=== PATIENT | female | born 1985 | race American Indian/Alaskan Native ===

== ENCOUNTER 2020-11-18 03:07 | Inpatient (IN) | payer MEDICARE, OTHER ==
--- NOTE | 2020-11-18 09:08 | Emergency Department Report ---
HPI - General Time Seen by Provider: 11/18/20 09:04 - [facility] HPI: Room 4 The patient is a 60-year-old female present with a chief complaint of dehydration. The patient states she initially came to the emergency department secondary to feeling "really dehydrated" since yesterday. The patient states she has had polyuria and polydipsia for the past week despite being compliant w ith her Lantus. Patient denies nausea vomiting or diarrhea. Patient denied having pain of any type including chest pain pressure or tightness. Patient denies history of cough or fever. While in the waiting room the patient decided to leave without being seen and while waiting for a ride states she felt dizzy and collapsed to the ground. Patient struck the back of her head. Patient was placed in a cervical collar and brought back to an exam room. ED Past Medical Hx - Past Medical History Hx Diabetes: Yes - Surgical History Past Surgical History?: No - Family History Family history: no significant - Social History Smoking Status: Never Smoker Substance Use Type: None ED Review of Systems ROS: Stated complaint: ANXIETY/CHEST PAIN/FALL Other details as noted in HPI Constitutional: denies: fever Eyes: denies: eye pain ENT: denies: throat pain Respiratory: denies: cough Cardiovascular: denies: chest pain Endocrine: increased thirst, increased urine Gastrointestinal: denies: nausea, vomiting, diarrhea Genitourinary: denies: dysuria Musculoskeletal: denies: back pain Neurological: denies: headache Physical Exam - Physical Exam Physical Exam: GENERAL: The patient is well-developed well-nourished female lying on stretcher appearing lethargic but answering questions appropriately. [] HEENT: Normocephalic. Occipital tenderness but no laceration seen. Extraocular motions are intact. Patient has moist mucous membranes. NECK: No axial step-offs. Cervical collar in place CHEST/LUNGS: Clear to auscultation. There is no respiratory distress noted. HEART/CARDIOVASCULAR: Regular. There is tachycardia. There is no gallop rub or murmur. ABDOMEN: Abdomen is soft, nontender. Patient has normal bowel sounds. There is no abdominal distention. SKIN: There is no rash. There is no edema. There is no diaphoresis. NEURO: The patient is awake but lethargic. Patient answers questions and speaks with full sentences but appears very fatigued. The patient is cooperative. The patient has no focal neurologic deficits. The patient has normal speech. GCS 14 MUSCULOSKELETAL: There is no evidence of acute injury. ED Medical Decision Making - Lab Data Result diagrams: 11/18/20 09:30 11/18/20 09:30 Laboratory Tests 11/18/20 11/18/20 11/18/20 09:30 09:30 09:30 WBC 15.4 H RBC 6.17 H Hgb 15.6 H Hct 48.2 H MCV 78 L MCH 25 L MCHC 32 RDW 18.9 H Plt Count 508 H Lymph % (Auto) 3.5 L [place] % (Auto) 6.7 Eos % (Auto) 0.0 Baso % (Auto) 0.3 Lymph # (Auto) 0.5 L [place] # (Auto) 1.0 H Eos # (Auto) 0.0 Baso # (Auto) 0.0 Seg Neutrophils % 89.5 H Seg Neutrophils # 13.8 H PT INR VBG pH Sodium 136 L Potassium 5.5 H Chloride 92.2 L BUN 27 H Creatinine 0.9 Estimated GFR > 60 BUN/Creatinine Ratio 30 Glucose 498 H Calcium 9.7 Total Bilirubin 0.50 AST 15 Alkaline Phosphatase 149 H Troponin T < 0.010 Total Protein 8.1 Albumin 4.1 Albumin/Globulin Ratio 1.0 TSH Free T4 HCG, Qual Negative 11/18/20 11/18/20 11/18/20 09:30 09:30 10:31 WBC RBC Hgb Hct MCV MCH MCHC RDW Plt Count Lymph % (Auto) [place] % (Auto) Eos % (Auto) Baso % (Auto) Lymph # (Auto) [place] # (Auto) Eos # (Auto) Baso # (Auto) Seg Neutrophils % Seg Neutrophils # PT 15.6 H INR 1.19 H VBG pH 7.124 L* Sodium Potassium Chloride BUN Creatinine Estimated GFR BUN/Creatinine Ratio Glucose Calcium Total Bilirubin AST Alkaline Phosphatase Troponin T Total Protein Albumin Albumin/Globulin Ratio TSH 0.864 Free T4 0.98 HCG, Qual - EKG Data -: EKG Interpreted by Mo EKG shows normal: sinus rhythm Rate: tachycardia (143 bpm) - EKG Data When compared to previous EKG there are: previous EKG unavailable Interpretation: other (No ischemic changes seen) - Radiology Data Radiology results: report reviewed (CT head, CT cervical spine, chest x-ray), image reviewed (CT head, CT cervical spine, chest x-ray) interpreted by me: Chest x-ray-no definite focal infiltrates, no pneumothorax. [address] [address] Cat Scan Report Signed Patient: MARISOL ALVARENGA MR#: [id number] : 1985 Acct:[id number] Age/Sex: 35 / F ADM Date: 11/18/20 Loc: ED Attending Dr: Ordering Physician: HUMBERTO MEADE MD Date of Service: 11/18/20 Procedure(s): CT head/brain wo con Accession Number(s): [id number] cc: HUMBERTO MEADE MD CT BRAIN: 11/18/2020 INDICATION / CLINICAL INFORMATION: Pain after fall. COMPARISON: None available. FINDINGS: BRAIN/INTRACRANIAL STRUCTURES: Unenhanced CT images of the brain demonstrate no evidence of acute intracranial abnormality. Ventricles and sulci are in size and shape. There is no evidence of hemorrhage or mass. Chronic appearing white matter hypoattenuation is present in the peritrigonal regions bilaterally. This can be associated with underlying white matter abnormalities such as small vessel ischemic changes or demyelination. There are no abnormal extra-axial fluid collections. EXTRACRANIAL STRUCTURES: Unremarkable. IMPRESSION: No acute abnormality. Chronic appearing white matter hypoattenuation. All CT scans at this location are performed using dose reduction to ALARA by means of automated exposure control. Signer Name: Kobi Frederick MD Signed: 11/18/2020 11:49 AM Workstation Name: [id number] Transcribed By: AO Dictated By: Kobi Frederick MD Electronically Authenticated By: Kobi Frederick MD Signed Date/Time: 11/18/20 1149 DD/ 1144 TD/TT: Print Cancel [address] [address] Cat Scan Report Signed Patient: MARISOL ALVARENGA MR#: [id number] : 1985 Acct:[id number] Age/Sex: 35 / F ADM Date: 11/18/20 Loc: ED Attending Dr: Or sergio Physician: HUMBERTO MEADE MD Date of Service: 11/18/20 Procedure(s): CT cervical spine wo con Accession Number(s): [id number] cc: HUMBERTO MEADE MD CT CERVICAL SPINE: 11/18/2020 INDICATION / CLINICAL INFORMATION: Pain after fall. COMPARISON: None available. FINDINGS: CT images of the cervical spine were obtained. Images are evaluated in the axial, coronal, and sagittal planes. There is no evidence of acute abnormality. Left convex scoliosis of the cervical spine is present. Straightening of cervical lordosis is noted in the sagittal plane. Vertebral body height and alignment is otherwise unremarkable. There is no evidence of canal or foraminal narrowing. CRANIOCERVICAL JUNCTION: Unremarkable. PARASPINAL STRUCTURES: There is abnormal soft tissue air densities present in the deep soft tissue planes of the upper mediastinum and right side of the neck, extending up to the parapharyngeal sp demario. The lower extent of abnormal mediastinal air is not included on this cervical spine imaging. This is of indeterminate source. The visualized pulmonary apices demonstrate no evidence of pneumothorax. IMPRESSION: No evidence of cervical spine fracture. Abnormal deep soft tissue air density, of indeterminate source. All CT scans at this location are performed using dose reduction to ALARA by means of automated exposure control. Signer Name: Kobi Frederick MD Signed: 11/18/2020 12:09 PM Workstation Name: [id number] Transcribed By: AO Dictated By: Kobi Frederick MD Electronically Authenticated By: Kobi Frederick MD Signed Date/Time: 11/18/20 120 DD/ 1206 TD/TT: Print Cancel [facility] [address] [place] [address] XRay Report Signed Patient: FREEDOM ALVARENGA MR#: [id number] : 07/26/1960 Acct:[id number] Age/Sex: 60 / F ADM Date: 11/18/20 Loc: ED Attending Dr: Ordering Physician: ALY GONZALEZ MD Date of Service: 11/18/20 Procedure(s): XR chest 1V ap Accession Number(s): [id number] cc: ALY GONZALEZ MD Fluoro Time In Minutes: CHEST 1 VIEW 11/18/2020 5:32 AM INDICATION / CLINICAL INFORMATION: Chest pain and SOB. Nausea. COMPARISON: None available. FINDINGS: SUPPORT DEVICES: None. HEART / MEDIASTINUM: No significant abnormality. LUNGS / PLEURA: No significant pulmonary or pleural abnormality. No pneumothorax. ADDITIONAL FINDINGS: No significant additional findings. IMPRESSION: 1. No acute findings. Signer Name: Julián Bowman MD Signed: 11/18/2020 5:46 AM Workstation Name: [id number] Transcribed By: DT Dictated By: Jose Bowman MD Electronically Authenticated By: Jose Bowman MD Signed Date/Time: 11/18/20545 DD/ 4 TD/TT: Print Cancel - Differential Diagnosis DKA, dehydration, syncope, closed head injury, cervical fracture Critical care attestation.: If time is entered above; I have spent that time in minutes in the direct care of this critically ill patient, excluding procedure time. ED Disposition Clinical Impression: DKA (diabetic ketoacidosis) Disposition: OP ADMIT IP TO THIS HOSP Is pt being admited?: Yes Does the pt Need Aspirin: No Condition: Fair Instructions: Diabetic Ketoacidosis (ED) Referrals: PRIMARY CARE, [Primary Care Provider] - 3-5 Days Time of Disposition: 12:43 (Hospitalist notified (Dr. Gonzalez))
[2020-11-18] MEDS ORDERED: SODIUM CHLORIDE 0.9% 1000 ML 1,000 ML IV ONE ×4 (10:00→19:44)
[2020-11-18 11:11] LABS: Basophils % (Auto) 0.3 % (0.0-1.8); Hematocrit 48.2 % (30.3-42.9); Hemoglobin 15.6 gm/dl (10.1-14.3); Lymphocytes # (Auto) 0.5 K/mm3 (1.2-5.4); Lymphocytes % (Auto) 3.5 % (13.4-35.0); Mean Corpuscular HGB Conc 32 % (30-34); Mean Corpuscular Volume 78 fl (79-97); Monocytes % (Auto) 6.7 % (0.0-7.3); Platelet Count 508 K/mm3 (140-440); Red Blood Count 6.17 M/mm3 (3.65-5.03); Red Cell Distribution Width 18.9 % (13.2-15.2)
[2020-11-18 11:20] LABS: INR 1.19 (0.87-1.13)
--- NOTE | 2020-11-18 11:55 | Cat Scan Report ---
CT BRAIN: 11/18/2020 INDICATION / CLINICAL INFORMATION: Pain after fall. COMPARISON: None available. FINDINGS: BRAIN/INTRACRANIAL STRUCTURES: Unenhanced CT images of the brain demonstrate no evidence of acute int racranial abnormality. Ventricles and sulci are in size and shape. There is no evidence of hemorrhage or mass. Chronic appearing white matter hypoattenuation is present in the peritrigonal regions bilaterally. Th is can be associated with underlying white matter abnormalities such as small vessel ischemic changes or demyelination. There are no abnormal extra-axial fluid collections. EXTRACRANIAL STRUCTURES: Unremarkable. IMPRESSION: No acute abnormality. Chronic appearing white matter hypoattenuation. All CT scans at this location are performed using dose reduction to ALARA by means of automated expos ure control. Signer Name: Kobi Frederick MD Signed: 11/18/2020 11:49 AM Workstation Name: [id number]
--- NOTE | 2020-11-18 12:13 | Cat Scan Report ---
CT CERVICAL SPINE: 11/18/2020 INDICATION / CLINICAL INFORMATION: Pain after fall. COMPARISON: None available. FINDINGS: CT images of the cervical spine were obtained. Images are evaluated in the axial, coronal, and sagitt al planes. There is no evidence of acute abnormality. Left convex scoliosis of the cervical spine is present. Straightening of cervical lordosis is noted i n the sagittal plane. Vertebral body height and alignment is otherwise unremarkable. There is no evidence of canal or foraminal narrowing. CRANIOCERVICAL JUNCTION: Unremarkable. PARASPINAL STRUCTURES: There is abnormal soft tissue air densities present in the deep soft tissue pl anes of the upper mediastinum and right side of the neck, extending up to the parapharyngeal space. T he lower extent of abnormal mediastinal air is not included on this cervical spine imaging. This is o f indeterminate source. The visualized pulmonary apices demonstrate no evidence of pneumothorax. IMPRESSION: No evidence of cervical spine fracture. Abnormal deep soft tissue air density, of indeterminate source. All CT scans at this location are performed using dose reduction to ALARA by means of automated expos ure control. Signer Name: Kobi Frederick MD Signed: 11/18/2020 12:09 PM Workstation Name: [id number]
[2020-11-18 12:32] LABS: Albumin 4.1 g/dL (3.9-5); BUN/Creatinine Ratio 30; Blood Urea Nitrogen 27 mg/dL (7-17); Calcium 9.7 mg/dL (8.4-10.2); Free T4 (Free Thyroxine) 0.98 ng/dL (0.76-1.46); Hemolysis Index 14
[2020-11-18] MEDS ORDERED: SODIUM BICARB 8.4% 50 MEQ/50 ML SYRINGE IV SCH (13:00)
[2020-11-18] MEDS ORDERED: INSULIN REGULAR, HUMAN 100 UNITS/1 ML IV SCH (13:00)
[2020-11-18] MEDS ORDERED: SODIUM CHLORIDE 0.9% 1000 ML 2,000 ML IV ONE (13:00)
[2020-11-18] MEDS ORDERED: INSULIN REGULAR, HUMAN 100 UNITS in SODIUM CHLORIDE 0.9% 99 ML IV SCH ×2 (13:00→16:00)
[2020-11-18 13:27] LABS: Alanine Aminotransferase 5 units/L (7-56)
[2020-11-18 14:28] LABS: BUN/Creatinine Ratio 33; Blood Urea Nitrogen 30 mg/dL (7-17); Calcium 9.4 mg/dL (8.4-10.2); Hemolysis Index 56
[2020-11-18 15:28] LABS: BUN/Creatinine Ratio 33; Blood Urea Nitrogen 33 mg/dL (7-17); Hemolysis Index 66
[2020-11-18] MEDS ORDERED: ALBUTEROL 2.5 MG/3 ML NEBU IH PRN (15:45)
[2020-11-18] MEDS ORDERED: oxyCODONE /ACETAMINOPHEN 5-325MG TAB PO PRN (15:45)
[2020-11-18] MEDS ORDERED: ONDANSETRON 4 MG/2 ML INJ IV PRN (15:45)
[2020-11-18] MEDS ORDERED: ACETAMINOPHEN 325 MG TAB PO PRN (15:45)
--- NOTE | 2020-11-18 15:47 | Cat Scan Report ---
CTA CHEST WITH IV CONTRAST INDICATION: mediastinal air. TECHNIQUE: Axial CT images were obtained through the chest after injection of 100 mL Omnipaque 350 IV contrast. 3 plane MIP reconstructions were produced. All CT scans at this location are performed using CT dose reduction for ALARA by means of automated exposure control. COMPARISON: None available. FINDINGS: Pulmonary Arteries: No pulmonary emboli. Lungs: There are patchy bilateral groundglass opacities in both lungs. There is no pneumothorax. Trachea and Bronchi: No significant abnormality. Heart and Pericardium: No significant abnormality. Vasculature: No significant abnormality. Lymphatics: No lymphadenopathy. Additional Findings: There is moderate pneumomediastinum. Upper Abdomen: No acute findings. Skeletal Structures: No acute findings or aggressive bone lesions. IMPRESSION: 1. No CT evidence for pulmonary embolism. 2. Moderate pneumomediastinum is present. 3. Patchy groundglass opacities in both lungs that may reflect multifocal pneumonia. Signer Name: Selvin Tao MD Signed: 11/18/2020 3:23 PM Workstation Name: [id number]
--- NOTE | 2020-11-18 15:48 | History and Physical Report ---
History of Present Illness Chief complaint: I feel sick History of present illness: 35 YO Female with DM presented to ED for evaluation. Patient reports "I feel sick". Patient states that she has experienced generalized weakness, nausea, fatigue, polyuria, polydipsia over the past 1 week with worsening symptoms over the past 3 days. EMS notified and upon arrival the patient was found to be in distress and subsequently transported to [facility] for further care and evaluation of the aforementioned symptoms. The patient was seen and evaluated in the emergency department. All lab and imaging studies reviewed. Patient found to have DKA, metabolic encephalopathy, volume depletion, and metabolic acidosis. The patient was admitted to ICU and initiated on DKA protocol. Patient denies fever, chills, chest pain, palpitation, productive cough, skin rash, recent ill contacts, or known exposure to COVID-19. No prior admission for review. No medication listed at time of admission reconciliation. Critical care team consulted in ED. Past History Past Medical History: diabetes Past Surgical History: No surgical history, Other (Reviewed) Social history: single. denies: smoking, alcohol abuse Family history: diabetes, hypertension Medications and Allergies Allergies Allergy/AdvReac Type Severity Reaction Status Date / Time No Known Allergies Allergy Unverified 11/18/20 12:45 Active Meds: Active Medications Acetaminophen (Acetaminophen 325 Mg Tab) 650 mg PO Q6H PRN PRN Reason: Pain MILD(1-3)/Fever >100.5/STUART Albuterol (Albuterol 2.5 Mg/3 Ml Nebu) 2.5 mg IH Q3HRT PRN PRN Reason: Shortness Of Breath Hydromorphone HCl (Hydromorphone 1 Mg/1 Ml Inj) 0.5 mg IV Q12H PRN PRN Reason: Pain , Severe (7-10) Insulin Human Regular 100 (units/ Sodium Chloride) 100 mls @ 6 mls/hr IV TITR EMMA; Protocol Insulin Human Regular 100 (units/ Sodium Chloride) 100 mls @ 1 mls/hr IV TITR EMMA; Protocol Ondansetron HCl (Ondansetron 4 Mg/2 Ml Inj) 4 mg IV Q8H PRN PRN Reason: Nausea And Vomiting Oxycodone/Acetaminophen (Oxycodone /Acetaminophen 5-325mg Tab) 1 tab PO Q12H PRN PRN Reason: Pain, Moderate (4-6) Sodium Chloride (Sodium Chloride 0.9% 10 Ml Flush Syringe) 10 ml IV BID EMMA Sodium Chloride (Sodium Chloride 0.9% 10 Ml Flush Syringe) 10 ml IV PRN PRN PRN Reason: LINE FLUSH Review of Systems Constitutional: no weight loss, no weight gain, no fever, no chills Ears, nose, mouth and throat: no ear pain, no tinnitis, no decreased hearing, no nose pain Breasts: no change in shape, no swelling, no mass Cardiovascular: no chest pain, no orthopnea, no rapid/irregular heart beat, no edema, no lightheadedness Respiratory: no cough, no excessive sputum, no hemoptysis, no shortness of breath Gastrointestinal: nausea, no abdominal pain, no vomiting, no diarrhea, no constipation Genitourinary Female: no pelvic pain, no flank pain, no dysuria, no urinary frequency, no urgency Rectal: no pain, no incontinence, no bleeding Musculoskeletal: no neck stiffness, no neck pain, no shooting arm pain, no arm numbness/tingling Integumentary: no rash, no redness, no sores, no wounds Neurological: no head injury, no weakness, no numbness, no tingling, no tremors Psychiatric: no anxiety, no memory loss, no insomnia, no hypersomnia, no change in appetite, no change in libido Endocrine: polyphagia, excessive thirst, polydipsia, polyuria Hematologic/Lymphatic: no easy bruising, no easy bleeding Allergic/Immunologic: no allergic rhinitis, no wheezing Exam - Constitutional Vitals: Temp Pulse Resp BP Pulse Ox 98.7 F 82 16 136/82 100 11/18/20 15:43 11/18/20 15:43 11/18/20 15:43 11/18/20 15:43 11/18/20 15:43 General appearance: Present: mild distress - EENT Eyes: Present: PERRL ENT: hearing intact, clear oral mucosa - Neck Neck: Present: supple, normal ROM - Respiratory Respiratory effort: normal Respiratory: bilateral: CTA - Cardiovascular Heart Sounds: Present: S1 & S2. Absent: rub, click - Extremities Extremities: pulses symmetrical, No edema Peripheral Pulses: within normal limits - Abdominal General gastrointestinal: Present: soft, non-tender, non-distended, normal bowel sounds Female genitourinary: Present: normal - Integumentary Integumentary: Present: clear, warm, dry - Musculoskeletal Musculoskeletal: gait normal, strength equal bilaterally - Psychiatric Psychiatric: appropriate mood/affect, intact judgment & insight - Neurologic Neurologic: CNII-XII intact, moves all extremities HEART Score - HEART Score Troponin: Troponin T < 0.010 ng/mL (0.00-0.029) 11/18/20 09:30 Results - Labs CBC & Chem 7: 11/18/20 09:30 11/18/20 16:46 Labs: Abnormal lab results 11/18/20 11/18/20 11/18/20 Range/Units 09:30 09:30 09:30 WBC 15.4 H (4.5-11.0) K/mm3 RBC 6.17 H (3.65-5.03) M/mm3 Hgb 15.6 H (10.1-14.3) gm/dl Hct 48.2 H (30.3-42.9) % MCV 78 L (79-97) fl MCH 25 L (28-32) pg RDW 18.9 H (13.2-15.2) % Plt Count 508 H (140-440) K/mm3 Lymph % (Auto) 3.5 L (13.4-35.0) % Lymph # (Auto) 0.5 L (1.2-5.4) K/mm3 [place] # (Auto) 1.0 H (0.0-0.8) K/mm3 Seg Neutrophils % 89.5 H (40.0-70.0) % Seg Neutrophils # 13.8 H (1.8-7.7) K/mm3 PT (12.2-14.9) Sec. INR (0.87-1.13) VBG pH 7.124 L* (7.320-7.420) Sodium 136 L (137-145) mmol/L Potassium 5.5 H (3.6-5.0) mmol/L Chloride 92.2 L (98-107) mmol/L Carbon Dioxide 6 L* (22-30) mmol/L BUN 27 H (7-17) mg/dL Glucose 498 H (65-100) mg/dL POC Glucose (70-105) mg/dL Magnesium (1.7-2.3) mg/dL ALT 5 L (7-56) units/L Alkaline Phosphatase 149 H (35-129) units/L 11/18/20 11/18/20 11/18/20 Range/Units 10:31 13:01 13:23 WBC (4.5-11.0) K/mm3 RBC (3.65-5.03) M/mm3 Hgb (10.1-14.3) gm/dl Hct (30.3-42.9) % MCV (79-97) fl MCH (28-32) pg RDW (13.2-15.2) % Plt Count (140-440) K/mm3 Lymph % (Auto) (13.4-35.0) % Lymph # (Auto) (1.2-5.4) K/mm3 [place] # (Auto) (0.0-0.8) K/mm3 Seg Neutrophils % (40.0-70.0) % Seg Neutrophils # (1.8-7.7) K/mm3 PT 15.6 H (12.2-14.9) Sec. INR 1.19 H (0.87-1.13) VBG pH (7.320-7.420) Sodium (137-145) mmol/L Potassium (3.6-5.0) mmol/L Chloride (98-107) mmol/L Carbon Dioxide (22-30) mmol/L BUN (7-17) mg/dL Glucose (65-100) mg/dL POC Glucose 594 H (70-105) mg/dL Magnesium 3.20 H (1.7-2.3) mg/dL ALT (7-56) units/L Alkaline Phosphatase (35-129) units/L 11/18/20 11/18/20 Range/Units 13:23 14:34 WBC (4.5-11.0) K/mm3 RBC (3.65-5.03) M/mm3 Hgb (10.1-14.3) gm/dl Hct (30.3-42.9) % MCV (79-97) fl MCH (28-32) pg RDW (13.2-15.2) % Plt Count (140-440) K/mm3 Lymph % (Auto) (13.4-35.0) % Lymph # (Auto) (1.2-5.4) K/mm3 [place] # (Auto) (0.0-0.8) K/mm3 Seg Neutrophils % (40.0-70.0) % Seg Neutrophils # (1.8-7.7) K/mm3 PT (12.2-14.9) Sec. INR (0.87-1.13) VBG pH (7.320-7.420) Sodium 135 L (137-145) mmol/L Potassium 5.4 H 5.8 H (3.6-5.0) mmol/L Chloride 91.9 L 95.8 L (98-107) mmol/L Carbon Dioxide 9 L* 5 L* (22-30) mmol/L BUN 30 H 33 H (7-17) mg/dL Glucose 513 H* 504 H* (65-100) mg/dL POC Glucose (70-105) mg/dL Magnesium (1.7-2.3) mg/dL ALT (7-56) units/L Alkaline Phosphatase (35-129) units/L Assessment and Plan - Patient Problems (1) DKA (diabetic ketoacidosis) Current Visit: Yes Status: Acute Qualifiers: Diabetes mellitus type: type 1 Plan to address problem: DKA protocol: Insulin drip, IV fluid resuscitation therapy, monitor urine output every shift, monitor anion gap, serial BMP, potassium repletion as per protocol: Critical care team consulted. The high probability of a clinically significant, sudden or life threatening deterioration of the [endocrine, neuro, renal] system(s) required my full and direct attention, intervention and personal management. The aggregate critical care time was [65] minutes. This time is in addition to time spent performing reported procedures but includes the following: [x] Data Review and interpretation [x] Patient assessment and monitoring of vital signs [x] Documentation [x] Medication orders and management (2) Metabolic encephalopathy Current Visit: Yes Status: Acute Plan to address problem: CT head, neuro check, seizure precaution, aspiration precautions, treat DKA. (3) Systemic inflammatory response syndrome Current Visit: Yes Status: Acute Plan to address problem: CBC, CMP, chest x-ray, urinalysis, empiric IV antibiotic therapy, repeat CBC in a.m. (4) Acidosis Current Visit: Yes Status: Acute Plan to address problem: BMP, IV fluid resuscitation therapy, treat DKA, repeat BMP in a.m. (5) Volume depletion Current Visit: Yes Status: Acute Plan to address problem: IV fluid resuscitation therapy, monitor urine output every shift, monitor fluid balance. (6) DVT prophylaxis Current Visit: Yes Status: Acute Plan to address problem: SCD to bilateral lower extremities while in bed, prophylactic anticoagulation
[2020-11-18 16:37] LABS: BUN/Creatinine Ratio 34; Blood Urea Nitrogen 31 mg/dL (7-17); Calcium 9.2 mg/dL (8.4-10.2); Hemolysis Index 132
[2020-11-18 17:14] LABS: BUN/Creatinine Ratio 35; Blood Urea Nitrogen 28 mg/dL (7-17); Calcium 7.8 mg/dL (8.4-10.2); Hemolysis Index 3
[2020-11-18 18:13] LABS: Bacteria,Urine 1+ /HPF (Negative); Bilirubin,Urine NEG (Negative); Blood,Urine MOD (Negative); Color,Urine Yellow (Yellow); Mucus,Urine FEW /HPF; Urobilinogen,Urine < 2.0 mg/dL (<2.0)
[2020-11-18 18:59] LABS: BUN/Creatinine Ratio 35; Blood Urea Nitrogen 28 mg/dL (7-17); Calcium 8.5 mg/dL (8.4-10.2); Hemolysis Index 12
[2020-11-18] MEDS ORDERED: SODIUM CHLORIDE 0.9% 1000 ML 1,000 ML IV SCH (20:00)
[2020-11-18 21:31] LABS: BUN/Creatinine Ratio 29; Blood Urea Nitrogen 23 mg/dL (7-17); Calcium 7.3 mg/dL (8.4-10.2); Hemolysis Index 5
[2020-11-19] MEDS ORDERED: D5W/0.45% NACL/KCL 20 MEQ 20 MEQ/1,000 ML BAG IV SCH (02:00)
[2020-11-19 03:10] LABS: Blood Urea Nitrogen 16 mg/dL (7-17); Calcium 7.9 mg/dL (8.4-10.2); Hemolysis Index 11
[2020-11-19 03:13] LABS: BUN/Creatinine Ratio 27
[2020-11-19] MEDS ORDERED: INSULIN GLARGINE 100 UNITS/ML SUB-Q ONE (05:00)
[2020-11-19] MEDS: INSULIN LISPRO 100 UNIT/ML SUB-Q SCH ×3 (05:05→17:39)
[2020-11-19 05:52] LABS: Blood Urea Nitrogen 13 mg/dL (7-17); Calcium 7.7 mg/dL (8.4-10.2); Hemolysis Index 20
[2020-11-19 05:57] LABS: BUN/Creatinine Ratio 22
[2020-11-19] MEDS ORDERED: SODIUM CHLORIDE 0.9% 1000 ML 2,000 ML IV ONE (07:49)
[2020-11-19 08:40] LABS: Blood Urea Nitrogen 12 mg/dL (7-17); Calcium 8.2 mg/dL (8.4-10.2); Hemolysis Index 3
[2020-11-19 08:47] LABS: BUN/Creatinine Ratio 20
[2020-11-19] MEDS: BACLOFEN 10 MG TAB PO SCH ×2 (09:47→18:05)
--- NOTE | 2020-11-19 09:48 | Consultation ---
History of Present Illness Consult date: 11/19/20 Reason for Consult: generalized weakness and DKA History of present illness: I feel sick History of present illness: 35 YO Female with DM presented to ED for evaluation. Patient reports "I feel sick". Patient states that she has experienced generalized weakness, nausea, fatigue, polyuria, polydipsia over the past 1 week with worsening symptoms over the past 3 days. EMS notified and upon arrival the patient was found to be in distress and subsequently transported to [facility] for further care and evaluation of the aforementioned symptoms. The patient was seen and evaluated in the emergency department. All lab and imaging studies reviewed. Patient found to have DKA, metabolic encephalopathy, volume depletion, and metabolic acidosis. The patient was admitted to ICU and initiated on DKA protocol. Patient denies fever, chills, chest pain, palpitation, productive cough, skin rash, recent ill contacts, or known exposure to COVID-19. No prior admission for review. No medication listed at time of admission reconciliation. Critical care team consulted in ED. In ER pt. Glucose was #462 ,Bicarb#7 and PH#7.12 and K#5.[address] brain is unremarkable she was diagnosed with DKA she was confused disoriented according to her in ER she fell and was out for 10 minutes ? she denied previous Hx of syncopy or seizure she check her suger daily at home Past History Past Medical History: diabetes Past Surgical History: No surgical history, Other (Reviewed) Social history: single. denies: smoking, alcohol abuse Family history: diabetes, hypertension Medications and Allergies Allergies Allergy/AdvReac Type Severity Reaction Status Date / Time No Known Allergies Allergy Unverified 11/18/20 12:45 Active Meds: Active Medications Acetaminophen (Acetaminophen 325 Mg Tab) 650 mg PO Q6H PRN PRN Reason: Pain MILD(1-3)/Fever >100.5/STUART Albuterol (Albuterol 2.5 Mg/3 Ml Nebu) 2.5 mg IH Q3HRT PRN PRN Reason: Shortness Of Breath Hydromorphone HCl (Hydromorphone 1 Mg/1 Ml Inj) 0.5 mg IV Q12H PRN PRN Reason: Pain , Severe (7-10) Insulin Human Regular 100 (units/ Sodium Chloride) 100 mls @ 6 mls/hr IV TITR EMMA; Protocol Insulin Human Regular 100 (units/ Sodium Chloride) 100 mls @ 1 mls/hr IV TITR EMMA; Protocol Ondansetron HCl (Ondansetron 4 Mg/2 Ml Inj) 4 mg IV Q8H PRN PRN Reason: Nausea And Vomiting Oxycodone/Acetaminophen (Oxycodone /Acetaminophen 5-325mg Tab) 1 tab PO Q12H PRN PRN Reason: Pain, Moderate (4-6) Sodium Chloride (Sodium Chloride 0.9% 10 Ml Flush Syringe) 10 ml IV BID EMMA Sodium Chloride (Sodium Chloride 0.9% 10 Ml Flush Syringe) 10 ml IV PRN PRN PRN Reason: LINE FLUSH Review of Systems Constitutional: no weight loss, no weight gain, no fever, no chills Ears, nose, mouth and throat: no ear pain, no tinnitis, no decreased hearing, no nose pain Breasts: no change in shape, no swelling, no mass Cardiovascular: no chest pain, no orthopnea, no rapid/irregular heart beat, no edema, no lightheadedness Respiratory: no cough, no excessive sputum, no hemoptysis, no shortness of breath Gastrointestinal: nausea, no abdominal pain, no vomiting, no diarrhea, no constipation Genitourinary Female: no pelvic pain, no flank pain, no dysuria, no urinary frequency, no urgency Rectal: no pain, no incontinence, no bleeding Musculoskeletal: no neck stiffness, no neck pain, no shooting arm pain, no arm numbness/tingling Integumentary: no rash, no redness, no sores, no wounds Neurological: no head injury, no weakness, no numbness, no tingling, no tremors Psychiatric: no anxiety, no memory loss, no insomnia, no hypersomnia, no change in appetite, no change in libido Endocrine: polyphagia, excessive thirst, polydipsia, polyuria Hematologic/Lymphatic: no easy bruising, no easy bleeding Allergic/Immunologic: no allergic rhinitis, no wheezing Past History Past Medical History: diabetes Past Surgical History: No surgical history, Other (Reviewed) Social history: single. denies: smoking, alcohol abuse Family history: diabetes, hypertension Medications and Allergies Allergies Allergy/AdvReac Type Severity Reaction Status Date / Time No Known Allergies Allergy Unverified 11/18/20 12:45 Home Medications Medication Instructions Recorded Confirmed Last Taken Type No Known Home Medications [No 11/18/20 11/18/20 Unknown History Reported Home Medications] Active Meds: Active Medications Acetaminophen (Acetaminophen 325 Mg Tab) 650 mg PO Q6H PRN PRN Reason: Pain MILD(1-3)/Fever >100.5/STUART Albuterol (Albuterol 2.5 Mg/3 Ml Nebu) 2.5 mg IH Q3HRT PRN PRN Reason: Shortness Of Breath Baclofen (Baclofen 10 Mg Tab) 5 mg PO TID EMMA Hydromorphone HCl (Hydromorphone 1 Mg/1 Ml Inj) 0.5 mg IV Q12H PRN PRN Reason: Pain , Severe (7-10) Insulin Human Regular 100 (units/ Sodium Chloride) 100 mls @ 6 mls/hr IV TITR EMMA; Protocol Last Titration: 11/19/20 04:46 Dose: 0 units/hr, 0 mls/hr Documented by: Potassium Chloride/Dextrose/Sod Cl (D5w/0.45% Nacl/Kcl 20 Meq) 20 meq in 1,000 mls @ 125 mls/hr IV DIRECT EMMA Last Admin: 11/19/20 03:22 Dose: 125 mls/hr Documented by: Sodium Chloride (Nacl 0.9% 1000 Ml) 2,000 mls @ 999 mls/hr IV BOLUS ONE Stop: 11/19/20 09:49 Insulin Human Lispro (Insulin Lispro 100 Unit/Ml) 0 unit SUB-Q Q4HR EMMA; Protoc ol Last Admin: 11/19/20 05:05 Dose: 3 unit Documented by: Meloxicam (Meloxicam 7.5 Mg Tab) 7.5 mg PO QDAY [facility] Ondansetron HCl (Ondansetron 4 Mg/2 Ml Inj) 4 mg IV Q8H PRN PRN Reason: Nausea And Vomiting Last Admin: 11/18/20 22:13 Dose: 4 mg Documented by: Oxycodone/Acetaminophen (Oxycodone /Acetaminophen 5-325mg Tab) 1 tab PO Q6H PRN PRN Reason: Pain, Moderate (4-6) Sodium Chloride (Sodium Chloride 0.9% 10 Ml Flush Syringe) 10 ml IV BID EMMA Last Admin: 11/18/20 21:16 Dose: 10 ml Documented by: Sodium Chloride (Sodium Chloride 0.9% 10 Ml Flush Syringe) 10 ml IV PRN PRN PRN Reason: LINE FLUSH Physical Examination - Vital Signs Vital Signs: Vital Signs Pulse Resp BP Pulse Ox 86 20 133/84 97 11/18/20 12:24 11/18/20 12:24 11/18/20 12:24 11/18/20 12:24 - Constitutional General appearance: comfortable - EENT EENT: Present: PERRL, mucous membranes moist - Respiratory Respiratory: Present: chest non-tender, lungs clear, rhonchi - Cardiovascular Cardiovascular: Present: regular rate, normal S1, normal S2 Extremities: Present: no peripheral edema bilatateraly, no clubbing, cyanosis - Gastrointestinal Gastrointestinal: Present: normoactive bowel sounds - Integumentary Integumentary: Present: normal - Neurologic Cranial nerve examination: anosmic, PERRL, EOMI, intact Speech examination: intact Sensorimotor examination: intact, other (she is slightly confused oriented to place not date had difficulty remebering her date of ,no aphasia) Detailed motor examination: grossly full strength in Results - Laboratory Findings CBC and BMP: 11/19/20 09:25 11/19/20 07:29 Abnormal Lab Findings: Abnormal Labs 11/18/20 11/18/20 11/18/20 09:30 09:30 09:30 WBC 15.4 H RBC 6.17 H Hgb 15.6 H Hct 48.2 H MCV 78 L MCH 25 L RDW 18.9 H Plt Count 508 H Lymph % (Auto) 3.5 L Lymph # (Auto) 0.5 L [place] # (Auto) 1.0 H Seg Neutrophils % 89.5 H Seg Neutrophils # 13.8 H PT INR VBG pH 7.124 L* Sodium 136 L Potassium 5.5 H Chloride 92.2 L Carbon Dioxide 6 L* BUN 27 H Glucose 498 H POC Glucose Calcium Magnesium ALT 5 L Alkaline Phosphatase 149 H Ur Specific [place] 11/18/20 11/18/20 11/18/20 10:31 13:01 13:23 WBC RBC Hgb Hct MCV MCH RDW Plt Count Lymph % (Auto) Lymph # (Auto) [place] # (Auto) Seg Neutrophils % Seg Neutrophils # PT 15.6 H INR 1.19 H VBG pH Sodium Potassium Chloride Carbon Dioxide BUN Glucose POC Glucose 594 H Calcium Magnesium 3.20 H ALT Alkaline Phosphatase Ur Specific [place] 11/18/20 11/18/20 11/18/20 13:23 14:34 15:56 WBC RBC Hgb Hct MCV MCH RDW Plt Count Lymph % (Auto) Lymph # (Auto) [place] # (Auto) Seg Neutrophils % Seg Neutrophils # PT INR VBG pH Sodium 135 L Potassium 5.4 H 5.8 H Chloride 91.9 L 95.8 L Carbon Dioxide 9 L* 5 L* BUN 30 H 33 H Glucose 513 H* 504 H* POC Glucose Calcium Magnesium 3.00 H ALT Alkaline Phosphatase Ur Specific [place] 11/18/20 11/18/20 11/18/20 15:56 16:46 17:38 WBC RBC Hgb Hct MCV MCH RDW Plt Count Lymph % (Auto) Lymph # (Auto) [place] # (Auto) Seg Neutrophils % Seg Neutrophils # PT INR VBG pH Sodium Potassium 5.1 H Chloride 95.7 L 107.3 H Carbon Dioxide 7 L* 7 L* BUN 31 H 28 H Glucose 462 H 382 H POC Glucose Calcium 7.8 L D Magnesium ALT Alkaline Phosphatase Ur Specific [place] 1.037 H 11/18/20 11/18/20 11/18/20 18:29 20:56 21:06 WBC RBC Hgb Hct MCV MCH RDW Plt Count Lymph % (Auto) Lymph # (Auto) [place] # (Auto) Seg Neutrophils % Seg Neutrophils # PT INR VBG pH Sodium 146 H Potassium Chloride 114.4 H Carbon Dioxide 8 L* 8 L* BUN 28 H 23 H Glucose 360 H 284 H POC Glucose 281 H Calcium 7.3 L Magnesium ALT Alkaline Phosphatase Ur Specific [place] 11/18/20 11/18/20 11/19/20 22:26 23:39 00:36 WBC RBC Hgb Hct MCV MCH RDW Plt Count Lymph % (Auto) Lymph # (Auto) [place] # (Auto) Seg Neutrophils % Seg Neutrophils # PT INR VBG pH Sodium Potassium Chloride Carbon Dioxide BUN Glucose POC Glucose 174 H 140 H 133 H Calcium Magnesium ALT Alkaline Phosphatase Ur Specific [place] 11/19/20 11/19/20 11/19/20 01:26 02:32 02:47 WBC RBC Hgb Hct MCV MCH RDW Plt Count Lymph % (Auto) Lymph # (Auto) [place] # (Auto) Seg Neutrophils % Seg Neutrophils # PT INR VBG pH Sodium 147 H Potassium Chloride 114.5 H Carbon Dioxide 13 L BUN Glucose 134 H POC Glucose 130 H 149 H Calcium 7.9 L Magnesium ALT Alkaline Phosphatase Ur Specific [place] 11/19/20 11/19/20 11/19/20 04:52 05:02 07:29 WBC RBC Hgb Hct MCV MCH RDW Plt Count Lymph % (Auto) Lymph # (Auto) [place] # (Auto) Seg Neutrophils % Seg Neutrophils # PT INR VBG pH Sodium 149 H 147 H Potassium Chloride 115.3 H 112.3 H Carbon Dioxide 16 L 16 L BUN Glucose 193 H 219 H POC Glucose 227 H Calcium 7.7 L 8.2 L Magnesium ALT Alkaline Phosphatase Ur Specific [place] 11/19/20 09:42 WBC RBC Hgb Hct MCV MCH RDW Plt Count Lymph % (Auto) Lymph # (Auto) [place] # (Auto) Seg Neutrophils % Seg Neutrophils # PT INR VBG pH Sodium Potassium Chloride Carbon Dioxide BUN Glucose POC Glucose 206 H Calcium Magnesium ALT Alkaline Phosphatase Ur Specific [place] Assessment and Plan Assessment and Plan - Patient Problems # DKA (diabetic ketoacidosis) -DKA protocol: Insulin drip, IV fluid resuscitation therapy, monitor urine output every shift, monitor anion gap, serial BMP, potassium repletion as per protocol: Critical care team consulted. The high probability of a clinically significant, sudden or life threatening deterioration of the [endocrine, neuro, renal] system(s) required my full and direct attention, intervention and personal management. The aggregate critical care time was [65] minutes. This time is in addition to time spent performing reported procedures but includes the following: # Metabolic encephalopathy -CT head, neuro check, seizure precaution, aspiration precautions, treat DKA. # pt. discripes fall and LOC? mostly related to above -Suggest Brain MRI # Systemic inflammatory response syndrome -CBC, CMP, chest x-ray, urinalysis, empiric IV antibiotic therapy, repeat CBC in a.m. # Acidosis -BMP, IV fluid resuscitation therapy, treat DKA, repeat BMP in a.m. # Volume depletion -IV fluid resuscitation therapy, monitor urine output every shift, monitor fluid balance. #DVT prophylaxis -SCD to bilateral lower extremities while in bed, prophylactic anticoagulation PLAN 1- Brain MRI wo gd 2- Correct underlying electrolytes abn. 3- Control Suger 4- Iv Hydration 5- check for orthostatic changes in BP 6- Treat underlying infection will follow
[2020-11-19 09:59] LABS: Basophils # (Auto) 0.1 K/mm3 (0.0-0.1); Basophils % (Auto) 0.6 % (0.0-1.8); Hematocrit 35.2 % (30.3-42.9); Hemoglobin 11.7 gm/dl (10.1-14.3); Lymphocytes # (Auto) 0.4 K/mm3 (1.2-5.4); Lymphocytes % (Auto) 3.2 % (13.4-35.0); Mean Corpuscular HGB Conc 33 % (30-34); Mean Corpuscular Volume 74 fl (79-97); Monocytes # (Auto) 1.1 K/mm3 (0.0-0.8); Monocytes % (Auto) 8.4 % (0.0-7.3); Platelet Count 319 K/mm3 (140-440); Red Blood Count 4.76 M/mm3 (3.65-5.03); Red Cell Distribution Width 17.8 % (13.2-15.2)
--- NOTE | 2020-11-19 11:53 | Progress Note ---
Assessment and Plan Assessment and plan: 35 YO Female with DM presented to ED for evaluation. Patient reports "I feel sick". Patient states that she has experienced generalized weakness, nausea, fatigue, polyuria, polydipsia over the past 1 week with worsening symptoms over the past 3 days. EMS notified and upon arrival the patient was found to be in distress and subsequently transported to [facility] for further care and evaluation of the aforementioned symptoms. The patient was seen and evaluated in the emergency department. All lab and imaging studies reviewed. Patient found to have DKA, metabolic encephalopathy, volume depletion, and metabolic acidosis. The patient was admitted to ICU and initiated on DKA protocol. Patient denies f ever, chills, chest pain, palpitation, productive cough, skin rash, recent ill contacts, or known exposure to COVID-19. No prior admission for review. No medication listed at time of admission reconciliation. Critical care team consulted in ED. 11/19: Patient seen and examined today CT of the head revealed a CT cervical spine no acute pathology noted CT of the chest shows a moderate pneumomediastinum and patchy groundglass opacities in both lungs thought to represent possible pneumonia. Patient does have leukocytosis which could be reactive. I do not see inciting factor for her DKA except possible noncompliance with her medication. We will continue DKA protocol at this time. Will give additional 2 L of fluids. She does appear older than stated age we will also rule out COVID- 19 at this time. Will obtain neurology evaluation considering her syncope and also her profound lethargy this morning. Plan of care discussed with the patient and also with the insurance company patient will be (1) DKA (diabetic ketoacidosis) Current Visit: Yes Status: Acute Qualifiers: Diabetes mellitus type: type 1 Plan to address problem: DKA protocol: Insulin drip, IV fluid resuscitation therapy, monitor urine output every shift, monitor anion gap, serial BMP, potassium repletion as per protocol: Critical care team consulted. (2) Metabolic encephalopathy Current Visit: Yes Status: Acute Plan to address problem: CT head, neuro check, seizure precaution, aspiration precautions, treat DKA. (3) Systemic inflammatory response syndrome Current Visit: Yes Status: Acute Plan to address problem: CBC, CMP, chest x-ray, urinalysis, empiric IV antibiotic therapy, repeat CBC in a.m. (4) Acidosis Current Visit: Yes Status: Acute Plan to address problem: BMP, IV fluid resuscitation therapy, treat DKA, repeat BMP in a.m. (5) Volume depletion Current Visit: Yes Status: Acute Plan to address problem: IV fluid resuscitation therapy, monitor urine output every shift, monitor fluid balance. (6) syncope (7) head trauma (8) DVT prophylaxis Current Visit: Yes Status: Acute Plan to address problem: SCD to bilateral lower extremities while in bed, prophylactic anticoagulation The high probability of a clinically significant, sudden or life threatening deterioration of the [endocrine, neuro, renal] system(s) required my full and direct attention, intervention and personal management. The aggregate critical care time was [35] minutes. This time is in addition to time spent performing reported procedures but includes the following: [x] Data Review and interpretation [x] Patient assessment and monitoring of vital signs [x] Documentation [x] Medication orders and management History Interval history: Patient seen and examined, she complains of headache from her fall earlier. She Susan blurry vision, nausea, vomiting. She appears lethargic and a bit withdrawn. She could not answer questions about her medication at home if she Hospitalist Physical - Physical exam Narrative exam: VITAL SIGNS: Reviewed. GENERAL: The patient appears normally developed, little lethargic at this vital signs as documented. HEAD: No signs of head trauma. EYES: Pupils are equal. Extraocular motions intact. EARS: Hearing grossly intact. MOUTH: Oropharynx is normal. NECK: No adenopathy, no JVD. CHEST: Chest with diminished breath sounds bilaterally. No wheezes, rales, or rhonchi. CARDIAC: Regular rate and rhythm. S1 and S2, without murmurs, gallops, or ru bs. VASCULAR: No Edema. Peripheral pulses normal and equal in all extremities. ABDOMEN: Soft, non tender and non distended. No rebound or guarding, and no masses palpated. Bowel Sounds normal. MUSCULOSKELETAL: Tender to touch at the posterior scapular area. No overt bleeding noted. Good range of motion of all major joints. Extremities without clubbing, cyanosis or edema. NEUROLOGIC EXAM: Awake oriented x3 but lethargic no focal sensory or strength deficits. Speech normal. Follows commands. PSYCHIATRIC: Mood normal. SKIN: detail exam as documented in skin assessment - Constitutional Vitals: Temp Pulse Resp BP Pulse Ox 98.7 F 128 H 26 H 140/77 95 11/18/20 15:43 11/19/20 06:47 11/19/20 06:47 11/19/20 06:31 11/19/20 06:47 General appearance: Present: mild distress HEART Score - HEART Score Troponin: Troponin T < 0.010 ng/mL (0.00-0.029) 11/18/20 09:30 Results - Labs CBC & Chem 7: 11/19/20 09:25 11/19/20 07:29 Labs: Laboratory Last Values WBC 12.7 K/mm3 (4.5-11.0) H 11/19/20 09:25 RBC 4.76 M/mm3 (3.65-5.03) 11/19/20 09:25 Hgb 11.7 gm/dl (10.1-14.3) D 11/19/20 09:25 Hct 35.2 % (30.3-42.9) D 11/19/20 09:25 MCV 74 fl (79-97) L 11/19/20 09:25 MCH 25 pg (28-32) L 11/19/20 09:25 MCHC 33 % (30-34) 11/19/20 09:25 RDW 17.8 % (13.2-15.2) H 11/19/20 09:25 Plt Count 319 K/mm3 (140-440) 11/19/20 09:25 Lymph % (Auto) 3.2 % (13.4-35.0) L 11/19/20 09:25 [place] % (Auto) 8.4 % (0.0-7.3) H 11/19/20 09:25 Eos % (Auto) 0.0 % (0.0-4.3) 11/19/20 09:25 Baso % (Auto) 0.6 % (0.0-1.8) 11/19/20 09:25 Lymph # (Auto) 0.4 K/mm3 (1.2-5.4) L 11/19/20 09:25 [place] # (Auto) 1.1 K/mm3 (0.0-0.8) H 11/19/20 09:25 Eos # (Auto) 0.0 K/mm3 (0.0-0.4) 11/19/20 09:25 Baso # (Auto) 0.1 K/mm3 (0.0-0.1) 11/19/20 09:25 Seg Neutrophils % 87.8 % (40.0-70.0) H 11/19/20 09:25 Seg Neutrophils # 11.2 K/mm3 (1.8-7.7) H 11/19/20 09:25 PT 15.6 Sec. (12.2-14.9) H 11/18/20 10:31 INR 1.19 (0.87-1.13) H 11/18/20 10:31 VBG pH 7.124 (7.320-7.420) L* 11/18/20 09:30 Sodium 147 mmol/L (137-145) H 11/19/20 07:29 Potassium 3.8 mmol/L (3.6-5.0) 11/19/20 07:29 Chloride 112.3 mmol/L (98-107) H 11/19/20 07:29 Carbon Dioxide 16 mmol/L (22-30) L 11/19/20 07:29 Anion Gap 23 mmol/L 11/19/20 07:29 BUN 12 mg/dL (7-17) 11/19/20 07:29 Creatinine 0.6 mg/dL (0.6-1.2) 11/19/20 07:29 Estimated GFR > 60 ml/min 11/19/20 07:29 BUN/Creatinine Ratio 20 % 11/19/20 07:29 Glucose 219 mg/dL (65-100) H 11/19/20 07:29 POC Glucose 226 mg/dL (70-105) H 11/19/20 11:03 Calcium 8.2 mg/dL (8.4-10.2) L 11/19/20 07:29 Phosphorus 3.50 mg/dL (2.5-4.5) 11/18/20 15:56 Magnesium 3.00 mg/dL (1.7-2.3) H 11/18/20 15:56 Total Bilirubin 0.50 mg/dL (0.1-1.2) 11/18/20 09:30 AST 15 units/L (5-40) 11/18/20 09:30 ALT 5 units/L (7-56) L 11/18/20 09:30 Alkaline Phosphatase 149 units/L (35-129) H 11/18/20 09:30 Troponin T < 0.010 ng/mL (0.00-0.029) 11/18/20 09:30 Total Protein 8.1 g/dL (6.3-8.2) 11/18/20 09:30 Albumin 4.1 g/dL (3.9-5) 11/18/20 09:30 Albumin/Globulin Ratio 1.0 % 11/18/20 09:30 TSH 0.864 mlU/mL (0.270-4.200) 11/18/20 09:30 Free T4 0.98 ng/dL (0.76-1.46) 11/18/20 09:30 HCG, Qual Negative (Negative) 11/18/20 09:30 Urine Color Yellow (Yellow) 11/18/20 17:38 Urine Turbidity Clear (Clear) 11/18/20 17:38 Urine pH 5.0 (5.0-7.0) 11/18/20 17:38 Ur Specific [place] 1.037 (1.003-1.030) H 11/18/20 17:38 Urine Protein 100 mg/dl mg/dL (Negative) 11/18/20 17:38 Urine Glucose (UA) >=500 mg/dL (Negative) 11/18/20 17:38 Urine Ketones 80 mg/dL (Negative) 11/18/20 17:38 Urine Blood Mod (Negative) 11/18/20 17:38 Urine Nitrite Neg (Negative) 11/18/20 17:38 Urine Bilirubin Neg (Negative) 11/18/20 17:38 Urine Urobilinogen < 2.0 mg/dL (<2.0) 11/18/20 17:38 Ur Leukocyte Esterase Neg (Negative) 11/18/20 17:38 Urine WBC (Auto) 2.0 /HPF (0.0-6.0) 11/18/20 17:38 Urine RBC (Auto) 1.0 /HPF (0.0-6.0) 11/18/20 17:38 U Epithel Cells (Auto) 1.0 /HPF (0-13.0) 11/18/20 17:38 Urine Bacteria (Auto) 1+ /HPF (Negative) 11/18/20 17:38 Urine Mucus Few /HPF 11/18/20 17:38 Tang/IV: Voiding Method External Female Catheter Active Medications - Current Medications Current Medications: Generic Name Dose Route Start Last Admin Trade Name Freq PRN Reason Stop Dose Admin Acetaminophen 650 mg 11/18/20 15:45 Acetaminophen 325 Mg Tab PO Q6H PRN Pain MILD(1-3)/Fever >100.5/STUART Albuterol 2.5 mg 11/18/20 15:45 Albuterol 2.5 Mg/3 Ml Nebu IH Q3HRT PRN Shortness Of Breath Baclofen 5 mg 11/19/20 09:00 11/19/20 09:47 Baclofen 10 Mg Tab PO 5 mg TID EMMA Administration Hydromorphone HCl 0.5 mg 11/18/20 15:45 Hydromorphone 1 Mg/1 Ml Inj IV Q12H PRN Pain , Severe (7-10) Insulin Human Regular 100 100 mls @ 6 mls/hr 11/18/20 13:00 11/19/20 04:46 units/ Sodium Chloride IV 0 units/hr TITR EMMA 0 mls/hr Titration Protocol 6 UNITS/HR Potassium Chloride/Dextrose/Sod Cl 20 meq in 1,000 mls @ 125 mls/hr 11/19/20 02:00 11/19/20 03:22 D5w/0.45% Nacl/Kcl 20 Meq IV 125 mls/hr DIRECT EMMA Administration Insulin Human Lispro 0 unit 11/19/20 06:00 11/19/20 09:47 Insulin Lispro 100 Unit/Ml SUB-Q 3 unit Q4HR EMMA Administration Protocol Meloxicam 7.5 mg 11/19/20 10:00 Meloxicam 7.5 Mg Tab PO QDAY EMMA Ondansetron HCl 4 mg 11/18/20 15:45 11/18/20 22:13 Ondansetron 4 Mg/2 Ml Inj IV 4 mg Q8H PRN Administration Nausea And Vomiting Oxycodone/Acetaminophen 1 tab 11/19/20 09:00 Oxycodone /Acetaminophen 5-325mg Tab PO Q6H PRN Pain, Moderate (4-6) Sodium Chloride 10 ml 11/18/20 22:00 11/18/20 21:16 Sodium Chloride 0.9% 10 Ml Flush Syringe IV 10 ml BID EMMA Administration Sodium Chloride 10 ml 11/18/20 15:45 Sodium Chloride 0.9% 10 Ml Flush Syringe IV PRN PRN LINE FLUSH
[2020-11-19] MEDS: MELOXICAM 7.5 MG TAB PO SCH (12:03)
--- NOTE | 2020-11-19 13:49 | Consultation ---
History of Present Illness Consult date: 11/19/20 Requesting physician: KENAN STANFORD Reason for consult: other (DKA) History of present illness: PULMONARY/CCM CONSULT NOTE (Full note dictated) Please see dictated notes for full details Past History Past Medical History: diabetes Past Surgical History: No surgical history, Other (Reviewed) Social history: single. denies: smoking, alcohol abuse Family history: diabetes, hypertension Medications and Allergies Allergies Allergy/AdvReac Type Severity Reaction Status Date / Time No Known Allergies Allergy Unverified 11/18/20 12:45 Home Medications Medication Instructions Recorded Confirmed Last Taken Type No Known Home Medications [No 11/18/20 11/18/20 Unknown History Reported Home Medications] Active Meds: Active Medications Acetaminophen (Acetaminophen 325 Mg Tab) 650 mg PO Q6H PRN PRN Reason: Pain MILD(1-3)/Fever >100.5/STUART Albuterol (Albuterol 2.5 Mg/3 Ml Nebu) 2.5 mg IH Q3HRT PRN PRN Reason: Shortness Of Breath Baclofen (Baclofen 10 Mg Tab) 5 mg PO TID EMMA Last Admin: 11/19/20 09:47 Dose: 5 mg Documented by: Hydromorphone HCl (Hydromorphone 1 Mg/1 Ml Inj) 0.5 mg IV Q12H PRN PRN Reason: Pain , Severe (7-10) Insulin Human Regular 100 (units/ Sodium Chloride) 100 mls @ 6 mls/hr IV TITR EMMA; Protocol Last Titration: 11/19/20 04:46 Dose: 0 units/hr, 0 mls/hr Documented by: Potassium Chloride/Dextrose/Sod Cl (D5w/0.45% Nacl/Kcl 20 Meq) 20 meq in 1,000 mls @ 125 mls/hr IV DIRECT EMMA Last Admin: 11/19/20 03:22 Dose: 125 mls/hr Documented by: Insulin Human Lispro (Insulin Lispro 100 Unit/Ml) 0 unit SUB-Q Q4HR EMMA; Protocol Last Admin: 11/19/20 09:47 Dose: 3 unit Documented by: Meloxicam (Meloxicam 7.5 Mg Tab) 7.5 mg PO QDAY EMMA Ondansetron HCl (Ondansetron 4 Mg/2 Ml Inj) 4 mg IV Q8H PRN PRN Reason: Nausea And Vomiting Last Admin: 11/18/20 22:13 Dose: 4 mg Documented by: Oxycodone/Acetaminophen (Oxycodone /Acetaminophen 5-325mg Tab) 1 tab PO Q6H PRN PRN Reason: Pain, Moderate (4-6) Sodium Chloride (Sodium Chloride 0.9% 10 Ml Flush Syringe) 10 ml IV BID EMMA Last Admin: 11/18/20 21:16 Dose: 10 ml Documented by: Sodium Chloride (Sodium Chloride 0.9% 10 Ml Flush Syringe) 10 ml IV PRN PRN PRN Reason: LINE FLUSH Physical Examination Vital signs: Vital Signs Pulse Resp BP Pulse Ox 86 20 133/84 97 11/18/20 12:24 11/18/20 12:24 11/18/20 12:24 11/18/20 12:24 Results - Laboratory Findings CBC and BMP: 11/19/20 09:25 11/19/20 15:49 PT/INR, D-dimer PT 15.6 Sec. (12.2-14.9) H 11/18/20 10:31 INR 1.19 (0.87-1.13) H 11/18/20 10:31 Abnormal lab findings: Abnormal Labs 11/18/20 11/18/20 11/18/20 09:30 09:30 09:30 WBC 15.4 H RBC 6.17 H Hgb 15.6 H Hct 48.2 H MCV 78 L MCH 25 L RDW 18.9 H Plt Count 508 H Lymph % (Auto) 3.5 L [place] % (Auto) Lymph # (Auto) 0.5 L [place] # (Auto) 1.0 H Seg Neutrophils % 89.5 H Seg Neutrophils # 13.8 H PT INR VBG pH 7.124 L* Sodium 136 L Potassium 5.5 H Chloride 92.2 L Carbon Dioxide 6 L* BUN 27 H Glucose 498 H POC Glucose Calcium Magnesium ALT 5 L Alkaline Phosphatase 149 H Ur Specific [place] 11/18/20 11/18/20 11/18/20 10:31 13:01 13:23 WBC RBC Hgb Hct MCV MCH RDW Plt Count Lymph % (Auto) [place] % (Auto) Lymph # (Auto) [place] # (Auto) Seg Neutrophils % Seg Neutrophils # PT 15.6 H INR 1.19 H VBG pH Sodium Potassium Chloride Carbon Dioxide BUN Glucose POC Glucose 594 H Calcium Magnesium 3.20 H ALT Alkaline Phosphatase Ur Specific [place] 11/18/20 11/18/20 11/18/20 13:23 14:34 15:56 WBC RBC Hgb Hct MCV MCH RDW Plt Count Lymph % (Auto) [place] % (Auto) Lymph # (Auto) [place] # (Auto) Seg Neutrophils % Seg Neutrophils # PT INR VBG pH Sodium 135 L Potassium 5.4 H 5.8 H Chloride 91.9 L 95.8 L Carbon Dioxide 9 L* 5 L* BUN 30 H 33 H Glucose 513 H* 504 H* POC Glucose Calcium Magnesium 3.00 H ALT Alkaline Phosphatase Ur Specific [place] 11/18/20 11/18/20 11/18/20 15:56 16:46 17:38 WBC RBC Hgb Hct MCV MCH RDW Plt Count Lymph % (Auto) [place] % (Auto) Lymph # (Auto) [place] # (Auto) Seg Neutrophils % Seg Neutrophils # PT INR VBG pH Sodium Potassium 5.1 H Chloride 95.7 L 107.3 H Carbon Dioxide 7 L* 7 L* BUN 31 H 28 H Glucose 462 H 382 H POC Glucose Calcium 7.8 L D Magnesium ALT Alkaline Phosphatase Ur Specific [place] 1.037 H 11/18/20 11/18/20 11/18/20 18:29 20:56 21:06 WBC RBC Hgb Hct MCV MCH RDW Plt Count Lymph % (Auto) [place] % (Auto) Lymph # (Auto) [place] # (Auto) Seg Neutrophils % Seg Neutrophils # PT INR VBG pH Sodium 146 H Potassium Chloride 114.4 H Carbon Dioxide 8 L* 8 L* BUN 28 H 23 H Glucose 360 H 284 H POC Glucose 281 H Calcium 7.3 L Magnesium ALT Alkaline Phosphatase Ur Specific [place] 11/18/20 11/18/20 11/19/20 22:26 23:39 00:36 WBC RBC Hgb Hct MCV MCH RDW Plt Count Lymph % (Auto) [place] % (Auto) Lymph # (Auto) [place] # (Auto) Seg Neutrophils % Seg Neutrophils # PT INR VBG pH Sodium Potassium Chloride Carbon Dioxide BUN Glucose POC Glucose 174 H 140 H 133 H Calcium Magnesium ALT Alkaline Phosphatase Ur Specific [place] 11/19/20 11/19/20 11/19/20 01:26 02:32 02:47 WBC RBC Hgb Hct MCV MCH RDW Plt Count Lymph % (Auto) [place] % (Auto) Lymph # (Auto) [place] # (Auto) Seg Neutrophils % Seg Neutrophils # PT INR VBG pH Sodium 147 H Potassium Chloride 114.5 H Carbon Dioxide 13 L BUN Glucose 134 H POC Glucose 130 H 149 H Calcium 7.9 L Magnesium ALT Alkaline Phosphatase Ur Specific [place] 11/19/20 11/19/20 11/19/20 04:52 05:02 07:29 WBC RBC Hgb Hct MCV MCH RDW Plt Count Lymph % (Auto) [place] % (Auto) Lymph # (Auto) [place] # (Auto) Seg Neutrophils % Seg Neutrophils # PT INR VBG pH Sodium 149 H 147 H Potassium Chloride 115.3 H 112.3 H Carbon Dioxide 16 L 16 L BUN Glucose 193 H 219 H POC Glucose 227 H Calcium 7.7 L 8.2 L Magnesium ALT Alkaline Phosphatase Ur Specific [place] 11/19/20 11/19/20 11/19/20 09:25 09:42 11:03 WBC 12.7 H RBC Hgb Hct MCV 74 L MCH 25 L RDW 17.8 H Plt Count Lymph % (Auto) 3.2 L [place] % (Auto) 8.4 H Lymph # (Auto) 0.4 L [place] # (Auto) 1.1 H Seg Neutrophils % 87.8 H Seg Neutrophils # 11.2 H PT INR VBG pH Sodium Potassium Chloride Carbon Dioxide BUN Glucose POC Glucose 206 H 226 H Calcium Magnesium ALT Alkaline Phosphatase Ur Specific [place]
[2020-11-19 16:12] LABS: Blood Urea Nitrogen 7 mg/dL (7-17); Hemolysis Index 1
[2020-11-19 16:14] LABS: BUN/Creatinine Ratio 14
[2020-11-19] MEDS: HYDROmorphone 1 MG/1 ML INJ IV PRN (19:34)
[2020-11-20 00:19] LABS: Blood Urea Nitrogen 6 mg/dL (7-17); Hemolysis Index 6
[2020-11-20 00:21] LABS: BUN/Creatinine Ratio 12
[2020-11-20] MEDS: BACLOFEN 10 MG TAB PO SCH ×4 (01:41→21:51)
[2020-11-20] MEDS: INSULIN LISPRO 100 UNIT/ML SUB-Q SCH ×6 (01:41→23:56)
[2020-11-20] MEDS ORDERED: HYDROmorphone 1 MG/1 ML INJ IV ONE (02:40)
--- NOTE | 2020-11-20 03:01 | Consultation ---
DATE OF CONSULTATION: 11/19/2020 PULMONARY CRITICAL CONSULTATION NOTE CONSULTING PHYSICIAN: Dr. Alexis Gonzalez. REASON FOR CONSULTATION: Diabetic ketoacidosis. CHIEF COMPLAINT AND HISTORY OF PRESENT ILLNESS: As follows: The patient is a 35-year-old female with past medical history significant for a diagnosis of diabetes and obesity, on home insulin, admits to running out of her insulin, came into the Emergency Room complaining of feeling sick, polydipsia, polyuria, nausea, vomiting, generalized weakness, had been going on for 3 days. She was evaluated in the Emergency Room, diagnosed with diabetic ketoacidosis, started on IV insulin therapy. We are asked to admit to the intensive care unit. When I stopped by to see her; however, she has been transitioned off IV insulin and tolerating oral diet, feeling better. Denies chest pain, denies abdominal pain. Denies nausea, vomiting, fever or chills. She denies a history of tobacco use or abuse whatsoever. This really is as much of the history of presentation as I have. PAST MEDICAL HISTORY: Diabetes, obesity. PAST SURGICAL HISTORY: Denies. MEDICATIONS: She was on at the time I stopped by to see according to the medication administration record included the following: Tylenol 650 mg p.o. q. 6 hours p.r.n. mild pain or fevers, albuterol 2.5 mg nebulized q. 3 hours p.r.n. shortness of breath, baclofen 5 mg p.o. t.i.d., Dilaudid 0.5 mg IV q. 12 hours p.r.n. severe pain, insulin via sliding scale, Mobic 7.5 mg p.o. daily, Zofran 4 mg IV q. 8 hours p.r.n. nausea and vomiting, Percocet 5/325 one tablet p.o. q. 6 hours p.r.n. moderate pain. She received 5 units of Lantus insulin subcutaneously x1. ALLERGIES: No known drug allergies. DIET: Obese lady, denies acute weight loss or gain in the preceding few weeks to months. FAMILY AND SOCIAL HISTORY: Lives in the community. Denies alcohol, tobacco or illicit drug use or abuse. There is a family history of diabetes and hypertension. REVIEW OF SYSTEMS: No loss of consciousness. No new onset seizures. No new onset focal weakness. Denies gross hematochezia or melena. Denies gross hematuria or dysuria. She had the polydipsia, polyuria. Denies heat or cold intolerance. Complete 13 system review of system was obtained. Pertinent positives and/or negatives as in body of history above, otherwise they are noncontributory. PHYSICAL EXAMINATION: VITAL SIGNS: At presentation in the Emergency Room, afebrile, temperature 98.7 degrees Fahrenheit, pulse of 86, respiratory rate of 20, blood pressure 133/84, O2 sats were 97%, inspired oxygen concentration at that time was not recorded. When I stopped by to see her, O2 sats were 98% on room air. GENERAL: She is an obese lady young normocephalic, atraumatic, talking to me in full sentences with normal respiratory effort at rest. HEAD, EYES, EARS, NOSE AND THROAT: Anicteric. No conjunctival erythema. Oropharynx was moist. NECK: No gross jugular venous distention, no thyromegaly. Grossly, there were no palpable lymph nodes in the supraclavicular or submandibular lymph node chains. LUNGS: Auscultation of both lung leach unremarkable. Good bilateral air movement and clear. HEART: Sounds 1 and 2 are heard. Regular rate and rhythm at the time of my evaluation without overt rubs or murmurs. ABDOMEN: Soft, full, protuberant. Bowel sounds are positive, nontender, no palpable hepatosplenomegaly. EXTREMITIES: Without overt digital clubbing or cyanosis. No pedal edema. Pedal pulses are 2+ bilaterally. NEUROLOGIC: Pupils are equal, round, about 4 mm, reactive to light. Extraocular muscle movements were intact. Moves all 4 extremities spontaneously. SKIN: Normal turgor in the areas examined without overt cellulitis or rash. PSYCHIATRIC: Mood was normal. Affect was appropriate. She had intact judgment and insight. LABORATORY DATA: From my review are as follows: Admission white cell count 15,400, hemoglobin 15.6, hematocrit 48.2, platelet count 508. No manual differential. INR within normal limits. Venous blood gas showed a pH of 7.12. Serum sodium 136, potassium 5.5, chloride 92, bicarbonate 6, BUN 27, creatinine 0.9 and glucose was 498. Troponin within normal limits. Liver function test within normal limits. Urine test was negative. Urinalysis was negative for nitrites and leukocyte esterase. She was spilling glucose in the urine. No microbiology studies for my review. Of note, the patient according to the history while in the waiting room, she decided to leave without being seen, while waiting for a ride, she became dizzy, collapsed and fell to the ground. She struck the back of her head. She was placed on a cervical collar at that time. As part of the imaging, a CT of the head was done, no evidence of acute intracranial abnormality, no evidence of an acute C-spine fracture. A CT of the chest was also done. A CT angio, no evidence of pulmonary embolism. There was a report of moderate pneumomediastinum. I have reviewed the CT angio. I do not see any gross filling defects consistent with pulmonary emboli. The lung windows areas of patchy ground glass opacification and pneumomediastinum definitely are present. ASSESSMENT: 1. Acute metabolic acidosis/diabetic ketoacidosis. 2. Possible traumatic pneumomediastinum, no pneumothorax. 3. Obesity. 4. History of diabetes. 5. Hyperkalemia at presentation. PLAN: I will repeat a chest x-ray now just to see if we can see the pneumomediastinum on the chest x-ray. Clinically, she is doing well. She should be admitted to the hospital for close observation. I will keep her on supplemental oxygen. Cardiothoracic surgery evaluation should be sought for an opinion if available. She is appropriately on sliding scale insulin. We will target blood glucose of less than 180 mg/dL, I will start her on GI prophylaxis as well as DVT prophylaxis. Flu and pneumonia vaccination will be addressed per protocol. Thank you very much for the consult. She can be downgraded to the telemetry floor. Does not need ICU admission at this time. I will follow along and make further recommendations as picture progresses/becomes clearer. TID: [id number] RECEIPT: [id number] ROMULO/CASS
[2020-11-20] MEDS: oxyCODONE /ACETAMINOPHEN 5-325MG TAB PO PRN ×2 (04:33→21:50)
--- NOTE | 2020-11-20 05:08 | Progress Note ---
Assessment and Plan COVID positive with PNA Pneumomediastinum Acute metabolic acidosis/diabetic ketoacidosis DM II Hyperkalemia s/p Fall- CT head negative -CXR, ABG as clinically indicated - continue to wean supplemental oxygen to keep O2 sats > 92% - Remdesivir as per ID/Pulmonary developed protocols - continue systemic steroids for severe COVID-19 infection - Monitor inflammatory markers per facility protocol - ferritin, Ddimer, CRP - therapeutic anticoagulation per system Protocol based on d-dimer and clinical considerations - Continue contact and airborne isolation - prn bronchodilators ([place] ) with pulm hygiene per RT - continue to avoid nephrotoxins, renally dose all medications - continue mobility protocols to prevent pressure ulcers - PT/OT as tolerated, Fall precautions - continue accuchecks with glycemic control per SSI for target blood glucose < 180 mg/dL Continue with basal bolus insulin therapy - tobacco abstinence strongly counseled at the bedside - home oxygen evaluation at discharge - Influenza & pneumovax per protocol - Pulmonary out patient follow up for PFTs and optimization of respiratory status - continue other care per attending / other consultants - prn analgesia per pain score Subjective Date of service: 11/20/20 Interval history: Patient is seen today for: Acute metabolic acidosis; DKA; Pneumomediastinum; Obesity; DM II; Hyperkalemia Seen and examined at bedside; 24hour events reviewed; nursing and respiratory care staff consulted; no adverse overnight events reported to me; resting in bed;on supplemental oxygen , sleeping at the time of my evaluation but arousable with appropriate responses; with retro-sternal chest pain; afebrile; denies any nausea or vomiting, no headaches at this time Objective - Exam Narrative Exam: Not in cardiopulmonary distress. The patient appeared well nourished and normally developed. Vital signs as documented. Head exam is unremarkable. No scleral icterus . Neck is without jugular venous distension, thyromegaly, or carotid bruits. Lungs decreased air entry bilaterally, no rhonchi, no wheeze Cardiac exam reveals regular rate and Rhythm. Abdominal exam reveals normal bowel sounds, nontender, no organomegaly. Extremities are non edematous and both femoral and pedal pulses are normal. PRACTICE OFFICE ASSOCIATE: Alert and oriented 3. No focal weakness. Vital Signs - 12hr 11/19/20 11/19/20 11/19/20 17:31 18:01 18:31 Temperature Pulse Rate 123 H 123 H 125 H Respiratory 28 H 25 H 19 Rate Blood Pressure 146/77 146/73 146/76 Blood Pressure [Left] O2 Sat by Pulse 93 94 94 Oximetry 11/19/20 11/19/20 11/19/20 19:01 19:31 20:01 Temperature Pulse Rate 118 H 126 H 125 H Respiratory 27 H 26 H 21 Rate Blood Pressure 143/74 136/83 142/85 Blood Pressure [Left] O2 Sat by Pulse 94 95 94 Oximetry 11/19/20 11/19/20 11/19/20 20:31 21:01 21:31 Temperature Pulse Rate Respiratory 23 21 15 Rate Blood Pressure 138/76 136/90 135/81 Blood Pressure [Left] O2 Sat by Pulse 90 92 93 Oximetry 11/19/20 11/20/20 11/20/20 22:01 02:01 02:09 Temperature 98.3 F Pulse Rate 106 H Respiratory 22 27 H 18 Rate Blood Pressure 134/66 146/84 Blood Pressure 146/84 [Left] O2 Sat by Pulse 93 95 96 Oximetry CBC and BMP: 11/23/20 07:40 11/26/20 04:42 ABG, PT/INR, D-dimer: PT/INR, D-dimer PT 15.6 Sec. (12.2-14.9) H 11/18/20 10:31 INR 1.19 (0.87-1.13) H 11/18/20 10:31 Abnormal lab findings: Abnormal Labs 11/18/20 11/18/20 11/18/20 09:30 09:30 09:30 WBC 15.4 H RBC 6.17 H Hgb 15.6 H Hct 48.2 H MCV 78 L MCH 25 L RDW 18.9 H Plt Count 508 H Lymph % (Auto) 3.5 L [place] % (Auto) Lymph # (Auto) 0.5 L [place] # (Auto) 1.0 H Seg Neutrophils % 89.5 H Seg Neutrophils # 13.8 H PT INR VBG pH 7.124 L* Sodium 136 L Potassium 5.5 H Chloride 92.2 L Carbon Dioxide 6 L* BUN 27 H Creatinine Glucose 498 H POC Glucose Calcium Magnesium ALT 5 L Alkaline Phosphatase 149 H Ur Specific [place] 11/18/20 11/18/20 11/18/20 10:31 13:01 13:23 WBC RBC Hgb Hct MCV MCH RDW Plt Count Lymph % (Auto) [place] % (Auto) Lymph # (Auto) [place] # (Auto) Seg Neutrophils % Seg Neutrophils # PT 15.6 H INR 1.19 H VBG pH Sodium Potassium Chloride Carbon Dioxide BUN Creatinine Glucose POC Glucose 594 H Calcium Magnesium 3.20 H ALT Alkaline Phosphatase Ur Specific [place] 11/18/20 11/18/20 11/18/20 13:23 14:34 15:56 WBC RBC Hgb Hct MCV MCH RDW Plt Count Lymph % (Auto) [place] % (Auto) Lymph # (Auto) [place] # (Auto) Seg Neutrophils % Seg Neutrophils # PT INR VBG pH Sodium 135 L Potassium 5.4 H 5.8 H Chloride 91.9 L 95.8 L Carbon Dioxide 9 L* 5 L* BUN 30 H 33 H Creatinine Glucose 513 H* 504 H* POC Glucose Calcium Magnesium 3.00 H ALT Alkaline Phosphatase Ur Specific [place] 11/18/20 11/18/20 11/18/20 15:56 16:46 17:38 WBC RBC Hgb Hct MCV MCH RDW Plt Count Lymph % (Auto) [place] % (Auto) Lymph # (Auto) [place] # (Auto) Seg Neutrophils % Seg Neutrophils # PT INR VBG pH Sodium Potassium 5.1 H Chloride 95.7 L 107.3 H Carbon Dioxide 7 L* 7 L* BUN 31 H 28 H Creatinine Glucose 462 H 382 H POC Glucose Calcium 7.8 L D Magnesium ALT Alkaline Phosphatase Ur Specific [place] 1.037 H 11/18/20 11/18/20 11/18/20 18:29 20:56 21:06 WBC RBC Hgb Hct MCV MCH RDW Plt Count Lymph % (Auto) [place] % (Auto) Lymph # (Auto) [place] # (Auto) Seg Neutrophils % Seg Neutrophils # PT INR VBG pH Sodium 146 H Potassium Chloride 114.4 H Carbon Dioxide 8 L* 8 L* BUN 28 H 23 H Creatinine Glucose 360 H 284 H POC Glucose 281 H Calcium 7.3 L Magnesium ALT Alkaline Phosphatase Ur Specific [place] 11/18/20 11/18/20 11/19/20 22:26 23:39 00:36 WBC RBC Hgb Hct MCV MCH RDW Plt Count Lymph % (Auto) [place] % (Auto) Lymph # (Auto) [place] # (Auto) Seg Neutrophils % Seg Neutrophils # PT INR VBG pH Sodium Potassium Chloride Carbon Dioxide BUN Creatinine Glucose POC Glucose 174 H 140 H 133 H Calcium Magnesium ALT Alkaline Phosphatase Ur Specific [place] 11/19/20 11/19/20 11/19/20 01:26 02:32 02:47 WBC RBC Hgb Hct MCV MCH RDW Plt Count Lymph % (Auto) [place] % (Auto) Lymph # (Auto) [place] # (Auto) Seg Neutrophils % Seg Neutrophils # PT INR VBG pH Sodium 147 H Potassium Chloride 114.5 H Carbon Dioxide 13 L BUN Creatinine Glucose 134 H POC Glucose 130 H 149 H Calcium 7.9 L Magnesium ALT Alkaline Phosphatase Ur Specific [place] 11/19/20 11/19/20 11/19/20 04:52 05:02 07:29 WBC RBC Hgb Hct MCV MCH RDW Plt Count Lymph % (Auto) [place] % (Auto) Lymph # (Auto) [place] # (Auto) Seg Neutrophils % Seg Neutrophils # PT INR VBG pH Sodium 149 H 147 H Potassium Chloride 115.3 H 112.3 H Carbon Dioxide 16 L 16 L BUN Creatinine Glucose 193 H 219 H POC Glucose 227 H Calcium 7.7 L 8.2 L Magnesium ALT Alkaline Phosphatase Ur Specific [place] 11/19/20 11/19/20 11/19/20 09:25 09:42 11:03 WBC 12.7 H RBC Hgb Hct MCV 74 L MCH 25 L RDW 17.8 H Plt Count Lymph % (Auto) 3.2 L [place] % (Auto) 8.4 H Lymph # (Auto) 0.4 L [place] # (Auto) 1.1 H Seg Neutrophils % 87.8 H Seg Neutrophils # 11.2 H PT INR VBG pH Sodium Potassium Chloride Carbon Dioxide BUN Creatinine Glucose POC Glucose 206 H 226 H Calcium Magnesium ALT Alkaline Phosphatase Ur Specific [place] 11/19/20 11/19/20 11/19/20 15:37 15:49 18:33 WBC RBC Hgb Hct MCV MCH RDW Plt Count Lymph % (Auto) [place] % (Auto) Lymph # (Auto) [place] # (Auto) Seg Neutrophils % Seg Neutrophils # PT INR VBG pH Sodium Potassium 3.4 L Chloride 108.4 H Carbon Dioxide 18 L BUN Creatinine 0.5 L Glucose 191 H POC Glucose 186 H 243 H Calcium 8.0 L Magnesium ALT Alkaline Phosphatase Ur Specific [place] 11/19/20 11/20/20 22:31 01:36 WBC RBC Hgb Hct MCV MCH RDW Plt Count Lymph % (Auto) [place] % (Auto) Lymph # (Auto) [place] # (Auto) Seg Neutrophils % Seg Neutrophils # PT INR VBG pH Sodium Potassium 3.1 L Chloride Carbon Dioxide 17 L BUN 6 L Creatinine 0.5 L Glucose 207 H POC Glucose 251 H Calcium 8.0 L Magnesium ALT Alkaline Phosphatase Ur Specific [place] Chest x-ray: image reviewed CT scan - chest: image reviewed (Pneumomediastinum, GGO, No PE) Allied health notes reviewed: RT
[2020-11-20 06:44] LABS: Hematocrit 32.8 % (30.3-42.9); Hemoglobin 11.2 gm/dl (10.1-14.3); Mean Corpuscular HGB Conc 34 % (30-34); Mean Corpuscular Volume 74 fl (79-97); Platelet Count 235 K/mm3 (140-440); Red Blood Count 4.42 M/mm3 (3.65-5.03); Red Cell Distribution Width 17.9 % (13.2-15.2)
[2020-11-20 07:09] LABS: Alanine Aminotransferase 6 units/L (7-56); Albumin 2.9 g/dL (3.9-5); Blood Urea Nitrogen 6 mg/dL (7-17); Calcium 8.6 mg/dL (8.4-10.2); Hemolysis Index 14
[2020-11-20 07:47] LABS: BUN/Creatinine Ratio 12
--- NOTE | 2020-11-20 07:54 | Discharge Summary ---
Providers - Providers Date of Admission: 11/18/20 15:45 Attending physician: CALEB MCKEON MD 11/18/20 17:01 Consult to Physician [CONS] Routine Comment: Consulting Provider: KARY MAYO Physician Instructions: Reason For Exam: DKA 11/19/20 08:54 Consult to Physician [CONS] Routine Comment: Consulting Provider: TONY MG Physician Instructions: Reason For Exam: SYNCOPE Primary care physician: [employer] Hospitalization Condition: Stable Disposition: DC-01 TO HOME OR SELFCARE Final Discharge Diagnosis (Prints w/discharge instructions): DKA. Syncope Time spent for discharge: 35 mins Exam - Constitutional Vitals: Temp Pulse Resp BP Pulse Ox 98.3 F 107 H 18 136/75 92 11/20/20 04:13 11/20/20 04:13 11/20/20 04:13 11/20/20 04:13 11/20/20 04:13 Plan Activity: advance as tolerated, fall precautions Diet: diabetic Special Instructions: record daily weights, record daily BP diary, record blood sugar diary Plan of Treatment: Follow outpatient with cardiology and Neurology Please noted, muscle relaxants can make you drowsy. Please do not take and drive Follow up with: JOYCELYN KRAMER MD [Staff Physician] - 7 Days PRIMARY MD SHANTELL [Primary Care Provider] - 3-5 Days POP SÁNCHEZ MD [Staff Physician] - 7 Days MICHELLE NUGENT MD [Staff Physician] - 7 Days Prescriptions: Insulin Glargine [Lantus VIAL] 20 unit SUB-Q QHS #10 ml Baclofen [Lioresal] 5 mg PO TID #10 tablet Meloxicam [Mobic] 7.5 mg PO QDAY #14 tablet oxyCODONE /ACETAMINOPHEN [Percocet 5/325 mg] 1 tab PO Q6H PRN #10 tablet PRN Reason: Pain, Moderate (4-6)
[2020-11-20] MEDS ORDERED: INSULIN NPH/REGULAR 70/30 INJ SUB-Q SCH (08:00)
[2020-11-20] MEDS ORDERED: POTASSIUM CHLORIDE ER 20 MEQ TAB PO ONE (08:00)
[2020-11-20] MEDS: MELOXICAM 7.5 MG TAB PO SCH (09:46)
--- NOTE | 2020-11-20 11:20 | Progress Note ---
Assessment and Plan Assessment and plan: 35 YO Female with DM presented to ED for evaluation. Patient reports "I feel sick". Patient states that she has experienced generalized weakness, nausea, fatigue, polyuria, polydipsia over the past 1 week with worsening symptoms over the past 3 days. EMS notified and upon arrival the patient was found to be in distress and subsequently transported to [facility] for further care and evaluation of the aforementioned symptoms. The patient was seen and evaluated in the emergency department. All lab and imaging studies reviewed. Patient found to have DKA, metabolic encephalopathy, volume depletion, and metabolic acidosis. The patient was admitted to ICU and initiated on DKA protocol. Patient denies f ever, chills, chest pain, palpitation, productive cough, skin rash, recent ill contacts, or known exposure to COVID-19. No prior admission for review. No medication listed at time of admission reconciliation. Critical care team consulted in ED. 11/19: Patient seen and examined today CT of the head revealed a CT cervical spine no acute pathology noted CT of the chest shows a moderate pneumomediastinum and patchy groundglass opacities in both lungs thought to represent possible pneumonia. Patient does have leukocytosis which could be reactive. I do not see inciting factor for her DKA except possible noncompliance with her medication. We will continue DKA protocol at this time. Will give additional 2 L of fluids. She does appear older than stated age we will also rule out COVID- 19 at this time. Will obtain neurology evaluation considering her syncope and also her profound lethargy this morning. Plan of care discussed with the patient and also with the insurance company patient will be 11/20: Patient reported that she had a fall yesterday while in the waiting room. Per documentation she was about to leave AMA and then had a questionable syncopal episode. She tells the neurologist that she fell from the stretcher and hit her head. Initial CT of the head was negative an MRI is being ordered due to some confusion and encephalopathy which I felt was improving but during reevaluation by neurologist she was still a bit confused. (1) DKA (diabetic ketoacidosis) Current Visit: Yes Status: Acute Qualifiers: Diabetes mellitus type: type 1 Plan to address problem: DKA protocol: Insulin drip, IV fluid resuscitation therapy, monitor urine output every shift, monitor anion gap, serial BMP, potassium repletion as per protocol: Critical care team consulted. (2) Metabolic encephalopathy Current Visit: Yes Status: Acute Plan to address problem: CT head, neuro check, seizure precaution, aspiration precautions, treat DKA. (3) Systemic inflammatory response syndrome Current Visit: Yes Status: Acute Plan to address problem: CBC, CMP, chest x-ray, urinalysis, empiric IV antibiotic therapy, repeat CBC in a.m. (4) Acidosis Current Visit: Yes Status: Acute Plan to address problem: BMP, IV fluid resuscitation therapy, treat DKA, repeat BMP in a.m. (5) Volume depletion Current Visit: Yes Status: Acute Plan to address problem: IV fluid resuscitation therapy, monitor urine output every shift, monitor fluid balance. (6) syncope (7) head trauma (8) DVT prophylaxis Current Visit: Yes Status: Acute Plan to address problem: SCD to bilateral lower extremities while in bed, prophylactic anticoagulation The high probability of a clinically significant, sudden or life threatening deterioration of the [endocrine, neuro, renal] system(s) required my full and direct attention, intervention and personal management. The aggregate critical care time was [35] minutes. This time is in addition to time spent performing reported procedures but includes the following: [x] Data Review and interpretation [x] Patient assessment and monitoring of vital signs [x] Documentation [x] Medication orders and management History Interval history: Patient seen and examined, she still complains of some headache but no blurry vision. Patient was seen by neurologist and concerned that she is still confused going to be doing an MRI Hospitalist Physical - Physical exam Narrative exam: VITAL SIGNS: Reviewed. GENERAL: The patient appears normally developed, much more awake today. At this vital signs as documented. HEAD: No signs of head trauma. EYES: Pupils are equal. Extraocular motions intact. EARS: Hearing grossly intact. MOUTH: Oropharynx is normal. NECK: No adenopathy, no JVD. CHEST: Chest with diminished breath sounds bilaterally. No wheezes, rales, or rhonchi. CARDIAC: Regular rate and rhythm. S1 and S2, without murmurs, gallops, or rubs. VASCULAR: No Edema. Peripheral pulses normal and equal in all extremities. ABDOMEN: Soft, non tender and non distended. No rebound or guarding, and no masses palpated. Bowel Sounds normal. MUSCULOSKELETAL: Tender to touch at the posterior scapular area. No overt bleeding noted. Good range of motion of all major joints. Extremities without clubbing, cyanosis or edema. NEUROLOGIC EXAM: Awake oriented x3 although it appears she is missing some details which has raised a concern with the neurologist still some lethargy but awake no focal sensory or strength deficits. Speech normal. Follows commands. PSYCHIATRIC: Mood normal. SKIN: detail exam as documented in skin assessment - Constitutional Vitals: Temp Pulse Resp BP Pulse Ox 98.3 F 107 H 18 136/75 92 11/20/20 04:13 11/20/20 04:13 11/20/20 04:13 11/20/20 04:13 11/20/20 04:13 General appearance: Present: mild distress HEART Score - HEART Score Troponin: Troponin T < 0.010 ng/mL (0.00-0.029) 11/18/20 09:30 Results - Labs CBC & Chem 7: 11/20/20 05:29 11/20/20 05:29 Labs: Laboratory Last Values WBC 6.0 K/mm3 (4.5-11.0) 11/20/20 05:29 RBC 4.42 M/mm3 (3.65-5.03) 11/20/20 05:29 Hgb 11.2 gm/dl (10.1-14.3) 11/20/20 05:29 Hct 32.8 % (30.3-42.9) 11/20/20 05:29 MCV 74 fl (79-97) L 11/20/20 05:29 MCH 25 pg (28-32) L 11/20/20 05:29 MCHC 34 % (30-34) 11/20/20 05:29 RDW 17.9 % (13.2-15.2) H 11/20/20 05:29 Plt Count 235 K/mm3 (140-440) 11/20/20 05:29 Lymph % (Auto) 3.2 % (13.4-35.0) L 11/19/20 09:25 [place] % (Auto) 8.4 % (0.0-7.3) H 11/19/20 09:25 Eos % (Auto) 0.0 % (0.0-4.3) 11/19/20 09:25 Baso % (Auto) 0.6 % (0.0-1.8) 11/19/20 09:25 Lymph # (Auto) 0.4 K/mm3 (1.2-5.4) L 11/19/20 09:25 [place] # (Auto) 1.1 K/mm3 (0.0-0.8) H 11/19/20 09:25 Eos # (Auto) 0.0 K/mm3 (0.0-0.4) 11/19/20 09:25 Baso # (Auto) 0.1 K/mm3 (0.0-0.1) 11/19/20 09:25 Seg Neutrophils % 87.8 % (40.0-70.0) H 11/19/20 09:25 Seg Neutrophils # 11.2 K/mm3 (1.8-7.7) H 11/19/20 09:25 PT 15.6 Sec. (12.2-14.9) H 11/18/20 10:31 INR 1.19 (0.87-1.13) H 11/18/20 10:31 VBG pH 7.124 (7.320-7.420) L* 11/18/20 09:30 Sodium 143 mmol/L (137-145) 11/20/20 05:29 Potassium 3.1 mmol/L (3.6-5.0) L 11/20/20 05:29 Chloride 102.5 mmol/L (98-107) 11/20/20 05:29 Carbon Dioxide 18 mmol/L (22-30) L 11/20/20 05:29 Anion Gap 26 mmol/L 11/20/20 05:29 BUN 6 mg/dL (7-17) L 11/20/20 05:29 Creatinine 0.5 mg/dL (0.6-1.2) L 11/20/20 05:29 Estimated GFR > 60 ml/min 11/20/20 05:29 BUN/Creatinine Ratio 12 % 11/20/20 05:29 Glucose 278 mg/dL (65-100) H 11/20/20 05:29 POC Glucose 294 mg/dL (70-105) H 11/20/20 05:38 Calcium 8.6 mg/dL (8.4-10.2) 11/20/20 05:29 Phosphorus 3.50 mg/dL (2.5-4.5) 11/18/20 15:56 Magnesium 3.00 mg/dL (1.7-2.3) H 11/18/20 15:56 Total Bilirubin 0.70 mg/dL (0.1-1.2) 11/20/20 05:29 AST 16 units/L (5-40) 11/20/20 05:29 ALT 6 units/L (7-56) L 11/20/20 05:29 Alkaline Phosphatase 92 units/L (35-129) 11/20/20 05:29 Troponin T < 0.010 ng/mL (0.00-0.029) 11/18/20 09:30 Total Protein 5.5 g/dL (6.3-8.2) L D 11/20/20 05:29 Albumin 2.9 g/dL (3.9-5) L 11/20/20 05:29 Albumin/Globulin Ratio 1.1 % 11/20/20 05:29 TSH 0.864 mlU/mL (0.270-4.200) 11/18/20 09:30 Free T4 0.98 ng/dL (0.76-1.46) 11/18/20 09:30 HCG, Qual Negative (Negative) 11/18/20 09:30 Urine Color Yellow (Yellow) 11/18/20 17:38 Urine Turbidity Clear (Clear) 11/18/20 17:38 Urine pH 5.0 (5.0-7.0) 11/18/20 17:38 Ur Specific [place] 1.037 (1.003-1.030) H 11/18/20 17:38 Urine Protein 100 mg/dl mg/dL (Negative) 11/18/20 17:38 Urine Glucose (UA) >=500 mg/dL (Negative) 11/18/20 17:38 Urine Ketones 80 mg/dL (Negative) 11/18/20 17:38 Urine Blood Mod (Negative) 11/18/20 17:38 Urine Nitrite Neg (Negative) 11/18/20 17:38 Urine Bilirubin Neg (Negative) 11/18/20 17:38 Urine Urobilinogen < 2.0 mg/dL (<2.0) 11/18/20 17:38 Ur Leukocyte Esterase Neg (Negative) 11/18/20 17:38 Urine WBC (Auto) 2.0 /HPF (0.0-6.0) 11/18/20 17:38 Urine RBC (Auto) 1.0 /HPF (0.0-6.0) 11/18/20 17:38 U Epithel Cells (Auto) 1.0 /HPF (0-13.0) 11/18/20 17:38 Urine Bacteria (Auto) 1+ /HPF (Negative) 11/18/20 17:38 Urine Mucus Few /HPF 11/18/20 17:38 Tang/IV: Voiding Method External Female Catheter Active Medications - Current Medications Current Medications: Generic Name Dose Route Start Last Admin Trade Name Freq PRN Reason Stop Dose Admin Acetaminophen 650 mg 11/18/20 15:45 Acetaminophen 325 Mg Tab PO Q6H PRN Pain MILD(1-3)/Fever >100.5/STUART Albuterol 2.5 mg 11/18/20 15:45 Albuterol 2.5 Mg/3 Ml Nebu IH Q3HRT PRN Shortness Of Breath Baclofen 5 mg 11/19/20 09:00 11/20/20 09:47 Baclofen 10 Mg Tab PO 5 mg TID EMMA Administration Hydromorphone HCl 0.5 mg 11/18/20 15:45 11/19/20 19:34 Hydromorphone 1 Mg/1 Ml Inj IV 0.5 mg Q12H PRN Administration Pain , Severe (7-10) Insulin Human Regular 100 100 mls @ 6 mls/hr 11/18/20 13:00 11/19/20 09:00 units/ Sodium Chloride IV Infused TITR [facility] Titration Protocol 6 UNITS/HR Insulin Glargine 20 units 11/20/20 22:00 Insulin Glargine 100 Units/Ml SUB-Q QHS EMMA Insulin Human Lispro 0 unit 11/20/20 11:30 Insulin Lispro 100 Unit/Ml SUB-Q ACHS [facility] Protocol Meloxicam 7.5 mg 11/19/20 10:00 11/20/20 09:46 Meloxicam 7.5 Mg Tab PO 7.5 mg QDAY EMMA Administration Ondansetron HCl 4 mg 11/18/20 15:45 11/18/20 22:13 Ondansetron 4 Mg/2 Ml Inj IV 4 mg Q8H PRN Administration Nausea And Vomiting Oxycodone/Acetaminophen 1 tab 11/19/20 09:00 11/20/20 04:33 Oxycodone /Acetaminophen 5-325mg Tab PO 1 tab Q6H PRN Administration Pain, Moderate (4-6) Sodium Chloride 10 ml 11/18/20 22:00 11/20/20 09:47 Sodium Chloride 0.9% 10 Ml Flush Syringe IV 10 ml BID EMMA Administration Sodium Chloride 10 ml 11/18/20 15:45 Sodium Chloride 0.9% 10 Ml Flush Syringe IV PRN PRN LINE FLUSH
--- NOTE | 2020-11-20 11:24 | Progress Note ---
Assessment and Plan Assessment and Plan - Patient Problems # DKA (diabetic ketoacidosis) -DKA protocol: Insulin drip, IV fluid resuscitation therapy, monitor urine output every shift, monitor anion gap, serial BMP, potassium repletion as per protocol: Critical care team consulted. The high probability of a clinically significant, sudden or life threatening deterioration of the [endocrine, neuro, renal] system(s) required my full and direct attention, intervention and personal management. The aggregate critical care time was [65] minutes. This time is in addition to time spent performing reported procedures but includes the following: # Metabolic encephalopathy -CT head, neuro check, seizure precaution, aspiration precautions, treat DKA. # pt. discripes fall and LOC? mostly related to above -Suggest Brain MRI -she still some what confused # Systemic inflammatory response syndrome -CBC, CMP, chest x-ray, urinalysis, empiric IV antibiotic therapy, repeat CBC in a.m. # Acidosis -BMP, IV fluid resuscitation therapy, treat DKA, repeat BMP in a.m. # Volume depletion -IV fluid resuscitation therapy, monitor urine output every shift, monitor fluid balance. #DVT prophylaxis -SCD to bilateral lower extremities while in bed, prophylactic anticoagulation PLAN 1- Brain MRI wo gd 2- Correct underlying electrolytes abn. 3- Control Suger 4- Iv Hydration 5- check for orthostatic changes in BP 6- Treat underlying infection 7- Fiorcet prn for headache will follow D/W pt. and PCP Subjective Date of service: 11/20/20 Principal diagnosis: confusion and syncopy Interval history: According to pt. she is with increse headache since the fall on initial admission she recall falling and hit her head , she still some what confused but slightly better than yesterday Objective - Vital Sign Vital Signs - 12hr 11/20/20 11/20/20 11/20/20 02:01 02:09 02:31 Temperature 98.3 F Pulse Rate 106 H Respiratory 27 H 18 34 H Rate Blood Pressure 146/84 139/80 Blood Pressure 146/84 [Left] O2 Sat by Pulse 95 96 94 Oximetry 11/20/20 11/20/20 03:01 04:13 Temperature 98.3 F Pulse Rate 107 H Respiratory 31 H 18 Rate Blood Pressure 134/79 136/75 Blood Pressure [Left] O2 Sat by Pulse 94 92 Oximetry - General Apperance Constitutional: comfortable - EENT EENT: PERRL, mucous membranes moist, other (tender back of her head no swelling no bleed ) - Respiratory Respiratory: lungs clear, normal breath sounds - Cardiovascular Cardiovascular: regular rate, normal S1, normal S2 Extremities: no peripheral edema bilat, no clubbing, cyanosis - Gastrointestinal Gastrointestinal: normoactive bowel sounds - Integumentary Integumentary: normal - Neurologic Cranial nerve examination: intact Detailed motor examination: grossly full strength in - Laboratory Findings CBC and BMP: 11/20/20 05:29 11/20/20 05:29 Abnormal Lab Findings: Abnormal Labs 11/18/20 11/18/20 11/18/20 09:30 09:30 09:30 WBC 15.4 H RBC 6.17 H Hgb 15.6 H Hct 48.2 H MCV 78 L MCH 25 L RDW 18.9 H Plt Count 508 H Lymph % (Auto) 3.5 L [place] % (Auto) Lymph # (Auto) 0.5 L [place] # (Auto) 1.0 H Seg Neutrophils % 89.5 H Seg Neutrophils # 13.8 H PT INR VBG pH 7.124 L* Sodium 136 L Potassium 5.5 H Chloride 92.2 L Carbon Dioxide 6 L* BUN 27 H Creatinine Glucose 498 H POC Glucose Calcium Magnesium ALT 5 L Alkaline Phosphatase 149 H Total Protein Albumin Ur Specific [place] 11/18/20 11/18/20 11/18/20 10:31 13:01 13:23 WBC RBC Hgb Hct MCV MCH RDW Plt Count Lymph % (Auto) [place] % (Auto) Lymph # (Auto) [place] # (Auto) Seg Neutrophils % Seg Neutrophils # PT 15.6 H INR 1.19 H VBG pH Sodium Potassium Chloride Carbon Dioxide BUN Creatinine Glucose POC Glucose 594 H Calcium Magnesium 3.20 H ALT Alkaline Phosphatase Total Protein Albumin Ur Specific [place] 11/18/20 11/18/20 11/18/20 13:23 14:34 15:56 WBC RBC Hgb Hct MCV MCH RDW Plt Count Lymph % (Auto) [place] % (Auto) Lymph # (Auto) [place] # (Auto) Seg Neutrophils % Seg Neutrophils # PT INR VBG pH Sodium 135 L Potassium 5.4 H 5.8 H Chloride 91.9 L 95.8 L Carbon Dioxide 9 L* 5 L* BUN 30 H 33 H Creatinine Glucose 513 H* 504 H* POC Glucose Calcium Magnesium 3.00 H ALT Alkaline Phosphatase Total Protein Albumin Ur Specific [place] 11/18/20 11/18/20 11/18/20 15:56 16:46 17:38 WBC RBC Hgb Hct MCV MCH RDW Plt Count Lymph % (Auto) [place] % (Auto) Lymph # (Auto) [place] # (Auto) Seg Neutrophils % Seg Neutrophils # PT INR VBG pH Sodium Potassium 5.1 H Chloride 95.7 L 107.3 H Carbon Dioxide 7 L* 7 L* BUN 31 H 28 H Creatinine Glucose 462 H 382 H POC Glucose Calcium 7.8 L D Magnesium ALT Alkaline Phosphatase Total Protein Albumin Ur Specific [place] 1.037 H 11/18/20 11/18/20 11/18/20 18:29 20:56 21:06 WBC RBC Hgb Hct MCV MCH RDW Plt Count Lymph % (Auto) [place] % (Auto) Lymph # (Auto) [place] # (Auto) Seg Neutrophils % Seg Neutrophils # PT INR VBG pH Sodium 146 H Potassium Chloride 114.4 H Carbon Dioxide 8 L* 8 L* BUN 28 H 23 H Creatinine Glucose 360 H 284 H POC Glucose 281 H Calcium 7.3 L Magnesium ALT Alkaline Phosphatase Total Protein Albumin Ur Specific [place] 11/18/20 11/18/20 11/19/20 22:26 23:39 00:36 WBC RBC Hgb Hct MCV MCH RDW Plt Count Lymph % (Auto) [place] % (Auto) Lymph # (Auto) [place] # (Auto) Seg Neutrophils % Seg Neutrophils # PT INR VBG pH Sodium Potassium Chloride Carbon Dioxide BUN Creatinine Glucose POC Glucose 174 H 140 H 133 H Calcium Magnesium ALT Alkaline Phosphatase Total Protein Albumin Ur Specific [place] 11/19/20 11/19/20 11/19/20 01:26 02:32 02:47 WBC RBC Hgb Hct MCV MCH RDW Plt Count Lymph % (Auto) [place] % (Auto) Lymph # (Auto) [place] # (Auto) Seg Neutrophils % Seg Neutrophils # PT INR VBG pH Sodium 147 H Potassium Chloride 114.5 H Carbon Dioxide 13 L BUN Creatinine Glucose 134 H POC Glucose 130 H 149 H Calcium 7.9 L Magnesium ALT Alkaline Phosphatase Total Protein Albumin Ur Specific [place] 11/19/20 11/19/20 11/19/20 04:52 05:02 07:29 WBC RBC Hgb Hct MCV MCH RDW Plt Count Lymph % (Auto) [place] % (Auto) Lymph # (Auto) [place] # (Auto) Seg Neutrophils % Seg Neutrophils # PT INR VBG pH Sodium 149 H 147 H Potassium Chloride 115.3 H 112.3 H Carbon Dioxide 16 L 16 L BUN Creatinine Glucose 193 H 219 H POC Glucose 227 H Calcium 7.7 L 8.2 L Magnesium ALT Alkaline Phosphatase Total Protein Albumin Ur Specific [place] 11/19/20 11/19/20 11/19/20 09:25 09:42 11:03 WBC 12.7 H RBC Hgb Hct MCV 74 L MCH 25 L RDW 17.8 H Plt Count Lymph % (Auto) 3.2 L [place] % (Auto) 8.4 H Lymph # (Auto) 0.4 L [place] # (Auto) 1.1 H Seg Neutrophils % 87.8 H Seg Neutrophils # 11.2 H PT INR VBG pH Sodium Potassium Chloride Carbon Dioxide BUN Creatinine Glucose POC Glucose 206 H 226 H Calcium Magnesium ALT Alkaline Phosphatase Total Protein Albumin Ur Specific [place] 11/19/20 11/19/20 11/19/20 15:37 15:49 18:33 WBC RBC Hgb Hct MCV MCH RDW Plt Count Lymph % (Auto) [place] % (Auto) Lymph # (Auto) [place] # (Auto) Seg Neutrophils % Seg Neutrophils # PT INR VBG pH Sodium Potassium 3.4 L Chloride 108.4 H Carbon Dioxide 18 L BUN Creatinine 0.5 L Glucose 191 H POC Glucose 186 H 243 H Calcium 8.0 L Magnesium ALT Alkaline Phosphatase Total Protein Albumin Ur Specific [place] 11/19/20 11/20/20 11/20/20 22:31 01:36 05:29 WBC RBC Hgb Hct MCV 74 L MCH 25 L RDW 17.9 H Plt Count Lymph % (Auto) [place] % (Auto) Lymph # (Auto) [place] # (Auto) Seg Neutrophils % Seg Neutrophils # PT INR VBG pH Sodium Potassium 3.1 L Chloride Carbon Dioxide 17 L BUN 6 L Creatinine 0.5 L Glucose 207 H POC Glucose 251 H Calcium 8.0 L Magnesium ALT Alkaline Phosphatase Total Protein Albumin Ur Specific [place] 11/20/20 11/20/20 05:29 05:38 WBC RBC Hgb Hct MCV MCH RDW Plt Count Lymph % (Auto) [place] % (Auto) Lymph # (Auto) [place] # (Auto) Seg Neutrophils % Seg Neutrophils # PT INR VBG pH Sodium Potassium 3.1 L Chloride Carbon Dioxide 18 L BUN 6 L Creatinine 0.5 L Glucose 278 H POC Glucose 294 H Calcium Magnesium ALT 6 L Alkaline Phosphatase Total Protein 5.5 L D Albumin 2.9 L Ur Specific [place]
[2020-11-20] MEDS ORDERED: BUTALB/ACETAMINOPHEN/CAFFEINE TAB PO PRN (11:26)
--- NOTE | 2020-11-20 15:06 | Magnetic Resonance Report ---
MR brain wo con INDICATION / CLINICAL INFORMATION: 35 years Female; CVA, TORIBIO. LEG WEAKNESS, FALLS. TECHNIQUE: Multiplanar, multisequence MR images of the brain were obtained. COMPARISON: CT-11/18/2020 FINDINGS: BRAIN / INTRACRANIAL CONTENTS: Moderate white matter disease seen in the cerebral hemispheres. Perive ntricular lesions are seen, having the appearance of Levine's fingers-demyelinating disease would cer tainly be consideration. Some of these lesions are confluent, as well. Small focus of signal abnormal ity is seen in the left cerebral peduncle, extending into the dilcia. There may be minimal involvement of the posterior medial medulla on the left, at the level of the fourth ventricle, inferiorly. No diffusion signal abnormality to suggest acute demyelination, should these findings represent demye linating disease. Otherwise, no acute hemorrhage, mass effect, midline shift, hydrocephalus, or acute, large territori al infarct. No chronic infarct or atrophy. No significant white matter abnormality. CRANIOCERVICAL JUNCTION: No significant abnormality. VASCULAR FLOW-VOIDS: No significant abnormality. ORBITS: No significant abnormality of visualized orbits. SINUSES / MASTOIDS: Mild to moderate mucosal thickening seen in the ethmoids. ADDITIONAL FINDINGS: None. IMPRESSION: 1. White matter disease as described above. 2. Otherwise, no focal mass, hemorrhage, hydrocephalus, or acute ischemia. Signer Name: Aron Marion MD, III Signed: 11/20/2020 3:01 PM Workstation [facility]: [id number] [email or web address]
[2020-11-20] MEDS ORDERED: ALUM-MAG HYDROXIDE-SIMETHICONE 200-200-20MG/5ML ORAL LIQD 30 ML PO PRN (18:40)
[2020-11-20 19:56] LABS: C-Reactive Protein 10.2 mg/dL (0.00-1.30)
[2020-11-20] MEDS: DEXAMETHASONE 4 MG TAB PO SCH (22:06)
[2020-11-20] MEDS: INSULIN GLARGINE 100 UNITS/ML SUB-Q SCH (23:55)
[2020-11-21] MEDS: BACLOFEN 10 MG TAB PO SCH ×3 (08:28→23:26)
[2020-11-21] MEDS: INSULIN LISPRO 100 UNIT/ML SUB-Q SCH ×4 (08:29→23:24)
[2020-11-21] MEDS ORDERED: INSULIN REGULAR, HUMAN 100 UNITS/1 ML SUB-Q ONE (09:58)
--- NOTE | 2020-11-21 10:44 | Discharge Summary ---
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 Still awaiting to get all her home medication. Covid test did come back positive. She remains on isolation for the same. We will check inflammatory markers. Start her on empiric steroid therapy at this time. MRI reviewed no acute pathology noted except some demyelination disease will defer to neurology for further evaluation. Original Note: Assessment and Plan Assessment and plan: 35 YO Female with DM presented to ED for evaluation. Patient reports "I feel sick". Patient states that she has experienced generalized weakness, nausea, fatigue, polyuria, polydipsia over the past 1 week with worsening symptoms over the past 3 days. EMS notified and upon arrival the patient was found to be in distress and subsequently transported to [facility] for further care and evaluation of the aforementioned symptoms. The patient was seen and evaluated in the emergency department. All lab and imaging studies reviewed. Patient found to have DKA, metabolic encephalopathy, volume depletion, and metabolic acidosis. The patient was admitted to ICU and initiated on DKA protocol. Patient denies fever, chills, chest pain, palpitation, productive cough, skin rash, recent ill contacts, or known exposure to COVID-19. No prior admission for review. No medication listed at time of admission reconciliation. Critical care team consulted in ED. 11/19: Patient seen and examined today CT of the head revealed a CT cervical spine no acute pathology noted CT of the chest shows a moderate pneumomediastinum and patchy groundglass opacities in both lungs thought to represent possible pneumonia. Patient does have leukocytosis which could be reactive. I do not see inciting factor for her DKA except possible noncompliance with her medication. We will continue DKA protocol at this time. Will give additional 2 L of fluids. She does appear older than stated age we will also rule out COVID-19 at this time. Will obtain neurology evaluation considering her syncope and also her profound lethargy this morning. Plan of care discussed with the patient and also with the insurance company patient will be 11/20: Patient reported that she had a fall yesterday while in the waiting room. Per documentation she was about to leave AMA and then had a questionable syncopal episode. She tells the neurologist that she fell from the stretcher and hit her head. Initial CT of the head was negative an MRI is being ordered due to some confusion and encephalopathy which I felt was improving but during reevaluation by neurologist she was still a bit confused. 11/21: Patient Seen and examined she is much more awake and alert. She does recall falling or hitting her head. Mental status is improved. She still has some intermittent headache. Amendable to the Fioricet. she had MRI wo qd yesterday is remarkable for demylinating disease According to her she is diagnosed with MS 2014 was initially on Po then recently on ? Ocreveus twice a year shot , last got it in September she is with Positive COVID-19 according to her [facility] ,she denied SOB but discripe mild ache and pain was started yesterday on decadron I have discussed with her [place] doctors and they will be arranging a primary care follow-up. I increased and adjusted her insulin management for considera tion of time dose of Decadron for COVID-19. She is to monitor her oxygen level and return to the hospital if saturation decreases to less than 90% and also if she begins to have any worsening headache and blurry vision or limb weakness. She is to monitor her blood sugar closely. She verbalized understanding (1) DKA (diabetic ketoacidosis) (2) Metabolic encephalopathy (3) Systemic inflammatory response syndrome (4) Acidosis (5) Volume depletion (6) syncope (7) head trauma 8/) covid 19 Disposition: [id number] HOME UND[facility] Final Discharge Diagnosis (Prints w/discharge instructions): Diabetic ketoacidosis. Complicated by COVID-19 Time spent for discharge: 35 minutes Core Measure Documentation - Palliative Care Palliative Care/ Comfort Measures: Not Applicable - Core Measures Any of the following diagnoses?: none Exam - Physical Exam Narrative exam: VITAL SIGNS: Reviewed. GENERAL: The patient appears normally developed, much more awake today. At this vital signs as documented. HEAD: No signs of head trauma. EYES: Pupils are equal. Extraocular motions intact. EARS: Hearing grossly intact. MOUTH: Oropharynx is normal. NECK: No adenopathy, no JVD. CHEST: Chest with diminished breath sounds bilaterally. No wheezes, rales, or rhonchi. CARDIAC: Regular rate and rhythm. S1 and S2, without murmurs, gallops, or rubs. VASCULAR: No Edema. Peripheral pulses normal and equal in all extremities. ABDOMEN: Soft, non tender and non distended. No rebound or guarding, and no masses palpated. Bowel Sounds normal. MUSCULOSKELETAL: Tender to touch at the posterior scapular area. No overt bleeding noted. Good range of motion of all major joints. Extremities without clubbing, cyanosis or edema. NEUROLOGIC EXAM: Awake oriented x3 although it appears she is missing some details which has raised a concern with the neurologist still some lethargy but awake no focal sensory or strength deficits. Speech normal. Follows commands. PSYCHIATRIC: Mood normal. SKIN: detail exam as documented in skin assessment - Constitutional Vitals: Temp Pulse Resp BP Pulse Ox 98.0 F 92 H 16 130/70 93 11/21/20 04:58 11/21/20 04:58 11/21/20 04:58 11/21/20 04:58 11/21/20 04:58 Plan Activity: advance as tolerated, fall precautions Diet: diabetic Special Instructions: record daily BP diary, record blood sugar diary Plan of Treatment: Continue social distancing and wearing a mask. It is important to make sure you monitor your blood sugar closely. Follow outpatient with cardiology and Neurology Please noted, muscle relaxants can make you drowsy. Please do not take and drive Follow up with: JOYCELYN KRAMER MD [Staff Physician] - 7 Days PRIMARY MD SHANTELL [Primary Care Provider] - 3-5 Days MICHELLE NUGENT MD [Staff Physician] - 7 Days POP SÁNCHEZ MD [Staff Physician] - 7 Days Prescriptions: Insulin Glargine [Lantus VIAL] 20 unit SUB-Q QHS #10 ml Dexamethasone 6 mg PO DAILY #6 tablet Butalb/Acetamin/Caff 50-325-40 [Fioricet 50-325-40] 1 tab PO Q4H PRN #30 tablet PRN Reason: Headache Insulin Regular, Human [HumuLIN R] 0 unit SQ AC #1 vial Baclofen [Lioresal] 5 mg PO TID #10 tablet Meloxicam [Mobic] 7.5 mg PO QDAY #14 tablet oxyCODONE /ACETAMINOPHEN [Percocet 5/325 mg] 1 tab PO Q6H PRN #10 tablet PRN Reason: Pain, Moderate (4-6)
--- NOTE | 2020-11-21 10:50 | Progress Note ---
Assessment and Plan Assessment and Plan - Patient Problems # DKA (diabetic ketoacidosis) -DKA protocol: Insulin drip, IV fluid resuscitation therapy, monitor urine output every shift, monitor anion gap, serial BMP, potassium repletion as per protocol: Critical care team consulted.-- improved # Metabolic encephalopathy -CT head, neuro check, seizure precaution, aspiration precautions, treat DKA. -confusion improved # pt. discripes fall and LOC? mostly related to above - Brain MRI wo is remarkable for demylinating disease -confusion improved #Hx of MS since 2013 -was treated with po tab initially ? -Currently on Octaveous Iv twice a year ? -consider MRI brain and neck and Dorsal spine -- can be done as out pt. -follow up with her neurologist. # Systemic inflammatory response syndrome -CBC, CMP, chest x-ray, urinalysis, empiric IV antibiotic therapy, repeat CBC in a.m. -COVID-19 Positive # Acidosis -BMP, IV fluid resuscitation therapy, treat DKA, repeat BMP in a.m. # Volume depletion -IV fluid resuscitation therapy, monitor urine output every shift, monitor fluid balance. #DVT prophylaxis -SCD to bilateral lower extremities while in bed, prophylactic anticoagulation PLAN 1- Iv Hydration 2- check for orthostatic changes in BP before discharge !!! 3- Treat underlying infection 4- Fiorcet prn for headache 5- Control of BS 6- follow up with neurology for her MS and headache . D/W pt. and PCP Will sign off Subjective Date of service: 11/21/20 Principal diagnosis: confusion and syncopy Interval history: According to pt. headache improved stil complains of intermittent headache at back of her head she recall falling and hit her head , Confusion is better than yesterday she had MRI wo qd yesterday is remarkable for demylinating disease According to her she is diagnosed with MS 2014 was initially on Po then recently on ? Ocreveus twice a year shot , last got it in September she is with Positive COVID-19 according to her got it from going to the [facility] ,she denied SOB but discripe mild ache and pain was started yesterday on decadron Objective - Vital Sign Vital Signs - 12hr 11/21/20 11/21/20 11/21/20 01:00 03:00 04:58 Temperature 98.0 F Pulse Rate 92 H Respiratory 16 Rate Blood Pressure 130/70 O2 Sat by Pulse 93 93 93 Oximetry - General Apperance Constitutional: comfortable - EENT EENT: PERRL, mucous membranes moist - Respiratory Respiratory: chest non-tender, lungs clear, rhonchi - Cardiovascular Cardiovascular: regular rate, normal S1, normal S2 Extremities: no peripheral edema bilat, no clubbing, cyanosis - Gastrointestinal Gastrointestinal: normoactive bowel sounds - Integumentary Integumentary: normal - Neurologic Cranial nerve examination: PERRL, EOMI, intact Detailed motor examination: grossly full strength in - Psychiatric Psychiatric: other (she is oriented to palce and date today .) - Laboratory Findings CBC and BMP: 11/20/20 05:29 11/20/20 19:15 Abnormal Lab Findings: Abnormal Labs 11/18/20 11/18/20 11/18/20 09:30 09:30 09:30 WBC 15.4 H RBC 6.17 H Hgb 15.6 H Hct 48.2 H MCV 78 L MCH 25 L RDW 18.9 H Plt Count 508 H Lymph % (Auto) 3.5 L [place] % (Auto) Lymph # (Auto) 0.5 L [place] # (Auto) 1.0 H Seg Neutrophils % 89.5 H Seg Neutrophils # 13.8 H PT INR D-Dimer VBG pH 7.124 L* Sodium 136 L Potassium 5.5 H Chloride 92.2 L Carbon Dioxide 6 L* BUN 27 H Creatinine Glucose 498 H POC Glucose Calcium Magnesium Ferritin ALT 5 L Alkaline Phosphatase 149 H Lactate Dehydrogenase C-Reactive Protein Total Protein Albumin Ur Specific [place] Coronavirus (PCR) 11/18/20 11/18/20 11/18/20 10:31 13:01 13:23 WBC RBC Hgb Hct MCV MCH RDW Plt Count Lymph % (Auto) [place] % (Auto) Lymph # (Auto) [place] # (Auto) Seg Neutrophils % Seg Neutrophils # PT 15.6 H INR 1.19 H D-Dimer VBG pH Sodium Potassium Chloride Carbon Dioxide BUN Creatinine Glucose POC Glucose 594 H Calcium Magnesium 3.20 H Ferritin ALT Alkaline Phosphatase Lactate Dehydrogenase C-Reactive Protein Total Protein Albumin Ur Specific [place] Coronavirus (PCR) 11/18/20 11/18/20 11/18/20 13:23 14:34 15:56 WBC RBC Hgb Hct MCV MCH RDW Plt Count Lymph % (Auto) [place] % (Auto) Lymph # (Auto) [place] # (Auto) Seg Neutrophils % Seg Neutrophils # PT INR D-Dimer VBG pH Sodium 135 L Potassium 5.4 H 5.8 H Chloride 91.9 L 95.8 L Carbon Dioxide 9 L* 5 L* BUN 30 H 33 H Creatinine Glucose 513 H* 504 H* POC Glucose Calcium Magnesium 3.00 H Ferritin ALT Alkaline Phosphatase Lactate Dehydrogenase C-Reactive Protein Total Protein Albumin Ur Specific [place] Coronavirus (PCR) 11/18/20 11/18/20 11/18/20 15:56 16:46 17:38 WBC RBC Hgb Hct MCV MCH RDW Plt Count Lymph % (Auto) [place] % (Auto) Lymph # (Auto) [place] # (Auto) Seg Neutrophils % Seg Neutrophils # PT INR D-Dimer VBG pH Sodium Potassium 5.1 H Chloride 95.7 L 107.3 H Carbon Dioxide 7 L* 7 L* BUN 31 H 28 H Creatinine Glucose 462 H 382 H POC Glucose Calcium 7.8 L D Magnesium Ferritin ALT Alkaline Phosphatase Lactate Dehydrogenase C-Reactive Protein Total Protein Albumin Ur Specific [place] 1.037 H Coronavirus (PCR) 11/18/20 11/18/20 11/18/20 18:29 20:56 21:06 WBC RBC Hgb Hct MCV MCH RDW Plt Count Lymph % (Auto) [place] % (Auto) Lymph # (Auto) [place] # (Auto) Seg Neutrophils % Seg Neutrophils # PT INR D-Dimer VBG pH Sodium 146 H Potassium Chloride 114.4 H Carbon Dioxide 8 L* 8 L* BUN 28 H 23 H Creatinine Glucose 360 H 284 H POC Glucose 281 H Calcium 7.3 L Magnesium Ferritin ALT Alkaline Phosphatase Lactate Dehydrogenase C-Reactive Protein Total Protein Albumin Ur Specific [place] Coronavirus (PCR) 11/18/20 11/18/20 11/19/20 22:26 23:39 00:36 WBC RBC Hgb Hct MCV MCH RDW Plt Count Lymph % (Auto) [place] % (Auto) Lymph # (Auto) [place] # (Auto) Seg Neutrophils % Seg Neutrophils # PT INR D-Dimer VBG pH Sodium Potassium Chloride Carbon Dioxide BUN Creatinine Glucose POC Glucose 174 H 140 H 133 H Calcium Magnesium Ferritin ALT Alkaline Phosphatase Lactate Dehydrogenase C-Reactive Protein Total Protein Albumin Ur Specific [place] Coronavirus (PCR) 11/19/20 11/19/20 11/19/20 01:26 02:32 02:47 WBC RBC Hgb Hct MCV MCH RDW Plt Count Lymph % (Auto) [place] % (Auto) Lymph # (Auto) [place] # (Auto) Seg Neutrophils % Seg Neutrophils # PT INR D-Dimer VBG pH Sodium 147 H Potassium Chloride 114.5 H Carbon Dioxide 13 L BUN Creatinine Glucose 134 H POC Glucose 130 H 149 H Calcium 7.9 L Magnesium Ferritin ALT Alkaline Phosphatase Lactate Dehydrogenase C-Reactive Protein Total Protein Albumin Ur Specific [place] Coronavirus (PCR) 11/19/20 11/19/20 11/19/20 04:52 05:02 07:29 WBC RBC Hgb Hct MCV MCH RDW Plt Count Lymph % (Auto) [place] % (Auto) Lymph # (Auto) [place] # (Auto) Seg Neutrophils % Seg Neutrophils # PT INR D-Dimer VBG pH Sodium 149 H 147 H Potassium Chloride 115.3 H 112.3 H Carbon Dioxide 16 L 16 L BUN Creatinine Glucose 193 H 219 H POC Glucose 227 H Calcium 7.7 L 8.2 L Magnesium Ferritin ALT Alkaline Phosphatase Lactate Dehydrogenase C-Reactive Protein Total Protein Albumin Ur Specific [place] Coronavirus (PCR) 11/19/20 11/19/20 11/19/20 09:25 09:30 09:42 WBC 12.7 H RBC Hgb Hct MCV 74 L MCH 25 L RDW 17.8 H Plt Count Lymph % (Auto) 3.2 L [place] % (Auto) 8.4 H Lymph # (Auto) 0.4 L [place] # (Auto) 1.1 H Seg Neutrophils % 87.8 H Seg Neutrophils # 11.2 H PT INR D-Dimer VBG pH Sodium Potassium Chloride Carbon Dioxide BUN Creatinine Glucose POC Glucose 206 H Calcium Magnesium Ferritin ALT Alkaline Phosphatase Lactate Dehydrogenase C-Reactive Protein Total Protein Albumin Ur Specific [place] Coronavirus (PCR) Positive A 11/19/20 11/19/20 11/19/20 11:03 15:37 15:49 WBC RBC Hgb Hct MCV MCH RDW Plt Count Lymph % (Auto) [place] % (Auto) Lymph # (Auto) [place] # (Auto) Seg Neutrophils % Seg Neutrophils # PT INR D-Dimer VBG pH Sodium Potassium 3.4 L Chloride 108.4 H Carbon Dioxide 18 L BUN Creatinine 0.5 L Glucose 191 H POC Glucose 226 H 186 H Calcium 8.0 L Magnesium Ferritin ALT Alkaline Phosphatase Lactate Dehydrogenase C-Reactive Protein Total Protein Albumin Ur Specific [place] Coronavirus (PCR) 11/19/20 11/19/20 11/20/20 18:33 22:31 01:36 WBC RBC Hgb Hct MCV MCH RDW Plt Count Lymph % (Auto) [place] % (Auto) Lymph # (Auto) [place] # (Auto) Seg Neutrophils % Seg Neutrophils # PT INR D-Dimer VBG pH Sodium Potassium 3.1 L Chloride Carbon Dioxide 17 L BUN 6 L Creatinine 0.5 L Glucose 207 H POC Glucose 243 H 251 H Calcium 8.0 L Magnesium Ferritin ALT Alkaline Phosphatase Lactate Dehydrogenase C-Reactive Protein Total Protein Albumin Ur Specific [place] Coronavirus (PCR) 11/20/20 11/20/20 11/20/20 05:29 05:29 05:38 WBC RBC Hgb Hct MCV 74 L MCH 25 L RDW 17.9 H Plt Count Lymph % (Auto) [place] % (Auto) Lymph # (Auto) [place] # (Auto) Seg Neutrophils % Seg Neutrophils # PT INR D-Dimer VBG pH Sodium Potassium 3.1 L Chloride Carbon Dioxide 18 L BUN 6 L Creatinine 0.5 L Glucose 278 H POC Glucose 294 H Calcium Magnesium Ferritin ALT 6 L Alkaline Phosphatase Lactate Dehydrogenase C-Reactive Protein Total Protein 5.5 L D Albumin 2.9 L Ur Specific [place] Coronavirus (PCR) 11/20/20 11/20/20 11/20/20 12:01 16:19 19:15 WBC RBC Hgb Hct MCV MCH RDW Plt Count Lymph % (Auto) [place] % (Auto) Lymph # (Auto) [place] # (Auto) Seg Neutrophils % Seg Neutrophils # PT INR D-Dimer 1728.46 H VBG pH Sodium Potassium Chloride Carbon Dioxide BUN Creatinine Glucose POC Glucose 269 H 187 H Calcium Magnesium Ferritin ALT Alkaline Phosphatase Lactate Dehydrogenase C-Reactive Protein Total Protein Albumin Ur Specific [place] Coronavirus (PCR) 11/20/20 11/20/20 11/20/20 19:15 19:15 20:51 WBC RBC Hgb Hct MCV MCH RDW Plt Count Lymph % (Auto) [place] % (Auto) Lymph # (Auto) [place] # (Auto) Seg Neutrophils % Seg Neutrophils # PT INR D-Dimer VBG pH Sodium Potassium Chloride Carbon Dioxide BUN Creatinine Glucose 215 H POC Glucose 185 H Calcium Magnesium Ferritin 449.6 H ALT Alkaline Phosphatase Lactate Dehydrogenase 395 H C-Reactive Protein 10.20 H Total Protein Albumin Ur Specific [place] Coronavirus (PCR) 11/21/20 08:14 WBC RBC Hgb Hct MCV MCH RDW Plt Count Lymph % (Auto) [place] % (Auto) Lymph # (Auto) [place] # (Auto) Seg Neutrophils % Seg Neutrophils # PT INR D-Dimer VBG pH Sodium Potassium Chloride Carbon Dioxide BUN Creatinine Glucose POC Glucose 416 H Calcium Magnesium Ferritin ALT Alkaline Phosphatase Lactate Dehydrogenase C-Reactive Protein Total Protein Albumin Ur Specific [place] Coronavirus (PCR)
[2020-11-21] MEDS: MELOXICAM 7.5 MG TAB PO SCH (11:13)
[2020-11-21] MEDS: DEXAMETHASONE 4 MG TAB PO SCH (11:14)
[2020-11-21] MEDS ORDERED: ALUM-MAG HYDROXIDE-SIMETHICONE 200-200-20MG/5ML ORAL LIQD 30 ML PO ONE (23:10)
[2020-11-21] MEDS: INSULIN GLARGINE 100 UNITS/ML SUB-Q SCH (23:23)
[2020-11-21] MEDS: oxyCODONE /ACETAMINOPHEN 5-325MG TAB PO PRN (23:26)
[2020-11-22] MEDS: INSULIN LISPRO 100 UNIT/ML SUB-Q SCH ×4 (09:22→22:27)
--- NOTE | 2020-11-22 10:15 | Progress Note ---
Assessment and Plan Assessment and plan: 35 YO Female with DM presented to ED for evaluation. Patient reports "I feel sick". Patient states that she has experienced generalized weakness, nausea, fatigue, polyuria, polydipsia over the past 1 week with worsening symptoms over the past 3 days. EMS notified and upon arrival the patient was found to be in distress and subsequently transported to [facility] for further care and evaluation of the aforementioned symptoms. The patient was seen and evaluated in the emergency department. All lab and imaging studies reviewed. Patient found to have DKA, metabolic encephalopathy, volume depletion, and metabolic acidosis. The patient was admitted to ICU and initiated on DKA protocol. Patient denies f ever, chills, chest pain, palpitation, productive cough, skin rash, recent ill contacts, or known exposure to COVID-19. No prior admission for review. No medication listed at time of admission reconciliation. Critical care team consulted in ED. 11/19: Patient seen and examined today CT of the head revealed a CT cervical spine no acute pathology noted CT of the chest shows a moderate pneumomediastinum and patchy groundglass opacities in both lungs thought to represent possible pneumonia. Patient does have leukocytosis which could be reactive. I do not see inciting factor for her DKA except possible noncompliance with her medication. We will continue DKA protocol at this time. Will give additional 2 L of fluids. She does appear older than stated age we will also rule out COVID- 19 at this time. Will obtain neurology evaluation considering her syncope and also her profound lethargy this morning. Plan of care discussed with the patient and also with the insurance company patient will be 11/20: Patient reported that she had a fall yesterday while in the waiting room. Per documentation she was about to leave AMA and then had a questionable syncopal episode. She tells the neurologist that she fell from the stretcher and hit her head. Initial CT of the head was negative an MRI is being ordered due to some confusion and encephalopathy which I felt was improving but during reevaluation by neurologist she was still a bit confused. 11/21: Patient Seen and examined she is much more awake and alert. She does recall falling or hitting her head. Mental status is improved. She still has some intermittent headache. Amendable to the Fioricet. she had MRI wo qd yesterday is remarkable for demylinating disease According to her she is diagnosed with MS 2014 was initially on Po then recently on ? Ocreveus twice a year shot , last got it in September she is with Positive COVID-19 according to her [facility] ,she denied SOB but discripe mild ache and pain was started yesterday on decadron. Patient not discharged yesterday as she became hypoxic and remained severely lethargic Patient also has underlying multiple sclerosis. Still awaiting to get all her home medication. Covid test did come back positive. She remains on isolation for the same. We will check inflammatory markers. Start her on empiric steroid therapy at this time. MRI reviewed no acute pathology noted except some demyelination disease will defer to neurology for further evaluation. I have discussed with her [facility] doctors about the update, they will look for transferring the patient to their facility, for now will continue COVID 19 management, ID consult, Remdesivir, check inflammatory markers and pulse ox. Prone as tolerated. Will also start on full dose anticoagulation considering worsening Hypoxia and elevated D.dimer. IF No improvement or increase oxygen demand, will obtain pulmonary consult. Continue daily PT (1) Covid 19 with Hypoxic Respiratory failure (2) Metabolic encephalopathy (3) Systemic inflammatory response syndrome (4) DKA (diabetic ketoacidosis) (5) Volume depletion (6) syncope (7) Head trauma (8) Metabolic Acidosis History Interval history: Patient seen and examined, last night was noted to be hypoxic on exertion Hospitalist Physical - Physical exam Narrative exam: VITAL SIGNS: Reviewed. GENERAL: The patient appears normally developed, much more awake today. At this vital signs as documented. HEAD: No signs of head trauma. EYES: Pupils are equal. Extraocular motions intact. EARS: Hearing grossly intact. MOUTH: Oropharynx is normal. NECK: No adenopathy, no JVD. CHEST: Chest with diminished breath sounds bilaterally. No wheezes, rales, or rhonchi. CARDIAC: Regular rate and rhythm. S1 and S2, without murmurs, gallops, or rubs. VASCULAR: No Edema. Peripheral pulses normal and equal in all extremities. ABDOMEN: Soft, non tender and non distended. No rebound or guarding, and no masses palpated. Bowel Sounds normal. MUSCULOSKELETAL: Tender to touch at the posterior scapular area. No overt bleeding noted. Good range of motion of all major joints. Extremities without clubbing, cyanosis or edema. NEUROLOGIC EXAM: Awake oriented x3 although it appears she is missing some details which has raised a concern with the neurologist still some lethargy but awake no focal sensory or strength deficits. Speech normal. Follows commands. PSYCHIATRIC: Mood normal. SKIN: detail exam as documented in skin assessment - Constitutional Vitals: Temp Pulse Resp BP Pulse Ox 97.7 F 87 20 132/78 94 11/22/20 04:31 11/22/20 04:31 11/22/20 04:31 11/22/20 04:31 11/22/20 05:00 General appearance: Present: mild distress HEART Score - HEART Score Troponin: Troponin T < 0.010 ng/mL (0.00-0.029) 11/18/20 09:30 Results - Labs CBC & Chem 7: 11/20/20 05:29 11/20/20 19:15 Labs: Laboratory Last Values WBC 6.0 K/mm3 (4.5-11.0) 11/20/20 05:29 RBC 4.42 M/mm3 (3.65-5.03) 11/20/20 05:29 Hgb 11.2 gm/dl (10.1-14.3) 11/20/20 05:29 Hct 32.8 % (30.3-42.9) 11/20/20 05:29 MCV 74 fl (79-97) L 11/20/20 05:29 MCH 25 pg (28-32) L 11/20/20 05:29 MCHC 34 % (30-34) 11/20/20 05:29 RDW 17.9 % (13.2-15.2) H 11/20/20 05:29 Plt Count 235 K/mm3 (140-440) 11/20/20 05:29 Lymph % (Auto) 3.2 % (13.4-35.0) L 11/19/20 09:25 Owen % (Auto) 8.4 % (0.0-7.3) H 11/19/20 09:25 Eos % (Auto) 0.0 % (0.0-4.3) 11/19/20 09:25 Baso % (Auto) 0.6 % (0.0-1.8) 11/19/20 09:25 Lymph # (Auto) 0.4 K/mm3 (1.2-5.4) L 11/19/20 09:25 Owen # (Auto) 1.1 K/mm3 (0.0-0.8) H 11/19/20 09:25 Eos # (Auto) 0.0 K/mm3 (0.0-0.4) 11/19/20 09:25 Baso # (Auto) 0.1 K/mm3 (0.0-0.1) 11/19/20 09:25 Seg Neutrophils % 87.8 % (40.0-70.0) H 11/19/20 09:25 Seg Neutrophils # 11.2 K/mm3 (1.8-7.7) H 11/19/20 09:25 PT 15.6 Sec. (12.2-14.9) H 11/18/20 10:31 INR 1.19 (0.87-1.13) H 11/18/20 10:31 D-Dimer 1728.46 ng/mlDDU (0-234) H 11/20/20 19:15 VBG pH 7.124 (7.320-7.420) L* 11/18/20 09:30 Sodium 143 mmol/L (137-145) 11/20/20 05:29 Potassium 3.1 mmol/L (3.6-5.0) L 11/20/20 05:29 Chloride 102.5 mmol/L (98-107) 11/20/20 05:29 Carbon Dioxide 18 mmol/L (22-30) L 11/20/20 05:29 Anion Gap 26 mmol/L 11/20/20 05:29 BUN 6 mg/dL (7-17) L 11/20/20 05:29 Creatinine 0.5 mg/dL (0.6-1.2) L 11/20/20 05:29 Estimated GFR > 60 ml/min 11/20/20 05:29 BUN/Creatinine Ratio 12 % 11/20/20 05:29 Glucose 215 mg/dL (65-100) H 11/20/20 19:15 POC Glucose 391 mg/dL (70-105) H 11/22/20 08:08 Calcium 8.6 mg/dL (8.4-10.2) 11/20/20 05:29 Phosphorus 3.50 mg/dL (2.5-4.5) 11/18/20 15:56 Magnesium 3.00 mg/dL (1.7-2.3) H 11/18/20 15:56 Ferritin 449.6 ng/mL (10.0-200.0) H 11/20/20 19:15 Total Bilirubin 0.70 mg/dL (0.1-1.2) 11/20/20 05:29 AST 16 units/L (5-40) 11/20/20 05:29 ALT 6 units/L (7-56) L 11/20/20 05:29 Alkaline Phosphatase 92 units/L (35-129) 11/20/20 05:29 Lactate Dehydrogenase 395 units/L (91-180) H 11/20/20 19:15 Troponin T < 0.010 ng/mL (0.00-0.029) 11/18/20 09:30 C-Reactive Protein 10.20 mg/dL (0.00-1.30) H 11/20/20 19:15 Total Protein 5.5 g/dL (6.3-8.2) L D 11/20/20 05:29 Albumin 2.9 g/dL (3.9-5) L 11/20/20 05:29 Albumin/Globulin Ratio 1.1 % 11/20/20 05:29 Procalcitonin < 0.05 ng/mL (<0.15) 11/20/20 19:15 TSH 0.864 mlU/mL (0.270-4.200) 11/18/20 09:30 Free T4 0.98 ng/dL (0.76-1.46) 11/18/20 09:30 HCG, Qual Negative (Negative) 11/18/20 09:30 Urine Color Yellow (Yellow) 11/18/20 17:38 Urine Turbidity Clear (Clear) 11/18/20 17:38 Urine pH 5.0 (5.0-7.0) 11/18/20 17:38 Ur Specific [place] 1.037 (1.003-1.030) H 11/18/20 17:38 Urine Protein 100 mg/dl mg/dL (Negative) 11/18/20 17:38 Urine Glucose (UA) >=500 mg/dL (Negative) 11/18/20 17:38 Urine Ketones 80 mg/dL (Negative) 11/18/20 17:38 Urine Blood Mod (Negative) 11/18/20 17:38 Urine Nitrite Neg (Negative) 11/18/20 17:38 Urine Bilirubin Neg (Negative) 11/18/20 17:38 Urine Urobilinogen < 2.0 mg/dL (<2.0) 11/18/20 17:38 Ur Leukocyte Esterase Neg (Negative) 11/18/20 17:38 Urine WBC (Auto) 2.0 /HPF (0.0-6.0) 11/18/20 17:38 Urine RBC (Auto) 1.0 /HPF (0.0-6.0) 11/18/20 17:38 U Epithel Cells (Auto) 1.0 /HPF (0-13.0) 11/18/20 17:38 Urine Bacteria (Auto) 1+ /HPF (Negative) 11/18/20 17:38 Urine Mucus Few /HPF 11/18/20 17:38 Coronavirus (PCR) Positive (Negative) A 11/19/20 09:30 Tang/IV: Voiding Method Toilet Active Medications - Current Medications Current Medications: Generic Name Dose Route Start Last Admin Trade Name Freq PRN Reason Stop Dose Admin Acetaminophen 650 mg 11/18/20 15:45 Acetaminophen 325 Mg Tab PO Q6H PRN Pain MILD(1-3)/Fever >100.5/STUART Acetaminophen/Butalbital/Caffeine 1 tab 11/20/20 11:26 Butalb/Acetaminophen/Caffeine Tab PO Q4H PRN Headache Albuterol 2.5 mg 11/18/20 15:45 Albuterol 2.5 Mg/3 Ml Nebu IH Q3HRT PRN Shortness Of Breath Baclofen 5 mg 11/19/20 09:00 11/21/20 23:26 Baclofen 10 Mg Tab PO 5 mg TID EMMA Administration Dexamethasone 6 mg 11/20/20 20:00 11/21/20 11:14 Dexamethasone 4 Mg Tab PO 11/29/20 10:01 6 mg DAILY EMMA Administration Enoxaparin Sodium 70 mg 11/22/20 11:00 Enoxaparin 100 Mg/1 Ml Inj 1 mg/kg (70 mg) SUB-Q Q12HR EMMA Protocol Furosemide 40 mg 11/22/20 11:00 Furosemide 40 Mg/4 Ml Inj IV 11/24/20 10:01 QDAY [facility] Hydromorphone HCl 0.5 mg 11/18/20 15:45 11/19/20 19:34 Hydromorphone 1 Mg/1 Ml Inj IV 0.5 mg Q12H PRN Administration Pain , Severe (7-10) Insulin Human Regular 100 100 mls @ 6 mls/hr 11/18/20 13:00 11/19/20 09:00 units/ Sodium Chloride IV Infused TITR [facility] Titration Protocol 6 UNITS/HR REMDESIVIR 200 mg/ Sodium 250 mls @ 500 mls/hr 11/22/20 10:01 Chloride IV 11/22/20 10:30 ONCE ONE REMDESIVIR 100 mg/ Sodium 250 mls @ 500 mls/hr 11/23/20 21:00 Chloride IV 11/26/20 21:29 Q24HR@2100 [facility] Insulin Glargine 30 units 11/22/20 10:02 Insulin Glargine 100 Units/Ml SUB-Q QHS [facility] Insulin Human Lispro 0 unit 11/20/20 11:30 11/22/20 09:22 Insulin Lispro 100 Unit/Ml SUB-Q 10 unit ACHS [facility] Administration Protocol Insulin Human Regular 12 units 11/22/20 10:02 Insulin Regular, Human 100 Units/1 Ml SUB-Q 11/22/20 10:03 ONCE ONE Meloxicam 7.5 mg 11/19/20 10:00 11/21/20 11:13 Meloxicam 7.5 Mg Tab PO 7.5 mg QDAY [facility] Administration Ondansetron HCl 4 mg 11/18/20 15:45 11/18/20 22:13 Ondansetron 4 Mg/2 Ml Inj IV 4 mg Q8H PRN Administration Nausea And Vomiting Oxycodone/Acetaminophen 1 tab 11/19/20 09:00 11/21/20 23:26 Oxycodone /Acetaminophen 5-325mg Tab PO 1 tab Q6H PRN Administration Pain, Moderate (4-6) Sodium Chloride 10 ml 11/18/20 22:00 11/21/20 23:30 Sodium Chloride 0.9% 10 Ml Flush Syringe IV 10 ml BID EMMA Administration Sodium Chloride 10 ml 11/18/20 15:45 Sodium Chloride 0.9% 10 Ml Flush Syringe IV PRN PRN LINE FLUSH Sodium Chloride 50 ml 11/22/20 21:00 Sodium Chloride 0.9% 50 Ml Ivpb IV 11/26/20 21:01 Q24HR@2100 [facility]
[2020-11-22] MEDS ORDERED: INSULIN REGULAR, HUMAN 100 UNITS/1 ML SUB-Q ONE (11:00)
[2020-11-22] MEDS ORDERED: ENOXAPARIN 100 MG/1 ML INJ SUB-Q SCH (11:00)
[2020-11-22] MEDS: BACLOFEN 10 MG TAB PO SCH ×3 (11:09→20:25)
[2020-11-22] MEDS: ENOXAPARIN 80 MG/0.8 ML INJ SUB-Q SCH ×2 (11:09→22:25)
[2020-11-22] MEDS: FUROSEMIDE 40 MG/4 ML INJ IV SCH (11:09)
[2020-11-22] MEDS: MELOXICAM 7.5 MG TAB PO SCH (11:09)
[2020-11-22] MEDS: DEXAMETHASONE 4 MG TAB PO SCH (11:10)
[2020-11-22 12:04] LABS: C-Reactive Protein 3.6 mg/dL (0.00-1.30)
--- NOTE | 2020-11-22 12:11 | Consultation ---
History of Present Illness - Reason for Consult Consult date: 11/22/20 - History of Present Illness 35 old female past medical history diabetes, MS presented to hospital complaining of weakness and fatigue, polyuria, polydipsia. This began approximately 1 week prior to admission and was worsening over the 3 days prior. She is known to be in DKA and admitted to the ICU initially. She notes [facility]. Afebrile with a white, though essentially however that has returned to normal. Covid positive. Normal renal function. Normal procalcitonin. Currently on dexamethasone and remdesivir. Imaging personally reviewed: Chest CTA: No evidence of pulmonary embolism, moderate pneumomediastinum, bilateral groundglass Review of systems: Deferred to reduce to the risk of transmission of COVID-19 Past History Past Medical History: diabetes Past Surgical History: No surgical history, Other (Reviewed) Social history: single. denies: smoking, alcohol abuse Family history: diabetes, hypertension Medications and Allergies Allergies Allergy/AdvReac Type Severity Reaction Status Date / Time No Known Allergies Allergy Unverified 11/18/20 12:45 Home Medications Medication Instructions Recorded Confirmed Last Taken Type Baclofen [Lioresal] 5 mg PO TID #10 tablet 11/20/20 Unknown Rx Insulin Glargine [Lantus VIAL] 20 unit SUB-Q QHS #10 ml 11/20/20 Unknown Rx Insulin Regular, Human [HumuLIN R] 0 unit SQ AC #1 vial 11/20/20 Unknown Rx Meloxicam [Mobic] 7.5 mg PO QDAY #14 tablet 11/20/20 Unknown Rx oxyCODONE /ACETAMINOPHEN [Percocet 1 tab PO Q6H PRN #10 tablet 11/20/20 Unknown Rx 5/325 mg] Butalb/Acetamin/Caff 50-325-40 1 tab PO Q4H PRN #30 tablet 11/21/20 Unknown Rx [Fioricet 50-325-40] Dexamethasone 6 mg PO DAILY #6 tablet 11/21/20 Unknown Rx Active Meds: Active Medications Acetaminophen (Acetaminophen 325 Mg Tab) 650 mg PO Q6H PRN PRN Reason: Pain MILD(1-3)/Fever >100.5/STUART Acetaminophen/Butalbital/Caffeine (Butalb/Acetaminophen/Caffeine Tab) 1 tab PO Q4H PRN PRN Reason: Headache Albuterol (Albuterol 2.5 Mg/3 Ml Nebu) 2.5 mg IH Q3HRT PRN PRN Reason: Shortness Of Breath Baclofen (Baclofen 10 Mg Tab) 5 mg PO TID [facility] Last Admin: 11/22/20 11:09 Dose: 5 mg Documented by: Dexamethasone (Dexamethasone 4 Mg Tab) 6 mg PO DAILY [facility] Stop: 11/29/20 10:01 Last Admin: 11/22/20 11:10 Dose: 6 mg Documented by: Enoxaparin Sodium (Enoxaparin 80 Mg/0.8 Ml Inj) 70 mg SUB-Q Q12HR [facility] Last Admin: 11/22/20 11:09 Dose: 70 mg Documented by: Furosemide (Furosemide 40 Mg/4 Ml Inj) 40 mg IV QDAY [facility] Stop: 11/24/20 10:01 Last Admin: 11/22/20 11:09 Dose: 40 mg Documented by: Hydromorphone HCl (Hydromorphone 1 Mg/1 Ml Inj) 0.5 mg IV Q12H PRN PRN Reason: Pain , Severe (7-10) Last Admin: 11/19/20 19:34 Dose: 0.5 mg Documented by: REMDESIVIR 200 mg/ Sodium (Chloride) 250 mls @ 500 mls/hr IV ONCE ONE Stop: 11/22/20 12:59 REMDESIVIR 100 mg/ Sodium (Chloride) 250 mls @ 500 mls/hr IV Q24HR@2100 [facility] Stop: 11/26/20 21:29 Insulin Glargine (Insulin Glargine 100 Units/Ml) 30 units SUB-Q QPM [facility] Insulin Human Lispro (Insulin Lispro 100 Unit/Ml) 0 unit SUB-Q ACHS [facility]; Protocol Last Admin: 11/22/20 09:22 Dose: 10 unit Documented by: Meloxicam (Meloxicam 7.5 Mg Tab) 7.5 mg PO QDAY [facility] Last Admin: 11/22/20 11:09 Dose: 7.5 mg Documented by: Ondansetron HCl (Ondansetron 4 Mg/2 Ml Inj) 4 mg IV Q8H PRN PRN Reason: Nausea And Vomiting Last Admin: 11/18/20 22:13 Dose: 4 mg Documented by: Oxycodone/Acetaminophen (Oxycodone /Acetaminophen 5-325mg Tab) 1 tab PO Q6H PRN PRN Reason: Pain, Moderate (4-6) Last Admin: 11/21/20 23:26 Dose: 1 tab Documented by: Sodium Chloride (Sodium Chloride 0.9% 10 Ml Flush Syringe) 10 ml IV BID [facility] Last Admin: 11/21/20 23:30 Dose: 10 ml Documented by: Sodium Chloride (Sodium Chloride 0.9% 10 Ml Flush Syringe) 10 ml IV PRN PRN PRN Reason: LINE FLUSH Sodium Chloride (Sodium Chloride 0.9% 50 Ml Ivpb) 50 ml IV Q24HR@2100 [facility] Stop: 11/26/20 21:01 Physical Examination - Physical Exam Narrative exam: Physical exam deferred to reduce risk of transmission of COVID-19. Please refer to primary team's note. - Constitutional Vitals: Vital Signs Temp Pulse Resp BP Pulse Ox 97.7 F 87 20 132/78 94 11/22/20 04:31 11/22/20 04:31 11/22/20 04:31 11/22/20 04:31 11/22/20 05:00 Temperature -Last 24 Hours Temperature 97.7 F Temperature 97.3 F Results - Labs CBC & Chem 7: 11/20/20 05:29 11/20/20 19:15 Labs: Abnormal lab results 11/21/20 11/21/20 11/21/20 Range/Units 12:21 16:47 21:31 POC Glucose 322 H 299 H 350 H (70-105) mg/dL 11/22/20 11/22/20 Range/Units 08:08 11:57 POC Glucose 391 H 328 H (70-105) mg/dL Assessment and Plan Cultures: Covid positive A/P: 35-year-old female past medical history diabetes, multiple sclerosis admitted with DKA, found to have COVID-19. #Severe COVID-19 pneumonia: Patient presented with a week of symptoms, chest x- ray with diffuse bilateral infiltrates. Inflammatory markers elevated #Acute hypoxemic respiratory failure: Likely secondary to COVID-19 infection. Currently on room air. #Diabetes: tight glycemic control for best outcomes. #Multiple sclerosis Recs: -Dexamethasone 6 mg IV/PO daily for 10 days -Remdesivir for 5 days -Obtain q48-72h inflammatory markers - ferritin, Ddimer, CRP, LDH -No need for antibiotics due to normal procalcitonin -Anticoagulation per hospital protocol -Proning as able No need to complete remdesivir course prior to discharge Thank you for the consult, we will continue to follow. Sharron Whitney MD [facility] O: [phone] F: [phone]
[2020-11-22] MEDS ORDERED: REMDESIVIR 200 MG in SODIUM CHLORIDE 0.9% 250ML 250 ML IV ONE (12:30)
[2020-11-22] MEDS: SODIUM CHLORIDE 0.9% 50 ML IVPB IV SCH (13:00)
[2020-11-22 13:35] LABS: Alanine Aminotransferase 9 units/L (7-56); Albumin 3.1 g/dL (3.9-5); Blood Urea Nitrogen 9 mg/dL (7-17); Calcium 8.6 mg/dL (8.4-10.2); Hemolysis Index 0
[2020-11-22 13:38] LABS: BUN/Creatinine Ratio 18
--- NOTE | 2020-11-22 13:57 | Progress Note ---
Assessment and Plan 35 YO Female with DM presented to ED for evaluation. Patient states that she has experienced generalized weakness, nausea, fatigue, polyuria, polydipsia over the past 1 week with worsening symptoms over the past 3 days. EMS notified and upon arrival the patient was found to be in distress and subsequently transported to [facility] for further care and evaluation of the aforementioned symptoms. The patient was seen and evaluated in the emergency department. Patient found to have DKA, metabolic encephalopathy, volume depletion, and met abolic acidosis. The patient was admitted to ICU and initiated on DKA protocol. Patient denies fever, chills, chest pain, palpitation, productive cough, skin rash, recent ill contacts, or known exposure to COVID-19. No prior admission for review. Patient has no history of smoking, alcohol or drug abuse. 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 Patient has history of multiple sclerosis. Patient resting on 2 litres o2.O2 saturation running 93%. Patient complaining slight chest pain and shortness of breath. Patient afebrile. No leukocytosis. Patient positive for Rendon virus (PCR). Patients inflammatory markers D dimer 1548. Serum Ferritin 341.8 LDH 400 CRP 3.6 Procalcitonin .15. Repeat CTA of chest 11/22/20 reported Positive for pulmonary embolus to the left lower lobe . Decreased pneumomediastinum. Increased bilateral lung infiltrates concerning for Covid pneumonia. Patient started on S/C Lovenox 70mg q 12 hours. Patient is on Dexamethasone. REMDESIVIR, Pro air inhaler. I spent critical care time of 35 minutes review the chart, obtaining history, examine the patient, review CAT scan of chest, lab results, taking to the nursing staff and work out plan of tratment in this critically ill COVID 19 patient with pulmonary emboli. - Patient Problems (1) DKA (diabetic ketoacidosis) Current Visit: Yes Status: Acute Qualifiers: Diabetes mellitus type: type 1 Plan to address problem: Glucose 300 Anion gap 16 Management as per primary care. (2) Metabolic encephalopathy Current Visit: Yes Status: Acute Plan to address problem: Management as per primary care. (3) Systemic inflammatory response syndrome Current Visit: Yes Status: Acute Plan to address problem: Improved. Patient afebrile. Leukocyte count became normal. (4) Pulmonary emboli Current Visit: Yes Status: Acute Plan to address problem: Patients CTA reported Positive for pulmonary emboli in left lower lobe. Patient started on S/C Lovenox. (5) Volume depletion Current Visit: Yes Status: Acute Plan to address problem: Patient is on I/V fluid Nacl. Patients blood pressure 140/80. Subjective Date of service: 11/22/20 Principal diagnosis: confusion and syncopy Interval history: 35 YO Female with DM presented to ED for evaluation. Patient states that she has experienced generalized weakness, nausea, fatigue, polyuria, polydipsia over the past 1 week with worsening symptoms over the past 3 days. EMS notified and upon arrival the patient was found to be in distress and subsequently transported to [facility] for further care and evaluation of the aforementioned symptoms. The patient was seen and evaluated in the emergency department. Patient found to have DKA, metabolic encephalopathy, volume depletion, and metabolic acidosis. The patient was admitted to ICU and initiated on DKA protocol. Patient denies fever, chills, chest pain, palpitation, productive cough, skin rash, recent ill contacts, or known exposure to COVID-19. No prior admission for review. Patient has no history of smoking, alcohol or drug abuse. 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 Patient has history of multiple sclerosis. Patient resting on 2 litres o2.O2 saturation running 93%. Patient complaining slight chest pain and shortness of breath. Patient afebrile. No leukocytosis. Patient positive for Rendon virus (PCR). Patients inflammatory markers D dimer 1548. Serum Ferritin 341.8 LDH 400 CRP 3.6 Procalcitonin .15. Repeat CTA of chest 11/22/20 reported Positive for pulmonary embolus to the left lower lobe . Decreased pneumomediastinum. Increased bilateral lung infiltrates concerning for Covid pneumonia. Patient started on S/C Lovenox 70mg q 12 hours. Patient is on Dexamethasone. REMDESIVIR, Pro air inhaler. Objective Vital Signs - 12hr 11/22/20 11/22/20 11/22/20 04:31 05:00 10:02 Temperature 97.7 F Pulse Rate 87 Respiratory 20 22 Rate Blood Pressure 132/78 O2 Sat by Pulse 95 94 97 Oximetry Constitutional: no acute distress, alert Eyes: non-icteric ENT: oropharynx moist Neck: supple, no lymphadenopathy Effort: mildly labored Ascultation: Bilateral: diminished breath sounds Cardiovascular: regular rate and rhythm Gastrointestinal: normoactive bowel sounds, soft, non-tender Integumentary: normal Extremities: no cyanosis, no edema Neurologic: normal mental status, non-focal exam, pupils equal and round Psychiatric: mood appropriate, affect normal CBC and BMP: 11/20/20 05:29 11/22/20 10:04 ABG, PT/INR, D-dimer: PT/INR, D-dimer PT 15.6 Sec. (12.2-14.9) H 11/18/20 10:31 INR 1.19 (0.87-1.13) H 11/18/20 10:31 D-Dimer 1548.09 ng/mlDDU (0-234) H 11/22/20 10:04 Abnormal lab findings: Abnormal Labs 11/18/20 11/18/20 11/18/20 09:30 09:30 09:30 WBC 15.4 H RBC 6.17 H Hgb 15.6 H Hct 48.2 H MCV 78 L MCH 25 L RDW 18.9 H Plt Count 508 H Lymph % (Auto) 3.5 L Cherry % (Auto) Lymph # (Auto) 0.5 L Cherry # (Auto) 1.0 H Seg Neutrophils % 89.5 H Seg Neutrophils # 13.8 H PT INR D-Dimer VBG pH 7.124 L* Sodium 136 L Potassium 5.5 H Chloride 92.2 L Carbon Dioxide 6 L* BUN 27 H Creatinine Glucose 498 H POC Glucose Calcium Magnesium Ferritin ALT 5 L Alkaline Phosphatase 149 H Lactate Dehydrogenase C-Reactive Protein Total Protein Albumin Ur Specific [place] Coronavirus (PCR) 11/18/20 11/18/20 11/18/20 10:31 13:01 13:23 WBC RBC Hgb Hct MCV MCH RDW Plt Count Lymph % (Auto) Cherry % (Auto) Lymph # (Auto) Cherry # (Auto) Seg Neutrophils % Seg Neutrophils # PT 15.6 H INR 1.19 H D-Dimer VBG pH Sodium Potassium Chloride Carbon Dioxide BUN Creatinine Glucose POC Glucose 594 H Calcium Magnesium 3.20 H Ferritin ALT Alkaline Phosphatase Lactate Dehydrogenase C-Reactive Protein Total Protein Albumin Ur Specific [place] Coronavirus (PCR) 11/18/20 11/18/20 11/18/20 13:23 14:34 15:56 WBC RBC Hgb Hct MCV MCH RDW Plt Count Lymph % (Auto) Cherry % (Auto) Lymph # (Auto) Cherry # (Auto) Seg Neutrophils % Seg Neutrophils # PT INR D-Dimer VBG pH Sodium 135 L Potassium 5.4 H 5.8 H Chloride 91.9 L 95.8 L Carbon Dioxide 9 L* 5 L* BUN 30 H 33 H Creatinine Glucose 513 H* 504 H* POC Glucose Calcium Magnesium 3.00 H Ferritin ALT Alkaline Phosphatase Lactate Dehydrogenase C-Reactive Protein Total Protein Albumin Ur Specific [place] Coronavirus (PCR) 11/18/20 11/18/20 11/18/20 15:56 16:46 17:38 WBC RBC Hgb Hct MCV MCH RDW Plt Count Lymph % (Auto) Cherry % (Auto) Lymph # (Auto) Cherry # (Auto) Seg Neutrophils % Seg Neutrophils # PT INR D-Dimer VBG pH Sodium Potassium 5.1 H Chloride 95.7 L 107.3 H Carbon Dioxide 7 L* 7 L* BUN 31 H 28 H Creatinine Glucose 462 H 382 H POC Glucose Calcium 7.8 L D Magnesium Ferritin ALT Alkaline Phosphatase Lactate Dehydrogenase C-Reactive Protein Total Protein Albumin Ur Specific [place] 1.037 H Coronavirus (PCR) 11/18/20 11/18/20 11/18/20 18:29 20:56 21:06 WBC RBC Hgb Hct MCV MCH RDW Plt Count Lymph % (Auto) Cherry % (Auto) Lymph # (Auto) Cherry # (Auto) Seg Neutrophils % Seg Neutrophils # PT INR D-Dimer VBG pH Sodium 146 H Potassium Chloride 114.4 H Carbon Dioxide 8 L* 8 L* BUN 28 H 23 H Creatinine Glucose 360 H 284 H POC Glucose 281 H Calcium 7.3 L Magnesium Ferritin ALT Alkaline Phosphatase Lactate Dehydrogenase C-Reactive Protein Total Protein Albumin Ur Specific [place] Coronavirus (PCR) 11/18/20 11/18/20 11/19/20 22:26 23:39 00:36 WBC RBC Hgb Hct MCV MCH RDW Plt Count Lymph % (Auto) Cherry % (Auto) Lymph # (Auto) Cherry # (Auto) Seg Neutrophils % Seg Neutrophils # PT INR D-Dimer VBG pH Sodium Potassium Chloride Carbon Dioxide BUN Creatinine Glucose POC Glucose 174 H 140 H 133 H Calcium Magnesium Ferritin ALT Alkaline Phosphatase Lactate Dehydrogenase C-Reactive Protein Total Protein Albumin Ur Specific [place] Coronavirus (PCR) 11/19/20 11/19/20 11/19/20 01:26 02:32 02:47 WBC RBC Hgb Hct MCV MCH RDW Plt Count Lymph % (Auto) Cherry % (Auto) Lymph # (Auto) Cherry # (Auto) Seg Neutrophils % Seg Neutrophils # PT INR D-Dimer VBG pH Sodium 147 H Potassium Chloride 114.5 H Carbon Dioxide 13 L BUN Creatinine Glucose 134 H POC Glucose 130 H 149 H Calcium 7.9 L Magnesium Ferritin ALT Alkaline Phosphatase Lactate Dehydrogenase C-Reactive Protein Total Protein Albumin Ur Specific [place] Coronavirus (PCR) 11/19/20 11/19/20 11/19/20 04:52 05:02 07:29 WBC RBC Hgb Hct MCV MCH RDW Plt Count Lymph % (Auto) Cherry % (Auto) Lymph # (Auto) Cherry # (Auto) Seg Neutrophils % Seg Neutrophils # PT INR D-Dimer VBG pH Sodium 149 H 147 H Potassium Chloride 115.3 H 112.3 H Carbon Dioxide 16 L 16 L BUN Creatinine Glucose 193 H 219 H POC Glucose 227 H Calcium 7.7 L 8.2 L Magnesium Ferritin ALT Alkaline Phosphatase Lactate Dehydrogenase C-Reactive Protein Total Protein Albumin Ur Specific [place] Coronavirus (PCR) 11/19/20 11/19/20 11/19/20 09:25 09:30 09:42 WBC 12.7 H RBC Hgb Hct MCV 74 L MCH 25 L RDW 17.8 H Plt Count Lymph % (Auto) 3.2 L Cherry % (Auto) 8.4 H Lymph # (Auto) 0.4 L Cherry # (Auto) 1.1 H Seg Neutrophils % 87.8 H Seg Neutrophils # 11.2 H PT INR D-Dimer VBG pH Sodium Potassium Chloride Carbon Dioxide BUN Creatinine Glucose POC Glucose 206 H Calcium Magnesium Ferritin ALT Alkaline Phosphatase Lactate Dehydrogenase C-Reactive Protein Total Protein Albumin Ur Specific [place] Coronavirus (PCR) Positive A 11/19/20 11/19/20 11/19/20 11:03 15:37 15:49 WBC RBC Hgb Hct MCV MCH RDW Plt Count Lymph % (Auto) Cherry % (Auto) Lymph # (Auto) Cherry # (Auto) Seg Neutrophils % Seg Neutrophils # PT INR D-Dimer VBG pH Sodium Potassium 3.4 L Chloride 108.4 H Carbon Dioxide 18 L BUN Creatinine 0.5 L Glucose 191 H POC Glucose 226 H 186 H Calcium 8.0 L Magnesium Ferritin ALT Alkaline Phosphatase Lactate Dehydrogenase C-Reactive Protein Total Protein Albumin Ur Specific [place] Coronavirus (PCR) 11/19/20 11/19/20 11/20/20 18:33 22:31 01:36 WBC RBC Hgb Hct MCV MCH RDW Plt Count Lymph % (Auto) Cherry % (Auto) Lymph # (Auto) Cherry # (Auto) Seg Neutrophils % Seg Neutrophils # PT INR D-Dimer VBG pH Sodium Potassium 3.1 L Chloride Carbon Dioxide 17 L BUN 6 L Creatinine 0.5 L Glucose 207 H POC Glucose 243 H 251 H Calcium 8.0 L Magnesium Ferritin ALT Alkaline Phosphatase Lactate Dehydrogenase C-Reactive Protein Total Protein Albumin Ur Specific [place] Coronavirus (PCR) 11/20/20 11/20/20 11/20/20 05:29 05:29 05:38 WBC RBC Hgb Hct MCV 74 L MCH 25 L RDW 17.9 H Plt Count Lymph % (Auto) Cherry % (Auto) Lymph # (Auto) Cherry # (Auto) Seg Neutrophils % Seg Neutrophils # PT INR D-Dimer VBG pH Sodium Potassium 3.1 L Chloride Carbon Dioxide 18 L BUN 6 L Creatinine 0.5 L Glucose 278 H POC Glucose 294 H Calcium Magnesium Ferritin ALT 6 L Alkaline Phosphatase Lactate Dehydrogenase C-Reactive Protein Total Protein 5.5 L D Albumin 2.9 L Ur Specific [place] Coronavirus (PCR) 11/20/20 11/20/20 11/20/20 12:01 16:19 19:15 WBC RBC Hgb Hct MCV MCH RDW Plt Count Lymph % (Auto) Cherry % (Auto) Lymph # (Auto) Cherry # (Auto) Seg Neutrophils % Seg Neutrophils # PT INR D-Dimer 1728.46 H VBG pH Sodium Potassium Chloride Carbon Dioxide BUN Creatinine Glucose POC Glucose 269 H 187 H Calcium Magnesium Ferritin ALT Alkaline Phosphatase Lactate Dehydrogenase C-Reactive Protein Total Protein Albumin Ur Specific [place] Coronavirus (PCR) 11/20/20 11/20/20 11/20/20 19:15 19:15 20:51 WBC RBC Hgb Hct MCV MCH RDW Plt Count Lymph % (Auto) Cherry % (Auto) Lymph # (Auto) Cherry # (Auto) Seg Neutrophils % Seg Neutrophils # PT INR D-Dimer VBG pH Sodium Potassium Chloride Carbon Dioxide BUN Creatinine Glucose 215 H POC Glucose 185 H Calcium Magnesium Ferritin 449.6 H ALT Alkaline Phosphatase Lactate Dehydrogenase 395 H C-Reactive Protein 10.20 H Total Protein Albumin Ur Specific [place] Coronavirus (PCR) 11/21/20 11/21/20 11/21/20 08:14 12:21 16:47 WBC RBC Hgb Hct MCV MCH RDW Plt Count Lymph % (Auto) Cherry % (Auto) Lymph # (Auto) Cherry # (Auto) Seg Neutrophils % Seg Neutrophils # PT INR D-Dimer VBG pH Sodium Potassium Chloride Carbon Dioxide BUN Creatinine Glucose POC Glucose 416 H 322 H 299 H Calcium Magnesium Ferritin ALT Alkaline Phosphatase Lactate Dehydrogenase C-Reactive Protein Total Protein Albumin Ur Specific [place] Coronavirus (PCR) 11/21/20 11/22/20 11/22/20 21:31 08:08 10:04 WBC RBC Hgb Hct MCV MCH RDW Plt Count Lymph % (Auto) Cherry % (Auto) Lymph # (Auto) Cherry # (Auto) Seg Neutrophils % Seg Neutrophils # PT INR D-Dimer VBG pH Sodium Potassium 3.1 L Chloride Carbon Dioxide BUN Creatinine 0.5 L Glucose 300 H POC Glucose 350 H 391 H Calcium Magnesium Ferritin ALT Alkaline Phosphatase Lactate Dehydrogenase C-Reactive Protein Total Protein 5.4 L Albumin 3.1 L Ur Specific [place] Coronavirus (PCR) 11/22/20 11/22/20 11/22/20 10:04 10:04 11:38 WBC RBC Hgb Hct MCV MCH RDW Plt Count Lymph % (Auto) Cherry % (Auto) Lymph # (Auto) Cherry # (Auto) Seg Neutrophils % Seg Neutrophils # PT INR D-Dimer 1548.09 H VBG pH Sodium Potassium Chloride Carbon Dioxide BUN Creatinine Glucose 301 H POC Glucose Calcium Magnesium Ferritin 341.9 H ALT Alkaline Phosphatase Lactate Dehydrogenase 400 H C-Reactive Protein 3.60 H Total Protein Albumin Ur Specific [place] Coronavirus (PCR) 11/22/20 11:57 WBC RBC Hgb Hct MCV MCH RDW Plt Count Lymph % (Auto) Cherry % (Auto) Lymph # (Auto) Cherry # (Auto) Seg Neutrophils % Seg Neutrophils # PT INR D-Dimer VBG pH Sodium Potassium Chloride Carbon Dioxide BUN Creatinine Glucose POC Glucose 328 H Calcium Magnesium Ferritin ALT Alkaline Phosphatase Lactate Dehydrogenase C-Reactive Protein Total Protein Albumin Ur Specific [place] Coronavirus (PCR) CT scan - chest: report reviewed, image reviewed Additional Studies: CTA CHEST WITH CONTRAST 11/22/20 INDICATION : covid pneumonia OMNI 350 100 ML. TECHNIQUE: Axial imaging performed through the chest, with contrast bolus timing set to maximize opacification of the pulmonary arteries. Sagittal and coronal reformatted images. 3-plane MIP reformatted images were obtained. All CT scans at this location are performed using CT dose reduction for ALARA by means of automated exposure control. 100 mL of intravenous contrast administered. COMPARISON: 11/18/2020 FINDINGS: Bolus: Contrast bolus timing is adequate. PTE: Nonocclusive pulmonary embolus is identified in the distal main left pulmonary artery extending to the second and third order branches of the left lower lobe. No other emboli are identified. Mediastinum: Heart and great vessels appear normal. No pathologic mediastinal adenopathy. Pneumomediastinum seen on the previous exam has decreased by at least 50%. Lungs: Bilateral infiltrates are again seen which appear increased in density since the previous exam. No pleural effusion or pneumothorax. Bones: Degenerative changes in the spine with nothing acute. Upper abdomen: Limited imaging of the upper abdomen shows nothing acute. IMPRESSION: Positive for pulmonary embolus to the left lower lobe as described. Decreased pneumomediastinum. Increased bilateral lung infiltrates concerning for Covid pneumonia. CTA CHEST WITH IV CONTRAST 11/18/20 INDICATION: mediastinal air. TECHNIQUE: Axial CT images were obtained through the chest after injection of 100 mL Omnipaque 350 IV contrast. 3 plane MIP reconstructions were produced. All CT scans at this location are performed using CT dose reduction for ALARA by means of automated exposure control. COMPARISON: None available. FINDINGS: Pulmonary Arteries: No pulmonary emboli. Lungs: There are patchy bilateral groundglass opacities in both lungs. There is no pneumothorax. Trachea and Bronchi: No significant abnormality. Heart and Pericardium: No significant abnormality. Vasculature: No significant abnormality. Lymphatics: No lymphadenopathy. Additional Findings: There is moderate pneumomediastinum. Upper Abdomen: No acute findings. Skeletal Structures: No acute findings or aggressive bone lesions. IMPRESSION: 1. No CT evidence for pulmonary embolism. 2. Moderate pneumomediastinum is present. 3. Patchy groundglass opacities in both lungs that may reflect multifocal pneumonia
--- NOTE | 2020-11-22 15:34 | Cat Scan Report ---
CTA CHEST WITH CONTRAST INDICATION : covid pneumonia OMNI 350 100 ML. TECHNIQUE: Axial imaging performed through the chest, with contrast bolus timing set to maximize opa cification of the pulmonary arteries. Sagittal and coronal reformatted images. 3-plane MIP reformatte d images were obtained. All CT scans at this location are performed using CT dose reduction for ALAR A by means of automated exposure control. 100 mL of intravenous contrast administered. COMPARISON: 11/18/2020 FINDINGS: Bolus: Contrast bolus timing is adequate. PTE: Nonocclusive pulmonary embolus is identified in the distal main left pulmonary artery extending to the second and third order branches of the left lower lobe. No other emboli are identified. Mediastinum: Heart and great vessels appear normal. No pathologic mediastinal adenopathy. Pneumomed iastinum seen on the previous exam has decreased by at least 50%. Lungs: Bilateral infiltrates are again seen which appear increased in density since the previous exa m. No pleural effusion or pneumothorax. Bones: Degenerative changes in the spine with nothing acute. Upper abdomen: Limited imaging of the upper abdomen shows nothing acute. IMPRESSION: Positive for pulmonary embolus to the left lower lobe as described. Decreased pneumomediastinum. Increased bilateral lung infiltrates concerning for Covid pneumonia. CRITICAL RESULT: Time of Discovery (CARE WORKER/CDT): 1425 hours Time of Communication (CARE WORKER/CDT): 1428 hours Licensed Practitioner Receiving Report: BAM Maldonado Read-Back Performed: Yes. Signer Name: Jean Claude Cardoza Jr, MD Signed: 11/22/2020 3:29 PM Workstation Name: [id number]
[2020-11-22] MEDS: INSULIN GLARGINE 100 UNITS/ML SUB-Q SCH (19:15)
[2020-11-22] MEDS: oxyCODONE /ACETAMINOPHEN 5-325MG TAB PO PRN (22:25)
--- NOTE | 2020-11-23 08:13 | Progress Note ---
Assessment and Plan Assessment and plan: 35 YO Female with DM presented to ED for evaluation. Patient reports "I feel sick". Patient states that she has experienced generalized weakness, nausea, fatigue, polyuria, polydipsia over the past 1 week with worsening symptoms over the past 3 days. EMS notified and upon arrival the patient was found to be in distress and subsequently transported to [facility] for further care and evaluation of the aforementioned symptoms. The patient was seen and evaluated in the emergency department. All lab and imaging studies reviewed. Patient found to have DKA, metabolic encephalopathy, volume depletion, and metabolic acidosis. The patient was admitted to ICU and initiated on DKA protocol. Patient denies f ever, chills, chest pain, palpitation, productive cough, skin rash, recent ill contacts, or known exposure to COVID-19. No prior admission for review. No medication listed at time of admission reconciliation. Critical care team consulted in ED. 11/19: Patient seen and examined today CT of the head revealed a CT cervical spine no acute pathology noted CT of the chest shows a moderate pneumomediastinum and patchy groundglass opacities in both lungs thought to represent possible pneumonia. Patient does have leukocytosis which could be reactive. I do not see inciting factor for her DKA except possible noncompliance with her medication. We will continue DKA protocol at this time. Will give additional 2 L of fluids. She does appear older than stated age we will also rule out COVID- 19 at this time. Will obtain neurology evaluation considering her syncope and also her profound lethargy this morning. Plan of care discussed with the patient and also with the insurance company patient will be 11/20: Patient reported that she had a fall yesterday while in the waiting room. Per documentation she was about to leave AMA and then had a questionable syncopal episode. She tells the neurologist that she fell from the stretcher and hit her head. Initial CT of the head was negative an MRI is being ordered due to some confusion and encephalopathy which I felt was improving but during reevaluation by neurologist she was still a bit confused. 11/21: Patient Seen and examined she is much more awake and alert. She does recall falling or hitting her head. Mental status is improved. She still has some intermittent headache. Amendable to the Fioricet. she had MRI wo qd yesterday is remarkable for demylinating disease According to her she is diagnosed with MS 2014 was initially on Po then recently on ? Ocreveus twice a year shot , last got it in September she is with Positive COVID-19 according to her got it from going to the [facility] ,she denied SOB but discripe mild ache and pain was started yesterday on decadron. Patient not discharged yesterday as she became hypoxic and remained severely lethargic Patient also has underlying multiple sclerosis. Still awaiting to get all her home medication. Covid test did come back positive. She remains on isolation for the same. We will check inflammatory markers. Start her on empiric steroid therapy at this time. MRI reviewed no acute pathology noted except some demyelination disease will defer to neurology for further evaluation. I have discussed with her [facility] doctors about the update, they will look for transferring the patient to their facility, for now will continue COVID 19 management, ID consult, Remdesivir, check inflammatory markers and pulse ox. Prone as tolerated. Will also start on full dose anticoagulation considering worsening Hypoxia and elevated D.dimer. IF No improvement or increase oxygen demand, will obtain pulmonary consult. Continue daily PT 11/23; patient is on remdesivir and Decadron for COVID-19 infection. CTA showed yesterday left lung PE and currently on therapeutic dose of Lovenox. Patient was admitted for DKA and currently out of DKA. Blood sugar is uncontrolled. I will add AC insulin. Monitor blood sugar and adjust as needed. Patient is a [facility] patient. Patient was on 2 L of oxygen. Patient is complaining shortness of breath and weakness, I put PT consult. (1) Covid 19 with Hypoxic Respiratory failure (2) Metabolic encephalopathy (3) Systemic inflammatory response syndrome (4) DKA (diabetic ketoacidosis) (5) Volume depletion (6) syncope (7) Head trauma (8) Metabolic Acidosis History Interval history: Patient was seen and evaluated this morning Patient was complaining shortness of breath, on 2 L of oxygen Patient is followed for DKA, Covid with hypoxia and left leg PE Hospitalist Physical - Physical exam Narrative exam: Not in cardiopulmonary distress. The patient appeared well nourished and normally developed. Vital signs as documented. Head exam is unremarkable. No scleral icterus . Neck is without jugular venous distension, thyromegaly, or carotid bruits. Lungs decreased air entry. Cardiac exam reveals regular rate and Rhythm. Abdominal exam reveals normal bowel sounds, nontender, no organomegaly. Extremities are nonedematous and both femoral and pedal pulses are normal. WRITER: Alert and oriented 3. No focal weakness. - Constitutional Vitals: Temp Pulse Resp BP Pulse Ox 98.0 F 93 H 19 132/79 90 11/23/20 04:41 11/23/20 04:41 11/23/20 04:41 11/23/20 04:41 11/23/20 04:41 General appearance: Present: mild distress HEART Score - HEART Score Troponin: Troponin T < 0.010 ng/mL (0.00-0.029) 11/18/20 09:30 Results - Labs CBC & Chem 7: 11/23/20 07:40 11/23/20 07:40 Labs: Laboratory Last Values WBC 6.0 K/mm3 (4.5-11.0) 11/20/20 05:29 RBC 4.42 M/mm3 (3.65-5.03) 11/20/20 05:29 Hgb 11.2 gm/dl (10.1-14.3) 11/20/20 05:29 Hct 32.8 % (30.3-42.9) 11/20/20 05:29 MCV 74 fl (79-97) L 11/20/20 05:29 MCH 25 pg (28-32) L 11/20/20 05:29 MCHC 34 % (30-34) 11/20/20 05:29 RDW 17.9 % (13.2-15.2) H 11/20/20 05:29 Plt Count 235 K/mm3 (140-440) 11/20/20 05:29 Lymph % (Auto) 3.2 % (13.4-35.0) L 11/19/20 09:25 Carlton % (Auto) 8.4 % (0.0-7.3) H 11/19/20 09:25 Eos % (Auto) 0.0 % (0.0-4.3) 11/19/20 09:25 Baso % (Auto) 0.6 % (0.0-1.8) 11/19/20 09:25 Lymph # (Auto) 0.4 K/mm3 (1.2-5.4) L 11/19/20 09:25 Carlton # (Auto) 1.1 K/mm3 (0.0-0.8) H 11/19/20 09:25 Eos # (Auto) 0.0 K/mm3 (0.0-0.4) 11/19/20 09:25 Baso # (Auto) 0.1 K/mm3 (0.0-0.1) 11/19/20 09:25 Seg Neutrophils % 87.8 % (40.0-70.0) H 11/19/20 09:25 Seg Neutrophils # 11.2 K/mm3 (1.8-7.7) H 11/19/20 09:25 PT 15.6 Sec. (12.2-14.9) H 11/18/20 10:31 INR 1.19 (0.87-1.13) H 11/18/20 10:31 D-Dimer 1548.09 ng/mlDDU (0-234) H 11/22/20 10:04 VBG pH 7.124 (7.320-7.420) L* 11/18/20 09:30 Sodium 141 mmol/L (137-145) 11/22/20 10:04 Potassium 3.1 mmol/L (3.6-5.0) L 11/22/20 10:04 Chloride 100.1 mmol/L (98-107) 11/22/20 10:04 Carbon Dioxide 28 mmol/L (22-30) D 11/22/20 10:04 Anion Gap 16 mmol/L 11/22/20 10:04 BUN 9 mg/dL (7-17) 11/22/20 10:04 Creatinine 0.5 mg/dL (0.6-1.2) L 11/22/20 10:04 Estimated GFR > 60 ml/min 11/22/20 10:04 BUN/Creatinine Ratio 18 % 11/22/20 10:04 Glucose 300 mg/dL (65-100) H 11/22/20 10:04 Glucose 301 mg/dL (65-100) H 11/22/20 10:04 POC Glucose 147 mg/dL (70-105) H 11/23/20 07:58 Calcium 8.6 mg/dL (8.4-10.2) 11/22/20 10:04 Phosphorus 3.50 mg/dL (2.5-4.5) 11/18/20 15:56 Magnesium 3.00 mg/dL (1.7-2.3) H 11/18/20 15:56 Ferritin 341.9 ng/mL (10.0-200.0) H 11/22/20 11:38 Total Bilirubin 0.40 mg/dL (0.1-1.2) 11/22/20 10:04 AST 12 units/L (5-40) 11/22/20 10:04 ALT 9 units/L (7-56) 11/22/20 10:04 Alkaline Phosphatase 112 units/L (35-129) 11/22/20 10:04 Lactate Dehydrogenase 400 units/L (91-180) H 11/22/20 10:04 Troponin T < 0.010 ng/mL (0.00-0.029) 11/18/20 09:30 C-Reactive Protein 3.60 mg/dL (0.00-1.30) H 11/22/20 10:04 Total Protein 5.4 g/dL (6.3-8.2) L 11/22/20 10:04 Albumin 3.1 g/dL (3.9-5) L 11/22/20 10:04 Albumin/Globulin Ratio 1.3 % 11/22/20 10:04 Procalcitonin 0.15 ng/mL (<0.15) 11/22/20 11:38 TSH 0.864 mlU/mL (0.270-4.200) 11/18/20 09:30 Free T4 0.98 ng/dL (0.76-1.46) 11/18/20 09:30 HCG, Qual Negative (Negative) 11/18/20 09:30 Urine Color Yellow (Yellow) 11/18/20 17:38 Urine Turbidity Clear (Clear) 11/18/20 17:38 Urine pH 5.0 (5.0-7.0) 11/18/20 17:38 Ur Specific Albers 1.037 (1.003-1.030) H 11/18/20 17:38 Urine Protein 100 mg/dl mg/dL (Negative) 11/18/20 17:38 Urine Glucose (UA) >=500 mg/dL (Negative) 11/18/20 17:38 Urine Ketones 80 mg/dL (Negative) 11/18/20 17:38 Urine Blood Mod (Negative) 11/18/20 17:38 Urine Nitrite Neg (Negative) 11/18/20 17:38 Urine Bilirubin Neg (Negative) 11/18/20 17:38 Urine Urobilinogen < 2.0 mg/dL (<2.0) 11/18/20 17:38 Ur Leukocyte Esterase Neg (Negative) 11/18/20 17:38 Urine WBC (Auto) 2.0 /HPF (0.0-6.0) 11/18/20 17:38 Urine RBC (Auto) 1.0 /HPF (0.0-6.0) 11/18/20 17:38 U Epithel Cells (Auto) 1.0 /HPF (0-13.0) 11/18/20 17:38 Urine Bacteria (Auto) 1+ /HPF (Negative) 11/18/20 17:38 Urine Mucus Few /HPF 11/18/20 17:38 Coronavirus (PCR) Positive (Negative) A 11/19/20 09:30 Tang/IV: Voiding Method Bedpan Active Medications - Current Medications Current Medications: Generic Name Dose Route Start Last Admin Trade Name Freq PRN Reason Stop Dose Admin Acetaminophen 650 mg 11/18/20 15:45 Acetaminophen 325 Mg Tab PO Q6H PRN Pain MILD(1-3)/Fever >100.5/STUART Acetaminophen/Butalbital/Caffeine 1 tab 11/20/20 11:26 Butalb/Acetaminophen/Caffeine Tab PO Q4H PRN Headache Albuterol 2.5 mg 11/18/20 15:45 Albuterol 2.5 Mg/3 Ml Nebu IH Q3HRT PRN Shortness Of Breath Baclofen 5 mg 11/19/20 09:00 11/22/20 20:25 Baclofen 10 Mg Tab PO 5 mg TID EMMA Administration Dexamethasone 6 mg 11/20/20 20:00 11/22/20 11:10 Dexamethasone 4 Mg Tab PO 11/29/20 10:01 6 mg DAILY EMMA Administration Enoxaparin Sodium 70 mg 11/22/20 11:00 11/22/20 22:25 Enoxaparin 80 Mg/0.8 Ml Inj SUB-Q 70 mg Q12HR EMMA Administration Furosemide 40 mg 11/22/20 11:30 11/22/20 11:09 Furosemide 40 Mg/4 Ml Inj IV 11/24/20 10:01 40 mg QDAY EMMA Administration Hydromorphone HCl 0.5 mg 11/18/20 15:45 11/19/20 19:34 Hydromorphone 1 Mg/1 Ml Inj IV 0.5 mg Q12H PRN Administration Pain , Severe (7-10) REMDESIVIR 100 mg/ Sodium 250 mls @ 500 mls/hr 11/23/20 21:00 Chloride IV 11/26/20 21:29 [id number]@2100 [facility] Insulin Glargine 30 units 11/22/20 18:00 11/22/20 19:15 Insulin Glargine 100 Units/Ml SUB-Q 30 units QPM EMMA Administration Insulin Human Lispro 0 unit 11/20/20 11:30 11/22/20 22:27 Insulin Lispro 100 Unit/Ml SUB-Q 8 unit ACHS EMMA Administration Protocol Meloxicam 7.5 mg 11/19/20 10:00 11/22/20 11:09 Meloxicam 7.5 Mg Tab PO 7.5 mg QDAY EMMA Administration Ondansetron HCl 4 mg 11/18/20 15:45 11/18/20 22:13 Ondansetron 4 Mg/2 Ml Inj IV 4 mg Q8H PRN Administration Nausea And Vomiting Oxycodone/Acetaminophen 1 tab 11/19/20 09:00 11/22/20 22:25 Oxycodone /Acetaminophen 5-325mg Tab PO 1 tab Q6H PRN Administration Pain, Moderate (4-6) Potassium Chloride 40 meq 11/23/20 08:10 Potassium Chloride Er 20 Meq Tab PO 11/23/20 08:11 ONCE ONE Sodium Chloride 10 ml 11/18/20 22:00 11/22/20 22:26 Sodium Chloride 0.9% 10 Ml Flush Syringe IV 10 ml BID EMMA Administration Sodium Chloride 10 ml 11/18/20 15:45 Sodium Chloride 0.9% 10 Ml Flush Syringe IV PRN PRN LINE FLUSH Sodium Chloride 50 ml 11/22/20 13:00 11/22/20 13:00 Sodium Chloride 0.9% 50 Ml Ivpb IV 11/26/20 21:01 Not Given Q24HR@2100 [facility]
[2020-11-23 08:18] LABS: Hematocrit 34.5 % (30.3-42.9); Hemoglobin 11.4 gm/dl (10.1-14.3); Mean Corpuscular HGB Conc 33 % (30-34); Mean Corpuscular Volume 74 fl (79-97); Platelet Count 339 K/mm3 (140-440); Red Blood Count 4.64 M/mm3 (3.65-5.03); Red Cell Distribution Width 17.1 % (13.2-15.2)
[2020-11-23] MEDS: INSULIN LISPRO 100 UNIT/ML SUB-Q SCH ×7 (08:30→22:36)
[2020-11-23] MEDS ORDERED: POTASSIUM CHLORIDE ER 20 MEQ TAB PO NR (08:30)
[2020-11-23 08:45] LABS: Alanine Aminotransferase 9 units/L (7-56); BUN/Creatinine Ratio 30; Blood Urea Nitrogen 9 mg/dL (7-17); Calcium 8.7 mg/dL (8.4-10.2); Hemolysis Index 1
[2020-11-23] MEDS: HYDROmorphone 1 MG/1 ML INJ IV PRN (09:20)
[2020-11-23] MEDS: ENOXAPARIN 80 MG/0.8 ML INJ SUB-Q SCH ×2 (09:26→22:09)
[2020-11-23] MEDS: BACLOFEN 10 MG TAB PO SCH ×3 (09:27→20:10)
[2020-11-23] MEDS: FUROSEMIDE 40 MG/4 ML INJ IV SCH (09:27)
[2020-11-23] MEDS: DEXAMETHASONE 4 MG TAB PO SCH (09:29)
[2020-11-23] MEDS: MELOXICAM 7.5 MG TAB PO SCH (09:30)
--- NOTE | 2020-11-23 11:05 | Progress Note ---
Assessment and Plan Cultures: Covid positive A/P: 35-year-old female past medical history diabetes, multiple sclerosis admitted with DKA, found to have COVID-19. #Severe COVID-19 pneumonia: Patient presented with a week of symptoms, chest x- ray with diffuse bilateral infiltrates. Inflammatory markers elevated #Acute hypoxemic respiratory failure: Likely secondary to COVID-19 infection. #Diabetes: tight glycemic control for best outcomes. #Pulmonary embolus: anticoagulation per hospital protocol. #Multiple sclerosis Recs: -Dexamethasone 6 mg IV/PO daily for 10 days -Remdesivir for 5 days -Obtain q48-72h inflammatory markers - ferritin, Ddimer, CRP, LDH -Anticoagulation per hospital protocol -Proning as able No need to complete remdesivir course prior to discharge Thank you for the consult, we will continue to follow. Sharron Whitney MD [facility] ([facility]) O: [phone] F: [phone] Subjective Date of service: 11/23/20 Principal diagnosis: confusion and syncopy Interval history: Afebrile, whtie count slightly increased today. Imaging personally reviewed: Chest CTA: left lung pulmonary embolus Objective - Exam Narrative Exam: Physical exam deferred to reduce risk of transmission of COVID-19. Please refer to primary team's note. - Constitutional Vitals: Vital Signs Temp Pulse Resp BP Pulse Ox 98.0 F 93 H 19 132/79 90 11/23/20 04:41 11/23/20 04:41 11/23/20 04:41 11/23/20 04:41 11/23/20 04:41 Temperature -Last 24 Hours Temperature 98.0 F Temperature 97.6 F - Labs CBC & Chem 7: 11/23/20 07:40 11/23/20 07:40 Labs: Abnormal lab results 11/22/20 11/22/20 11/22/20 Range/Units 10:04 10:04 10:04 WBC (4.5-11.0) K/mm3 MCV (79-97) fl MCH (28-32) pg RDW (13.2-15.2) % D-Dimer 1548.09 H (0-234) ng/mlDDU Potassium 3.1 L (3.6-5.0) mmol/L Carbon Dioxide (22-30) mmol/L Creatinine 0.5 L (0.6-1.2) mg/dL Glucose 300 H 301 H (65-100) mg/dL POC Glucose (70-105) mg/dL Ferritin (10.0-200.0) ng/mL Lactate Dehydrogenase 400 H (91-180) units/L C-Reactive Protein 3.60 H (0.00-1.30) mg/dL Total Protein 5.4 L (6.3-8.2) g/dL Albumin 3.1 L (3.9-5) g/dL 11/22/20 11/22/20 11/22/20 Range/Units 11:38 11:57 17:37 WBC (4.5-11.0) K/mm3 MCV (79-97) fl MCH (28-32) pg RDW (13.2-15.2) % D-Dimer (0-234) ng/mlDDU Potassium (3.6-5.0) mmol/L Carbon Dioxide (22-30) mmol/L Creatinine (0.6-1.2) mg/dL Glucose (65-100) mg/dL POC Glucose 328 H 301 H (70-105) mg/dL Ferritin 341.9 H (10.0-200.0) ng/mL Lactate Dehydrogenase (91-180) units/L C-Reactive Protein (0.00-1.30) mg/dL Total Protein (6.3-8.2) g/dL Albumin (3.9-5) g/dL 11/22/20 11/23/20 11/23/20 Range/Units 20:44 07:40 07:40 WBC 11.7 H (4.5-11.0) K/mm3 MCV 74 L (79-97) fl MCH 25 L (28-32) pg RDW 17.1 H (13.2-15.2) % D-Dimer (0-234) ng/mlDDU Potassium 2.8 L* (3.6-5.0) mmol/L Carbon Dioxide 36 H D (22-30) mmol/L Creatinine 0.3 L (0.6-1.2) mg/dL Glucose 145 H (65-100) mg/dL POC Glucose 348 H (70-105) mg/dL Ferritin (10.0-200.0) ng/mL Lactate Dehydrogenase (91-180) units/L C-Reactive Protein (0.00-1.30) mg/dL Total Protein 5.2 L (6.3-8.2) g/dL Albumin 3.0 L (3.9-5) g/dL 11/23/20 Range/Units 07:58 WBC (4.5-11.0) K/mm3 MCV (79-97) fl MCH (28-32) pg RDW (13.2-15.2) % D-Dimer (0-234) ng/mlDDU Potassium (3.6-5.0) mmol/L Carbon Dioxide (22-30) mmol/L Creatinine (0.6-1.2) mg/dL Glucose (65-100) mg/dL POC Glucose 147 H (70-105) mg/dL Ferritin (10.0-200.0) ng/mL Lactate Dehydrogenase (91-180) units/L C-Reactive Protein (0.00-1.30) mg/dL Total Protein (6.3-8.2) g/dL Albumin (3.9-5) g/dL
[2020-11-23] MEDS: INSULIN GLARGINE 100 UNITS/ML SUB-Q SCH (17:53)
[2020-11-23] MEDS: SODIUM CHLORIDE 0.9% 50 ML IVPB IV SCH (21:09)
--- NOTE | 2020-11-23 21:13 | Progress Note ---
Assessment and Plan 35 YO Female with DM presented to ED for evaluation. Patient states that she has experienced generalized weakness, nausea, fatigue, polyuria, polydipsia over the past 1 week with worsening symptoms over the past 3 days. EMS notified and upon arrival the patient was found to be in distress and subsequently transported to [facility] for further care and evaluation of the aforementioned symptoms. The patient was seen and evaluated in the emergency department. Patient found to have DKA, metabolic encephalopathy, volume depletion, and meta bolic acidosis. The patient was admitted to ICU and initiated on DKA protocol. Patient denies fever, chills, chest pain, palpitation, productive cough, skin rash, recent ill contacts, or known exposure to COVID-19. No prior admission for review. Patient has no history of smoking, alcohol or drug abuse. 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 Patient has history of multiple sclerosis. Patient is alert, awake, and on 2 litres O2.O2 saturation running 96%. Patient reports shortness of breath even with slight exertion. Patient denies chest pain and cough. Patient afebrile. BP: 124/78. HR 99. Has leukocytosis. K+: 3.2 Patient positive for Rendon virus (PCR). Patients inflammatory markers D dimer 1548. Serum Ferritin 341.8 LDH 400 CRP 3.6 Procalcitonin .15. Repeat CTA of chest 11/22/20 reported Positive for pulmonary embolus to the left lower lobe . Decreased pneumomediastinum. Increased bilateral lung infiltrates concerning for Covid pneumonia. Patient started on S/C Lovenox 70mg q 12 hours. Patient is on Dexamethasone. REMDESIVIR, Pro air inhaler, Potassium supplement. I spent critical care time of 35 minutes review the chart, obtaining history, examine the patient, review CAT scan of chest, lab results, taking to the nursing staff and work out plan of tratment in this critically ill COVID 19 patient with pulmonary emboli. - Patient Problems (1) DKA (diabetic ketoacidosis) Current Visit: Yes Status: Acute Qualifiers: Diabetes mellitus type: type 1 Plan to address problem: Glucose 300 Anion gap 16 Management as per primary care. (2) Metabolic encephalopathy Current Visit: Yes Status: Acute Plan to address problem: Management as per primary care. (3) Systemic inflammatory response syndrome Current Visit: Yes Status: Acute Plan to address problem: Improved. Patient afebrile. Leukocyte count became normal. (4) Pulmonary emboli Current Visit: Yes Status: Acute Plan to address problem: Patients CTA reported Positive for pulmonary emboli in left lower lobe. Patient started on S/C Lovenox. (5) Volume depletion Current Visit: Yes Status: Acute Plan to address problem: Patient is on I/V fluid Nacl. Patients blood pressure 124/78. Subjective Date of service: 11/23/20 Principal diagnosis: confusion and syncopy Interval history: 35 YO Female with DM presented to ED for evaluation. Patient states that she has experienced generalized weakness, nausea, fatigue, polyuria, polydipsia over the past 1 week with worsening symptoms over the past 3 days. EMS notified and upon arrival the patient was found to be in distress and subsequently transported to [facility] for further care and evaluation of the aforementioned s ymptoms. The patient was seen and evaluated in the emergency department. Patient found to have DKA, metabolic encephalopathy, volume depletion, and metabolic acidosis. The patient was admitted to ICU and initiated on DKA protocol. Patient denies fever, chills, chest pain, palpitation, productive cough, skin rash, recent ill contacts, or known exposure to COVID-19. No prior admission for review. Patient has no history of smoking, alcohol or drug abuse. 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 Patient has history of multiple sclerosis. Patient is alert, awake, and on 2 litres O2.O2 saturation running 96%. Patient reports shortness of breath even with slight exertion. Patient denies chest pain and cough. Patient afebrile. BP: 124/78. HR 99. Has leukocytosis. K+: 3.2 Patient positive for Rendon virus (PCR). Patients inflammatory markers D dimer 1548. Serum Ferritin 341.8 LDH 400 CRP 3.6 Procalcitonin .15. Repeat CTA of chest 11/22/20 reported Positive for pulmonary embolus to the left lower lobe . Decreased pneumomediastinum. Increased bilateral lung infiltrates concerning for Covid pneumonia. Patient started on S/C Lovenox 70mg q 12 hours. Patient is on Dexamethasone. REMDESIVIR, Pro air inhaler, Potassium supplement. Objective Vital Signs - 12hr 11/23/20 11/23/20 10:00 16:50 Pulse Rate 109 H Respiratory 20 22 Rate Blood Pressure 137/88 [Left] O2 Sat by Pulse 79 L 93 Oximetry Constitutional: no acute distress, alert Eyes: non-icteric ENT: oropharynx moist Neck: supple, no lymphadenopathy Effort: mildly labored Ascultation: Bilateral: diminished breath sounds Cardiovascular: regular rate and rhythm Gastrointestinal: normoactive bowel sounds, soft, non-tender Integumentary: normal Extremities: no cyanosis, no edema Neurologic: normal mental status, non-focal exam, pupils equal and round Psychiatric: mood appropriate, affect normal CBC and BMP: 11/23/20 07:40 11/24/20 04:59 ABG, PT/INR, D-dimer: PT/INR, D-dimer PT 15.6 Sec. (12.2-14.9) H 11/18/20 10:31 INR 1.19 (0.87-1.13) H 11/18/20 10:31 D-Dimer 1548.09 ng/mlDDU (0-234) H 11/22/20 10:04 Abnormal lab findings: Abnormal Labs 11/18/20 11/18/20 11/18/20 09:30 09:30 09:30 WBC 15.4 H RBC 6.17 H Hgb 15.6 H Hct 48.2 H MCV 78 L MCH 25 L RDW 18.9 H Plt Count 508 H Lymph % (Auto) 3.5 L [place] % (Auto) Lymph # (Auto) 0.5 L [place] # (Auto) 1.0 H Seg Neutrophils % 89.5 H Seg Neutrophils # 13.8 H PT INR D-Dimer VBG pH 7.124 L* Sodium 136 L Potassium 5.5 H Chloride 92.2 L Carbon Dioxide 6 L* BUN 27 H Creatinine Glucose 498 H POC Glucose Calcium Magnesium Ferritin ALT 5 L Alkaline Phosphatase 149 H Lactate Dehydrogenase C-Reactive Protein Total Protein Albumin Ur Specific [place] Coronavirus (PCR) 11/18/20 11/18/20 11/18/20 10:31 13:01 13:23 WBC RBC Hgb Hct MCV MCH RDW Plt Count Lymph % (Auto) [place] % (Auto) Lymph # (Auto) [place] # (Auto) Seg Neutrophils % Seg Neutrophils # PT 15.6 H INR 1.19 H D-Dimer VBG pH Sodium Potassium Chloride Carbon Dioxide BUN Creatinine Glucose POC Glucose 594 H Calcium Magnesium 3.20 H Ferritin ALT Alkaline Phosphatase Lactate Dehydrogenase C-Reactive Protein Total Protein Albumin Ur Specific [place] Coronavirus (PCR) 11/18/20 11/18/20 11/18/20 13:23 14:34 15:56 WBC RBC Hgb Hct MCV MCH RDW Plt Count Lymph % (Auto) [place] % (Auto) Lymph # (Auto) [place] # (Auto) Seg Neutrophils % Seg Neutrophils # PT INR D-Dimer VBG pH Sodium 135 L Potassium 5.4 H 5.8 H Chloride 91.9 L 95.8 L Carbon Dioxide 9 L* 5 L* BUN 30 H 33 H Creatinine Glucose 513 H* 504 H* POC Glucose Calcium Magnesium 3.00 H Ferritin ALT Alkaline Phosphatase Lactate Dehydrogenase C-Reactive Protein Total Protein Albumin Ur Specific [place] Coronavirus (PCR) 11/18/20 11/18/20 11/18/20 15:56 16:46 17:38 WBC RBC Hgb Hct MCV MCH RDW Plt Count Lymph % (Auto) [place] % (Auto) Lymph # (Auto) [place] # (Auto) Seg Neutrophils % Seg Neutrophils # PT INR D-Dimer VBG pH Sodium Potassium 5.1 H Chloride 95.7 L 107.3 H Carbon Dioxide 7 L* 7 L* BUN 31 H 28 H Creatinine Glucose 462 H 382 H POC Glucose Calcium 7.8 L D Magnesium Ferritin ALT Alkaline Phosphatase Lactate Dehydrogenase C-Reactive Protein Total Protein Albumin Ur Specific [place] 1.037 H Coronavirus (PCR) 11/18/20 11/18/20 11/18/20 18:29 20:56 21:06 WBC RBC Hgb Hct MCV MCH RDW Plt Count Lymph % (Auto) [place] % (Auto) Lymph # (Auto) [place] # (Auto) Seg Neutrophils % Seg Neutrophils # PT INR D-Dimer VBG pH Sodium 146 H Potassium Chloride 114.4 H Carbon Dioxide 8 L* 8 L* BUN 28 H 23 H Creatinine Glucose 360 H 284 H POC Glucose 281 H Calcium 7.3 L Magnesium Ferritin ALT Alkaline Phosphatase Lactate Dehydrogenase C-Reactive Protein Total Protein Albumin Ur Specific [place] Coronavirus (PCR) 11/18/20 11/18/20 11/19/20 22:26 23:39 00:36 WBC RBC Hgb Hct MCV MCH RDW Plt Count Lymph % (Auto) [place] % (Auto) Lymph # (Auto) [place] # (Auto) Seg Neutrophils % Seg Neutrophils # PT INR D-Dimer VBG pH Sodium Potassium Chloride Carbon Dioxide BUN Creatinine Glucose POC Glucose 174 H 140 H 133 H Calcium Magnesium Ferritin ALT Alkaline Phosphatase Lactate Dehydrogenase C-Reactive Protein Total Protein Albumin Ur Specific [place] Coronavirus (PCR) 11/19/20 11/19/20 11/19/20 01:26 02:32 02:47 WBC RBC Hgb Hct MCV MCH RDW Plt Count Lymph % (Auto) [place] % (Auto) Lymph # (Auto) [place] # (Auto) Seg Neutrophils % Seg Neutrophils # PT INR D-Dimer VBG pH Sodium 147 H Potassium Chloride 114.5 H Carbon Dioxide 13 L BUN Creatinine Glucose 134 H POC Glucose 130 H 149 H Calcium 7.9 L Magnesium Ferritin ALT Alkaline Phosphatase Lactate Dehydrogenase C-Reactive Protein Total Protein Albumin Ur Specific [place] Coronavirus (PCR) 11/19/20 11/19/20 11/19/20 04:52 05:02 07:29 WBC RBC Hgb Hct MCV MCH RDW Plt Count Lymph % (Auto) [place] % (Auto) Lymph # (Auto) [place] # (Auto) Seg Neutrophils % Seg Neutrophils # PT INR D-Dimer VBG pH Sodium 149 H 147 H Potassium Chloride 115.3 H 112.3 H Carbon Dioxide 16 L 16 L BUN Creatinine Glucose 193 H 219 H POC Glucose 227 H Calcium 7.7 L 8.2 L Magnesium Ferritin ALT Alkaline Phosphatase Lactate Dehydrogenase C-Reactive Protein Total Protein Albumin Ur Specific [place] Coronavirus (PCR) 11/19/20 11/19/20 11/19/20 09:25 09:30 09:42 WBC 12.7 H RBC Hgb Hct MCV 74 L MCH 25 L RDW 17.8 H Plt Count Lymph % (Auto) 3.2 L [place] % (Auto) 8.4 H Lymph # (Auto) 0.4 L [place] # (Auto) 1.1 H Seg Neutrophils % 87.8 H Seg Neutrophils # 11.2 H PT INR D-Dimer VBG pH Sodium Potassium Chloride Carbon Dioxide BUN Creatinine Glucose POC Glucose 206 H Calcium Magnesium Ferritin ALT Alkaline Phosphatase Lactate Dehydrogenase C-Reactive Protein Total Protein Albumin Ur Specific [place] Coronavirus (PCR) Positive A 11/19/20 11/19/20 11/19/20 11:03 15:37 15:49 WBC RBC Hgb Hct MCV MCH RDW Plt Count Lymph % (Auto) [place] % (Auto) Lymph # (Auto) [place] # (Auto) Seg Neutrophils % Seg Neutrophils # PT INR D-Dimer VBG pH Sodium Potassium 3.4 L Chloride 108.4 H Carbon Dioxide 18 L BUN Creatinine 0.5 L Glucose 191 H POC Glucose 226 H 186 H Calcium 8.0 L Magnesium Ferritin ALT Alkaline Phosphatase Lactate Dehydrogenase C-Reactive Protein Total Protein Albumin Ur Specific [place] Coronavirus (PCR) 11/19/20 11/19/20 11/20/20 18:33 22:31 01:36 WBC RBC Hgb Hct MCV MCH RDW Plt Count Lymph % (Auto) [place] % (Auto) Lymph # (Auto) [place] # (Auto) Seg Neutrophils % Seg Neutrophils # PT INR D-Dimer VBG pH Sodium Potassium 3.1 L Chloride Carbon Dioxide 17 L BUN 6 L Creatinine 0.5 L Glucose 207 H POC Glucose 243 H 251 H Calcium 8.0 L Magnesium Ferritin ALT Alkaline Phosphatase Lactate Dehydrogenase C-Reactive Protein Total Protein Albumin Ur Specific [place] Coronavirus (PCR) 11/20/20 11/20/20 11/20/20 05:29 05:29 05:38 WBC RBC Hgb Hct MCV 74 L MCH 25 L RDW 17.9 H Plt Count Lymph % (Auto) [place] % (Auto) Lymph # (Auto) [place] # (Auto) Seg Neutrophils % Seg Neutrophils # PT INR D-Dimer VBG pH Sodium Potassium 3.1 L Chloride Carbon Dioxide 18 L BUN 6 L Creatinine 0.5 L Glucose 278 H POC Glucose 294 H Calcium Magnesium Ferritin ALT 6 L Alkaline Phosphatase Lactate Dehydrogenase C-Reactive Protein Total Protein 5.5 L D Albumin 2.9 L Ur Specific [place] Coronavirus (PCR) 11/20/20 11/20/20 11/20/20 12:01 16:19 19:15 WBC RBC Hgb Hct MCV MCH RDW Plt Count Lymph % (Auto) [place] % (Auto) Lymph # (Auto) [place] # (Auto) Seg Neutrophils % Seg Neutrophils # PT INR D-Dimer 1728.46 H VBG pH Sodium Potassium Chloride Carbon Dioxide BUN Creatinine Glucose POC Glucose 269 H 187 H Calcium Magnesium Ferritin ALT Alkaline Phosphatase Lactate Dehydrogenase C-Reactive Protein Total Protein Albumin Ur Specific [place] Coronavirus (PCR) 11/20/20 11/20/20 11/20/20 19:15 19:15 20:51 WBC RBC Hgb Hct MCV MCH RDW Plt Count Lymph % (Auto) [place] % (Auto) Lymph # (Auto) [place] # (Auto) Seg Neutrophils % Seg Neutrophils # PT INR D-Dimer VBG pH Sodium Potassium Chloride Carbon Dioxide BUN Creatinine Glucose 215 H POC Glucose 185 H Calcium Magnesium Ferritin 449.6 H ALT Alkaline Phosphatase Lactate Dehydrogenase 395 H C-Reactive Protein 10.20 H Total Protein Albumin Ur Specific [place] Coronavirus (PCR) 11/21/20 11/21/20 11/21/20 08:14 12:21 16:47 WBC RBC Hgb Hct MCV MCH RDW Plt Count Lymph % (Auto) [place] % (Auto) Lymph # (Auto) [place] # (Auto) Seg Neutrophils % Seg Neutrophils # PT INR D-Dimer VBG pH Sodium Potassium Chloride Carbon Dioxide BUN Creatinine Glucose POC Glucose 416 H 322 H 299 H Calcium Magnesium Ferritin ALT Alkaline Phosphatase Lactate Dehydrogenase C-Reactive Protein Total Protein Albumin Ur Specific [place] Coronavirus (PCR) 11/21/20 11/22/20 11/22/20 21:31 08:08 10:04 WBC RBC Hgb Hct MCV MCH RDW Plt Count Lymph % (Auto) [place] % (Auto) Lymph # (Auto) [place] # (Auto) Seg Neutrophils % Seg Neutrophils # PT INR D-Dimer VBG pH Sodium Potassium 3.1 L Chloride Carbon Dioxide BUN Creatinine 0.5 L Glucose 300 H POC Glucose 350 H 391 H Calcium Magnesium Ferritin ALT Alkaline Phosphatase Lactate Dehydrogenase C-Reactive Protein Total Protein 5.4 L Albumin 3.1 L Ur Specific [place] Coronavirus (PCR) 11/22/20 11/22/20 11/22/20 10:04 10:04 11:38 WBC RBC Hgb Hct MCV MCH RDW Plt Count Lymph % (Auto) [place] % (Auto) Lymph # (Auto) [place] # (Auto) Seg Neutrophils % Seg Neutrophils # PT INR D-Dimer 1548.09 H VBG pH Sodium Potassium Chloride Carbon Dioxide BUN Creatinine Glucose 301 H POC Glucose Calcium Magnesium Ferritin 341.9 H ALT Alkaline Phosphatase Lactate Dehydrogenase 400 H C-Reactive Protein 3.60 H Total Protein Albumin Ur Specific [place] Coronavirus (PCR) 11/22/20 11/22/20 11/22/20 11:57 17:37 20:44 WBC RBC Hgb Hct MCV MCH RDW Plt Count Lymph % (Auto) [place] % (Auto) Lymph # (Auto) [place] # (Auto) Seg Neutrophils % Seg Neutrophils # PT INR D-Dimer VBG pH Sodium Potassium Chloride Carbon Dioxide BUN Creatinine Glucose POC Glucose 328 H 301 H 348 H Calcium Magnesium Ferritin ALT Alkaline Phosphatase Lactate Dehydrogenase C-Reactive Protein Total Protein Albumin Ur Specific [place] Coronavirus (PCR) 11/23/20 11/23/20 11/23/20 07:40 07:40 07:58 WBC 11.7 H RBC Hgb Hct MCV 74 L MCH 25 L RDW 17.1 H Plt Count Lymph % (Auto) [place] % (Auto) Lymph # (Auto) [place] # (Auto) Seg Neutrophils % Seg Neutrophils # PT INR D-Dimer VBG pH Sodium Potassium 2.8 L* Chloride Carbon Dioxide 36 H D BUN Creatinine 0.3 L Glucose 145 H POC Glucose 147 H Calcium Magnesium Ferritin ALT Alkaline Phosphatase Lactate Dehydrogenase C-Reactive Protein Total Protein 5.2 L Albumin 3.0 L Ur Specific [place] Coronavirus (PCR) 11/23/20 11/23/20 11/23/20 12:14 13:58 16:29 WBC RBC Hgb Hct MCV MCH RDW Plt Count Lymph % (Auto) [place] % (Auto) Lymph # (Auto) [place] # (Auto) Seg Neutrophils % Seg Neutrophils # PT INR D-Dimer VBG pH Sodium Potassium 3.2 L Chloride Carbon Dioxide BUN Creatinine Glucose POC Glucose 282 H 325 H Calcium Magnesium Ferritin ALT Alkaline Phosphatase Lactate Dehydrogenase C-Reactive Protein Total Protein Albumin Ur Specific [place] Coronavirus (PCR)
[2020-11-23] MEDS: REMDESIVIR 100 MG in SODIUM CHLORIDE 0.9% 250ML 250 ML IV SCH (21:53)
[2020-11-24 06:33] LABS: Alanine Aminotransferase 8 units/L (7-56); Albumin 2.8 g/dL (3.9-5); BUN/Creatinine Ratio 25; Blood Urea Nitrogen 10 mg/dL (7-17); Calcium 8.7 mg/dL (8.4-10.2); Hemolysis Index 2
--- NOTE | 2020-11-24 08:11 | Progress Note ---
Assessment and Plan Assessment and plan: 35 YO Female with DM presented to ED for evaluation. Patient reports "I feel sick". Patient states that she has experienced generalized weakness, nausea, fatigue, polyuria, polydipsia over the past 1 week with worsening symptoms over the past 3 days. EMS notified and upon arrival the patient was found to be in distress and subsequently transported to [facility] for further care and evaluation of the aforementioned symptoms. The patient was seen and evaluated in the emergency department. All lab and imaging studies reviewed. Patient found to have DKA, metabolic encephalopathy, volume depletion, and metabolic acidosis. The patient was admitted to ICU and initiated on DKA protocol. Patient denies f ever, chills, chest pain, palpitation, productive cough, skin rash, recent ill contacts, or known exposure to COVID-19. No prior admission for review. No medication listed at time of admission reconciliation. Critical care team consulted in ED. 11/19: Patient seen and examined today CT of the head revealed a CT cervical spine no acute pathology noted CT of the chest shows a moderate pneumomediastinum and patchy groundglass opacities in both lungs thought to represent possible pneumonia. Patient does have leukocytosis which could be reactive. I do not see inciting factor for her DKA except possible noncompliance with her medication. We will continue DKA protocol at this time. Will give additional 2 L of fluids. She does appear older than stated age we will also rule out COVID- 19 at this time. Will obtain neurology evaluation considering her syncope and also her profound lethargy this morning. Plan of care discussed with the patient and also with the insurance company patient will be 11/20: Patient reported that she had a fall yesterday while in the waiting room. Per documentation she was about to leave AMA and then had a questionable syncopal episode. She tells the neurologist that she fell from the stretcher and hit her head. Initial CT of the head was negative an MRI is being ordered due to some confusion and encephalopathy which I felt was improving but during reevaluation by neurologist she was still a bit confused. 11/21: Patient Seen and examined she is much more awake and alert. She does recall falling or hitting her head. Mental status is improved. She still has some intermittent headache. Amendable to the Fioricet. she had MRI wo qd yesterday is remarkable for demylinating disease According to her she is diagnosed with MS 2014 was initially on Po then recently on ? Ocreveus twice a year shot , last got it in September she is with Positive COVID-19 according to her got it from going to the [employer] ,she denied SOB but discripe mild ache and pain was started yesterday on decadron. Patient not discharged yesterday as she became hypoxic and remained severely lethargic Patient also has underlying multiple sclerosis. Still awaiting to get all her home medication. Covid test did come back positive. She remains on isolation for the same. We will check inflammatory markers. Start her on empiric steroid therapy at this time. MRI reviewed no acute pathology noted except some demyelination disease will defer to neurology for further evaluation. I have discussed with her [facility] doctors about the update, they will look for transferring the patient to their facility, for now will continue COVID 19 management, ID consult, Remdesivir, check inflammatory markers and pulse ox. Prone as tolerated. Will also start on full dose anticoagulation considering worsening Hypoxia and elevated D.dimer. IF No improvement or increase oxygen demand, will obtain pulmonary consult. Continue daily PT 11/23; patient is on remdesivir and Decadron for COVID-19 infection. CTA showed yesterday left lung PE and currently on therapeutic dose of Lovenox. Patient was admitted for DKA and currently out of DKA. Blood sugar is uncontrolled. I will add AC insulin. Monitor blood sugar and adjust as needed. Patient is a [facility] patient. Patient was on 2 L of oxygen. Patient is complaining shortness of breath and weakness, I put PT consult. 11/24; continue with remdesivir and Decadron. Continue with therapeutic Lovenox. Adjust insulin as needed. Discussed with [facility] physician and will take the patient when to have bed. Patient is stable for transfer. (1) Covid 19 with Hypoxic Respiratory failure (2) Metabolic encephalopathy (3) Systemic inflammatory response syndrome (4) DKA (diabetic ketoacidosis) (5) Volume depletion (6) syncope (7) Head trauma (8) Metabolic Acidosis History Interval history: Patient was seen and evaluated this morning Patient was complaining shortness of breath, on 2 L of oxygen Patient is followed for DKA, Covid with hypoxia and left lower lung PE Hospitalist Physical - Physical exam Narrative exam: Not in cardiopulmonary distress. The patient appeared well nourished and normally developed. Vital signs as documented. Head exam is unremarkable. No scleral icterus . Neck is without jugular venous distension, thyromegaly, or carotid bruits. Lungs decreased air entry. Cardiac exam reveals regular rate and Rhythm. Abdominal exam reveals normal bowel sounds, nontender, no organomegaly. Extremities are nonedematous and both femoral and pedal pulses are normal. [employer]: Alert and oriented 3. No focal weakness. - Constitutional Vitals: Temp Pulse Resp BP Pulse Ox 98.0 F 109 H 20 137/88 97 11/23/20 04:41 11/23/20 16:50 11/23/20 22:00 11/23/20 16:50 11/23/20 22:00 General appearance: Present: mild distress HEART Score - HEART Score Troponin: Troponin T < 0.010 ng/mL (0.00-0.029) 11/18/20 09:30 Results - Labs CBC & Chem 7: 11/23/20 07:40 11/24/20 04:59 Labs: Laboratory Last Values WBC 11.7 K/mm3 (4.5-11.0) H 11/23/20 07:40 RBC 4.64 M/mm3 (3.65-5.03) 11/23/20 07:40 Hgb 11.4 gm/dl (10.1-14.3) 11/23/20 07:40 Hct 34.5 % (30.3-42.9) 11/23/20 07:40 MCV 74 fl (79-97) L 11/23/20 07:40 MCH 25 pg (28-32) L 11/23/20 07:40 MCHC 33 % (30-34) 11/23/20 07:40 RDW 17.1 % (13.2-15.2) H 11/23/20 07:40 Plt Count 339 K/mm3 (140-440) 11/23/20 07:40 Lymph % (Auto) 3.2 % (13.4-35.0) L 11/19/20 09:25 [place] % (Auto) 8.4 % (0.0-7.3) H 11/19/20 09:25 Eos % (Auto) 0.0 % (0.0-4.3) 11/19/20 09:25 Baso % (Auto) 0.6 % (0.0-1.8) 11/19/20 09:25 Lymph # (Auto) 0.4 K/mm3 (1.2-5.4) L 11/19/20 09:25 [place] # (Auto) 1.1 K/mm3 (0.0-0.8) H 11/19/20 09:25 Eos # (Auto) 0.0 K/mm3 (0.0-0.4) 11/19/20 09:25 Baso # (Auto) 0.1 K/mm3 (0.0-0.1) 11/19/20 09:25 Seg Neutrophils % 87.8 % (40.0-70.0) H 11/19/20 09:25 Seg Neutrophils # 11.2 K/mm3 (1.8-7.7) H 11/19/20 09:25 PT 15.6 Sec. (12.2-14.9) H 11/18/20 10:31 INR 1.19 (0.87-1.13) H 11/18/20 10:31 D-Dimer 1548.09 ng/mlDDU (0-234) H 11/22/20 10:04 VBG pH 7.124 (7.320-7.420) L* 11/18/20 09:30 Sodium 140 mmol/L (137-145) 11/24/20 04:59 Potassium 3.0 mmol/L (3.6-5.0) L 11/24/20 04:59 Chloride 97.1 mmol/L (98-107) L 11/24/20 04:59 Carbon Dioxide 36 mmol/L (22-30) H 11/24/20 04:59 Anion Gap 10 mmol/L 11/24/20 04:59 BUN 10 mg/dL (7-17) 11/24/20 04:59 Creatinine 0.4 mg/dL (0.6-1.2) L 11/24/20 04:59 Estimated GFR > 60 ml/min 11/24/20 04:59 BUN/Creatinine Ratio 25 % 11/24/20 04:59 Glucose 120 mg/dL (65-100) H 11/24/20 04:59 POC Glucose 370 mg/dL (70-105) H 11/23/20 22:30 Calcium 8.7 mg/dL (8.4-10.2) 11/24/20 04:59 Phosphorus 3.50 mg/dL (2.5-4.5) 11/18/20 15:56 Magnesium 3.00 mg/dL (1.7-2.3) H 11/18/20 15:56 Ferritin 341.9 ng/mL (10.0-200.0) H 11/22/20 11:38 Total Bilirubin 0.30 mg/dL (0.1-1.2) 11/24/20 04:59 AST 12 units/L (5-40) 11/24/20 04:59 ALT 8 units/L (7-56) 11/24/20 04:59 Alkaline Phosphatase 98 units/L (35-129) 11/24/20 04:59 Lactate Dehydrogenase 400 units/L (91-180) H 11/22/20 10:04 Troponin T < 0.010 ng/mL (0.00-0.029) 11/18/20 09:30 C-Reactive Protein 3.60 mg/dL (0.00-1.30) H 11/22/20 10:04 Total Protein 4.9 g/dL (6.3-8.2) L 11/24/20 04:59 Albumin 2.8 g/dL (3.9-5) L 11/24/20 04:59 Albumin/Globulin Ratio 1.3 % 11/24/20 04:59 Procalcitonin 0.15 ng/mL (<0.15) 11/22/20 11:38 TSH 0.864 mlU/mL (0.270-4.200) 11/18/20 09:30 Free T4 0.98 ng/dL (0.76-1.46) 11/18/20 09:30 HCG, Qual Negative (Negative) 11/18/20 09:30 Urine Color Yellow (Yellow) 11/18/20 17:38 Urine Turbidity Clear (Clear) 11/18/20 17:38 Urine pH 5.0 (5.0-7.0) 11/18/20 17:38 Ur Specific [place] 1.037 (1.003-1.030) H 11/18/20 17:38 Urine Protein 100 mg/dl mg/dL (Negative) 11/18/20 17:38 Urine Glucose (UA) >=500 mg/dL (Negative) 11/18/20 17:38 Urine Ketones 80 mg/dL (Negative) 11/18/20 17:38 Urine Blood Mod (Negative) 11/18/20 17:38 Urine Nitrite Neg (Negative) 11/18/20 17:38 Urine Bilirubin Neg (Negative) 11/18/20 17:38 Urine Urobilinogen < 2.0 mg/dL (<2.0) 11/18/20 17:38 Ur Leukocyte Esterase Neg (Negative) 11/18/20 17:38 Urine WBC (Auto) 2.0 /HPF (0.0-6.0) 11/18/20 17:38 Urine RBC (Auto) 1.0 /HPF (0.0-6.0) 11/18/20 17:38 U Epithel Cells (Auto) 1.0 /HPF (0-13.0) 11/18/20 17:38 Urine Bacteria (Auto) 1+ /HPF (Negative) 11/18/20 17:38 Urine Mucus Few /HPF 11/18/20 17:38 Coronavirus (PCR) Positive (Negative) A 11/19/20 09:30 Tang/IV: Voiding Method Bedpan Active Medications - Current Medications Current Medications: Generic Name Dose Route Start Last Admin Trade Name Freq PRN Reason Stop Dose Admin Acetaminophen 650 mg 11/18/20 15:45 Acetaminophen 325 Mg Tab PO Q6H PRN Pain MILD(1-3)/Fever >100.5/STUART Acetaminophen/Butalbital/Caffeine 1 tab 11/20/20 11:26 Butalb/Acetaminophen/Caffeine Tab PO Q4H PRN Headache Albuterol 2.5 mg 11/18/20 15:45 Albuterol 2.5 Mg/3 Ml Nebu IH Q3HRT PRN Shortness Of Breath Baclofen 5 mg 11/19/20 09:00 11/23/20 20:10 Baclofen 10 Mg Tab PO 5 mg TID EMMA Administration Dexamethasone 6 mg 11/20/20 20:00 11/23/20 09:29 Dexamethasone 4 Mg Tab PO 11/29/20 10:01 6 mg DAILY EMMA Administration Enoxaparin Sodium 70 mg 11/22/20 11:00 11/23/20 22:09 Enoxaparin 80 Mg/0.8 Ml Inj SUB-Q 70 mg Q12HR EMMA Administration Furosemide 40 mg 11/22/20 11:30 11/23/20 09:27 Furosemide 40 Mg/4 Ml Inj IV 11/24/20 10:01 40 mg QDAY EMMA Administration Hydromorphone HCl 0.5 mg 11/18/20 15:45 11/23/20 09:20 Hydromorphone 1 Mg/1 Ml Inj IV 0.5 mg Q12H PRN Administration Pain , Severe (7-10) REMDESIVIR 100 mg/ Sodium 250 mls @ 500 mls/hr 11/23/20 21:00 11/23/20 21:53 Chloride IV 11/26/20 21:29 500 mls/hr Q24HR@2100 EMMA Administration Insulin Glargine 30 units 11/22/20 18:00 11/23/20 17:53 Insulin Glargine 100 Units/Ml SUB-Q 30 units QPM EMMA Administration Insulin Human Lispro 0 unit 11/20/20 11:30 11/23/20 22:36 Insulin Lispro 100 Unit/Ml SUB-Q 10 unit ACHS [facility] Administration Protocol Insulin Human Lispro 10 unit 11/23/20 08:15 11/23/20 17:53 Insulin Lispro 100 Unit/Ml SUB-Q 10 unit AC EMMA Administration Meloxicam 7.5 mg 11/19/20 10:00 11/23/20 09:30 Meloxicam 7.5 Mg Tab PO 7.5 mg QDAY EMMA Administration Ondansetron HCl 4 mg 11/18/20 15:45 11/18/20 22:13 Ondansetron 4 Mg/2 Ml Inj IV 4 mg Q8H PRN Administration Nausea And Vomiting Oxycodone/Acetaminophen 1 tab 11/19/20 09:00 11/22/20 22:25 Oxycodone /Acetaminophen 5-325mg Tab PO 1 tab Q6H PRN Administration Pain, Moderate (4-6) Potassium Chloride 40 meq 11/24/20 08:30 Potassium Chloride Er 20 Meq Tab PO 11/24/20 12:00 ONCE@0830 NR Potassium Chloride 40 meq 11/24/20 12:30 Potassium Chloride Er 20 Meq Tab PO 11/24/20 15:00 ONCE@1230 NR Sodium Chloride 10 ml 11/18/20 22:00 11/23/20 22:10 Sodium Chloride 0.9% 10 Ml Flush Syringe IV 10 ml BID EMMA Administration Sodium Chloride 10 ml 11/18/20 15:45 Sodium Chloride 0.9% 10 Ml Flush Syringe IV PRN PRN LINE FLUSH Sodium Chloride 50 ml 11/22/20 13:00 11/23/20 21:09 Sodium Chloride 0.9% 50 Ml Ivpb IV 11/26/20 21:01 50 ml Q24HR@2100 EMMA Administration
[2020-11-24] MEDS ORDERED: POTASSIUM CHLORIDE ER 20 MEQ TAB PO NR ×2 (08:30→12:30)
[2020-11-24] MEDS: INSULIN LISPRO 100 UNIT/ML SUB-Q SCH ×7 (09:07→22:00)
[2020-11-24] MEDS: ENOXAPARIN 80 MG/0.8 ML INJ SUB-Q SCH ×2 (09:23→22:19)
[2020-11-24] MEDS: MELOXICAM 7.5 MG TAB PO SCH (09:24)
[2020-11-24] MEDS: BACLOFEN 10 MG TAB PO SCH ×3 (09:24→22:14)
[2020-11-24] MEDS: DEXAMETHASONE 4 MG TAB PO SCH (09:25)
[2020-11-24] MEDS: FUROSEMIDE 40 MG/4 ML INJ IV SCH (09:26)
--- NOTE | 2020-11-24 17:10 | Progress Note ---
Assessment and Plan Cultures: Covid positive A/P: 35-year-old female past medical history diabetes, multiple sclerosis admitted with DKA, found to have COVID-19. #Severe COVID-19 pneumonia: Patient presented with a week of symptoms, chest x- ray with diffuse bilateral infiltrates. Inflammatory markers elevated #Acute hypoxemic respiratory failure: Likely secondary to COVID-19 infection. 2L NC #Diabetes: tight glycemic control for best outcomes. #Pulmonary embolus: anticoagulation per hospital protocol. #Multiple sclerosis Recs: -Dexamethasone 6 mg IV/PO daily for 10 days -Remdesivir for 5 days -Obtain q48-72h inflammatory markers - ferritin, Ddimer, CRP, LDH -Anticoagulation per hospital protocol -Proning as able No need to complete remdesivir course prior to discharge Thank you for the consult, we will continue to follow. Sharron Whitney MD [facility] ([facility]) O: [phone] F: [phone] Subjective Date of service: 11/24/20 Principal diagnosis: confusion and syncopy Interval history: Afebrile, white count 11.7. On 2 L of cannula. Objective - Exam Narrative Exam: Physical exam deferred to reduce risk of transmission of COVID-19. Please refer to primary team's note. - Constitutional Vitals: Vital Signs Temp Pulse Resp BP Pulse Ox 99.0 F 109 H 16 111/73 93 11/24/20 13:46 11/24/20 13:46 11/24/20 13:46 11/24/20 13:46 11/24/20 13:46 Temperature -Last 24 Hours Temperature 99.0 F Temperature 98.2 F Temperature 97.0 F - Labs CBC & Chem 7: 11/23/20 07:40 11/24/20 04:59 Labs: Abnormal lab results 11/23/20 11/24/20 11/24/20 Range/Units 22:30 04:59 08:06 Potassium 3.0 L (3.6-5.0) mmol/L Chloride 97.1 L (98-107) mmol/L Carbon Dioxide 36 H (22-30) mmol/L Creatinine 0.4 L (0.6-1.2) mg/dL Glucose 120 H (65-100) mg/dL POC Glucose 370 H 107 H (70-105) mg/dL Total Protein 4.9 L (6.3-8.2) g/dL Albumin 2.8 L (3.9-5) g/dL 11/24/20 11/24/20 Range/Units 13:02 16:29 Potassium (3.6-5.0) mmol/L Chloride (98-107) mmol/L Carbon Dioxide (22-30) mmol/L Creatinine (0.6-1.2) mg/dL Glucose (65-100) mg/dL POC Glucose 118 H 229 H (70-105) mg/dL Total Protein (6.3-8.2) g/dL Albumin (3.9-5) g/dL
[2020-11-24] MEDS: INSULIN GLARGINE 100 UNITS/ML SUB-Q SCH (17:26)
--- NOTE | 2020-11-24 21:10 | Progress Note ---
Assessment and Plan 35 YO Female with DM presented to ED for evaluation. Patient states that she has experienced generalized weakness, nausea, fatigue, polyuria, polydipsia over the past 1 week with worsening symptoms over the past 3 days. EMS notified and upon arrival the patient was found to be in distress and subsequently transported to [facility] for further care and evaluation of the aforementioned symptoms. The patient was seen and evaluated in the emergency department. Patient found to have DKA, metabolic encephalopathy, volume depletion, and meta bolic acidosis. The patient was admitted to ICU and initiated on DKA protocol. Patient denies fever, chills, chest pain, palpitation, productive cough, skin rash, recent ill contacts, or known exposure to COVID-19. No prior admission for review. Patient has no history of smoking, alcohol or drug abuse. 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 Patient has history of multiple sclerosis. Patient is alert, awake. Patient suppose to be on 2 litres O2.Not using O2 all the time.O2 saturation running 96%. Patient still complaining shortness of breath on exertion. Complaining also dizziness. Patient denies chest pain and cough. Patient afebrile. BP: 111/73. HR 109. Has leukocytosis. K+: 3.0 Patient positive for [place]end[place] virus (PCR). Patients inflammatory markers D dimer 1548. Serum Ferritin 341.8 LDH 400 CRP 3.6 Procalcitonin .15. Repeat CTA of chest 11/22/20 reported Positive for pulmonary embolus to the left lower lobe . Decreased pneumomediastinum. Increased bilateral lung infiltrates concerning for Covid pneumonia. Patient started on S/C Lovenox 70mg q 12 hours. Patient is on Dexamethasone. REMDESIVIR, Pro air inhaler, Potassium supplement. I spent critical care time of 35 minutes review the chart, obtaining history, examine the patient, review CAT scan of chest, lab results, taking to the nursing staff and work out plan of tratment in this critically ill COVID 19 patient with pulmonary emboli. - Patient Problems (1) DKA (diabetic ketoacidosis) Current Visit: Yes Status: Acute Qualifiers: Diabetes mellitus type: type 1 Plan to address problem: Improved Glucose 120 Anion gap 10 Management as per primary care. (2) Metabolic encephalopathy Current Visit: Yes Status: Acute Plan to address problem: Management as per primary care. (3) Systemic inflammatory response syndrome Current Visit: Yes Status: Acute Plan to address problem: Improving. (4) Pulmonary emboli Current Visit: Yes Status: Acute Plan to address problem: Patients CTA reported Positive for pulmonary emboli in left lower lobe. Patient started on S/C Lovenox. (5) Volume depletion Current Visit: Yes Status: Acute Plan to address problem: Patient is on I/V fluid Nacl. Patients blood pressure 111/73. Subjective Date of service: 11/24/20 Principal diagnosis: confusion and syncopy Interval history: 35 YO Female with DM presented to ED for evaluation. Patient states that she has experienced generalized weakness, nausea, fatigue, polyuria, polydipsia over the past 1 week with worsening symptoms over the past 3 days. EMS notified and upon arrival the patient was found to be in distress and subsequently transported to [facility] for further care and evaluation of the aforementioned symptoms. The patient was seen and evaluated in the emergency department. Patient found to have DKA, metabolic encephalopathy, volume depletion, and metabolic acidosis. The patient was admitted to ICU and initiated on DKA protocol. Patient denies fever, chills, chest pain, palpitation, productive cough, skin rash, recent ill contacts, or known exposure to COVID-19. No prior admission for review. Patient has no history of smoking, alcohol or drug abuse. 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 Patient has history of multiple sclerosis. Patient is alert, awake. Patient suppose to be on 2 litres O2.Not using O2 all the time.O2 saturation running 96%. Patient still complaining shortness of breath on exertion. Complaining also dizziness. Patient denies chest pain and cough. Patient afebrile. BP: 111/73. HR 109. Has leukocytosis. K+: 3.0 Patient positive for Rendon virus (PCR). Patients inflammatory markers D dimer 1548. Serum Ferritin 341.8 LDH 400 CRP 3.6 Procalcitonin .15. Repeat CTA of chest 11/22/20 reported Positive for pulmonary embolus to the left lower lobe . Decreased pneumomediastinum. Increased bilateral lung infiltrates concerning for Covid pneumonia. Patient started on S/C Lovenox 70mg q 12 hours. Patient is on Dexamethasone. REMDESIVIR, Pro air inhaler, Potassium supplement. Objective Vital Signs - 12hr 11/24/20 11/24/20 10:00 13:46 Temperature 99.0 F Pulse Rate 109 H Respiratory 16 Rate Blood Pressure 111/73 O2 Sat by Pulse 94 93 Oximetry Constitutional: no acute distress, alert Eyes: non-icteric ENT: oropharynx moist Neck: supple, no lymphadenopathy Effort: mildly labored Ascultation: Bilateral: diminished breath sounds Cardiovascular: regular rate and rhythm Gastrointestinal: normoactive bowel sounds, soft, non-tender Integumentary: normal Extremities: no cyanosis, no edema Neurologic: normal mental status, non-focal exam, pupils equal and round Psychiatric: mood appropriate, affect normal CBC and BMP: 11/23/20 07:40 11/25/20 13:07 ABG, PT/INR, D-dimer: PT/INR, D-dimer PT 15.6 Sec. (12.2-14.9) H 11/18/20 10:31 INR 1.19 (0.87-1.13) H 11/18/20 10:31 D-Dimer 1548.09 ng/mlDDU (0-234) H 11/22/20 10:04 Abnormal lab findings: Abnormal Labs 11/18/20 11/18/20 11/18/20 09:30 09:30 09:30 WBC 15.4 H RBC 6.17 H Hgb 15.6 H Hct 48.2 H MCV 78 L MCH 25 L RDW 18.9 H Plt Count 508 H Lymph % (Auto) 3.5 L [place] % (Auto) Lymph # (Auto) 0.5 L [place] # (Auto) 1.0 H Seg Neutrophils % 89.5 H Seg Neutrophils # 13.8 H PT INR D-Dimer VBG pH 7.124 L* Sodium 136 L Potassium 5.5 H Chloride 92.2 L Carbon Dioxide 6 L* BUN 27 H Creatinine Glucose 498 H POC Glucose Calcium Magnesium Ferritin ALT 5 L Alkaline Phosphatase 149 H Lactate Dehydrogenase C-Reactive Protein Total Protein Albumin Ur Specific [place] Coronavirus (PCR) 11/18/20 11/18/20 11/18/20 10:31 13:01 13:23 WBC RBC Hgb Hct MCV MCH RDW Plt Count Lymph % (Auto) [place] % (Auto) Lymph # (Auto) [place] # (Auto) Seg Neutrophils % Seg Neutrophils # PT 15.6 H INR 1.19 H D-Dimer VBG pH Sodium Potassium Chloride Carbon Dioxide BUN Creatinine Glucose POC Glucose 594 H Calcium Magnesium 3.20 H Ferritin ALT Alkaline Phosphatase Lactate Dehydrogenase C-Reactive Protein Total Protein Albumin Ur Specific [place] Coronavirus (PCR) 11/18/20 11/18/20 11/18/20 13:23 14:34 15:56 WBC RBC Hgb Hct MCV MCH RDW Plt Count Lymph % (Auto) [place] % (Auto) Lymph # (Auto) [place] # (Auto) Seg Neutrophils % Seg Neutrophils # PT INR D-Dimer VBG pH Sodium 135 L Potassium 5.4 H 5.8 H Chloride 91.9 L 95.8 L Carbon Dioxide 9 L* 5 L* BUN 30 H 33 H Creatinine Glucose 513 H* 504 H* POC Glucose Calcium Magnesium 3.00 H Ferritin ALT Alkaline Phosphatase Lactate Dehydrogenase C-Reactive Protein Total Protein Albumin Ur Specific [place] Coronavirus (PCR) 11/18/20 11/18/20 11/18/20 15:56 16:46 17:38 WBC RBC Hgb Hct MCV MCH RDW Plt Count Lymph % (Auto) [place] % (Auto) Lymph # (Auto) [place] # (Auto) Seg Neutrophils % Seg Neutrophils # PT INR D-Dimer VBG pH Sodium Potassium 5.1 H Chloride 95.7 L 107.3 H Carbon Dioxide 7 L* 7 L* BUN 31 H 28 H Creatinine Glucose 462 H 382 H POC Glucose Calcium 7.8 L D Magnesium Ferritin ALT Alkaline Phosphatase Lactate Dehydrogenase C-Reactive Protein Total Protein Albumin Ur Specific [place] 1.037 H Coronavirus (PCR) 11/18/20 11/18/20 11/18/20 18:29 20:56 21:06 WBC RBC Hgb Hct MCV MCH RDW Plt Count Lymph % (Auto) [place] % (Auto) Lymph # (Auto) [place] # (Auto) Seg Neutrophils % Seg Neutrophils # PT INR D-Dimer VBG pH Sodium 146 H Potassium Chloride 114.4 H Carbon Dioxide 8 L* 8 L* BUN 28 H 23 H Creatinine Glucose 360 H 284 H POC Glucose 281 H Calcium 7.3 L Magnesium Ferritin ALT Alkaline Phosphatase Lactate Dehydrogenase C-Reactive Protein Total Protein Albumin Ur Specific [place] Coronavirus (PCR) 11/18/20 11/18/20 11/19/20 22:26 23:39 00:36 WBC RBC Hgb Hct MCV MCH RDW Plt Count Lymph % (Auto) [place] % (Auto) Lymph # (Auto) [place] # (Auto) Seg Neutrophils % Seg Neutrophils # PT INR D-Dimer VBG pH Sodium Potassium Chloride Carbon Dioxide BUN Creatinine Glucose POC Glucose 174 H 140 H 133 H Calcium Magnesium Ferritin ALT Alkaline Phosphatase Lactate Dehydrogenase C-Reactive Protein Total Protein Albumin Ur Specific [place] Coronavirus (PCR) 11/19/20 11/19/20 11/19/20 01:26 02:32 02:47 WBC RBC Hgb Hct MCV MCH RDW Plt Count Lymph % (Auto) [place] % (Auto) Lymph # (Auto) [place] # (Auto) Seg Neutrophils % Seg Neutrophils # PT INR D-Dimer VBG pH Sodium 147 H Potassium Chloride 114.5 H Carbon Dioxide 13 L BUN Creatinine Glucose 134 H POC Glucose 130 H 149 H Calcium 7.9 L Magnesium Ferritin ALT Alkaline Phosphatase Lactate Dehydrogenase C-Reactive Protein Total Protein Albumin Ur Specific [place] Coronavirus (PCR) 11/19/20 11/19/20 11/19/20 04:52 05:02 07:29 WBC RBC Hgb Hct MCV MCH RDW Plt Count Lymph % (Auto) [place] % (Auto) Lymph # (Auto) [place] # (Auto) Seg Neutrophils % Seg Neutrophils # PT INR D-Dimer VBG pH Sodium 149 H 147 H Potassium Chloride 115.3 H 112.3 H Carbon Dioxide 16 L 16 L BUN Creatinine Glucose 193 H 219 H POC Glucose 227 H Calcium 7.7 L 8.2 L Magnesium Ferritin ALT Alkaline Phosphatase Lactate Dehydrogenase C-Reactive Protein Total Protein Albumin Ur Specific [place] Coronavirus (PCR) 11/19/20 11/19/20 11/19/20 09:25 09:30 09:42 WBC 12.7 H RBC Hgb Hct MCV 74 L MCH 25 L RDW 17.8 H Plt Count Lymph % (Auto) 3.2 L [place] % (Auto) 8.4 H Lymph # (Auto) 0.4 L [place] # (Auto) 1.1 H Seg Neutrophils % 87.8 H Seg Neutrophils # 11.2 H PT INR D-Dimer VBG pH Sodium Potassium Chloride Carbon Dioxide BUN Creatinine Glucose POC Glucose 206 H Calcium Magnesium Ferritin ALT Alkaline Phosphatase Lactate Dehydrogenase C-Reactive Protein Total Protein Albumin Ur Specific [place] Coronavirus (PCR) Positive A 11/19/20 11/19/20 11/19/20 11:03 15:37 15:49 WBC RBC Hgb Hct MCV MCH RDW Plt Count Lymph % (Auto) [place] % (Auto) Lymph # (Auto) [place] # (Auto) Seg Neutrophils % Seg Neutrophils # PT INR D-Dimer VBG pH Sodium Potassium 3.4 L Chloride 108.4 H Carbon Dioxide 18 L BUN Creatinine 0.5 L Glucose 191 H POC Glucose 226 H 186 H Calcium 8.0 L Magnesium Ferritin ALT Alkaline Phosphatase Lactate Dehydrogenase C-Reactive Protein Total Protein Albumin Ur Specific [place] Coronavirus (PCR) 11/19/20 11/19/20 11/20/20 18:33 22:31 01:36 WBC RBC Hgb Hct MCV MCH RDW Plt Count Lymph % (Auto) [place] % (Auto) Lymph # (Auto) [place] # (Auto) Seg Neutrophils % Seg Neutrophils # PT INR D-Dimer VBG pH Sodium Potassium 3.1 L Chloride Carbon Dioxide 17 L BUN 6 L Creatinine 0.5 L Glucose 207 H POC Glucose 243 H 251 H Calcium 8.0 L Magnesium Ferritin ALT Alkaline Phosphatase Lactate Dehydrogenase C-Reactive Protein Total Protein Albumin Ur Specific [place] Coronavirus (PCR) 11/20/20 11/20/20 11/20/20 05:29 05:29 05:38 WBC RBC Hgb Hct MCV 74 L MCH 25 L RDW 17.9 H Plt Count Lymph % (Auto) [place] % (Auto) Lymph # (Auto) [place] # (Auto) Seg Neutrophils % Seg Neutrophils # PT INR D-Dimer VBG pH Sodium Potassium 3.1 L Chloride Carbon Dioxide 18 L BUN 6 L Creatinine 0.5 L Glucose 278 H POC Glucose 294 H Calcium Magnesium Ferritin ALT 6 L Alkaline Phosphatase Lactate Dehydrogenase C-Reactive Protein Total Protein 5.5 L D Albumin 2.9 L Ur Specific [place] Coronavirus (PCR) 11/20/20 11/20/20 11/20/20 12:01 16:19 19:15 WBC RBC Hgb Hct MCV MCH RDW Plt Count Lymph % (Auto) [place] % (Auto) Lymph # (Auto) [place] # (Auto) Seg Neutrophils % Seg Neutrophils # PT INR D-Dimer 1728.46 H VBG pH Sodium Potassium Chloride Carbon Dioxide BUN Creatinine Glucose POC Glucose 269 H 187 H Calcium Magnesium Ferritin ALT Alkaline Phosphatase Lactate Dehydrogenase C-Reactive Protein Total Protein Albumin Ur Specific [place] Coronavirus (PCR) 11/20/20 11/20/20 11/20/20 19:15 19:15 20:51 WBC RBC Hgb Hct MCV MCH RDW Plt Count Lymph % (Auto) [place] % (Auto) Lymph # (Auto) [place] # (Auto) Seg Neutrophils % Seg Neutrophils # PT INR D-Dimer VBG pH Sodium Potassium Chloride Carbon Dioxide BUN Creatinine Glucose 215 H POC Glucose 185 H Calcium Magnesium Ferritin 449.6 H ALT Alkaline Phosphatase Lactate Dehydrogenase 395 H C-Reactive Protein 10.20 H Total Protein Albumin Ur Specific [place] Coronavirus (PCR) 11/21/20 11/21/20 11/21/20 08:14 12:21 16:47 WBC RBC Hgb Hct MCV MCH RDW Plt Count Lymph % (Auto) [place] % (Auto) Lymph # (Auto) [place] # (Auto) Seg Neutrophils % Seg Neutrophils # PT INR D-Dimer VBG pH Sodium Potassium Chloride Carbon Dioxide BUN Creatinine Glucose POC Glucose 416 H 322 H 299 H Calcium Magnesium Ferritin ALT Alkaline Phosphatase Lactate Dehydrogenase C-Reactive Protein Total Protein Albumin Ur Specific [place] Coronavirus (PCR) 11/21/20 11/22/20 11/22/20 21:31 08:08 10:04 WBC RBC Hgb Hct MCV MCH RDW Plt Count Lymph % (Auto) [place] % (Auto) Lymph # (Auto) [place] # (Auto) Seg Neutrophils % Seg Neutrophils # PT INR D-Dimer VBG pH Sodium Potassium 3.1 L Chloride Carbon Dioxide BUN Creatinine 0.5 L Glucose 300 H POC Glucose 350 H 391 H Calcium Magnesium Ferritin ALT Alkaline Phosphatase Lactate Dehydrogenase C-Reactive Protein Total Protein 5.4 L Albumin 3.1 L Ur Specific [place] Coronavirus (PCR) 11/22/20 11/22/20 11/22/20 10:04 10:04 11:38 WBC RBC Hgb Hct MCV MCH RDW Plt Count Lymph % (Auto) [place] % (Auto) Lymph # (Auto) [place] # (Auto) Seg Neutrophils % Seg Neutrophils # PT INR D-Dimer 1548.09 H VBG pH Sodium Potassium Chloride Carbon Dioxide BUN Creatinine Glucose 301 H POC Glucose Calcium Magnesium Ferritin 341.9 H ALT Alkaline Phosphatase Lactate Dehydrogenase 400 H C-Reactive Protein 3.60 H Total Protein Albumin Ur Specific [place] Coronavirus (PCR) 11/22/20 11/22/20 11/22/20 11:57 17:37 20:44 WBC RBC Hgb Hct MCV MCH RDW Plt Count Lymph % (Auto) [place] % (Auto) Lymph # (Auto) [place] # (Auto) Seg Neutrophils % Seg Neutrophils # PT INR D-Dimer VBG pH Sodium Potassium Chloride Carbon Dioxide BUN Creatinine Glucose POC Glucose 328 H 301 H 348 H Calcium Magnesium Ferritin ALT Alkaline Phosphatase Lactate Dehydrogenase C-Reactive Protein Total Protein Albumin Ur Specific [place] Coronavirus (PCR) 11/23/20 11/23/20 11/23/20 07:40 07:40 07:58 WBC 11.7 H RBC Hgb Hct MCV 74 L MCH 25 L RDW 17.1 H Plt Count Lymph % (Auto) [place] % (Auto) Lymph # (Auto) [place] # (Auto) Seg Neutrophils % Seg Neutrophils # PT INR D-Dimer VBG pH Sodium Potassium 2.8 L* Chloride Carbon Dioxide 36 H D BUN Creatinine 0.3 L Glucose 145 H POC Glucose 147 H Calcium Magnesium Ferritin ALT Alkaline Phosphatase Lactate Dehydrogenase C-Reactive Protein Total Protein 5.2 L Albumin 3.0 L Ur Specific [place] Coronavirus (PCR) 11/23/20 11/23/20 11/23/20 12:14 13:58 16:29 WBC RBC Hgb Hct MCV MCH RDW Plt Count Lymph % (Auto) [place] % (Auto) Lymph # (Auto) [place] # (Auto) Seg Neutrophils % Seg Neutrophils # PT INR D-Dimer VBG pH Sodium Potassium 3.2 L Chloride Carbon Dioxide BUN Creatinine Glucose POC Glucose 282 H 325 H Calcium Magnesium Ferritin ALT Alkaline Phosphatase Lactate Dehydrogenase C-Reactive Protein Total Protein Albumin Ur Specific [place] Coronavirus (PCR) 11/23/20 11/24/20 11/24/20 22:30 04:59 08:06 WBC RBC Hgb Hct MCV MCH RDW Plt Count Lymph % (Auto) [place] % (Auto) Lymph # (Auto) [place] # (Auto) Seg Neutrophils % Seg Neutrophils # PT INR D-Dimer VBG pH Sodium Potassium 3.0 L Chloride 97.1 L Carbon Dioxide 36 H BUN Creatinine 0.4 L Glucose 120 H POC Glucose 370 H 107 H Calcium Magnesium Ferritin ALT Alkaline Phosphatase Lactate Dehydrogenase C-Reactive Protein Total Protein 4.9 L Albumin 2.8 L Ur Specific [place] Coronavirus (PCR) 11/24/20 11/24/20 13:02 16:29 WBC RBC Hgb Hct MCV MCH RDW Plt Count Lymph % (Auto) [place] % (Auto) Lymph # (Auto) [place] # (Auto) Seg Neutrophils % Seg Neutrophils # PT INR D-Dimer VBG pH Sodium Potassium Chloride Carbon Dioxide BUN Creatinine Glucose POC Glucose 118 H 229 H Calcium Magnesium Ferritin ALT Alkaline Phosphatase Lactate Dehydrogenase C-Reactive Protein Total Protein Albumin Ur Specific [place] Coronavirus (PCR)
[2020-11-24] MEDS: SODIUM CHLORIDE 0.9% 50 ML IVPB IV SCH (22:15)
[2020-11-24] MEDS: REMDESIVIR 100 MG in SODIUM CHLORIDE 0.9% 250ML 250 ML IV SCH (22:19)
[2020-11-25 07:07] LABS: Alanine Aminotransferase 15 units/L (7-56); Albumin 2.5 g/dL (3.9-5); Blood Urea Nitrogen 12 mg/dL (7-17); Calcium 8.3 mg/dL (8.4-10.2); Hemolysis Index 3
[2020-11-25 07:10] LABS: BUN/Creatinine Ratio 30
--- NOTE | 2020-11-25 07:58 | Progress Note ---
Assessment and Plan Assessment and plan: 35 YO Female with DM presented to ED for evaluation. Patient reports "I feel sick". Patient states that she has experienced generalized weakness, nausea, fatigue, polyuria, polydipsia over the past 1 week with worsening symptoms over the past 3 days. EMS notified and upon arrival the patient was found to be in distress and subsequently transported to [facility] for further care and evaluation of the aforementioned symptoms. The patient was seen and evaluated in the emergency department. All lab and imaging studies reviewed. Patient found to have DKA, metabolic encephalopathy, volume depletion, and metabolic acidosis. The patient was admitted to ICU and initiated on DKA protocol. Patient denies f ever, chills, chest pain, palpitation, productive cough, skin rash, recent ill contacts, or known exposure to COVID-19. No prior admission for review. No medication listed at time of admission reconciliation. Critical care team consulted in ED. 11/19: Patient seen and examined today CT of the head revealed a CT cervical spine no acute pathology noted CT of the chest shows a moderate pneumomediastinum and patchy groundglass opacities in both lungs thought to represent possible pneumonia. Patient does have leukocytosis which could be reactive. I do not see inciting factor for her DKA except possible noncompliance with her medication. We will continue DKA protocol at this time. Will give additional 2 L of fluids. She does appear older than stated age we will also rule out COVID- 19 at this time. Will obtain neurology evaluation considering her syncope and also her profound lethargy this morning. Plan of care discussed with the patient and also with the insurance company patient will be 11/20: Patient reported that she had a fall yesterday while in the waiting room. Per documentation she was about to leave AMA and then had a questionable syncopal episode. She tells the neurologist that she fell from the stretcher and hit her head. Initial CT of the head was negative an MRI is being ordered due to some confusion and encephalopathy which I felt was improving but during reevaluation by neurologist she was still a bit confused. 11/21: Patient Seen and examined she is much more awake and alert. She does recall falling or hitting her head. Mental status is improved. She still has some intermittent headache. Amendable to the Fioricet. she had MRI wo qd yesterday is remarkable for demylinating disease According to her she is diagnosed with MS 2014 was initially on Po then recently on ? Ocreveus twice a year shot , last got it in September she is with Positive COVID-19 according to her got it [place] ,she denied SOB but discripe mild ache and pain was started yesterday on decadron. Patient not discharged yesterday as she became hypoxic and remained severely lethargic Patient also has underlying multiple sclerosis. Still awaiting to get all her home medication. Covid test did come back positive. She remains on isolation for the same. We will check inflammatory markers. Start her on empiric steroid therapy at this time. MRI reviewed no acute pathology noted except some demyelination disease will defer to neurology for further evaluation. I have discussed with her [facility] doctors about the update, they will look for transferring the patient to their facility, for now will continue COVID 19 management, ID consult, Remdesivir, check inflammatory markers and pulse ox. Prone as tolerated. Will also start on full dose anticoagulation considering worsening Hypoxia and elevated D.dimer. IF No improvement or increase oxygen demand, will obtain pulmonary consult. Continue daily PT 11/23; patient is on remdesivir and Decadron for COVID-19 infection. CTA showed yesterday left lung PE and currently on therapeutic dose of Lovenox. Patient was admitted for DKA and currently out of DKA. Blood sugar is uncontrolled. I will add AC insulin. Monitor blood sugar and adjust as needed. Patient is a [facility] patient. Patient was on 2 L of oxygen. Patient is complaining shortness of breath and weakness, I put PT consult. 11/24; continue with remdesivir and Decadron. Continue with therapeutic Lovenox. Adjust insulin as needed. Discussed with [facility] physician and will take the patient when to have bed. Patient is stable for transfer. 11/25; continue with remdesivir and Decadron. Patient was on 2 L of oxygen. Patient was evaluated by physical therapy and was desaturated on ambulation. Hypokalemia will check magnesium if not checked. Replete potassium. Blood sugars in target. Patient will finish remdesivir tomorrow. We will do home O2 evaluation tomorrow and possible discharge. (1) Covid 19 with Hypoxic Respiratory failure (2) Metabolic encephalopathy (3) Systemic inflammatory response syndrome (4) DKA (diabetic ketoacidosis) (5) Volume depletion (6) syncope (7) Head trauma (8) Metabolic Acidosis History Interval history: Patient was seen and evaluated this morning Patient was complaining shortness of breath, on 2 L of oxygen Patient is followed for DKA, Covid with hypoxia and left lower lung PE Hospitalist Physical - Physical exam Narrative exam: Not in cardiopulmonary distress. The patient appeared well nourished and normally developed. Vital signs as documented. Head exam is unremarkable. No scleral icterus . Neck is without jugular venous distension, thyromegaly, or carotid bruits. Lungs decreased air entry. Cardiac exam reveals regular rate and Rhythm. Abdominal exam reveals normal bowel sounds, nontender, no organomegaly. Extremities are nonedematous and both femoral and pedal pulses are normal. [employer]: Alert and oriented 3. No focal weakness. - Constitutional Vitals: Temp Pulse Resp BP Pulse Ox 98.4 F 97 H 18 116/67 96 11/25/20 03:57 11/25/20 03:57 11/25/20 03:57 11/25/20 03:57 11/25/20 03:57 General appearance: Present: mild distress HEART Score - HEART Score Troponin: Troponin T < 0.010 ng/mL (0.00-0.029) 11/18/20 09:30 Results - Labs CBC & Chem 7: 11/23/20 07:40 11/25/20 05:52 Labs: Laboratory Last Values WBC 11.7 K/mm3 (4.5-11.0) H 11/23/20 07:40 RBC 4.64 M/mm3 (3.65-5.03) 11/23/20 07:40 Hgb 11.4 gm/dl (10.1-14.3) 11/23/20 07:40 Hct 34.5 % (30.3-42.9) 11/23/20 07:40 MCV 74 fl (79-97) L 11/23/20 07:40 MCH 25 pg (28-32) L 11/23/20 07:40 MCHC 33 % (30-34) 11/23/20 07:40 RDW 17.1 % (13.2-15.2) H 11/23/20 07:40 Plt Count 339 K/mm3 (140-440) 11/23/20 07:40 Lymph % (Auto) 3.2 % (13.4-35.0) L 11/19/20 09:25 [place] % (Auto) 8.4 % (0.0-7.3) H 11/19/20 09:25 Eos % (Auto) 0.0 % (0.0-4.3) 11/19/20 09:25 Baso % (Auto) 0.6 % (0.0-1.8) 11/19/20 09:25 Lymph # (Auto) 0.4 K/mm3 (1.2-5.4) L 11/19/20 09:25 [place] # (Auto) 1.1 K/mm3 (0.0-0.8) H 11/19/20 09:25 Eos # (Auto) 0.0 K/mm3 (0.0-0.4) 11/19/20 09:25 Baso # (Auto) 0.1 K/mm3 (0.0-0.1) 11/19/20 09:25 Seg Neutrophils % 87.8 % (40.0-70.0) H 11/19/20 09:25 Seg Neutrophils # 11.2 K/mm3 (1.8-7.7) H 11/19/20 09:25 PT 15.6 Sec. (12.2-14.9) H 11/18/20 10:31 INR 1.19 (0.87-1.13) H 11/18/20 10:31 D-Dimer 1548.09 ng/mlDDU (0-234) H 11/22/20 10:04 VBG pH 7.124 (7.320-7.420) L* 11/18/20 09:30 Sodium 139 mmol/L (137-145) 11/25/20 05:52 Potassium 3.0 mmol/L (3.6-5.0) L 11/25/20 05:52 Chloride 98.2 mmol/L (98-107) 11/25/20 05:52 Carbon Dioxide 33 mmol/L (22-30) H 11/25/20 05:52 Anion Gap 11 mmol/L 11/25/20 05:52 BUN 12 mg/dL (7-17) 11/25/20 05:52 Creatinine 0.4 mg/dL (0.6-1.2) L 11/25/20 05:52 Estimated GFR > 60 ml/min 11/25/20 05:52 BUN/Creatinine Ratio 30 % 11/25/20 05:52 Glucose 176 mg/dL (65-100) H 11/25/20 05:52 POC Glucose 152 mg/dL (70-105) H 11/24/20 21:40 Calcium 8.3 mg/dL (8.4-10.2) L 11/25/20 05:52 Phosphorus 3.50 mg/dL (2.5-4.5) 11/18/20 15:56 Magnesium 3.00 mg/dL (1.7-2.3) H 11/18/20 15:56 Ferritin 341.9 ng/mL (10.0-200.0) H 11/22/20 11:38 Total Bilirubin 0.30 mg/dL (0.1-1.2) 11/25/20 05:52 AST 23 units/L (5-40) 11/25/20 05:52 ALT 15 units/L (7-56) 11/25/20 05:52 Alkaline Phosphatase 102 units/L (35-129) 11/25/20 05:52 Lactate Dehydrogenase 400 units/L (91-180) H 11/22/20 10:04 Troponin T < 0.010 ng/mL (0.00-0.029) 11/18/20 09:30 C-Reactive Protein 3.60 mg/dL (0.00-1.30) H 11/22/20 10:04 Total Protein 5.0 g/dL (6.3-8.2) L 11/25/20 05:52 Albumin 2.5 g/dL (3.9-5) L 11/25/20 05:52 Albumin/Globulin Ratio 1.0 % 11/25/20 05:52 Procalcitonin 0.15 ng/mL (<0.15) 11/22/20 11:38 TSH 0.864 mlU/mL (0.270-4.200) 11/18/20 09:30 Free T4 0.98 ng/dL (0.76-1.46) 11/18/20 09:30 HCG, Qual Negative (Negative) 11/18/20 09:30 Urine Color Yellow (Yellow) 11/18/20 17:38 Urine Turbidity Clear (Clear) 11/18/20 17:38 Urine pH 5.0 (5.0-7.0) 11/18/20 17:38 Ur Specific [place] 1.037 (1.003-1.030) H 11/18/20 17:38 Urine Protein 100 mg/dl mg/dL (Negative) 11/18/20 17:38 Urine Glucose (UA) >=500 mg/dL (Negative) 11/18/20 17:38 Urine Ketones 80 mg/dL (Negative) 11/18/20 17:38 Urine Blood Mod (Negative) 11/18/20 17:38 Urine Nitrite Neg (Negative) 11/18/20 17:38 Urine Bilirubin Neg (Negative) 11/18/20 17:38 Urine Urobilinogen < 2.0 mg/dL (<2.0) 11/18/20 17:38 Ur Leukocyte Esterase Neg (Negative) 11/18/20 17:38 Urine WBC (Auto) 2.0 /HPF (0.0-6.0) 11/18/20 17:38 Urine RBC (Auto) 1.0 /HPF (0.0-6.0) 11/18/20 17:38 U Epithel Cells (Auto) 1.0 /HPF (0-13.0) 11/18/20 17:38 Urine Bacteria (Auto) 1+ /HPF (Negative) 11/18/20 17:38 Urine Mucus Few /HPF 11/18/20 17:38 Coronavirus (PCR) Positive (Negative) A 11/19/20 09:30 Tang/IV: Voiding Method Incontinent Active Medications - Current Medications Current Medications: Generic Name Dose Route Start Last Admin Trade Name Freq PRN Reason Stop Dose Admin Acetaminophen 650 mg 11/18/20 15:45 Acetaminophen 325 Mg Tab PO Q6H PRN Pain MILD(1-3)/Fever >100.5/STUART Acetaminophen/Butalbital/Caffeine 1 tab 11/20/20 11:26 Butalb/Acetaminophen/Caffeine Tab PO Q4H PRN Headache Albuterol 2.5 mg 11/18/20 15:45 Albuterol 2.5 Mg/3 Ml Nebu IH Q3HRT PRN Shortness Of Breath Baclofen 5 mg 11/19/20 09:00 11/24/20 22:14 Baclofen 10 Mg Tab PO 5 mg TID EMMA Administration Dexamethasone 6 mg 11/20/20 20:00 11/24/20 09:25 Dexamethasone 4 Mg Tab PO 11/29/20 10:01 6 mg DAILY EMMA Administration Enoxaparin Sodium 70 mg 11/22/20 11:00 11/24/20 22:19 Enoxaparin 80 Mg/0.8 Ml Inj SUB-Q 70 mg Q12HR EMMA Administration Hydromorphone HCl 0.5 mg 11/18/20 15:45 11/23/20 09:20 Hydromorphone 1 Mg/1 Ml Inj IV 0.5 mg Q12H PRN Administration Pain , Severe (7-10) REMDESIVIR 100 mg/ Sodium 250 mls @ 500 mls/hr 11/23/20 21:00 11/24/20 22:19 Chloride IV 11/26/20 21:29 500 mls/hr Q24HR@2100 EMMA Administration Insulin Glargine 35 units 11/24/20 18:00 11/24/20 17:26 Insulin Glargine 100 Units/Ml SUB-Q 35 units QPM EMMA Administration Insulin Human Lispro 0 unit 11/20/20 11:30 11/24/20 22:00 Insulin Lispro 100 Unit/Ml SUB-Q 3 unit ACHS [facility] Administration Protocol Insulin Human Lispro 10 unit 11/23/20 08:15 11/24/20 17:26 Insulin Lispro 100 Unit/Ml SUB-Q 10 unit AC EMMA Administration Meloxicam 7.5 mg 11/19/20 10:00 11/24/20 09:24 Meloxicam 7.5 Mg Tab PO 7.5 mg QDAY EMMA Administration Ondansetron HCl 4 mg 11/18/20 15:45 11/18/20 22:13 Ondansetron 4 Mg/2 Ml Inj IV 4 mg Q8H PRN Administration Nausea And Vomiting Oxycodone/Acetaminophen 1 tab 11/19/20 09:00 11/22/20 22:25 Oxycodone /Acetaminophen 5-325mg Tab PO 1 tab Q6H PRN Administration Pain, Moderate (4-6) Potassium Chloride 40 meq 11/25/20 07:54 Potassium Chloride Er 20 Meq Tab PO 11/25/20 07:55 ONCE ONE Sodium Chloride 10 ml 11/18/20 22:00 11/24/20 22:20 Sodium Chloride 0.9% 10 Ml Flush Syringe IV 10 ml BID EMMA Administration Sodium Chloride 10 ml 11/18/20 15:45 Sodium Chloride 0.9% 10 Ml Flush Syringe IV PRN PRN LINE FLUSH Sodium Chloride 50 ml 11/22/20 13:00 11/24/20 22:15 Sodium Chloride 0.9% 50 Ml Ivpb IV 11/26/20 21:01 50 ml Q24HR@2100 EMMA Administration Nutrition/Malnutrition Assess - Dietary Evaluation Nutrition/Malnutrition Findings: Nutrition Notes Start: 11/24/20 12:10 Freq: Status: Active Protocol: Document 11/24/20 12:10 AASHISH (Rec: 11/24/20 12:11 AASHISH [id number]) Nutrition Notes Need for Assessment generated from: LOS Initial or Follow up Brief Note Subjective/Other Information Screen for LOS. Pt eating 75- 100% of meals. Nutrition Intervention Revisit per MD consult or patient Sign Off request:
[2020-11-25] MEDS: INSULIN LISPRO 100 UNIT/ML SUB-Q SCH ×7 (08:24→22:54)
[2020-11-25] MEDS ORDERED: POTASSIUM CHLORIDE ER 20 MEQ TAB PO NR ×2 (08:30→12:30)
[2020-11-25] MEDS: MELOXICAM 7.5 MG TAB PO SCH (10:08)
[2020-11-25] MEDS: ENOXAPARIN 80 MG/0.8 ML INJ SUB-Q SCH ×2 (10:09→22:53)
[2020-11-25] MEDS: BACLOFEN 10 MG TAB PO SCH ×3 (10:10→22:53)
[2020-11-25] MEDS: DEXAMETHASONE 4 MG TAB PO SCH (10:12)
--- NOTE | 2020-11-25 13:35 | Progress Note ---
Assessment and Plan Acute metabolic acidosis/diabetic ketoacidosis Possible traumatic pneumomediastinum Obesity DM II Hyperkalemia - transition to oral Apixaban re: DVT - continue to wean supplemental oxygen to keep O2 sats > 92% - Remdesivir as per ID/Pulmonary developed protocols (received) - continue systemic steroids for severe COVID-19 infection - follow repeat COVID tests results - zinc and vitamin C supplementation - Monitor inflammatory markers per facility protocol - ferritin, Ddimer, CRP - therapeutic anticoagulation per system Protocol based on d-dimer and clinical considerations (full re: P.E.) - Continue contact and airborne isolation - prn bronchodilators ([place] ) with pulm hygiene per RT - continue systemic steroids - continue to avoid nephrotoxins, renally dose all medications - continue mobility protocols to prevent pressure ulcers - PT/OT as tolerated - Wound care per RN/WCT - continue accuchecks with glycemic control per SSI for target blood glucose < 180 mg/dL - tobacco abstinence strongly counseled at the bedside - home oxygen evaluation at discharge - GI & VTE prophylaxis - Flu & pneumovax per protocol - Pulmonary out patient follow up for PFTs and optimization of respiratory status - continue other care per attending / other consultants - prn analgesia per pain score ... re-evaluate in am & prn Subjective Date of service: 11/25/20 Principal diagnosis: Ac metabolic acidosis; DKA; Pneumomediastinum; Obesity; DM II; Hyperkalemia Interval history: Patient is seen today for: Acute metabolic acidosis; DKA; Pneumomediastinum; Obesity; DM II; Hyperkalemia Seen and examined at bedside; 24hour events reviewed; nursing and respiratory care staff consulted; no adverse overnight events reported to me; resting in bed; remainjs on supplemental oxygen at 1.5L/min flow; still with retro-sternal chest pain; afebrile Objective Vital Signs - 12hr 11/25/20 11/25/20 03:57 10:21 Temperature 98.4 F 97.7 F Pulse Rate 97 H 108 H Respiratory 18 18 Rate Blood Pressure 116/67 106/64 O2 Sat by Pulse 96 95 Oximetry Constitutional: no acute distress, alert Eyes: non-icteric ENT: oropharynx moist Neck: supple, no lymphadenopathy, no JVD Effort: normal Ascultation: Bilateral: diminished breath sounds Percussion: Bilateral: not dull Cardiovascular: regular rate and rhythm Gastrointestinal: normoactive bowel sounds, soft, non-tender, non-distended Integumentary: normal Extremities: no cyanosis, no edema, pulses normal, no ischemia or petechiae Neurologic: normal mental status, non-focal exam, pupils equal and round, motor strength normal and Psychiatric: mood appropriate, affect normal CBC and BMP: 11/23/20 07:40 11/25/20 13:07 ABG, PT/INR, D-dimer: PT/INR, D-dimer PT 15.6 Sec. (12.2-14.9) H 11/18/20 10:31 INR 1.19 (0.87-1.13) H 11/18/20 10:31 D-Dimer 1548.09 ng/mlDDU (0-234) H 11/22/20 10:04 Abnormal lab findings: Abnormal Labs 11/18/20 11/18/20 11/18/20 09:30 09:30 09:30 WBC 15.4 H RBC 6.17 H Hgb 15.6 H Hct 48.2 H MCV 78 L MCH 25 L RDW 18.9 H Plt Count 508 H Lymph % (Auto) 3.5 L [place] % (Auto) Lymph # (Auto) 0.5 L [place] # (Auto) 1.0 H Seg Neutrophils % 89.5 H Seg Neutrophils # 13.8 H PT INR D-Dimer VBG pH 7.124 L* Sodium 136 L Potassium 5.5 H Chloride 92.2 L Carbon Dioxide 6 L* BUN 27 H Creatinine Glucose 498 H POC Glucose Calcium Magnesium Ferritin ALT 5 L Alkaline Phosphatase 149 H Lactate Dehydrogenase C-Reactive Protein Total Protein Albumin Ur Specific Ruth Coronavirus (PCR) 11/18/20 11/18/20 11/18/20 10:31 13:01 13:23 WBC RBC Hgb Hct MCV MCH RDW Plt Count Lymph % (Auto) [place] % (Auto) Lymph # (Auto) [place] # (Auto) Seg Neutrophils % Seg Neutrophils # PT 15.6 H INR 1.19 H D-Dimer VBG pH Sodium Potassium Chloride Carbon Dioxide BUN Creatinine Glucose POC Glucose 594 H Calcium Magnesium 3.20 H Ferritin ALT Alkaline Phosphatase Lactate Dehydrogenase C-Reactive Protein Total Protein Albumin Ur Specific [place] Coronavirus (PCR) 08/05/21 08/05/21 08/05/21 13:23 14:34 15:56 WBC RBC Hgb Hct MCV MCH RDW Plt Count Lymph % (Auto) [place] % (Auto) Lymph # (Auto) [place] # (Auto) Seg Neutrophils % Seg Neutrophils # PT INR D-Dimer VBG pH Sodium 135 L Potassium 5.4 H 5.8 H Chloride 91.9 L 95.8 L Carbon Dioxide 9 L* 5 L* BUN 30 H 33 H Creatinine Glucose 513 H* 504 H* POC Glucose Calcium Magnesium 3.00 H Ferritin ALT Alkaline Phosphatase Lactate Dehydrogenase C-Reactive Protein Total Protein Albumin Ur Specific [place] Coronavirus (PCR) 11/18/20 11/18/20 11/18/20 15:56 16:46 17:38 WBC RBC Hgb Hct MCV MCH RDW Plt Count Lymph % (Auto) [place] % (Auto) Lymph # (Auto) [place] # (Auto) Seg Neutrophils % Seg Neutrophils # PT INR D-Dimer VBG pH Sodium Potassium 5.1 H Chloride 95.7 L 107.3 H Carbon Dioxide 7 L* 7 L* BUN 31 H 28 H Creatinine Glucose 462 H 382 H POC Glucose Calcium 7.8 L D Magnesium Ferritin ALT Alkaline Phosphatase Lactate Dehydrogenase C-Reactive Protein Total Protein Albumin Ur Specific Ruth 1.037 H Coronavirus (PCR) 11/18/20 11/18/20 11/18/20 18:29 20:56 21:06 WBC RBC Hgb Hct MCV MCH RDW Plt Count Lymph % (Auto) [place] % (Auto) Lymph # (Auto) [place] # (Auto) Seg Neutrophils % Seg Neutrophils # PT INR D-Dimer VBG pH Sodium 146 H Potassium Chloride 114.4 H Carbon Dioxide 8 L* 8 L* BUN 28 H 23 H Creatinine Glucose 360 H 284 H POC Glucose 281 H Calcium 7.3 L Magnesium Ferritin ALT Alkaline Phosphatase Lactate Dehydrogenase C-Reactive Protein Total Protein Albumin Ur Specific [place] Coronavirus (PCR) 11/18/20 11/18/20 11/19/20 22:26 23:39 00:36 WBC RBC Hgb Hct MCV MCH RDW Plt Count Lymph % (Auto) [place] % (Auto) Lymph # (Auto) [place] # (Auto) Seg Neutrophils % Seg Neutrophils # PT INR D-Dimer VBG pH Sodium Potassium Chloride Carbon Dioxide BUN Creatinine Glucose POC Glucose 174 H 140 H 133 H Calcium Magnesium Ferritin ALT Alkaline Phosphatase Lactate Dehydrogenase C-Reactive Protein Total Protein Albumin Ur Specific Ruth Coronavirus (PCR) 11/19/20 11/19/20 11/19/20 01:26 02:32 02:47 WBC RBC Hgb Hct MCV MCH RDW Plt Count Lymph % (Auto) [place] % (Auto) Lymph # (Auto) [place] # (Auto) Seg Neutrophils % Seg Neutrophils # PT INR D-Dimer VBG pH Sodium 147 H Potassium Chloride 114.5 H Carbon Dioxide 13 L BUN Creatinine Glucose 134 H POC Glucose 130 H 149 H Calcium 7.9 L Magnesium Ferritin ALT Alkaline Phosphatase Lactate Dehydrogenase C-Reactive Protein Total Protein Albumin Ur Specific Ruth Coronavirus (PCR) 11/19/20 11/19/20 11/19/20 04:52 05:02 07:29 WBC RBC Hgb Hct MCV MCH RDW Plt Count Lymph % (Auto) [place] % (Auto) Lymph # (Auto) [place] # (Auto) Seg Neutrophils % Seg Neutrophils # PT INR D-Dimer VBG pH Sodium 149 H 147 H Potassium Chloride 115.3 H 112.3 H Carbon Dioxide 16 L 16 L BUN Creatinine Glucose 193 H 219 H POC Glucose 227 H Calcium 7.7 L 8.2 L Magnesium Ferritin ALT Alkaline Phosphatase Lactate Dehydrogenase C-Reactive Protein Total Protein Albumin Ur Specific Ruth Coronavirus (PCR) 11/19/20 11/19/20 11/19/20 09:25 09:30 09:42 WBC 12.7 H RBC Hgb Hct MCV 74 L MCH 25 L RDW 17.8 H Plt Count Lymph % (Auto) 3.2 L [place] % (Auto) 8.4 H Lymph # (Auto) 0.4 L [place] # (Auto) 1.1 H Seg Neutrophils % 87.8 H Seg Neutrophils # 11.2 H PT INR D-Dimer VBG pH Sodium Potassium Chloride Carbon Dioxide BUN Creatinine Glucose POC Glucose 206 H Calcium Magnesium Ferritin ALT Alkaline Phosphatase Lactate Dehydrogenase C-Reactive Protein Total Protein Albumin Ur Specific [place] Coronavirus (PCR) Positive A 11/19/20 11/19/20 11/19/20 11:03 15:37 15:49 WBC RBC Hgb Hct MCV MCH RDW Plt Count Lymph % (Auto) [place] % (Auto) Lymph # (Auto) [place] # (Auto) Seg Neutrophils % Seg Neutrophils # PT INR D-Dimer VBG pH Sodium Potassium 3.4 L Chloride 108.4 H Carbon Dioxide 18 L BUN Creatinine 0.5 L Glucose 191 H POC Glucose 226 H 186 H Calcium 8.0 L Magnesium Ferritin ALT Alkaline Phosphatase Lactate Dehydrogenase C-Reactive Protein Total Protein Albumin Ur Specific [place] Coronavirus (PCR) 11/19/20 11/19/20 11/20/20 18:33 22:31 01:36 WBC RBC Hgb Hct MCV MCH RDW Plt Count Lymph % (Auto) [place] % (Auto) Lymph # (Auto) [place] # (Auto) Seg Neutrophils % Seg Neutrophils # PT INR D-Dimer VBG pH Sodium Potassium 3.1 L Chloride Carbon Dioxide 17 L BUN 6 L Creatinine 0.5 L Glucose 207 H POC Glucose 243 H 251 H Calcium 8.0 L Magnesium Ferritin ALT Alkaline Phosphatase Lactate Dehydrogenase C-Reactive Protein Total Protein Albumin Ur Specific [place] Coronavirus (PCR) 11/20/20 11/20/20 11/20/20 05:29 05:29 05:38 WBC RBC Hgb Hct MCV 74 L MCH 25 L RDW 17.9 H Plt Count Lymph % (Auto) [place] % (Auto) Lymph # (Auto) [place] # (Auto) Seg Neutrophils % Seg Neutrophils # PT INR D-Dimer VBG pH Sodium Potassium 3.1 L Chloride Carbon Dioxide 18 L BUN 6 L Creatinine 0.5 L Glucose 278 H POC Glucose 294 H Calcium Magnesium Ferritin ALT 6 L Alkaline Phosphatase Lactate Dehydrogenase C-Reactive Protein Total Protein 5.5 L D Albumin 2.9 L Ur Specific [place] Coronavirus (PCR) 11/20/20 11/20/20 11/20/20 12:01 16:19 19:15 WBC RBC Hgb Hct MCV MCH RDW Plt Count Lymph % (Auto) [place] % (Auto) Lymph # (Auto) [place] # (Auto) Seg Neutrophils % Seg Neutrophils # PT INR D-Dimer 1728.46 H VBG pH Sodium Potassium Chloride Carbon Dioxide BUN Creatinine Glucose POC Glucose 269 H 187 H Calcium Magnesium Ferritin ALT Alkaline Phosphatase Lactate Dehydrogenase C-Reactive Protein Total Protein Albumin Ur Specific [place] Coronavirus (PCR) 11/20/20 11/20/20 11/20/20 19:15 19:15 20:51 WBC RBC Hgb Hct MCV MCH RDW Plt Count Lymph % (Auto) [place] % (Auto) Lymph # (Auto) [place] # (Auto) Seg Neutrophils % Seg Neutrophils # PT INR D-Dimer VBG pH Sodium Potassium Chloride Carbon Dioxide BUN Creatinine Glucose 215 H POC Glucose 185 H Calcium Magnesium Ferritin 449.6 H ALT Alkaline Phosphatase Lactate Dehydrogenase 395 H C-Reactive Protein 10.20 H Total Protein Albumin Ur Specific [place] Coronavirus (PCR) 11/21/20 11/21/20 11/21/20 08:14 12:21 16:47 WBC RBC Hgb Hct MCV MCH RDW Plt Count Lymph % (Auto) [place] % (Auto) Lymph # (Auto) [place] # (Auto) Seg Neutrophils % Seg Neutrophils # PT INR D-Dimer VBG pH Sodium Potassium Chloride Carbon Dioxide BUN Creatinine Glucose POC Glucose 416 H 322 H 299 H Calcium Magnesium Ferritin ALT Alkaline Phosphatase Lactate Dehydrogenase C-Reactive Protein Total Protein Albumin Ur Specific [place] Coronavirus (PCR) 11/21/20 11/22/20 11/22/20 21:31 08:08 10:04 WBC RBC Hgb Hct MCV MCH RDW Plt Count Lymph % (Auto) [place] % (Auto) Lymph # (Auto) [place] # (Auto) Seg Neutrophils % Seg Neutrophils # PT INR D-Dimer VBG pH Sodium Potassium 3.1 L Chloride Carbon Dioxide BUN Creatinine 0.5 L Glucose 300 H POC Glucose 350 H 391 H Calcium Magnesium Ferritin ALT Alkaline Phosphatase Lactate Dehydrogenase C-Reactive Protein Total Protein 5.4 L Albumin 3.1 L Ur Specific [place] Coronavirus (PCR) 11/22/20 11/22/20 11/22/20 10:04 10:04 11:38 WBC RBC Hgb Hct MCV MCH RDW Plt Count Lymph % (Auto) [place] % (Auto) Lymph # (Auto) [place] # (Auto) Seg Neutrophils % Seg Neutrophils # PT INR D-Dimer 1548.09 H VBG pH Sodium Potassium Chloride Carbon Dioxide BUN Creatinine Glucose 301 H POC Glucose Calcium Magnesium Ferritin 341.9 H ALT Alkaline Phosphatase Lactate Dehydrogenase 400 H C-Reactive Protein 3.60 H Total Protein Albumin Ur Specific [place] Coronavirus (PCR) 11/22/20 11/22/20 11/22/20 11:57 17:37 20:44 WBC RBC Hgb Hct MCV MCH RDW Plt Count Lymph % (Auto) [place] % (Auto) Lymph # (Auto) [place] # (Auto) Seg Neutrophils % Seg Neutrophils # PT INR D-Dimer VBG pH Sodium Potassium Chloride Carbon Dioxide BUN Creatinine Glucose POC Glucose 328 H 301 H 348 H Calcium Magnesium Ferritin ALT Alkaline Phosphatase Lactate Dehydrogenase C-Reactive Protein Total Protein Albumin Ur Specific [place] Coronavirus (PCR) 11/23/20 11/23/20 11/23/20 07:40 07:40 07:58 WBC 11.7 H RBC Hgb Hct MCV 74 L MCH 25 L RDW 17.1 H Plt Count Lymph % (Auto) [place] % (Auto) Lymph # (Auto) [place] # (Auto) Seg Neutrophils % Seg Neutrophils # PT INR D-Dimer VBG pH Sodium Potassium 2.8 L* Chloride Carbon Dioxide 36 H D BUN Creatinine 0.3 L Glucose 145 H POC Glucose 147 H Calcium Magnesium Ferritin ALT Alkaline Phosphatase Lactate Dehydrogenase C-Reactive Protein Total Protein 5.2 L Albumin 3.0 L Ur Specific [place] Coronavirus (PCR) 11/23/20 11/23/20 11/23/20 12:14 13:58 16:29 WBC RBC Hgb Hct MCV MCH RDW Plt Count Lymph % (Auto) [place] % (Auto) Lymph # (Auto) [place] # (Auto) Seg Neutrophils % Seg Neutrophils # PT INR D-Dimer VBG pH Sodium Potassium 3.2 L Chloride Carbon Dioxide BUN Creatinine Glucose POC Glucose 282 H 325 H Calcium Magnesium Ferritin ALT Alkaline Phosphatase Lactate Dehydrogenase C-Reactive Protein Total Protein Albumin Ur Specific [place] Coronavirus (PCR) 11/23/20 11/24/20 11/24/20 22:30 04:59 08:06 WBC RBC Hgb Hct MCV MCH RDW Plt Count Lymph % (Auto) [place] % (Auto) Lymph # (Auto) [place] # (Auto) Seg Neutrophils % Seg Neutrophils # PT INR D-Dimer VBG pH Sodium Potassium 3.0 L Chloride 97.1 L Carbon Dioxide 36 H BUN Creatinine 0.4 L Glucose 120 H POC Glucose 370 H 107 H Calcium Magnesium Ferritin ALT Alkaline Phosphatase Lactate Dehydrogenase C-Reactive Protein Total Protein 4.9 L Albumin 2.8 L Ur Specific [place] Coronavirus (PCR) 11/24/20 11/24/20 11/24/20 13:02 16:29 21:40 WBC RBC Hgb Hct MCV MCH RDW Plt Count Lymph % (Auto) [place] % (Auto) Lymph # (Auto) [place] # (Auto) Seg Neutrophils % Seg Neutrophils # PT INR D-Dimer VBG pH Sodium Potassium Chloride Carbon Dioxide BUN Creatinine Glucose POC Glucose 118 H 229 H 152 H Calcium Magnesium Ferritin ALT Alkaline Phosphatase Lactate Dehydrogenase C-Reactive Protein Total Protein Albumin Ur Specific [place] Coronavirus (PCR) 11/25/20 11/25/20 11/25/20 01:35 05:52 08:04 WBC RBC Hgb Hct MCV MCH RDW Plt Count Lymph % (Auto) [place] % (Auto) Lymph # (Auto) [place] # (Auto) Seg Neutrophils % Seg Neutrophils # PT INR D-Dimer VBG pH Sodium Potassium 3.3 L 3.0 L Chloride Carbon Dioxide 33 H BUN Creatinine 0.4 L Glucose 176 H POC Glucose 114 H Calcium 8.3 L Magnesium Ferritin ALT Alkaline Phosphatase Lactate Dehydrogenase C-Reactive Protein Total Protein 5.0 L Albumin 2.5 L Ur Specific Ruth Coronavirus (PCR) 11/25/20 12:04 WBC RBC Hgb Hct MCV MCH RDW Plt Count Lymph % (Auto) [place] % (Auto) Lymph # (Auto) [place] # (Auto) Seg Neutrophils % Seg Neutrophils # PT INR D-Dimer VBG pH Sodium Potassium Chloride Carbon Dioxide BUN Creatinine Glucose POC Glucose 132 H Calcium Magnesium Ferritin ALT Alkaline Phosphatase Lactate Dehydrogenase C-Reactive Protein Total Protein Albumin Ur Specific Ruth Coronavirus (PCR) Chest x-ray: image reviewed Allied health notes reviewed: nursing
--- NOTE | 2020-11-25 13:51 | Progress Note ---
Assessment and Plan Cultures: Covid positive A/P: 35-year-old female past medical history diabetes, multiple sclerosis admitted with DKA, found to have COVID-19. #Severe COVID-19 pneumonia: Patient presented with a week of symptoms, chest x- ray with diffuse bilateral infiltrates. Inflammatory markers elevated #Acute hypoxemic respiratory failure: Likely secondary to COVID-19 infection. 2L NC #Diabetes: tight glycemic control for best outcomes. #Pulmonary embolus: anticoagulation per hospital protocol. #Multiple sclerosis Recs: -Dexamethasone 6 mg IV/PO daily for 10 days -Remdesivir for 5 days -Obtain q48-72h inflammatory markers - ferritin, Ddimer, CRP, LDH -Anticoagulation per hospital protocol -Proning as able No need to complete remdesivir course prior to discharge Thank you for the consult, we will sign off. Please call with questions. Sharron Whitney MD [facility] ([facility]) O: [phone] F: [phone] Subjective Date of service: 11/25/20 Principal diagnosis: confusion and syncopy Interval history: Afebrile, no acute change. On 2 L nasal cannula Objective - Exam Narrative Exam: Physical exam deferred to reduce risk of transmission of COVID-19. Please refer to primary team's note. - Constitutional Vitals: Vital Signs Temp Pulse Resp BP Pulse Ox 97.7 F 108 H 18 106/64 95 11/25/20 10:21 11/25/20 10:21 11/25/20 10:21 11/25/20 10:21 11/25/20 10:21 Temperature -Last 24 Hours Temperature 97.7 F Temperature 98.4 F Temperature 98.4 F - Labs CBC & Chem 7: 11/23/20 07:40 11/25/20 05:52 Labs: Abnormal lab results 11/24/20 11/24/20 11/25/20 Range/Units 16:29 21:40 01:35 Potassium 3.3 L (3.6-5.0) mmol/L Carbon Dioxide (22-30) mmol/L Creatinine (0.6-1.2) mg/dL Glucose (65-100) mg/dL POC Glucose 229 H 152 H (70-105) mg/dL Calcium (8.4-10.2) mg/dL Total Protein (6.3-8.2) g/dL Albumin (3.9-5) g/dL 11/25/20 11/25/20 11/25/20 Range/Units 05:52 08:04 12:04 Potassium 3.0 L (3.6-5.0) mmol/L Carbon Dioxide 33 H (22-30) mmol/L Creatinine 0.4 L (0.6-1.2) mg/dL Glucose 176 H (65-100) mg/dL POC Glucose 114 H 132 H (70-105) mg/dL Calcium 8.3 L (8.4-10.2) mg/dL Total Protein 5.0 L (6.3-8.2) g/dL Albumin 2.5 L (3.9-5) g/dL
[2020-11-25] MEDS: INSULIN GLARGINE 100 UNITS/ML SUB-Q SCH (18:26)
[2020-11-25] MEDS: REMDESIVIR 100 MG in SODIUM CHLORIDE 0.9% 250ML 250 ML IV SCH (22:53)
[2020-11-25] MEDS: SODIUM CHLORIDE 0.9% 50 ML IVPB IV SCH (22:53)
[2020-11-26 07:05] LABS: Alanine Aminotransferase 25 units/L (7-56); Albumin 2.8 g/dL (3.9-5); Blood Urea Nitrogen 13 mg/dL (7-17); Calcium 8.6 mg/dL (8.4-10.2); Hemolysis Index 14
[2020-11-26 07:17] LABS: BUN/Creatinine Ratio 26
[2020-11-26] MEDS: INSULIN LISPRO 100 UNIT/ML SUB-Q SCH ×7 (07:30→22:02)
[2020-11-26] MEDS: DEXAMETHASONE 4 MG TAB PO SCH (09:37)
[2020-11-26] MEDS: ENOXAPARIN 80 MG/0.8 ML INJ SUB-Q SCH ×2 (09:37→21:47)
[2020-11-26] MEDS: BACLOFEN 10 MG TAB PO SCH ×3 (09:38→21:47)
[2020-11-26] MEDS: MELOXICAM 7.5 MG TAB PO SCH (09:38)
--- NOTE | 2020-11-26 14:10 | Progress Note ---
Assessment and Plan Assessment and plan: 35 YO Female with DM presented to ED for evaluation. Patient reports "I feel sick". Patient states that she has experienced generalized weakness, nausea, fatigue, polyuria, polydipsia over the past 1 week with worsening symptoms over the past 3 days. EMS notified and upon arrival the patient was found to be in distress and subsequently transported to [facility] for further care and evaluation of the aforementioned symptoms. The patient was seen and evaluated in the emergency department. All lab and imaging studies reviewed. Patient found to have DKA, metabolic encephalopathy, volume depletion, and metabolic acidosis. The patient was admitted to ICU and initiated on DKA protocol. Patient denies f ever, chills, chest pain, palpitation, productive cough, skin rash, recent ill contacts, or known exposure to COVID-19. No prior admission for review. No medication listed at time of admission reconciliation. Critical care team consulted in ED. 11/19: Patient seen and examined today CT of the head revealed a CT cervical spine no acute pathology noted CT of the chest shows a moderate pneumomediastinum and patchy groundglass opacities in both lungs thought to represent possible pneumonia. Patient does have leukocytosis which could be reactive. I do not see inciting factor for her DKA except possible noncompliance with her medication. We will continue DKA protocol at this time. Will give additional 2 L of fluids. She does appear older than stated age we will also rule out COVID- 19 at this time. Will obtain neurology evaluation considering her syncope and also her profound lethargy this morning. Plan of care discussed with the patient and also with the insurance company patient will be 11/20: Patient reported that she had a fall yesterday while in the waiting room. Per documentation she was about to leave AMA and then had a questionable syncopal episode. She tells the neurologist that she fell from the stretcher and hit her head. Initial CT of the head was negative an MRI is being ordered due to some confusion and encephalopathy which I felt was improving but during reevaluation by neurologist she was still a bit confused. 11/21: Patient Seen and examined she is much more awake and alert. She does recall falling or hitting her head. Mental status is improved. She still has some intermittent headache. Amendable to the Fioricet. she had MRI wo qd yesterday is remarkable for demylinating disease According to her she is diagnosed with MS 2014 was initially on Po then recently on ? Ocreveus twice a year shot , last got it in September she is with Positive COVID-19 according to her got it from going to the [facility] ,she denied SOB but discripe mild ache and pain was started yesterday on decadron. Patient not discharged yesterday as she became hypoxic and remained severely lethargic Patient also has underlying multiple sclerosis. Still awaiting to get all her home medication. Covid test did come back positive. She remains on isolation for the same. We will check inflammatory markers. Start her on empiric steroid therapy at this time. MRI reviewed no acute pathology noted except some demyelination disease will defer to neurology for further evaluation. I have discussed with her [facility] doctors about the update, they will look for transferring the patient to their facility, for now will continue COVID 19 management, ID consult, Remdesivir, check inflammatory markers and pulse ox. Prone as tolerated. Will also start on full dose anticoagulation considering worsening Hypoxia and elevated D.dimer. IF No improvement or increase oxygen demand, will obtain pulmonary consult. Continue daily PT 11/23; patient is on remdesivir and Decadron for COVID-19 infection. CTA showed yesterday left lung PE and currently on therapeutic dose of Lovenox. Patient was admitted for DKA and currently out of DKA. Blood sugar is uncontrolled. I will add AC insulin. Monitor blood sugar and adjust as needed. Patient is a [facility] patient. Patient was on 2 L of oxygen. Patient is complaining shortness of breath and weakness, I put PT consult. 11/24; continue with remdesivir and Decadron. Continue with therapeutic Lovenox. Adjust insulin as needed. Discussed with [facility] physician and will take the patient when to have bed. Patient is stable for transfer. 11/25; continue with remdesivir and Decadron. Patient was on 2 L of oxygen. Patient was evaluated by physical therapy and was desaturated on ambulation. Hypokalemia will check magnesium if not checked. Replete potassium. Blood sugars in target. Patient will finish remdesivir tomorrow. We will do home O2 evaluation tomorrow and possible discharge. 11/26; patient will finish remdesivir tonight, continue with Decadron. Patient O2 sat dropped to 87% with minimal ambulation. Oxygen will be arranged and patient will be discharged tomorrow. (1) Covid 19 with Hypoxic Respiratory failure (2) Metabolic encephalopathy (3) Systemic inflammatory response syndrome (4) DKA (diabetic ketoacidosis) (5) Volume depletion (6) syncope (7) Head trauma (8) Metabolic Acidosis History Interval history: Patient was seen and evaluated this morning Patient was complaining shortness of breath, on 2 L of oxygen Patient is followed for DKA, Covid with hypoxia and left lower lung PE Hospitalist Physical - Physical exam Narrative exam: Not in cardiopulmonary distress. The patient appeared well nourished and normally developed. Vital signs as documented. Head exam is unremarkable. No scleral icterus . Neck is without jugular venous distension, thyromegaly, or carotid bruits. Lungs decreased air entry. Cardiac exam reveals regular rate and Rhythm. Abdominal exam reveals normal bowel sounds, nontender, no organomegaly. Extremities are nonedematous and both femoral and pedal pulses are normal. CLAIM AUDITOR: Alert and oriented 3. No focal weakness. - Constitutional Vitals: Temp Pulse Resp BP Pulse Ox 98.0 F 89 18 120/78 98 11/26/20 05:06 11/26/20 05:06 11/26/20 05:06 11/26/20 05:06 11/26/20 08:57 General appearance: Present: mild distress HEART Score - HEART Score Troponin: Troponin T < 0.010 ng/mL (0.00-0.029) 11/18/20 09:30 Results - Labs CBC & Chem 7: 11/23/20 07:40 11/26/20 04:42 Labs: Laboratory Last Values WBC 11.7 K/mm3 (4.5-11.0) H 11/23/20 07:40 RBC 4.64 M/mm3 (3.65-5.03) 11/23/20 07:40 Hgb 11.4 gm/dl (10.1-14.3) 11/23/20 07:40 Hct 34.5 % (30.3-42.9) 11/23/20 07:40 MCV 74 fl (79-97) L 11/23/20 07:40 MCH 25 pg (28-32) L 11/23/20 07:40 MCHC 33 % (30-34) 11/23/20 07:40 RDW 17.1 % (13.2-15.2) H 11/23/20 07:40 Plt Count 339 K/mm3 (140-440) 11/23/20 07:40 Lymph % (Auto) 3.2 % (13.4-35.0) L 11/19/20 09:25 [place] % (Auto) 8.4 % (0.0-7.3) H 11/19/20 09:25 Eos % (Auto) 0.0 % (0.0-4.3) 11/19/20 09:25 Baso % (Auto) 0.6 % (0.0-1.8) 11/19/20 09:25 Lymph # (Auto) 0.4 K/mm3 (1.2-5.4) L 11/19/20 09:25 [place] # (Auto) 1.1 K/mm3 (0.0-0.8) H 11/19/20 09:25 Eos # (Auto) 0.0 K/mm3 (0.0-0.4) 11/19/20 09:25 Baso # (Auto) 0.1 K/mm3 (0.0-0.1) 11/19/20 09:25 Seg Neutrophils % 87.8 % (40.0-70.0) H 11/19/20 09:25 Seg Neutrophils # 11.2 K/mm3 (1.8-7.7) H 11/19/20 09:25 PT 15.6 Sec. (12.2-14.9) H 11/18/20 10:31 INR 1.19 (0.87-1.13) H 11/18/20 10:31 D-Dimer 1548.09 ng/mlDDU (0-234) H 11/22/20 10:04 VBG pH 7.124 (7.320-7.420) L* 11/18/20 09:30 Sodium 138 mmol/L (137-145) 11/26/20 04:42 Potassium 4.1 mmol/L (3.6-5.0) 11/26/20 04:42 Chloride 101.4 mmol/L (98-107) 11/26/20 04:42 Carbon Dioxide 29 mmol/L (22-30) 11/26/20 04:42 Anion Gap 12 mmol/L 11/26/20 04:42 BUN 13 mg/dL (7-17) 11/26/20 04:42 Creatinine 0.5 mg/dL (0.6-1.2) L 11/26/20 04:42 Estimated GFR > 60 ml/min 11/26/20 04:42 BUN/Creatinine Ratio 26 % 11/26/20 04:42 Glucose 173 mg/dL (65-100) H 11/26/20 04:42 POC Glucose 109 mg/dL (70-105) H 11/26/20 12:27 Calcium 8.6 mg/dL (8.4-10.2) 11/26/20 04:42 Phosphorus 3.50 mg/dL (2.5-4.5) 11/18/20 15:56 Magnesium 3.00 mg/dL (1.7-2.3) H 11/18/20 15:56 Ferritin 341.9 ng/mL (10.0-200.0) H 11/22/20 11:38 Total Bilirubin 0.20 mg/dL (0.1-1.2) 11/26/20 04:42 AST 24 units/L (5-40) 11/26/20 04:42 ALT 25 units/L (7-56) 11/26/20 04:42 Alkaline Phosphatase 116 units/L (35-129) 11/26/20 04:42 Lactate Dehydrogenase 400 units/L (91-180) H 11/22/20 10:04 Troponin T < 0.010 ng/mL (0.00-0.029) 11/18/20 09:30 C-Reactive Protein 3.60 mg/dL (0.00-1.30) H 11/22/20 10:04 Total Protein 5.6 g/dL (6.3-8.2) L 11/26/20 04:42 Albumin 2.8 g/dL (3.9-5) L 11/26/20 04:42 Albumin/Globulin Ratio 1.0 % 11/26/20 04:42 Procalcitonin 0.15 ng/mL (<0.15) 11/22/20 11:38 TSH 0.864 mlU/mL (0.270-4.200) 11/18/20 09:30 Free T4 0.98 ng/dL (0.76-1.46) 11/18/20 09:30 HCG, Qual Negative (Negative) 11/18/20 09:30 Urine Color Yellow (Yellow) 11/18/20 17:38 Urine Turbidity Clear (Clear) 11/18/20 17:38 Urine pH 5.0 (5.0-7.0) 11/18/20 17:38 Ur Specific [place] 1.037 (1.003-1.030) H 11/18/20 17:38 Urine Protein 100 mg/dl mg/dL (Negative) 11/18/20 17:38 Urine Glucose (UA) >=500 mg/dL (Negative) 11/18/20 17:38 Urine Ketones 80 mg/dL (Negative) 11/18/20 17:38 Urine Blood Mod (Negative) 11/18/20 17:38 Urine Nitrite Neg (Negative) 11/18/20 17:38 Urine Bilirubin Neg (Negative) 11/18/20 17:38 Urine Urobilinogen < 2.0 mg/dL (<2.0) 11/18/20 17:38 Ur Leukocyte Esterase Neg (Negative) 11/18/20 17:38 Urine WBC (Auto) 2.0 /HPF (0.0-6.0) 11/18/20 17:38 Urine RBC (Auto) 1.0 /HPF (0.0-6.0) 11/18/20 17:38 U Epithel Cells (Auto) 1.0 /HPF (0-13.0) 11/18/20 17:38 Urine Bacteria (Auto) 1+ /HPF (Negative) 11/18/20 17:38 Urine Mucus Few /HPF 11/18/20 17:38 Coronavirus (PCR) Positive (Negative) A 11/19/20 09:30 Tang/IV: Voiding Method Toilet Active Medications - Current Medications Current Medications: Generic Name Dose Route Start Last Admin Trade Name Freq PRN Reason Stop Dose Admin Acetaminophen 650 mg 11/18/20 15:45 Acetaminophen 325 Mg Tab PO Q6H PRN Pain MILD(1-3)/Fever >100.5/STUART Acetaminophen/Butalbital/Caffeine 1 tab 11/20/20 11:26 Butalb/Acetaminophen/Caffeine Tab PO Q4H PRN Headache Albuterol 2.5 mg 11/18/20 15:45 Albuterol 2.5 Mg/3 Ml Nebu IH Q3HRT PRN Shortness Of Breath Baclofen 5 mg 11/19/20 09:00 11/26/20 09:38 Baclofen 10 Mg Tab PO 5 mg TID [facility] Administration Dexamethasone 6 mg 11/20/20 20:00 11/26/20 09:37 Dexamethasone 4 Mg Tab PO 11/29/20 10:01 6 mg DAILY EMMA Administration Enoxaparin Sodium 70 mg 11/22/20 11:00 11/26/20 09:37 Enoxaparin 80 Mg/0.8 Ml Inj SUB-Q 70 mg Q12HR EMMA Administration Hydromorphone HCl 0.5 mg 11/18/20 15:45 11/23/20 09:20 Hydromorphone 1 Mg/1 Ml Inj IV 0.5 mg Q12H PRN Administration Pain , Severe (7-10) REMDESIVIR 100 mg/ Sodium 250 mls @ 500 mls/hr 11/23/20 21:00 11/25/20 22:53 Chloride IV 11/26/20 21:29 500 mls/hr Q24HR@2100 [facility] Administration Insulin Glargine 35 units 11/24/20 18:00 11/25/20 18:26 Insulin Glargine 100 Units/Ml SUB-Q 35 units QPM [facility] Administration Insulin Human Lispro 0 unit 11/20/20 11:30 11/26/20 11:30 Insulin Lispro 100 Unit/Ml [facility] Protocol Insulin Human Lispro 10 unit 11/23/20 08:15 11/26/20 11:30 Insulin Lispro 100 Unit/Ml SUB-Q Not Given AC [facility] Meloxicam 7.5 mg 11/19/20 10:00 11/26/20 09:38 Meloxicam 7.5 Mg Tab PO 7.5 mg QDAY [facility] Administration Ondansetron HCl 4 mg 11/18/20 15:45 11/18/20 22:13 Ondansetron 4 Mg/2 Ml Inj IV 4 mg Q8H PRN Administration Nausea And Vomiting Oxycodone/Acetaminophen 1 tab 11/19/20 09:00 11/22/20 22:25 Oxycodone /Acetaminophen 5-325mg Tab PO 1 tab Q6H PRN Administration Pain, Moderate (4-6) Sodium Chloride 10 ml 11/18/20 22:00 11/26/20 12:43 Sodium Chloride 0.9% 10 Ml Flush Syringe IV 10 ml BID EMMA Administration Sodium Chloride 10 ml 11/18/20 15:45 Sodium Chloride 0.9% 10 Ml Flush Syringe IV PRN PRN LINE FLUSH Sodium Chloride 50 ml 11/22/20 13:00 11/25/20 22:53 Sodium Chloride 0.9% 50 Ml Ivpb IV 11/26/20 21:01 50 ml Q24HR@2100 EMMA Administration Nutrition/Malnutrition Assess - Dietary Evaluation Nutrition/Malnutrition Findings: Nutrition Notes Start: 11/24/20 12:10 Freq: Status: Active Protocol: Document 11/24/20 12:10 AASHISH (Rec: 11/24/20 12:11 AASHISH [id number]) Nutrition Notes Need for Assessment generated from: LOS Initial or Follow up Brief Note Subjective/Other Information Screen for LOS. Pt eating 75- 100% of meals. Nutrition Intervention Revisit per MD consult or patient Sign Off request:
--- NOTE | 2020-11-26 14:51 | Progress Note ---
Assessment and Plan Acute metabolic acidosis/diabetic ketoacidosis Possible traumatic pneumomediastinum Obesity DM II Hyperkalemia - transition to oral Apixaban re: DVT - continue to wean supplemental oxygen to keep O2 sats > 92% - Remdesivir as per ID/Pulmonary developed protocols (received) - continue systemic steroids for severe COVID-19 infection - follow repeat COVID tests results - zinc and vitamin C supplementation - Monitor inflammatory markers per facility protocol - ferritin, Ddimer, CRP - therapeutic anticoagulation per system Protocol based on d-dimer and clinical considerations (full re: P.E.) - Continue contact and airborne isolation - prn bronchodilators ([place] ) with pulm hygiene per RT - continue systemic steroids - continue to avoid nephrotoxins, renally dose all medications - continue mobility protocols to prevent pressure ulcers - PT/OT as tolerated - Wound care per RN/WCT - continue accuchecks with glycemic control per SSI for target blood glucose < 180 mg/dL - tobacco abstinence strongly counseled at the bedside - home oxygen evaluation at discharge - GI & VTE prophylaxis - Flu & pneumovax per protocol - Pulmonary out patient follow up for PFTs and optimization of respiratory status - continue other care per attending / other consultants - prn analgesia per pain score ... re-evaluate in am & prn Subjective Date of service: 11/26/20 Principal diagnosis: Ac metabolic acidosis; DKA; Pneumomediastinum; Obesity; DM II; Hyperkalemia Interval history: Patient is seen today for: Acute metabolic acidosis; DKA; Pneumomediastinum; Obesity; DM II; Hyperkalemia Seen and examined at bedside; 24hour events reviewed; nursing and respiratory care staff consulted; no adverse overnight events reported to me; resting in bed; remains on supplemental oxygen Objective Vital Signs - 12hr 11/26/20 11/26/20 05:06 08:57 Temperature 98.0 F Pulse Rate 89 Respiratory 18 Rate Blood Pressure 120/78 O2 Sat by Pulse 98 98 Oximetry Constitutional: no acute distress, alert Eyes: non-icteric ENT: oropharynx moist Neck: supple, no lymphadenopathy Effort: mildly labored Ascultation: Bilateral: diminished breath sounds Percussion: Bilateral: not dull Cardiovascular: regular rate and rhythm Gastrointestinal: normoactive bowel sounds, soft, non-tender Integumentary: normal Extremities: no cyanosis, no edema Neurologic: normal mental status, non-focal exam, pupils equal and round Psychiatric: mood appropriate, affect normal CBC and BMP: 11/23/20 07:40 11/26/20 04:42 ABG, PT/INR, D-dimer: PT/INR, D-dimer PT 15.6 Sec. (12.2-14.9) H 11/18/20 10:31 INR 1.19 (0.87-1.13) H 11/18/20 10:31 D-Dimer 1548.09 ng/mlDDU (0-234) H 11/22/20 10:04 Abnormal lab findings: Abnormal Labs 11/18/20 11/18/20 11/18/20 09:30 09:30 09:30 WBC 15.4 H RBC 6.17 H Hgb 15.6 H Hct 48.2 H MCV 78 L MCH 25 L RDW 18.9 H Plt Count 508 H Lymph % (Auto) 3.5 L [place] % (Auto) Lymph # (Auto) 0.5 L [place] # (Auto) 1.0 H Seg Neutrophils % 89.5 H Seg Neutrophils # 13.8 H PT INR D-Dimer VBG pH 7.124 L* Sodium 136 L Potassium 5.5 H Chloride 92.2 L Carbon Dioxide 6 L* BUN 27 H Creatinine Glucose 498 H POC Glucose Calcium Magnesium Ferritin ALT 5 L Alkaline Phosphatase 149 H Lactate Dehydrogenase C-Reactive Protein Total Protein Albumin Ur Specific [place] Coronavirus (PCR) 11/18/20 11/18/20 11/18/20 10:31 13:01 13:23 WBC RBC Hgb Hct MCV MCH RDW Plt Count Lymph % (Auto) [place] % (Auto) Lymph # (Auto) [place] # (Auto) Seg Neutrophils % Seg Neutrophils # PT 15.6 H INR 1.19 H D-Dimer VBG pH Sodium Potassium Chloride Carbon Dioxide BUN Creatinine Glucose POC Glucose 594 H Calcium Magnesium 3.20 H Ferritin ALT Alkaline Phosphatase Lactate Dehydrogenase C-Reactive Protein Total Protein Albumin Ur Specific [place] Coronavirus (PCR) 11/18/20 11/18/20 11/18/20 13:23 14:34 15:56 WBC RBC Hgb Hct MCV MCH RDW Plt Count Lymph % (Auto) [place] % (Auto) Lymph # (Auto) [place] # (Auto) Seg Neutrophils % Seg Neutrophils # PT INR D-Dimer VBG pH Sodium 135 L Potassium 5.4 H 5.8 H Chloride 91.9 L 95.8 L Carbon Dioxide 9 L* 5 L* BUN 30 H 33 H Creatinine Glucose 513 H* 504 H* POC Glucose Calcium Magnesium 3.00 H Ferritin ALT Alkaline Phosphatase Lactate Dehydrogenase C-Reactive Protein Total Protein Albumin Ur Specific [place] Coronavirus (PCR) 11/18/20 11/18/20 11/18/20 15:56 16:46 17:38 WBC RBC Hgb Hct MCV MCH RDW Plt Count Lymph % (Auto) [place] % (Auto) Lymph # (Auto) [place] # (Auto) Seg Neutrophils % Seg Neutrophils # PT INR D-Dimer VBG pH Sodium Potassium 5.1 H Chloride 95.7 L 107.3 H Carbon Dioxide 7 L* 7 L* BUN 31 H 28 H Creatinine Glucose 462 H 382 H POC Glucose Calcium 7.8 L D Magnesium Ferritin ALT Alkaline Phosphatase Lactate Dehydrogenase C-Reactive Protein Total Protein Albumin Ur Specific [place] 1.037 H Coronavirus (PCR) 11/18/20 11/18/20 11/18/20 18:29 20:56 21:06 WBC RBC Hgb Hct MCV MCH RDW Plt Count Lymph % (Auto) [place] % (Auto) Lymph # (Auto) [place] # (Auto) Seg Neutrophils % Seg Neutrophils # PT INR D-Dimer VBG pH Sodium 146 H Potassium Chloride 114.4 H Carbon Dioxide 8 L* 8 L* BUN 28 H 23 H Creatinine Glucose 360 H 284 H POC Glucose 281 H Calcium 7.3 L Magnesium Ferritin ALT Alkaline Phosphatase Lactate Dehydrogenase C-Reactive Protein Total Protein Albumin Ur Specific [place] Coronavirus (PCR) 11/18/20 11/18/20 11/19/20 22:26 23:39 00:36 WBC RBC Hgb Hct MCV MCH RDW Plt Count Lymph % (Auto) [place] % (Auto) Lymph # (Auto) [place] # (Auto) Seg Neutrophils % Seg Neutrophils # PT INR D-Dimer VBG pH Sodium Potassium Chloride Carbon Dioxide BUN Creatinine Glucose POC Glucose 174 H 140 H 133 H Calcium Magnesium Ferritin ALT Alkaline Phosphatase Lactate Dehydrogenase C-Reactive Protein Total Protein Albumin Ur Specific [place] Coronavirus (PCR) 11/19/20 11/19/20 11/19/20 01:26 02:32 02:47 WBC RBC Hgb Hct MCV MCH RDW Plt Count Lymph % (Auto) [place] % (Auto) Lymph # (Auto) [place] # (Auto) Seg Neutrophils % Seg Neutrophils # PT INR D-Dimer VBG pH Sodium 147 H Potassium Chloride 114.5 H Carbon Dioxide 13 L BUN Creatinine Glucose 134 H POC Glucose 130 H 149 H Calcium 7.9 L Magnesium Ferritin ALT Alkaline Phosphatase Lactate Dehydrogenase C-Reactive Protein Total Protein Albumin Ur Specific [place] Coronavirus (PCR) 11/19/20 11/19/20 11/19/20 04:52 05:02 07:29 WBC RBC Hgb Hct MCV MCH RDW Plt Count Lymph % (Auto) [place] % (Auto) Lymph # (Auto) [place] # (Auto) Seg Neutrophils % Seg Neutrophils # PT INR D-Dimer VBG pH Sodium 149 H 147 H Potassium Chloride 115.3 H 112.3 H Carbon Dioxide 16 L 16 L BUN Creatinine Glucose 193 H 219 H POC Glucose 227 H Calcium 7.7 L 8.2 L Magnesium Ferritin ALT Alkaline Phosphatase Lactate Dehydrogenase C-Reactive Protein Total Protein Albumin Ur Specific [place] Coronavirus (PCR) 11/19/20 11/19/20 11/19/20 09:25 09:30 09:42 WBC 12.7 H RBC Hgb Hct MCV 74 L MCH 25 L RDW 17.8 H Plt Count Lymph % (Auto) 3.2 L [place] % (Auto) 8.4 H Lymph # (Auto) 0.4 L [place] # (Auto) 1.1 H Seg Neutrophils % 87.8 H Seg Neutrophils # 11.2 H PT INR D-Dimer VBG pH Sodium Potassium Chloride Carbon Dioxide BUN Creatinine Glucose POC Glucose 206 H Calcium Magnesium Ferritin ALT Alkaline Phosphatase Lactate Dehydrogenase C-Reactive Protein Total Protein Albumin Ur Specific [place] Coronavirus (PCR) Positive A 11/19/20 11/19/20 11/19/20 11:03 15:37 15:49 WBC RBC Hgb Hct MCV MCH RDW Plt Count Lymph % (Auto) [place] % (Auto) Lymph # (Auto) [place] # (Auto) Seg Neutrophils % Seg Neutrophils # PT INR D-Dimer VBG pH Sodium Potassium 3.4 L Chloride 108.4 H Carbon Dioxide 18 L BUN Creatinine 0.5 L Glucose 191 H POC Glucose 226 H 186 H Calcium 8.0 L Magnesium Ferritin ALT Alkaline Phosphatase Lactate Dehydrogenase C-Reactive Protein Total Protein Albumin Ur Specific [place] Coronavirus (PCR) 11/19/20 11/19/20 11/20/20 18:33 22:31 01:36 WBC RBC Hgb Hct MCV MCH RDW Plt Count Lymph % (Auto) [place] % (Auto) Lymph # (Auto) [place] # (Auto) Seg Neutrophils % Seg Neutrophils # PT INR D-Dimer VBG pH Sodium Potassium 3.1 L Chloride Carbon Dioxide 17 L BUN 6 L Creatinine 0.5 L Glucose 207 H POC Glucose 243 H 251 H Calcium 8.0 L Magnesium Ferritin ALT Alkaline Phosphatase Lactate Dehydrogenase C-Reactive Protein Total Protein Albumin Ur Specific [place] Coronavirus (PCR) 11/20/20 11/20/20 11/20/20 05:29 05:29 05:38 WBC RBC Hgb Hct MCV 74 L MCH 25 L RDW 17.9 H Plt Count Lymph % (Auto) [place] % (Auto) Lymph # (Auto) [place] # (Auto) Seg Neutrophils % Seg Neutrophils # PT INR D-Dimer VBG pH Sodium Potassium 3.1 L Chloride Carbon Dioxide 18 L BUN 6 L Creatinine 0.5 L Glucose 278 H POC Glucose 294 H Calcium Magnesium Ferritin ALT 6 L Alkaline Phosphatase Lactate Dehydrogenase C-Reactive Protein Total Protein 5.5 L D Albumin 2.9 L Ur Specific [place] Coronavirus (PCR) 11/20/20 11/20/20 11/20/20 12:01 16:19 19:15 WBC RBC Hgb Hct MCV MCH RDW Plt Count Lymph % (Auto) [place] % (Auto) Lymph # (Auto) [place] # (Auto) Seg Neutrophils % Seg Neutrophils # PT INR D-Dimer 1728.46 H VBG pH Sodium Potassium Chloride Carbon Dioxide BUN Creatinine Glucose POC Glucose 269 H 187 H Calcium Magnesium Ferritin ALT Alkaline Phosphatase Lactate Dehydrogenase C-Reactive Protein Total Protein Albumin Ur Specific [place] Coronavirus (PCR) 11/20/20 11/20/20 11/20/20 19:15 19:15 20:51 WBC RBC Hgb Hct MCV MCH RDW Plt Count Lymph % (Auto) [place] % (Auto) Lymph # (Auto) [place] # (Auto) Seg Neutrophils % Seg Neutrophils # PT INR D-Dimer VBG pH Sodium Potassium Chloride Carbon Dioxide BUN Creatinine Glucose 215 H POC Glucose 185 H Calcium Magnesium Ferritin 449.6 H ALT Alkaline Phosphatase Lactate Dehydrogenase 395 H C-Reactive Protein 10.20 H Total Protein Albumin Ur Specific [place] Coronavirus (PCR) 11/21/20 11/21/20 11/21/20 08:14 12:21 16:47 WBC RBC Hgb Hct MCV MCH RDW Plt Count Lymph % (Auto) [place] % (Auto) Lymph # (Auto) [place] # (Auto) Seg Neutrophils % Seg Neutrophils # PT INR D-Dimer VBG pH Sodium Potassium Chloride Carbon Dioxide BUN Creatinine Glucose POC Glucose 416 H 322 H 299 H Calcium Magnesium Ferritin ALT Alkaline Phosphatase Lactate Dehydrogenase C-Reactive Protein Total Protein Albumin Ur Specific [place] Coronavirus (PCR) 11/21/20 11/22/20 11/22/20 21:31 08:08 10:04 WBC RBC Hgb Hct MCV MCH RDW Plt Count Lymph % (Auto) [place] % (Auto) Lymph # (Auto) [place] # (Auto) Seg Neutrophils % Seg Neutrophils # PT INR D-Dimer VBG pH Sodium Potassium 3.1 L Chloride Carbon Dioxide BUN Creatinine 0.5 L Glucose 300 H POC Glucose 350 H 391 H Calcium Magnesium Ferritin ALT Alkaline Phosphatase Lactate Dehydrogenase C-Reactive Protein Total Protein 5.4 L Albumin 3.1 L Ur Specific [place] Coronavirus (PCR) 11/22/20 11/22/20 11/22/20 10:04 10:04 11:38 WBC RBC Hgb Hct MCV MCH RDW Plt Count Lymph % (Auto) [place] % (Auto) Lymph # (Auto) [place] # (Auto) Seg Neutrophils % Seg Neutrophils # PT INR D-Dimer 1548.09 H VBG pH Sodium Potassium Chloride Carbon Dioxide BUN Creatinine Glucose 301 H POC Glucose Calcium Magnesium Ferritin 341.9 H ALT Alkaline Phosphatase Lactate Dehydrogenase 400 H C-Reactive Protein 3.60 H Total Protein Albumin Ur Specific [place] Coronavirus (PCR) 11/22/20 11/22/20 11/22/20 11:57 17:37 20:44 WBC RBC Hgb Hct MCV MCH RDW Plt Count Lymph % (Auto) [place] % (Auto) Lymph # (Auto) [place] # (Auto) Seg Neutrophils % Seg Neutrophils # PT INR D-Dimer VBG pH Sodium Potassium Chloride Carbon Dioxide BUN Creatinine Glucose POC Glucose 328 H 301 H 348 H Calcium Magnesium Ferritin ALT Alkaline Phosphatase Lactate Dehydrogenase C-Reactive Protein Total Protein Albumin Ur Specific [place] Coronavirus (PCR) 11/23/20 11/23/20 11/23/20 07:40 07:40 07:58 WBC 11.7 H RBC Hgb Hct MCV 74 L MCH 25 L RDW 17.1 H Plt Count Lymph % (Auto) [place] % (Auto) Lymph # (Auto) [place] # (Auto) Seg Neutrophils % Seg Neutrophils # PT INR D-Dimer VBG pH Sodium Potassium 2.8 L* Chloride Carbon Dioxide 36 H D BUN Creatinine 0.3 L Glucose 145 H POC Glucose 147 H Calcium Magnesium Ferritin ALT Alkaline Phosphatase Lactate Dehydrogenase C-Reactive Protein Total Protein 5.2 L Albumin 3.0 L Ur Specific [place] Coronavirus (PCR) 11/23/20 11/23/20 11/23/20 12:14 13:58 16:29 WBC RBC Hgb Hct MCV MCH RDW Plt Count Lymph % (Auto) [place] % (Auto) Lymph # (Auto) [place] # (Auto) Seg Neutrophils % Seg Neutrophils # PT INR D-Dimer VBG pH Sodium Potassium 3.2 L Chloride Carbon Dioxide BUN Creatinine Glucose POC Glucose 282 H 325 H Calcium Magnesium Ferritin ALT Alkaline Phosphatase Lactate Dehydrogenase C-Reactive Protein Total Protein Albumin Ur Specific [place] Coronavirus (PCR) 11/23/20 11/24/20 11/24/20 22:30 04:59 08:06 WBC RBC Hgb Hct MCV MCH RDW Plt Count Lymph % (Auto) [place] % (Auto) Lymph # (Auto) [place] # (Auto) Seg Neutrophils % Seg Neutrophils # PT INR D-Dimer VBG pH Sodium Potassium 3.0 L Chloride 97.1 L Carbon Dioxide 36 H BUN Creatinine 0.4 L Glucose 120 H POC Glucose 370 H 107 H Calcium Magnesium Ferritin ALT Alkaline Phosphatase Lactate Dehydrogenase C-Reactive Protein Total Protein 4.9 L Albumin 2.8 L Ur Specific [place] Coronavirus (PCR) 11/24/20 11/24/20 11/24/20 13:02 16:29 21:40 WBC RBC Hgb Hct MCV MCH RDW Plt Count Lymph % (Auto) [place] % (Auto) Lymph # (Auto) [place] # (Auto) Seg Neutrophils % Seg Neutrophils # PT INR D-Dimer VBG pH Sodium Potassium Chloride Carbon Dioxide BUN Creatinine Glucose POC Glucose 118 H 229 H 152 H Calcium Magnesium Ferritin ALT Alkaline Phosphatase Lactate Dehydrogenase C-Reactive Protein Total Protein Albumin Ur Specific [place] Coronavirus (PCR) 11/25/20 11/25/20 11/25/20 01:35 05:52 08:04 WBC RBC Hgb Hct MCV MCH RDW Plt Count Lymph % (Auto) [place] % (Auto) Lymph # (Auto) [place] # (Auto) Seg Neutrophils % Seg Neutrophils # PT INR D-Dimer VBG pH Sodium Potassium 3.3 L 3.0 L Chloride Carbon Dioxide 33 H BUN Creatinine 0.4 L Glucose 176 H POC Glucose 114 H Calcium 8.3 L Magnesium Ferritin ALT Alkaline Phosphatase Lactate Dehydrogenase C-Reactive Protein Total Protein 5.0 L Albumin 2.5 L Ur Specific [place] Coronavirus (PCR) 11/25/20 11/25/20 11/25/20 12:04 16:39 22:15 WBC RBC Hgb Hct MCV MCH RDW Plt Count Lymph % (Auto) [place] % (Auto) Lymph # (Auto) [place] # (Auto) Seg Neutrophils % Seg Neutrophils # PT INR D-Dimer VBG pH Sodium Potassium Chloride Carbon Dioxide BUN Creatinine Glucose POC Glucose 132 H 310 H 251 H Calcium Magnesium Ferritin ALT Alkaline Phosphatase Lactate Dehydrogenase C-Reactive Protein Total Protein Albumin Ur Specific [place] Coronavirus (PCR) 11/26/20 11/26/20 11/26/20 04:42 07:53 12:27 WBC RBC Hgb Hct MCV MCH RDW Plt Count Lymph % (Auto) [place] % (Auto) Lymph # (Auto) [place] # (Auto) Seg Neutrophils % Seg Neutrophils # PT INR D-Dimer VBG pH Sodium Potassium Chloride Carbon Dioxide BUN Creatinine 0.5 L Glucose 173 H POC Glucose 132 H 109 H Calcium Magnesium Ferritin ALT Alkaline Phosphatase Lactate Dehydrogenase C-Reactive Protein Total Protein 5.6 L Albumin 2.8 L Ur Specific [place] Coronavirus (PCR) Allied health notes reviewed: nursing
[2020-11-26] MEDS: INSULIN GLARGINE 100 UNITS/ML SUB-Q SCH (18:00)
[2020-11-26] MEDS: SODIUM CHLORIDE 0.9% 50 ML IVPB IV SCH (21:47)
[2020-11-26] MEDS: REMDESIVIR 100 MG in SODIUM CHLORIDE 0.9% 250ML 250 ML IV SCH (21:47)
[2020-11-27] MEDS: INSULIN LISPRO 100 UNIT/ML SUB-Q SCH ×7 (07:30→23:52)
[2020-11-27] MEDS: BACLOFEN 10 MG TAB PO SCH ×3 (08:00→23:35)
[2020-11-27] MEDS: ENOXAPARIN 80 MG/0.8 ML INJ SUB-Q SCH ×2 (10:41→23:35)
[2020-11-27] MEDS: MELOXICAM 7.5 MG TAB PO SCH (10:42)
[2020-11-27] MEDS: DEXAMETHASONE 4 MG TAB PO SCH (10:43)
--- NOTE | 2020-11-27 12:07 | Progress Note ---
Assessment and Plan Assessment and plan: 35 YO Female with DM presented to ED for evaluation. Patient reports "I feel sick". Patient states that she has experienced generalized weakness, nausea, fatigue, polyuria, polydipsia over the past 1 week with worsening symptoms over the past 3 days. EMS notified and upon arrival the patient was found to be in distress and subsequently transported to [facility] for further care and evaluation of the aforementioned symptoms. The patient was seen and evaluated in the emergency department. All lab and imaging studies reviewed. Patient found to have DKA, metabolic encephalopathy, volume depletion, and metabolic acidosis. The patient was admitted to ICU and initiated on DKA protocol. Patient denies f ever, chills, chest pain, palpitation, productive cough, skin rash, recent ill contacts, or known exposure to COVID-19. No prior admission for review. No medication listed at time of admission reconciliation. Critical care team consulted in ED. 11/19: Patient seen and examined today CT of the head revealed a CT cervical spine no acute pathology noted CT of the chest shows a moderate pneumomediastinum and patchy groundglass opacities in both lungs thought to represent possible pneumonia. Patient does have leukocytosis which could be reactive. I do not see inciting factor for her DKA except possible noncompliance with her medication. We will continue DKA protocol at this time. Will give additional 2 L of fluids. She does appear older than stated age we will also rule out COVID- 19 at this time. Will obtain neurology evaluation considering her syncope and also her profound lethargy this morning. Plan of care discussed with the patient and also with the insurance company patient will be 11/20: Patient reported that she had a fall yesterday while in the waiting room. Per documentation she was about to leave AMA and then had a questionable syncopal episode. She tells the neurologist that she fell from the stretcher and hit her head. Initial CT of the head was negative an MRI is being ordered due to some confusion and encephalopathy which I felt was improving but during reevaluation by neurologist she was still a bit confused. 11/21: Patient Seen and examined she is much more awake and alert. She does recall falling or hitting her head. Mental status is improved. She still has some intermittent headache. Amendable to the Fioricet. she had MRI wo qd yesterday is remarkable for demylinating disease According to her she is diagnosed with MS 2014 was initially on Po then recently on ? Ocreveus twice a year shot , last got it in September she is with Positive COVID-19 according to her got it from [facility] ,she denied SOB but discripe mild ache and pain was started yesterday on decadron. Patient not discharged yesterday as she became hypoxic and remained severely lethargic Patient also has underlying multiple sclerosis. Still awaiting to get all her home medication. Covid test did come back positive. She remains on isolation for the same. We will check inflammatory markers. Start her on empiric steroid therapy at this time. MRI reviewed no acute pathology noted except some demyelination disease will defer to neurology for further evaluation. I have discussed with her [place] doctors about the update, they will look for transferring the patient to their facility, for now will continue COVID 19 management, ID consult, Remdesivir, check inflammatory markers and pulse ox. Prone as tolerated. Will also start on full dose anticoagulation considering worsening Hypoxia and elevated D.dimer. IF No improvement or increase oxygen demand, will obtain pulmonary consult. Continue daily PT 11/23; patient is on remdesivir and Decadron for COVID-19 infection. CTA showed yesterday left lung PE and currently on therapeutic dose of Lovenox. Patient was admitted for DKA and currently out of DKA. Blood sugar is uncontrolled. I will add AC insulin. Monitor blood sugar and adjust as needed. Patient is a [place] patient. Patient was on 2 L of oxygen. Patient is complaining shortness of breath and weakness, I put PT consult. 11/24; continue with remdesivir and Decadron. Continue with therapeutic Lovenox. Adjust insulin as needed. Discussed with [place] physician and will take the patient when to have bed. Patient is stable for transfer. 11/25; continue with remdesivir and Decadron. Patient was on 2 L of oxygen. Patient was evaluated by physical therapy and was desaturated on ambulation. Hypokalemia will check magnesium if not checked. Replete potassium. Blood sugars in target. Patient will finish remdesivir tomorrow. We will do home O2 evaluation tomorrow and possible discharge. 11/26; patient will finish remdesivir tonight, continue with Decadron. Patient O2 sat dropped to 87% with minimal ambulation. Oxygen will be arranged and patient will be discharged tomorrow. 11/27; patient finished remdesivir yesterday. We will continue with Decadron. Home O2 evaluation was done yesterday and will require home oxygen. Discussed with case management. Patient can be discharged if home oxygen is arranged. (1) Covid 19 with Hypoxic Respiratory failure (2) Metabolic encephalopathy (3) Systemic inflammatory response syndrome (4) DKA (diabetic ketoacidosis) (5) Volume depletion (6) syncope (7) Head trauma (8) Metabolic Acidosis History Interval history: Patient was seen and evaluated this morning Patient was complaining shortness of breath, on 2 L of oxygen Patient is followed for DKA, Covid with hypoxia and left lower lung PE Hospitalist Physical - Physical exam Narrative exam: Not in cardiopulmonary distress. The patient appeared well nourished and normally developed. Vital signs as documented. Head exam is unremarkable. No scleral icterus . Neck is without jugular venous distension, thyromegaly, or carotid bruits. Lungs decreased air entry. Cardiac exam reveals regular rate and Rhythm. Abdominal exam reveals normal bowel sounds, nontender, no organomegaly. Extremities are nonedematous and both femoral and pedal pulses are normal. 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 No focal weakness. - Constitutional Vitals: Temp Pulse Resp BP Pulse Ox 98.1 F 95 H 19 123/77 97 11/27/20 04:07 11/27/20 04:07 11/27/20 04:07 11/27/20 04:07 11/27/20 04:07 General appearance: Present: mild distress HEART Score - HEART Score Troponin: Troponin T < 0.010 ng/mL (0.00-0.029) 11/18/20 09:30 Results - Labs CBC & Chem 7: 11/23/20 07:40 11/26/20 04:42 Labs: Laboratory Last Values WBC 11.7 K/mm3 (4.5-11.0) H 11/23/20 07:40 RBC 4.64 M/mm3 (3.65-5.03) 11/23/20 07:40 Hgb 11.4 gm/dl (10.1-14.3) 11/23/20 07:40 Hct 34.5 % (30.3-42.9) 11/23/20 07:40 MCV 74 fl (79-97) L 11/23/20 07:40 MCH 25 pg (28-32) L 11/23/20 07:40 MCHC 33 % (30-34) 11/23/20 07:40 RDW 17.1 % (13.2-15.2) H 11/23/20 07:40 Plt Count 339 K/mm3 (140-440) 11/23/20 07:40 Lymph % (Auto) 3.2 % (13.4-35.0) L 11/19/20 09:25 Wirt % (Auto) 8.4 % (0.0-7.3) H 11/19/20 09:25 Eos % (Auto) 0.0 % (0.0-4.3) 11/19/20 09:25 Baso % (Auto) 0.6 % (0.0-1.8) 11/19/20 09:25 Lymph # (Auto) 0.4 K/mm3 (1.2-5.4) L 11/19/20 09:25 Wirt # (Auto) 1.1 K/mm3 (0.0-0.8) H 11/19/20 09:25 Eos # (Auto) 0.0 K/mm3 (0.0-0.4) 11/19/20 09:25 Baso # (Auto) 0.1 K/mm3 (0.0-0.1) 11/19/20 09:25 Seg Neutrophils % 87.8 % (40.0-70.0) H 11/19/20 09:25 Seg Neutrophils # 11.2 K/mm3 (1.8-7.7) H 11/19/20 09:25 PT 15.6 Sec. (12.2-14.9) H 11/18/20 10:31 INR 1.19 (0.87-1.13) H 11/18/20 10:31 D-Dimer 1548.09 ng/mlDDU (0-234) H 11/22/20 10:04 VBG pH 7.124 (7.320-7.420) L* 11/18/20 09:30 Sodium 138 mmol/L (137-145) 11/26/20 04:42 Potassium 4.1 mmol/L (3.6-5.0) 11/26/20 04:42 Chloride 101.4 mmol/L (98-107) 11/26/20 04:42 Carbon Dioxide 29 mmol/L (22-30) 11/26/20 04:42 Anion Gap 12 mmol/L 11/26/20 04:42 BUN 13 mg/dL (7-17) 11/26/20 04:42 Creatinine 0.5 mg/dL (0.6-1.2) L 11/26/20 04:42 Estimated GFR > 60 ml/min 11/26/20 04:42 BUN/Creatinine Ratio 26 % 11/26/20 04:42 Glucose 173 mg/dL (65-100) H 11/26/20 04:42 POC Glucose 212 mg/dL (70-105) H 11/27/20 11:36 Calcium 8.6 mg/dL (8.4-10.2) 11/26/20 04:42 Phosphorus 3.50 mg/dL (2.5-4.5) 11/18/20 15:56 Magnesium 3.00 mg/dL (1.7-2.3) H 11/18/20 15:56 Ferritin 341.9 ng/mL (10.0-200.0) H 11/22/20 11:38 Total Bilirubin 0.20 mg/dL (0.1-1.2) 11/26/20 04:42 AST 24 units/L (5-40) 11/26/20 04:42 ALT 25 units/L (7-56) 11/26/20 04:42 Alkaline Phosphatase 116 units/L (35-129) 11/26/20 04:42 Lactate Dehydrogenase 400 units/L (91-180) H 11/22/20 10:04 Troponin T < 0.010 ng/mL (0.00-0.029) 11/18/20 09:30 C-Reactive Protein 3.60 mg/dL (0.00-1.30) H 11/22/20 10:04 Total Protein 5.6 g/dL (6.3-8.2) L 11/26/20 04:42 Albumin 2.8 g/dL (3.9-5) L 11/26/20 04:42 Albumin/Globulin Ratio 1.0 % 11/26/20 04:42 Procalcitonin 0.15 ng/mL (<0.15) 11/22/20 11:38 TSH 0.864 mlU/mL (0.270-4.200) 11/18/20 09:30 Free T4 0.98 ng/dL (0.76-1.46) 11/18/20 09:30 HCG, Qual Negative (Negative) 11/18/20 09:30 Urine Color Yellow (Yellow) 11/18/20 17:38 Urine Turbidity Clear (Clear) 11/18/20 17:38 Urine pH 5.0 (5.0-7.0) 11/18/20 17:38 Ur Specific [place] 1.037 (1.003-1.030) H 11/18/20 17:38 Urine Protein 100 mg/dl mg/dL (Negative) 11/18/20 17:38 Urine Glucose (UA) >=500 mg/dL (Negative) 11/18/20 17:38 Urine Ketones 80 mg/dL (Negative) 11/18/20 17:38 Urine Blood Mod (Negative) 11/18/20 17:38 Urine Nitrite Neg (Negative) 11/18/20 17:38 Urine Bilirubin Neg (Negative) 11/18/20 17:38 Urine Urobilinogen < 2.0 mg/dL (<2.0) 11/18/20 17:38 Ur Leukocyte Esterase Neg (Negative) 11/18/20 17:38 Urine WBC (Auto) 2.0 /HPF (0.0-6.0) 11/18/20 17:38 Urine RBC (Auto) 1.0 /HPF (0.0-6.0) 11/18/20 17:38 U Epithel Cells (Auto) 1.0 /HPF (0-13.0) 11/18/20 17:38 Urine Bacteria (Auto) 1+ /HPF (Negative) 11/18/20 17:38 Urine Mucus Few /HPF 11/18/20 17:38 Coronavirus (PCR) Positive (Negative) A 11/19/20 09:30 Tang/IV: Voiding Method Toilet Active Medications - Current Medications Current Medications: Generic Name Dose Route Start Last Admin Trade Name Freq PRN Reason Stop Dose Admin Acetaminophen 650 mg 11/18/20 15:45 Acetaminophen 325 Mg Tab PO Q6H PRN Pain MILD(1-3)/Fever >100.5/STUART Acetaminophen/Butalbital/Caffeine 1 tab 11/20/20 11:26 Butalb/Acetaminophen/Caffeine Tab PO Q4H PRN Headache Albuterol 2.5 mg 11/18/20 15:45 Albuterol 2.5 Mg/3 Ml Nebu IH Q3HRT PRN Shortness Of Breath Baclofen 5 mg 11/19/20 09:00 11/27/20 08:00 Baclofen 10 Mg Tab PO 5 mg TID EMMA Administration Dexamethasone 6 mg 11/20/20 20:00 11/27/20 10:43 Dexamethasone 4 Mg Tab PO 11/29/20 10:01 6 mg DAILY EMMA Administration Enoxaparin Sodium 70 mg 11/22/20 11:00 11/27/20 10:41 Enoxaparin 80 Mg/0.8 Ml Inj SUB-Q 70 mg Q12HR EMMA Administration Hydromorphone HCl 0.5 mg 11/18/20 15:45 11/23/20 09:20 Hydromorphone 1 Mg/1 Ml Inj IV 0.5 mg Q12H PRN Administration Pain , Severe (7-10) Insulin Glargine 35 units 11/24/20 18:00 11/26/20 18:00 Insulin Glargine 100 Units/Ml SUB-Q 35 units QPM EMMA Administration Insulin Human Lispro 0 unit 11/20/20 11:30 11/27/20 07:30 Insulin Lispro 100 Unit/Ml SUB-Q 3 unit ACHS EMMA Administration Protocol Insulin Human Lispro 10 unit 11/23/20 08:15 11/27/20 07:30 Insulin Lispro 100 Unit/Ml SUB-Q 10 unit AC EMMA Administration Meloxicam 7.5 mg 11/19/20 10:00 11/27/20 10:42 Meloxicam 7.5 Mg Tab PO 7.5 mg QDAY EMMA Administration Ondansetron HCl 4 mg 11/18/20 15:45 11/18/20 22:13 Ondansetron 4 Mg/2 Ml Inj IV 4 mg Q8H PRN Administration Nausea And Vomiting Oxycodone/Acetaminophen 1 tab 11/19/20 09:00 11/22/20 22:25 Oxycodone /Acetaminophen 5-325mg Tab PO 1 tab Q6H PRN Administration Pain, Moderate (4-6) Sodium Chloride 10 ml 11/18/20 22:00 11/27/20 10:43 Sodium Chloride 0.9% 10 Ml Flush Syringe IV 10 ml BID EMMA Administration Sodium Chloride 10 ml 11/18/20 15:45 Sodium Chloride 0.9% 10 Ml Flush Syringe IV PRN PRN LINE FLUSH Nutrition/Malnutrition Assess - Dietary Evaluation Nutrition/Malnutrition Findings: Nutrition Notes Start: 11/24/20 12:10 Freq: Status: Active Protocol: Document 11/24/20 12:10 AASHISH (Rec: 11/24/20 12:11 AASHISH [id number]) Nutrition Notes Need for Assessment generated from: LOS Initial or Follow up Brief Note Subjective/Other Information Screen for LOS. Pt eating 75- 100% of meals. Nutrition Intervention Revisit per MD consult or patient Sign Off request:
--- NOTE | 2020-11-27 12:13 | Discharge Summary ---
Providers - Providers Date of Admission: 11/18/20 15:45 Date of discharge: 11/27/20 Attending physician: ABY MENDOZA MD 11/18/20 17:01 Consult to Physician [CONS] Routine Comment: Consulting Provider: KARY MAYO Physician Instructions: Reason For Exam: DKA 11/19/20 08:54 Consult to Physician [CONS] Routine Comment: Consulting Provider: TONY MG Physician Instructions: Reason For Exam: SYNCOPE 11/20/20 19:04 Occupational Therapy Evaluate and Treat [CONS] Routine Comment: Reason For Exam: Debility secondary to MS Physical Therapy Evaluation and Treat [CONS] Routine Comment: Reason For Exam: Debility secondary to MS 11/22/20 10:01 Consult to Physician [CONS] Routine Comment: Consulting Provider: GORDY VANG Physician Instructions: Reason For Exam: covid 19 11/24/20 08:01 Physical Therapy Evaluation and Treat [CONS] Routine Comment: Reason For Exam: re-evaluation Primary care physician: PAINT MIXER HAND Hospitalization Reason for admission: Acute hypoxic respiratory failure, COVID-19 infection, PE Condition: Stable Pertinent studies: CTA; positive for PE Hospital course: History of present illness: 35 YO Female with DM presented to ED for evaluation. Patient reports "I feel sick". Patient states that she has experienced generalized weakness, nausea, fatigue, polyuria, polydipsia over the past 1 week with worsening symptoms over the past 3 days. EMS notified and upon arrival the patient was found to be in distress and subsequently transported to [facility] for further care and evaluation of the aforementioned symptoms. The patient was seen and evaluated in the emergency department. All lab and imaging studies reviewed. Patient found to have DKA, metabolic encephalopathy, volume depletion, and metabolic acidosis. The patient was admitted to ICU and initiated on DKA protocol. Patient denies fever, chills, chest pain, palpitation, productive cough, skin rash, recent ill contacts, or known exposure to COVID-19. No prior admission for review. No medication listed at time of admission reconciliation. Critical care team consulted in ED. Hospital course 11/19: Patient seen and examined today CT of the head revealed a CT cervical spine no acute pathology noted CT of the chest shows a moderate pneumomediastinum and patchy groundglass opacities in both lungs thought to represent possible pneumonia. Patient does have leukocytosis which could be reactive. I do not see inciting factor for her DKA except possible noncompliance with her medication. We will continue DKA protocol at this time. Will give additional 2 L of fluids. She does appear older than stated age we will also rule out COVID-19 at this time. Will obtain neurology evaluation considering her syncope and also her profound lethargy this morning. Plan of care discussed with the patient and also with the insurance company patient will be 11/20: Patient reported that she had a fall yesterday while in the waiting room. Per documentation she was about to leave AMA and then had a questionable syncopal episode. She tells the neurologist that she fell from the stretcher and hit her head. Initial CT of the head was negative an MRI is being ordered due to some confusion and encephalopathy which I felt was improving but during reevaluation by neurologist she was still a bit confused. 11/21: Patient Seen and examined she is much more awake and alert. She does recall falling or hitting her head. Mental status is improved. She still has some intermittent headache. Amendable to the Fioricet. she had MRI wo qd yesterday is remarkable for demylinating disease According to her she is diagnosed with MS 2014 was initially on Po then recently on ? Ocreveus twice a year shot , last got it in September she is with Positive COVID-19 according to her got it from going to [facility] ,she denied SOB but discripe mild ache and pain was started yesterday on decadron. Patient not discharged yesterday as she became hypoxic and remained severely lethargic Patient also has underlying multiple sclerosis. Still awaiting to get all her home medication. Covid test did come back positive. She remains on isolation for the same. We will check inflammatory markers. Start her on empiric steroid therapy at this time. MRI reviewed no acute pathology noted except some demyelination disease will defer to neurology for further evaluation. I have discussed with her [place] doctors about the update, they will look for transferring the patient to their facility, for now will continue COVID 19 management, ID consult, Remdesivir, check inflammatory markers and pulse ox. Prone as tolerated. Will also start on full dose anticoagulation considering worsening Hypoxia and elevated D.dimer. IF No improvement or increase oxygen demand, will obtain pulmonary consult. Continue daily PT 11/23; patient is on remdesivir and Decadron for COVID-19 infection. CTA showed yesterday left lung PE and currently on therapeutic dose of Lovenox. Patient was admitted for DKA and currently out of DKA. Blood sugar is uncontrolled. I will add AC insulin. Monitor blood sugar and adjust as needed. Patient is a [place] patient. Patient was on 2 L of oxygen. Patient is complaining shortness of breath and weakness, I put PT consult. 11/24; continue with remdesivir and Decadron. Continue with therapeutic Lovenox. Adjust insulin as needed. Discussed with [place] physician and will take the patient when to have bed. Patient is stable for transfer. 11/25; continue with remdesivir and Decadron. Patient was on 2 L of oxygen. Patient was evaluated by physical therapy and was desaturated on ambulation. Hypokalemia will check magnesium if not checked. Replete potassium. Blood sugars in target. Patient will finish remdesivir tomorrow. We will do home O2 evaluation tomorrow and possible discharge. 11/26; patient will finish remdesivir tonight, continue with Decadron. Patient O2 sat dropped to 87% with minimal ambulation. Oxygen will be arranged and patient will be discharged tomorrow. 11/27; patient finished remdesivir yesterday. We will continue with Decadron. Home O2 evaluation was done yesterday and will require home oxygen. Discussed with case management. Patient can be discharged if home oxygen is arranged. Discussed with case management and case management will arrange oxygen and will go home today. Patient was given Eliquis at the time of discharge. Disposition: 01 HOME / SELF CARE / HOMELESS Final Discharge Diagnosis (Prints w/discharge instructions): Acute hypoxic respiratory failure. COVID-19 infection. PE Time spent for discharge: 35 minutes - Discharge Diagnoses (1) COVID-19 virus infection Status: Acute (2) Acute and chronic respiratory failure with hypoxia Status: Acute (3) Metabolic encephalopathy Status: Acute (4) Pulmonary emboli Status: Acute Core Measure Documentation - Palliative Care Palliative Care/ Comfort Measures: Not Applicable - Core Measures Any of the following diagnoses?: DVT/PE - VTE Discharge Requirements Deep Vein Thrombosis/Pulmonary Embolism Present on Admission: Yes Has pt received <5 days of overlap therapy or INR<2.0: No Anticoagulant overlap therapy prescribed at discharge: No Contraindication No Overlap Therapy order at DC: Not Indicated Exam - Physical Exam Narrative exam: Not in cardiopulmonary distress. The patient appeared well nourished and normally developed. Vital signs as documented. Head exam is unremarkable. No scleral icterus . Neck is without jugular venous distension, thyromegaly, or carotid bruits. Lungs decreased air entry. Cardiac exam reveals regular rate and Rhythm. Abdominal exam reveals normal bowel sounds, nontender, no organomegaly. Extremities are nonedematous and both femoral and pedal pulses are normal. 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 No focal weakness. - Constitutional Vitals: Temp Pulse Resp BP Pulse Ox 98.1 F 95 H 19 123/77 97 11/27/20 04:07 11/27/20 04:07 11/27/20 04:07 11/27/20 04:07 11/27/20 04:07 Plan Activity: no restrictions Weight Bearing Status: Full Weight Bearing Diet: regular Plan of Treatment: Continue social distancing and wearing a mask. It is important to make sure you monitor your blood sugar closely. Follow outpatient with cardiology and Neurology Please noted, muscle relaxants can make you drowsy. Please do not take and drive Follow up with: JOYCELYN KRAMER MD [Staff Physician] - 7 Days PRIMARY CARE, [Primary Care Provider] - 3-5 Days MICHELLE NUGENT MD [Staff Physician] - 7 Days POP SÁNCHEZ MD [Staff Physician] - 7 Days Prescriptions: Insulin Glargine [Lantus VIAL] 20 unit SUB-Q QHS #10 ml Dexamethasone 6 mg PO DAILY #6 tablet Apixaban [Eliquis] 5 mg PO BID #74 tablet Butalb/Acetamin/Caff 50-325-40 [Fioricet 50-325-40] 1 tab PO Q4H PRN #30 tablet PRN Reason: Headache Insulin Regular, Human [HumuLIN R] 0 unit SQ AC #1 vial Baclofen [Lioresal] 5 mg PO TID #10 tablet Meloxicam [Mobic] 7.5 mg PO QDAY #14 tablet oxyCODONE /ACETAMINOPHEN [Percocet 5/325 mg] 1 tab PO Q6H PRN #10 tablet PRN Reason: Pain, Moderate (4-6)
[2020-11-27] MEDS: INSULIN GLARGINE 100 UNITS/ML SUB-Q SCH (18:00)
--- NOTE | 2020-11-27 20:17 | Progress Note ---
Assessment and Plan 35 YO Female with DM presented to ED for evaluation. Patient states that she has experienced generalized weakness, nausea, fatigue, polyuria, polydipsia over the past 1 week with worsening symptoms over the past 3 days. EMS notified and upon arrival the patient was found to be in distress and subsequently transported to [facility] for further care and evaluation of the aforementioned symptoms. The patient was seen and evaluated in the emergency department. Patient found to have DKA, metabolic encephalopathy, volume depletion, and meta bolic acidosis. The patient was admitted to ICU and initiated on DKA protocol. Patient denies fever, chills, chest pain, palpitation, productive cough, skin rash, recent ill contacts, or known exposure to COVID-19. No prior admission for review. Patient has no history of smoking, alcohol or drug abuse. 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 No children. 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 Patient has history of multiple sclerosis. Patient is alert, awake. Patient is on 2 litres O2 and O2 saturation running 99%. Patient still complaining shortness of breath on exertion. Patient denies chest pain . Still complaining some non productive cough. Patient afebrile. BP: 118/79. HR 107. Has mild leukocytosis. K+: 4.1 Patient positive for Rendon virus (PCR). Patients inflammatory markers D dimer 1548. Serum Ferritin 341.8 LDH 400 CRP 3.6 Procalcitonin .15. Repeat CTA of chest 11/22/20 reported Positive for pulmonary embolus to the left lower lobe . Decreased pneumomediastinum. Increased bilateral lung infiltrates concerning for Covid pneumonia. Patient started on S/C Lovenox 70mg q 12 hours. Patient is on Dexamethasone. Pro air inhaler. Patient finished course of REMDESIVIR. - Patient Problems (1) DKA (diabetic ketoacidosis) Current Visit: Yes Status: Acute Qualifiers: Diabetes mellitus type: type 1 Plan to address problem: Improving Glucose 287 Anion gap 12 Management as per primary care. (2) Metabolic encephalopathy Current Visit: Yes Status: Acute Plan to address problem: Management as per primary care. (3) Systemic inflammatory response syndrome Current Visit: Yes Status: Acute Plan to address problem: Improving. (4) Pulmonary emboli Current Visit: Yes Status: Acute Plan to address problem: Patients CTA reported Positive for pulmonary emboli in left lower lobe. Patient started on S/C Lovenox. (5) Volume depletion Current Visit: Yes Status: Acute Plan to address problem: Patient is on I/V fluid Nacl. Patients blood pressure 118/79. Subjective Date of service: 11/27/20 Principal diagnosis: Ac metabolic acidosis; DKA; Pneumomediastinum; Obesity; DM II; Hyperkalemia Interval history: 35 YO Female with DM presented to ED for evaluation. Patient states that she has experienced generalized weakness, nausea, fatigue, polyuria, polydipsia over the past 1 week with worsening symptoms over the past 3 days. EMS notified and upon arrival the patient was found to be in distress and subsequently transported to [facility] for further care and evaluation of the aforementioned symptoms. The patient was seen and evaluated in the emergency department. Patient found to have DKA, metabolic encephalopathy, volume depletion, and metabolic acidosis. The patient was admitted to ICU and initiated on DKA protocol. Patient denies fever, chills, chest pain, palpitation, productive cough, skin rash, recent ill contacts, or known exposure to COVID-19. No prior admission for review. Patient has no history of smoking, alcohol or drug abuse. Works as [employer].Not . No children. 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 Patient has history of multiple sclerosis. Patient is alert, awake. Patient is on 2 litres O2 and O2 saturation running 99%. Patient still complaining shortness of breath on exertion. Patient denies chest pain . Still complaining some non productive cough. Patient afebrile. BP: 118/79. HR 107. Has mild leukocytosis. K+: 4.1 Patient positive for Rendon virus (PCR). Patients inflammatory markers D dimer 1548. Serum Ferritin 341.8 LDH 400 CRP 3.6 Procalcitonin .15. Repeat CTA of chest 11/22/20 reported Positive for pulmonary embolus to the left lower lobe . Decreased pneumomediastinum. Increased bilateral lung infiltrates concerning for Covid pneumonia. Patient started on S/C Lovenox 70mg q 12 hours. Patient is on Dexamethasone. Pro air inhaler. Patient finished course of REMDESIVIR. Objective Vital Signs - 12hr 11/27/20 11/27/20 11/27/20 10:00 11:35 17:02 Temperature 98.5 F Pulse Rate 100 H 107 H Respiratory 20 Rate Blood Pressure 118/79 O2 Sat by Pulse 96 99 99 Oximetry Constitutional: no acute distress, alert Eyes: non-icteric ENT: oropharynx moist Neck: supple, no lymphadenopathy Effort: mildly labored Ascultation: Bilateral: diminished breath sounds Percussion: Bilateral: not dull Cardiovascular: regular rate and rhythm Gastrointestinal: normoactive bowel sounds Integumentary: normal Extremities: no cyanosis, no edema Neurologic: normal mental status, non-focal exam, pupils equal and round Psychiatric: mood appropriate, affect normal CBC and BMP: 11/23/20 07:40 11/26/20 04:42 ABG, PT/INR, D-dimer: PT/INR, D-dimer PT 15.6 Sec. (12.2-14.9) H 11/18/20 10:31 INR 1.19 (0.87-1.13) H 11/18/20 10:31 D-Dimer 1548.09 ng/mlDDU (0-234) H 11/22/20 10:04 Abnormal lab findings: Abnormal Labs 11/18/20 11/18/20 11/18/20 09:30 09:30 09:30 WBC 15.4 H RBC 6.17 H Hgb 15.6 H Hct 48.2 H MCV 78 L MCH 25 L RDW 18.9 H Plt Count 508 H Lymph % (Auto) 3.5 L Phillips % (Auto) Lymph # (Auto) 0.5 L Phillips # (Auto) 1.0 H Seg Neutrophils % 89.5 H Seg Neutrophils # 13.8 H PT INR D-Dimer VBG pH 7.124 L* Sodium 136 L Potassium 5.5 H Chloride 92.2 L Carbon Dioxide 6 L* BUN 27 H Creatinine Glucose 498 H POC Glucose Calcium Magnesium Ferritin ALT 5 L Alkaline Phosphatase 149 H Lactate Dehydrogenase C-Reactive Protein Total Protein Albumin Ur Specific [place] Coronavirus (PCR) 11/18/20 11/18/20 11/18/20 10:31 13:01 13:23 WBC RBC Hgb Hct MCV MCH RDW Plt Count Lymph % (Auto) Phillips % (Auto) Lymph # (Auto) Phillips # (Auto) Seg Neutrophils % Seg Neutrophils # PT 15.6 H INR 1.19 H D-Dimer VBG pH Sodium Potassium Chloride Carbon Dioxide BUN Creatinine Glucose POC Glucose 594 H Calcium Magnesium 3.20 H Ferritin ALT Alkaline Phosphatase Lactate Dehydrogenase C-Reactive Protein Total Protein Albumin Ur Specific [place] Coronavirus (PCR) 11/18/20 11/18/20 11/18/20 13:23 14:34 15:56 WBC RBC Hgb Hct MCV MCH RDW Plt Count Lymph % (Auto) Phillips % (Auto) Lymph # (Auto) Phillips # (Auto) Seg Neutrophils % Seg Neutrophils # PT INR D-Dimer VBG pH Sodium 135 L Potassium 5.4 H 5.8 H Chloride 91.9 L 95.8 L Carbon Dioxide 9 L* 5 L* BUN 30 H 33 H Creatinine Glucose 513 H* 504 H* POC Glucose Calcium Magnesium 3.00 H Ferritin ALT Alkaline Phosphatase Lactate Dehydrogenase C-Reactive Protein Total Protein Albumin Ur Specific [place] Coronavirus (PCR) 11/18/20 11/18/20 11/18/20 15:56 16:46 17:38 WBC RBC Hgb Hct MCV MCH RDW Plt Count Lymph % (Auto) Phillips % (Auto) Lymph # (Auto) Phillips # (Auto) Seg Neutrophils % Seg Neutrophils # PT INR D-Dimer VBG pH Sodium Potassium 5.1 H Chloride 95.7 L 107.3 H Carbon Dioxide 7 L* 7 L* BUN 31 H 28 H Creatinine Glucose 462 H 382 H POC Glucose Calcium 7.8 L D Magnesium Ferritin ALT Alkaline Phosphatase Lactate Dehydrogenase C-Reactive Protein Total Protein Albumin Ur Specific [place] 1.037 H Coronavirus (PCR) 11/18/20 11/18/20 11/18/20 18:29 20:56 21:06 WBC RBC Hgb Hct MCV MCH RDW Plt Count Lymph % (Auto) Phillips % (Auto) Lymph # (Auto) Phillips # (Auto) Seg Neutrophils % Seg Neutrophils # PT INR D-Dimer VBG pH Sodium 146 H Potassium Chloride 114.4 H Carbon Dioxide 8 L* 8 L* BUN 28 H 23 H Creatinine Glucose 360 H 284 H POC Glucose 281 H Calcium 7.3 L Magnesium Ferritin ALT Alkaline Phosphatase Lactate Dehydrogenase C-Reactive Protein Total Protein Albumin Ur Specific [place] Coronavirus (PCR) 11/18/20 11/18/20 11/19/20 22:26 23:39 00:36 WBC RBC Hgb Hct MCV MCH RDW Plt Count Lymph % (Auto) Phillips % (Auto) Lymph # (Auto) Phillips # (Auto) Seg Neutrophils % Seg Neutrophils # PT INR D-Dimer VBG pH Sodium Potassium Chloride Carbon Dioxide BUN Creatinine Glucose POC Glucose 174 H 140 H 133 H Calcium Magnesium Ferritin ALT Alkaline Phosphatase Lactate Dehydrogenase C-Reactive Protein Total Protein Albumin Ur Specific [place] Coronavirus (PCR) 11/19/20 11/19/20 11/19/20 01:26 02:32 02:47 WBC RBC Hgb Hct MCV MCH RDW Plt Count Lymph % (Auto) Phillips % (Auto) Lymph # (Auto) Phillips # (Auto) Seg Neutrophils % Seg Neutrophils # PT INR D-Dimer VBG pH Sodium 147 H Potassium Chloride 114.5 H Carbon Dioxide 13 L BUN Creatinine Glucose 134 H POC Glucose 130 H 149 H Calcium 7.9 L Magnesium Ferritin ALT Alkaline Phosphatase Lactate Dehydrogenase C-Reactive Protein Total Protein Albumin Ur Specific [place] Coronavirus (PCR) 11/19/20 11/19/20 11/19/20 04:52 05:02 07:29 WBC RBC Hgb Hct MCV MCH RDW Plt Count Lymph % (Auto) Phillips % (Auto) Lymph # (Auto) Phillips # (Auto) Seg Neutrophils % Seg Neutrophils # PT INR D-Dimer VBG pH Sodium 149 H 147 H Potassium Chloride 115.3 H 112.3 H Carbon Dioxide 16 L 16 L BUN Creatinine Glucose 193 H 219 H POC Glucose 227 H Calcium 7.7 L 8.2 L Magnesium Ferritin ALT Alkaline Phosphatase Lactate Dehydrogenase C-Reactive Protein Total Protein Albumin Ur Specific [place] Coronavirus (PCR) 11/19/20 11/19/20 11/19/20 09:25 09:30 09:42 WBC 12.7 H RBC Hgb Hct MCV 74 L MCH 25 L RDW 17.8 H Plt Count Lymph % (Auto) 3.2 L Phillips % (Auto) 8.4 H Lymph # (Auto) 0.4 L Phillips # (Auto) 1.1 H Seg Neutrophils % 87.8 H Seg Neutrophils # 11.2 H PT INR D-Dimer VBG pH Sodium Potassium Chloride Carbon Dioxide BUN Creatinine Glucose POC Glucose 206 H Calcium Magnesium Ferritin ALT Alkaline Phosphatase Lactate Dehydrogenase C-Reactive Protein Total Protein Albumin Ur Specific [place] Coronavirus (PCR) Positive A 11/19/20 11/19/20 11/19/20 11:03 15:37 15:49 WBC RBC Hgb Hct MCV MCH RDW Plt Count Lymph % (Auto) Phillips % (Auto) Lymph # (Auto) Phillips # (Auto) Seg Neutrophils % Seg Neutrophils # PT INR D-Dimer VBG pH Sodium Potassium 3.4 L Chloride 108.4 H Carbon Dioxide 18 L BUN Creatinine 0.5 L Glucose 191 H POC Glucose 226 H 186 H Calcium 8.0 L Magnesium Ferritin ALT Alkaline Phosphatase Lactate Dehydrogenase C-Reactive Protein Total Protein Albumin Ur Specific [place] Coronavirus (PCR) 11/19/20 11/19/20 11/20/20 18:33 22:31 01:36 WBC RBC Hgb Hct MCV MCH RDW Plt Count Lymph % (Auto) Phillips % (Auto) Lymph # (Auto) Phillips # (Auto) Seg Neutrophils % Seg Neutrophils # PT INR D-Dimer VBG pH Sodium Potassium 3.1 L Chloride Carbon Dioxide 17 L BUN 6 L Creatinine 0.5 L Glucose 207 H POC Glucose 243 H 251 H Calcium 8.0 L Magnesium Ferritin ALT Alkaline Phosphatase Lactate Dehydrogenase C-Reactive Protein Total Protein Albumin Ur Specific [place] Coronavirus (PCR) 11/20/20 11/20/20 11/20/20 05:29 05:29 05:38 WBC RBC Hgb Hct MCV 74 L MCH 25 L RDW 17.9 H Plt Count Lymph % (Auto) Phillips % (Auto) Lymph # (Auto) Phillips # (Auto) Seg Neutrophils % Seg Neutrophils # PT INR D-Dimer VBG pH Sodium Potassium 3.1 L Chloride Carbon Dioxide 18 L BUN 6 L Creatinine 0.5 L Glucose 278 H POC Glucose 294 H Calcium Magnesium Ferritin ALT 6 L Alkaline Phosphatase Lactate Dehydrogenase C-Reactive Protein Total Protein 5.5 L D Albumin 2.9 L Ur Specific [place] Coronavirus (PCR) 11/20/20 11/20/20 11/20/20 12:01 16:19 19:15 WBC RBC Hgb Hct MCV MCH RDW Plt Count Lymph % (Auto) Phillips % (Auto) Lymph # (Auto) Phillips # (Auto) Seg Neutrophils % Seg Neutrophils # PT INR D-Dimer 1728.46 H VBG pH Sodium Potassium Chloride Carbon Dioxide BUN Creatinine Glucose POC Glucose 269 H 187 H Calcium Magnesium Ferritin ALT Alkaline Phosphatase Lactate Dehydrogenase C-Reactive Protein Total Protein Albumin Ur Specific [place] Coronavirus (PCR) 11/20/20 11/20/20 11/20/20 19:15 19:15 20:51 WBC RBC Hgb Hct MCV MCH RDW Plt Count Lymph % (Auto) Phillips % (Auto) Lymph # (Auto) Phillips # (Auto) Seg Neutrophils % Seg Neutrophils # PT INR D-Dimer VBG pH Sodium Potassium Chloride Carbon Dioxide BUN Creatinine Glucose 215 H POC Glucose 185 H Calcium Magnesium Ferritin 449.6 H ALT Alkaline Phosphatase Lactate Dehydrogenase 395 H C-Reactive Protein 10.20 H Total Protein Albumin Ur Specific [place] Coronavirus (PCR) 11/21/20 11/21/20 11/21/20 08:14 12:21 16:47 WBC RBC Hgb Hct MCV MCH RDW Plt Count Lymph % (Auto) [place] % (Auto) Lymph # (Auto) [place] # (Auto) Seg Neutrophils % Seg Neutrophils # PT INR D-Dimer VBG pH Sodium Potassium Chloride Carbon Dioxide BUN Creatinine Glucose POC Glucose 416 H 322 H 299 H Calcium Magnesium Ferritin ALT Alkaline Phosphatase Lactate Dehydrogenase C-Reactive Protein Total Protein Albumin Ur Specific [place] Coronavirus (PCR) 11/21/20 11/22/20 11/22/20 21:31 08:08 10:04 WBC RBC Hgb Hct MCV MCH RDW Plt Count Lymph % (Auto) Phillips % (Auto) Lymph # (Auto) Phillips # (Auto) Seg Neutrophils % Seg Neutrophils # PT INR D-Dimer VBG pH Sodium Potassium 3.1 L Chloride Carbon Dioxide BUN Creatinine 0.5 L Glucose 300 H POC Glucose 350 H 391 H Calcium Magnesium Ferritin ALT Alkaline Phosphatase Lactate Dehydrogenase C-Reactive Protein Total Protein 5.4 L Albumin 3.1 L Ur Specific [place] Coronavirus (PCR) 11/22/20 11/22/20 11/22/20 10:04 10:04 11:38 WBC RBC Hgb Hct MCV MCH RDW Plt Count Lymph % (Auto) Phillips % (Auto) Lymph # (Auto) Phillips # (Auto) Seg Neutrophils % Seg Neutrophils # PT INR D-Dimer 1548.09 H VBG pH Sodium Potassium Chloride Carbon Dioxide BUN Creatinine Glucose 301 H POC Glucose Calcium Magnesium Ferritin 341.9 H ALT Alkaline Phosphatase Lactate Dehydrogenase 400 H C-Reactive Protein 3.60 H Total Protein Albumin Ur Specific [place] Coronavirus (PCR) 11/22/20 11/22/20 11/22/20 11:57 17:37 20:44 WBC RBC Hgb Hct MCV MCH RDW Plt Count Lymph % (Auto) Phillips % (Auto) Lymph # (Auto) Phillips # (Auto) Seg Neutrophils % Seg Neutrophils # PT INR D-Dimer VBG pH Sodium Potassium Chloride Carbon Dioxide BUN Creatinine Glucose POC Glucose 328 H 301 H 348 H Calcium Magnesium Ferritin ALT Alkaline Phosphatase Lactate Dehydrogenase C-Reactive Protein Total Protein Albumin Ur Specific [place] Coronavirus (PCR) 11/23/20 11/23/20 11/23/20 07:40 07:40 07:58 WBC 11.7 H RBC Hgb Hct MCV 74 L MCH 25 L RDW 17.1 H Plt Count Lymph % (Auto) Phillips % (Auto) Lymph # (Auto) Phillips # (Auto) Seg Neutrophils % Seg Neutrophils # PT INR D-Dimer VBG pH Sodium Potassium 2.8 L* Chloride Carbon Dioxide 36 H D BUN Creatinine 0.3 L Glucose 145 H POC Glucose 147 H Calcium Magnesium Ferritin ALT Alkaline Phosphatase Lactate Dehydrogenase C-Reactive Protein Total Protein 5.2 L Albumin 3.0 L Ur Specific [place] Coronavirus (PCR) 11/23/20 11/23/20 11/23/20 12:14 13:58 16:29 WBC RBC Hgb Hct MCV MCH RDW Plt Count Lymph % (Auto) Phillips % (Auto) Lymph # (Auto) Phillips # (Auto) Seg Neutrophils % Seg Neutrophils # PT INR D-Dimer VBG pH Sodium Potassium 3.2 L Chloride Carbon Dioxide BUN Creatinine Glucose POC Glucose 282 H 325 H Calcium Magnesium Ferritin ALT Alkaline Phosphatase Lactate Dehydrogenase C-Reactive Protein Total Protein Albumin Ur Specific [place] Coronavirus (PCR) 11/23/20 11/24/20 11/24/20 22:30 04:59 08:06 WBC RBC Hgb Hct MCV MCH RDW Plt Count Lymph % (Auto) Phillips % (Auto) Lymph # (Auto) Phillips # (Auto) Seg Neutrophils % Seg Neutrophils # PT INR D-Dimer VBG pH Sodium Potassium 3.0 L Chloride 97.1 L Carbon Dioxide 36 H BUN Creatinine 0.4 L Glucose 120 H POC Glucose 370 H 107 H Calcium Magnesium Ferritin ALT Alkaline Phosphatase Lactate Dehydrogenase C-Reactive Protein Total Protein 4.9 L Albumin 2.8 L Ur Specific [place] Coronavirus (PCR) 11/24/20 11/24/20 11/24/20 13:02 16:29 21:40 WBC RBC Hgb Hct MCV MCH RDW Plt Count Lymph % (Auto) Phillips % (Auto) Lymph # (Auto) Phillips # (Auto) Seg Neutrophils % Seg Neutrophils # PT INR D-Dimer VBG pH Sodium Potassium Chloride Carbon Dioxide BUN Creatinine Glucose POC Glucose 118 H 229 H 152 H Calcium Magnesium Ferritin ALT Alkaline Phosphatase Lactate Dehydrogenase C-Reactive Protein Total Protein Albumin Ur Specific [place] Coronavirus (PCR) 11/25/20 11/25/20 11/25/20 01:35 05:52 08:04 WBC RBC Hgb Hct MCV MCH RDW Plt Count Lymph % (Auto) Phillips % (Auto) Lymph # (Auto) Phillips # (Auto) Seg Neutrophils % Seg Neutrophils # PT INR D-Dimer VBG pH Sodium Potassium 3.3 L 3.0 L Chloride Carbon Dioxide 33 H BUN Creatinine 0.4 L Glucose 176 H POC Glucose 114 H Calcium 8.3 L Magnesium Ferritin ALT Alkaline Phosphatase Lactate Dehydrogenase C-Reactive Protein Total Protein 5.0 L Albumin 2.5 L Ur Specific [place] Coronavirus (PCR) 11/25/20 11/25/20 11/25/20 12:04 16:39 22:15 WBC RBC Hgb Hct MCV MCH RDW Plt Count Lymph % (Auto) Phillips % (Auto) Lymph # (Auto) Phillips # (Auto) Seg Neutrophils % Seg Neutrophils # PT INR D-Dimer VBG pH Sodium Potassium Chloride Carbon Dioxide BUN Creatinine Glucose POC Glucose 132 H 310 H 251 H Calcium Magnesium Ferritin ALT Alkaline Phosphatase Lactate Dehydrogenase C-Reactive Protein Total Protein Albumin Ur Specific [place] Coronavirus (PCR) 11/26/20 11/26/20 11/26/20 04:42 07:53 12:27 WBC RBC Hgb Hct MCV MCH RDW Plt Count Lymph % (Auto) Phillips % (Auto) Lymph # (Auto) Phillips # (Auto) Seg Neutrophils % Seg Neutrophils # PT INR D-Dimer VBG pH Sodium Potassium Chloride Carbon Dioxide BUN Creatinine 0.5 L Glucose 173 H POC Glucose 132 H 109 H Calcium Magnesium Ferritin ALT Alkaline Phosphatase Lactate Dehydrogenase C-Reactive Protein Total Protein 5.6 L Albumin 2.8 L Ur Specific [place] Coronavirus (PCR) 11/26/20 11/26/20 11/27/20 18:14 21:09 07:32 WBC RBC Hgb Hct MCV MCH RDW Plt Count Lymph % (Auto) Phillips % (Auto) Lymph # (Auto) Phillips # (Auto) Seg Neutrophils % Seg Neutrophils # PT INR D-Dimer VBG pH Sodium Potassium Chloride Carbon Dioxide BUN Creatinine Glucose POC Glucose 404 H 373 H 179 H Calcium Magnesium Ferritin ALT Alkaline Phosphatase Lactate Dehydrogenase C-Reactive Protein Total Protein Albumin Ur Specific [place] Coronavirus (PCR) 11/27/20 11/27/20 11:36 17:03 WBC RBC Hgb Hct MCV MCH RDW Plt Count Lymph % (Auto) Phillips % (Auto) Lymph # (Auto) Phillips # (Auto) Seg Neutrophils % Seg Neutrophils # PT INR D-Dimer VBG pH Sodium Potassium Chloride Carbon Dioxide BUN Creatinine Glucose POC Glucose 212 H 278 H Calcium Magnesium Ferritin ALT Alkaline Phosphatase Lactate Dehydrogenase C-Reactive Protein Total Protein Albumin Ur Specific [place] Coronavirus (PCR) Allied health notes reviewed: RT
[2020-11-28] MEDS: INSULIN LISPRO 100 UNIT/ML SUB-Q SCH ×6 (07:30→16:30)
[2020-11-28] MEDS: BACLOFEN 10 MG TAB PO SCH ×2 (09:47→13:55)
[2020-11-28] MEDS: ENOXAPARIN 80 MG/0.8 ML INJ SUB-Q SCH (09:48)
[2020-11-28] MEDS: DEXAMETHASONE 4 MG TAB PO SCH (09:48)
[2020-11-28] MEDS: MELOXICAM 7.5 MG TAB PO SCH (10:34)
--- NOTE | 2020-11-28 12:02 | Progress Note ---
Subjective Date of service: 11/28/20 Principal diagnosis: Ac metabolic acidosis; DKA; Pneumomediastinum; Obesity; DM II; Hyperkalemia Interval history: Assessment and plan: 35 YO Female with DM presented to ED for evaluation. Patient reports "I feel sick". Patient states that she has experienced generalized weakness, nausea, fatigue, polyuria, polydipsia over the past 1 week with worsening symptoms over the past 3 days. EMS notified and upon arrival the patient was found to be in distress and subsequently transported to [facility] for further care and evaluation of the aforementioned symptoms. The patient was seen and evaluated in the emergency department. All lab and imaging studies reviewed. Patient found to have DKA, metabolic encephalopathy, volume depletion, and metabolic acidosis. The patient was admitted to ICU and initiated on DKA protocol. Patient denies fever, chills, chest pain, palpitation, productive cough, skin rash, recent ill contacts, or known exposure to COVID-19. No prior admission for review. No medication listed at time of admission reconciliation. Critical care team consulted in ED. 11/19: Patient seen and examined today CT of the head revealed a CT cervical spine no acute pathology noted CT of the chest shows a moderate pneumomediastinum and patchy groundglass opacities in both lungs thought to represent possible pneumon ia. Patient does have leukocytosis which could be reactive. I do not see inciting factor for her DKA except possible noncompliance with her medication. We will continue DKA protocol at this time. Will give additional 2 L of fluids. She does appear older than stated age we will also rule out COVID-19 at this time. Will obtain neurology evaluation considering her syncope and also her profound lethargy this morning. Plan of care discussed with the patient and also with the insurance company patient will be 11/20: Patient reported that she had a fall yesterday while in the waiting room. Per documentation she was about to leave AMA and then had a questionable syncopal episode. She tells the neurologist that she fell from the stretcher and hit her head. Initial CT of the head was negative an MRI is being ordered due to some confusion and encephalopathy which I felt was improving but during reevaluation by neurologist she was still a bit confused. 11/21: Patient Seen and examined she is much more awake and alert. She does recall falling or hitting her head. Mental status is improved. She still has some intermittent headache. Amendable to the Fioricet. she had MRI wo qd yesterday is remarkable for demylinating disease According to her she is diagnosed with MS 2014 was initially on Po then recently on ? Ocreveus twice a year shot , last got it in September she is with Positive COVID-19 according to her got it from going to the [facility] ,she denied SOB but discripe mild ache and pain was started yesterday on decadron. Patient not discharged yesterday as she became hypoxic and remained severely lethargic Patient also has underlying multiple sclerosis. Still awaiting to get all her home medication. Covid test did come back positive. She remains on isolation for the same. We will check inflammatory markers. Start her on empiric steroid therapy at this time. MRI reviewed no acute pathology noted except some demyelination disease will defer to neurology for further evaluation. I have discussed with her [facility] doctors about the update, they will look for transferring the patient to their facility, for now will continue COVID 19 management, ID consult, Remdesivir, check inflammatory markers and pulse ox. Prone as tolerated. Will also start on full dose anticoagulation considering worsening Hypoxia and elevated D.dimer. IF No improvement or increase oxygen demand, will obtain pulmonary consult. Continue daily PT 11/23; patient is on remdesivir and Decadron for COVID-19 infection. CTA showed yesterday left lung PE and currently on therapeutic dose of Lovenox. Patient was admitted for DKA and currently out of DKA. Blood sugar is uncontrolled. I will add AC insulin. Monitor blood sugar and adjust as needed. Patient is a [facility] patient. Patient was on 2 L of oxygen. Patient is complaining shortness of breath and weakness, I put PT consult. 11/24; continue with remdesivir and Decadron. Continue with therapeutic Lovenox. Adjust insulin as needed. Discussed with [facility] physician and will take the patient when to have bed. Patient is stable for transfer. 11/25; continue with remdesivir and Decadron. Patient was on 2 L of oxygen. Patient was evaluated by physical therapy and was desaturated on ambulation. Hypokalemia will check magnesium if not checked. Replete potassium. Blood sugars in target. Patient will finish remdesivir tomorrow. We will do home O2 evaluation tomorrow and possible discharge. 11/26; patient will finish remdesivir tonight, continue with Decadron. Patient O2 sat dropped to 87% with minimal ambulation. Oxygen will be arranged and patient will be discharged tomorrow. 11/27; patient finished remdesivir yesterday. We will continue with Decadron. Home O2 evaluation was done yesterday and will require home oxygen. Discussed with case management. Patient can be discharged if home oxygen is arranged. 11/28 patient is alert and oriented, complains of shortness of breath with activity and weakness. Patient was discharged yesterday but is waiting for home oxygen delivery.; Apparently unfortunately her of Covid pneumonia at [facility] recently (1) Covid 19 with Hypoxic Respiratory failure Status post remdesivir and continue Decadron for a total of 10 days (2) Metabolic encephalopathy Resolved (3) Systemic inflammatory response syndrome Secondary to COVID-19 (4) DKA (diabetic ketoacidosis) Accu-Cheks reviewed Continue home medications Weakness Secondary to COVID-19 pneumonia Patient will be discharged with bedside commode and home health aide Objective - Constitutional Vitals: Vital Signs - 12hr 11/28/20 11/28/20 11/28/20 03:49 04:19 07:20 Temperature 97.6 F Pulse Rate 87 Respiratory 18 Rate Blood Pressure 126/78 O2 Sat by Pulse 97 97 96 Oximetry 11/28/20 09:02 Temperature Pulse Rate Respiratory Rate Blood Pressure O2 Sat by Pulse 99 Oximetry General appearance: Present: no acute distress, well-nourished - EENT Eyes: PERRL, EOM intact ENT: hearing intact, clear oral mucosa - Neck Neck: supple, normal ROM, no masses or JVD - Respiratory Respiratory effort: normal Respiratory: bilateral: CTA - Cardiovascular Rhythm: regular Heart Sounds: Present: S1 & S2 Extremities: No edema - Gastrointestinal General gastrointestinal: Present: soft, non-tender - Labs CBC & Chem 7: 11/23/20 07:40 11/26/20 04:42 Labs: Abnormal lab results 11/27/20 11/27/20 11/28/20 Range/Units 17:03 21:46 07:43 POC Glucose 278 H 287 H 363 H (70-105) mg/dL 11/28/20 Range/Units 11:27 POC Glucose 115 H (70-105) mg/dL HEART Score - HEART Score Troponin: Troponin T < 0.010 ng/mL (0.00-0.029) 11/18/20 09:30
--- NOTE | 2020-11-28 17:17 | Progress Note ---
Assessment and Plan 35 YO Female with DM presented to ED for evaluation. Patient states that she has experienced generalized weakness, nausea, fatigue, polyuria, polydipsia over the past 1 week with worsening symptoms over the past 3 days. EMS notified and upon arrival the patient was found to be in distress and subsequently transported to [facility] for further care and evaluation of the aforementioned symptoms. The patient was seen and evaluated in the emergency department. Patient found to have DKA, metabolic encephalopathy, volume depletion, and meta bolic acidosis. The patient was admitted to ICU and initiated on DKA protocol. Patient denies fever, chills, chest pain, palpitation, productive cough, skin rash, recent ill contacts, or known exposure to COVID-19. No prior admission for review. Patient has no history of smoking, alcohol or drug abuse. 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 Patient has history of multiple sclerosis. Patient is alert, awake. Patient is on 2 litres O2 and O2 saturation running 95%. Patient says shortness of breath some what better. Still has slight pleuritic chest pain. Still complaining some non productive cough. Patient afebrile. BP: 115/68. HR 96. Has mild leukocytosis. K+: 4.1 Patient positive for Rendon virus (PCR). Patients inflammatory markers D dimer 1548. Serum Ferritin 341.8 LDH 400 CRP 3.6 Procalcitonin .15. Repeat CTA of chest 11/22/20 reported Positive for pulmonary embolus to the left lower lobe . Decreased pneumomediastinum. Increased bilateral lung infiltrates concerning for Covid pneumonia. Patient started on S/C Lovenox 70mg q 12 hours. Patient is on Dexamethasone. Pro air inhaler. Patient finished course of REMDESIVIR. Patient is candidate for home O2. - Patient Problems (1) DKA (diabetic ketoacidosis) Current Visit: Yes Status: Acute Qualifiers: Diabetes mellitus type: type 1 Plan to address problem: Improving Glucose still running high Anion gap 12 Management as per primary care. (2) Metabolic encephalopathy Current Visit: Yes Status: Acute Plan to address problem: Management as per primary care. (3) Systemic inflammatory response syndrome Current Visit: Yes Status: Acute Plan to address problem: Improving. (4) Pulmonary emboli Current Visit: Yes Status: Acute Plan to address problem: Patients CTA reported Positive for pulmonary emboli in left lower lobe. Patient started on S/C Lovenox. (5) Volume depletion Current Visit: Yes Status: Acute Plan to address problem: Patient is on I/V fluid Nacl. Patients blood pressure 115/68. Subjective Date of service: 11/28/20 Principal diagnosis: Ac metabolic acidosis; DKA; Pneumomediastinum; Obesity; DM II; Hyperkalemia Interval history: 35 YO Female with DM presented to ED for evaluation. Patient states that she has experienced generalized weakness, nausea, fatigue, polyuria, polydipsia over the past 1 week with worsening symptoms over the past 3 days. EMS notified and upon arrival the patient was found to be in distress and subsequently transporte d to [facility] for further care and evaluation of the aforementioned symptoms. The patient was seen and evaluated in the emergency department. Patient found to have DKA, metabolic encephalopathy, volume depletion, and metabolic acidosis. The patient was admitted to ICU and initiated on DKA protocol. Patient denies fever, chills, chest pain, palpitation, productive cough, skin rash, recent ill contacts, or known exposure to COVID-19. No prior admission for review. Patient has no history of smoking, alcohol or drug abuse. 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 Patient has history of multiple sclerosis. Patient is alert, awake. Patient is on 2 litres O2 and O2 saturation running 95%. Patient says shortness of breath some what better. Still has slight pl euritic chest pain. Still complaining some non productive cough. Patient afebrile. BP: 115/68. HR 96. Has mild leukocytosis. K+: 4.1 Patient positive for Rendon virus (PCR). Patients inflammatory markers D dimer 1548. Serum Ferritin 341.8 LDH 400 CRP 3.6 Procalcitonin .15. Repeat CTA of chest 11/22/20 reported Positive for pulmonary embolus to the left lower lobe . Decreased pneumomediastinum. Increased bilateral lung infiltrates concerning for Covid pneumonia. Patient started on S/C Lovenox 70mg q 12 hours. Patient is on Dexamethasone. Pro air inhaler. Patient finished course of REMDESIVIR. Patient is candidate for home O2. Objective Vital Signs - 12hr 11/28/20 11/28/20 11/28/20 07:20 09:02 11:30 Temperature 98.6 F Pulse Rate 101 H Respiratory 18 Rate Blood Pressure 124/79 O2 Sat by Pulse 96 99 97 Oximetry Constitutional: no acute distress, alert Eyes: non-icteric ENT: oropharynx moist Neck: supple, no lymphadenopathy Effort: mildly labored Ascultation: Bilateral: diminished breath sounds (at the bases.) Percussion: Bilateral: not dull Cardiovascular: regular rate and rhythm Gastrointestinal: normoactive bowel sounds Integumentary: normal Extremities: no cyanosis, no edema Neurologic: normal mental status, non-focal exam, pupils equal and round Psychiatric: mood appropriate, affect normal CBC and BMP: 11/23/20 07:40 11/26/20 04:42 ABG, PT/INR, D-dimer: PT/INR, D-dimer PT 15.6 Sec. (12.2-14.9) H 11/18/20 10:31 INR 1.19 (0.87-1.13) H 11/18/20 10:31 D-Dimer 1548.09 ng/mlDDU (0-234) H 11/22/20 10:04 Abnormal lab findings: Abnormal Labs 11/18/20 11/18/20 11/18/20 09:30 09:30 09:30 WBC 15.4 H RBC 6.17 H Hgb 15.6 H Hct 48.2 H MCV 78 L MCH 25 L RDW 18.9 H Plt Count 508 H Lymph % (Auto) 3.5 L Mclean % (Auto) Lymph # (Auto) 0.5 L Mclean # (Auto) 1.0 H Seg Neutrophils % 89.5 H Seg Neutrophils # 13.8 H PT INR D-Dimer VBG pH 7.124 L* Sodium 136 L Potassium 5.5 H Chloride 92.2 L Carbon Dioxide 6 L* BUN 27 H Creatinine Glucose 498 H POC Glucose Calcium Magnesium Ferritin ALT 5 L Alkaline Phosphatase 149 H Lactate Dehydrogenase C-Reactive Protein Total Protein Albumin Ur Specific [place] Coronavirus (PCR) 11/18/20 11/18/20 11/18/20 10:31 13:01 13:23 WBC RBC Hgb Hct MCV MCH RDW Plt Count Lymph % (Auto) Mclean % (Auto) Lymph # (Auto) Mclean # (Auto) Seg Neutrophils % Seg Neutrophils # PT 15.6 H INR 1.19 H D-Dimer VBG pH Sodium Potassium Chloride Carbon Dioxide BUN Creatinine Glucose POC Glucose 594 H Calcium Magnesium 3.20 H Ferritin ALT Alkaline Phosphatase Lactate Dehydrogenase C-Reactive Protein Total Protein Albumin Ur Specific [place] Coronavirus (PCR) 11/18/20 11/18/20 11/18/20 13:23 14:34 15:56 WBC RBC Hgb Hct MCV MCH RDW Plt Count Lymph % (Auto) Mclean % (Auto) Lymph # (Auto) Mclean # (Auto) Seg Neutrophils % Seg Neutrophils # PT INR D-Dimer VBG pH Sodium 135 L Potassium 5.4 H 5.8 H Chloride 91.9 L 95.8 L Carbon Dioxide 9 L* 5 L* BUN 30 H 33 H Creatinine Glucose 513 H* 504 H* POC Glucose Calcium Magnesium 3.00 H Ferritin ALT Alkaline Phosphatase Lactate Dehydrogenase C-Reactive Protein Total Protein Albumin Ur Specific [place] Coronavirus (PCR) 11/18/20 11/18/20 11/18/20 15:56 16:46 17:38 WBC RBC Hgb Hct MCV MCH RDW Plt Count Lymph % (Auto) Mclean % (Auto) Lymph # (Auto) Mclean # (Auto) Seg Neutrophils % Seg Neutrophils # PT INR D-Dimer VBG pH Sodium Potassium 5.1 H Chloride 95.7 L 107.3 H Carbon Dioxide 7 L* 7 L* BUN 31 H 28 H Creatinine Glucose 462 H 382 H POC Glucose Calcium 7.8 L D Magnesium Ferritin ALT Alkaline Phosphatase Lactate Dehydrogenase C-Reactive Protein Total Protein Albumin Ur Specific [place] 1.037 H Coronavirus (PCR) 11/18/20 11/18/20 11/18/20 18:29 20:56 21:06 WBC RBC Hgb Hct MCV MCH RDW Plt Count Lymph % (Auto) Mclean % (Auto) Lymph # (Auto) Mclean # (Auto) Seg Neutrophils % Seg Neutrophils # PT INR D-Dimer VBG pH Sodium 146 H Potassium Chloride 114.4 H Carbon Dioxide 8 L* 8 L* BUN 28 H 23 H Creatinine Glucose 360 H 284 H POC Glucose 281 H Calcium 7.3 L Magnesium Ferritin ALT Alkaline Phosphatase Lactate Dehydrogenase C-Reactive Protein Total Protein Albumin Ur Specific [place] Coronavirus (PCR) 11/18/20 11/18/20 11/19/20 22:26 23:39 00:36 WBC RBC Hgb Hct MCV MCH RDW Plt Count Lymph % (Auto) Mclean % (Auto) Lymph # (Auto) Mclean # (Auto) Seg Neutrophils % Seg Neutrophils # PT INR D-Dimer VBG pH Sodium Potassium Chloride Carbon Dioxide BUN Creatinine Glucose POC Glucose 174 H 140 H 133 H Calcium Magnesium Ferritin ALT Alkaline Phosphatase Lactate Dehydrogenase C-Reactive Protein Total Protein Albumin Ur Specific [place] Coronavirus (PCR) 11/19/20 11/19/20 11/19/20 01:26 02:32 02:47 WBC RBC Hgb Hct MCV MCH RDW Plt Count Lymph % (Auto) Mclean % (Auto) Lymph # (Auto) Mclean # (Auto) Seg Neutrophils % Seg Neutrophils # PT INR D-Dimer VBG pH Sodium 147 H Potassium Chloride 114.5 H Carbon Dioxide 13 L BUN Creatinine Glucose 134 H POC Glucose 130 H 149 H Calcium 7.9 L Magnesium Ferritin ALT Alkaline Phosphatase Lactate Dehydrogenase C-Reactive Protein Total Protein Albumin Ur Specific [place] Coronavirus (PCR) 11/19/20 11/19/20 11/19/20 04:52 05:02 07:29 WBC RBC Hgb Hct MCV MCH RDW Plt Count Lymph % (Auto) Mclean % (Auto) Lymph # (Auto) Mclean # (Auto) Seg Neutrophils % Seg Neutrophils # PT INR D-Dimer VBG pH Sodium 149 H 147 H Potassium Chloride 115.3 H 112.3 H Carbon Dioxide 16 L 16 L BUN Creatinine Glucose 193 H 219 H POC Glucose 227 H Calcium 7.7 L 8.2 L Magnesium Ferritin ALT Alkaline Phosphatase Lactate Dehydrogenase C-Reactive Protein Total Protein Albumin Ur Specific [place] Coronavirus (PCR) 11/19/20 11/19/20 11/19/20 09:25 09:30 09:42 WBC 12.7 H RBC Hgb Hct MCV 74 L MCH 25 L RDW 17.8 H Plt Count Lymph % (Auto) 3.2 L Mclean % (Auto) 8.4 H Lymph # (Auto) 0.4 L Mclean # (Auto) 1.1 H Seg Neutrophils % 87.8 H Seg Neutrophils # 11.2 H PT INR D-Dimer VBG pH Sodium Potassium Chloride Carbon Dioxide BUN Creatinine Glucose POC Glucose 206 H Calcium Magnesium Ferritin ALT Alkaline Phosphatase Lactate Dehydrogenase C-Reactive Protein Total Protein Albumin Ur Specific [place] Coronavirus (PCR) Positive A 11/19/20 11/19/20 11/19/20 11:03 15:37 15:49 WBC RBC Hgb Hct MCV MCH RDW Plt Count Lymph % (Auto) Mclean % (Auto) Lymph # (Auto) Mclean # (Auto) Seg Neutrophils % Seg Neutrophils # PT INR D-Dimer VBG pH Sodium Potassium 3.4 L Chloride 108.4 H Carbon Dioxide 18 L BUN Creatinine 0.5 L Glucose 191 H POC Glucose 226 H 186 H Calcium 8.0 L Magnesium Ferritin ALT Alkaline Phosphatase Lactate Dehydrogenase C-Reactive Protein Total Protein Albumin Ur Specific [place] Coronavirus (PCR) 11/19/20 11/19/20 11/20/20 18:33 22:31 01:36 WBC RBC Hgb Hct MCV MCH RDW Plt Count Lymph % (Auto) Mclean % (Auto) Lymph # (Auto) Mclean # (Auto) Seg Neutrophils % Seg Neutrophils # PT INR D-Dimer VBG pH Sodium Potassium 3.1 L Chloride Carbon Dioxide 17 L BUN 6 L Creatinine 0.5 L Glucose 207 H POC Glucose 243 H 251 H Calcium 8.0 L Magnesium Ferritin ALT Alkaline Phosphatase Lactate Dehydrogenase C-Reactive Protein Total Protein Albumin Ur Specific [place] Coronavirus (PCR) 11/20/20 11/20/20 11/20/20 05:29 05:29 05:38 WBC RBC Hgb Hct MCV 74 L MCH 25 L RDW 17.9 H Plt Count Lymph % (Auto) Mclean % (Auto) Lymph # (Auto) Mclean # (Auto) Seg Neutrophils % Seg Neutrophils # PT INR D-Dimer VBG pH Sodium Potassium 3.1 L Chloride Carbon Dioxide 18 L BUN 6 L Creatinine 0.5 L Glucose 278 H POC Glucose 294 H Calcium Magnesium Ferritin ALT 6 L Alkaline Phosphatase Lactate Dehydrogenase C-Reactive Protein Total Protein 5.5 L D Albumin 2.9 L Ur Specific [place] Coronavirus (PCR) 11/20/20 11/20/20 11/20/20 12:01 16:19 19:15 WBC RBC Hgb Hct MCV MCH RDW Plt Count Lymph % (Auto) Mclean % (Auto) Lymph # (Auto) Mclean # (Auto) Seg Neutrophils % Seg Neutrophils # PT INR D-Dimer 1728.46 H VBG pH Sodium Potassium Chloride Carbon Dioxide BUN Creatinine Glucose POC Glucose 269 H 187 H Calcium Magnesium Ferritin ALT Alkaline Phosphatase Lactate Dehydrogenase C-Reactive Protein Total Protein Albumin Ur Specific [place] Coronavirus (PCR) 11/20/20 11/20/20 11/20/20 19:15 19:15 20:51 WBC RBC Hgb Hct MCV MCH RDW Plt Count Lymph % (Auto) Mclean % (Auto) Lymph # (Auto) Mclean # (Auto) Seg Neutrophils % Seg Neutrophils # PT INR D-Dimer VBG pH Sodium Potassium Chloride Carbon Dioxide BUN Creatinine Glucose 215 H POC Glucose 185 H Calcium Magnesium Ferritin 449.6 H ALT Alkaline Phosphatase Lactate Dehydrogenase 395 H C-Reactive Protein 10.20 H Total Protein Albumin Ur Specific [place] Coronavirus (PCR) 11/21/20 11/21/20 11/21/20 08:14 12:21 16:47 WBC RBC Hgb Hct MCV MCH RDW Plt Count Lymph % (Auto) Mclean % (Auto) Lymph # (Auto) Mclean # (Auto) Seg Neutrophils % Seg Neutrophils # PT INR D-Dimer VBG pH Sodium Potassium Chloride Carbon Dioxide BUN Creatinine Glucose POC Glucose 416 H 322 H 299 H Calcium Magnesium Ferritin ALT Alkaline Phosphatase Lactate Dehydrogenase C-Reactive Protein Total Protein Albumin Ur Specific [place] Coronavirus (PCR) 11/21/20 11/22/20 11/22/20 21:31 08:08 10:04 WBC RBC Hgb Hct MCV MCH RDW Plt Count Lymph % (Auto) Mclean % (Auto) Lymph # (Auto) Mclean # (Auto) Seg Neutrophils % Seg Neutrophils # PT INR D-Dimer VBG pH Sodium Potassium 3.1 L Chloride Carbon Dioxide BUN Creatinine 0.5 L Glucose 300 H POC Glucose 350 H 391 H Calcium Magnesium Ferritin ALT Alkaline Phosphatase Lactate Dehydrogenase C-Reactive Protein Total Protein 5.4 L Albumin 3.1 L Ur Specific [place] Coronavirus (PCR) 11/22/20 11/22/20 11/22/20 10:04 10:04 11:38 WBC RBC Hgb Hct MCV MCH RDW Plt Count Lymph % (Auto) Mclean % (Auto) Lymph # (Auto) Mclean # (Auto) Seg Neutrophils % Seg Neutrophils # PT INR D-Dimer 1548.09 H VBG pH Sodium Potassium Chloride Carbon Dioxide BUN Creatinine Glucose 301 H POC Glucose Calcium Magnesium Ferritin 341.9 H ALT Alkaline Phosphatase Lactate Dehydrogenase 400 H C-Reactive Protein 3.60 H Total Protein Albumin Ur Specific [place] Coronavirus (PCR) 11/22/20 11/22/20 11/22/20 11:57 17:37 20:44 WBC RBC Hgb Hct MCV MCH RDW Plt Count Lymph % (Auto) Mclean % (Auto) Lymph # (Auto) Mclean # (Auto) Seg Neutrophils % Seg Neutrophils # PT INR D-Dimer VBG pH Sodium Potassium Chloride Carbon Dioxide BUN Creatinine Glucose POC Glucose 328 H 301 H 348 H Calcium Magnesium Ferritin ALT Alkaline Phosphatase Lactate Dehydrogenase C-Reactive Protein Total Protein Albumin Ur Specific [place] Coronavirus (PCR) 11/23/20 11/23/20 11/23/20 07:40 07:40 07:58 WBC 11.7 H RBC Hgb Hct MCV 74 L MCH 25 L RDW 17.1 H Plt Count Lymph % (Auto) Mclean % (Auto) Lymph # (Auto) Mclean # (Auto) Seg Neutrophils % Seg Neutrophils # PT INR D-Dimer VBG pH Sodium Potassium 2.8 L* Chloride Carbon Dioxide 36 H D BUN Creatinine 0.3 L Glucose 145 H POC Glucose 147 H Calcium Magnesium Ferritin ALT Alkaline Phosphatase Lactate Dehydrogenase C-Reactive Protein Total Protein 5.2 L Albumin 3.0 L Ur Specific [place] Coronavirus (PCR) 11/23/20 11/23/20 11/23/20 12:14 13:58 16:29 WBC RBC Hgb Hct MCV MCH RDW Plt Count Lymph % (Auto) Mclean % (Auto) Lymph # (Auto) Mclean # (Auto) Seg Neutrophils % Seg Neutrophils # PT INR D-Dimer VBG pH Sodium Potassium 3.2 L Chloride Carbon Dioxide BUN Creatinine Glucose POC Glucose 282 H 325 H Calcium Magnesium Ferritin ALT Alkaline Phosphatase Lactate Dehydrogenase C-Reactive Protein Total Protein Albumin Ur Specific [place] Coronavirus (PCR) 11/23/20 11/24/20 11/24/20 22:30 04:59 08:06 WBC RBC Hgb Hct MCV MCH RDW Plt Count Lymph % (Auto) Mclean % (Auto) Lymph # (Auto) Mclean # (Auto) Seg Neutrophils % Seg Neutrophils # PT INR D-Dimer VBG pH Sodium Potassium 3.0 L Chloride 97.1 L Carbon Dioxide 36 H BUN Creatinine 0.4 L Glucose 120 H POC Glucose 370 H 107 H Calcium Magnesium Ferritin ALT Alkaline Phosphatase Lactate Dehydrogenase C-Reactive Protein Total Protein 4.9 L Albumin 2.8 L Ur Specific [place] Coronavirus (PCR) 11/24/20 11/24/20 11/24/20 13:02 16:29 21:40 WBC RBC Hgb Hct MCV MCH RDW Plt Count Lymph % (Auto) Mclean % (Auto) Lymph # (Auto) Mclean # (Auto) Seg Neutrophils % Seg Neutrophils # PT INR D-Dimer VBG pH Sodium Potassium Chloride Carbon Dioxide BUN Creatinine Glucose POC Glucose 118 H 229 H 152 H Calcium Magnesium Ferritin ALT Alkaline Phosphatase Lactate Dehydrogenase C-Reactive Protein Total Protein Albumin Ur Specific [place] Coronavirus (PCR) 11/25/20 11/25/20 11/25/20 01:35 05:52 08:04 WBC RBC Hgb Hct MCV MCH RDW Plt Count Lymph % (Auto) Mclean % (Auto) Lymph # (Auto) Mclean # (Auto) Seg Neutrophils % Seg Neutrophils # PT INR D-Dimer VBG pH Sodium Potassium 3.3 L 3.0 L Chloride Carbon Dioxide 33 H BUN Creatinine 0.4 L Glucose 176 H POC Glucose 114 H Calcium 8.3 L Magnesium Ferritin ALT Alkaline Phosphatase Lactate Dehydrogenase C-Reactive Protein Total Protein 5.0 L Albumin 2.5 L Ur Specific [place] Coronavirus (PCR) 11/25/20 11/25/20 11/25/20 12:04 16:39 22:15 WBC RBC Hgb Hct MCV MCH RDW Plt Count Lymph % (Auto) Mclean % (Auto) Lymph # (Auto) Mclean # (Auto) Seg Neutrophils % Seg Neutrophils # PT INR D-Dimer VBG pH Sodium Potassium Chloride Carbon Dioxide BUN Creatinine Glucose POC Glucose 132 H 310 H 251 H Calcium Magnesium Ferritin ALT Alkaline Phosphatase Lactate Dehydrogenase C-Reactive Protein Total Protein Albumin Ur Specific [place] Coronavirus (PCR) 11/26/20 11/26/20 11/26/20 04:42 07:53 12:27 WBC RBC Hgb Hct MCV MCH RDW Plt Count Lymph % (Auto) Mclean % (Auto) Lymph # (Auto) Mclean # (Auto) Seg Neutrophils % Seg Neutrophils # PT INR D-Dimer VBG pH Sodium Potassium Chloride Carbon Dioxide BUN Creatinine 0.5 L Glucose 173 H POC Glucose 132 H 109 H Calcium Magnesium Ferritin ALT Alkaline Phosphatase Lactate Dehydrogenase C-Reactive Protein Total Protein 5.6 L Albumin 2.8 L Ur Specific [place] Coronavirus (PCR) 11/26/20 11/26/20 11/27/20 18:14 21:09 07:32 WBC RBC Hgb Hct MCV MCH RDW Plt Count Lymph % (Auto) Mclean % (Auto) Lymph # (Auto) Mclean # (Auto) Seg Neutrophils % Seg Neutrophils # PT INR D-Dimer VBG pH Sodium Potassium Chloride Carbon Dioxide BUN Creatinine Glucose POC Glucose 404 H 373 H 179 H Calcium Magnesium Ferritin ALT Alkaline Phosphatase Lactate Dehydrogenase C-Reactive Protein Total Protein Albumin Ur Specific [place] Coronavirus (PCR) 11/27/20 11/27/20 11/27/20 11:36 17:03 21:46 WBC RBC Hgb Hct MCV MCH RDW Plt Count Lymph % (Auto) Mclean % (Auto) Lymph # (Auto) Mclean # (Auto) Seg Neutrophils % Seg Neutrophils # PT INR D-Dimer VBG pH Sodium Potassium Chloride Carbon Dioxide BUN Creatinine Glucose POC Glucose 212 H 278 H 287 H Calcium Magnesium Ferritin ALT Alkaline Phosphatase Lactate Dehydrogenase C-Reactive Protein Total Protein Albumin Ur Specific [place] Coronavirus (PCR) 11/28/20 11/28/20 11/28/20 07:43 11:27 16:55 WBC RBC Hgb Hct MCV MCH RDW Plt Count Lymph % (Auto) Mclean % (Auto) Lymph # (Auto) Mclean # (Auto) Seg Neutrophils % Seg Neutrophils # PT INR D-Dimer VBG pH Sodium Potassium Chloride Carbon Dioxide BUN Creatinine Glucose POC Glucose 363 H 115 H 308 H Calcium Magnesium Ferritin ALT Alkaline Phosphatase Lactate Dehydrogenase C-Reactive Protein Total Protein Albumin Ur Specific [place] Coronavirus (PCR) Allied health notes reviewed: RT
[2020-11-28 17:40] VITALS: BP 115/68
[2020-11-28] MEDS: INSULIN GLARGINE 100 UNITS/ML SUB-Q SCH (17:49)
== END 2020-11-28 19:40 | disposition home health service (06) | DRG 871 ==
LOC: EDBD → MERGE 03:07 → ED 03:07 → UNMERGE 03:07 → CC1 15:45 → 4A 11-19 17:31 → 3A 11-20
PROVIDERS: ADMIT Internal Medicine; ATTEND Internal Medicine
PROC: XW033E5 Introduction of Remdesivir Anti-infective into Peripheral Vein, Percutaneous Approach, New Technology Group 5 (ICD-10-PCS; principal; 2020-11-22)
DX: A41.9 Sepsis, unspecified organism (principal); J96.21 Acute and chronic respiratory failure with hypoxia; U07.1 COVID-19; E11.10 Type 2 diabetes mellitus with ketoacidosis without coma; G93.41 Metabolic encephalopathy; J12.82 Pneumonia due to coronavirus disease 2019; I26.99 Other pulmonary embolism without acute cor pulmonale; E86.9 Volume depletion, unspecified; R55 Syncope and collapse; E86.0 Dehydration; Z82.49 Family history of ischemic heart disease and other diseases of the circulatory system; Z83.3 Family history of diabetes mellitus; J98.2 Interstitial emphysema; E87.5 Hyperkalemia; E87.6 Hypokalemia; E66.9 Obesity, unspecified; Z79.899 Other long term (current) drug therapy; Z79.891 Long term (current) use of opiate analgesic; Z79.4 Long term (current) use of insulin; Z68.29 Body mass index [BMI] 29.0-29.9, adult
CPT/HCPCS: 36415; 70450; 70551; 71275; 72125; 80048; 80053; 81001; 82728; 82805; 82947; 82962; 83615; 83735; 84100; 84132; 84145; 84439; 84443; 84484; 84703; 85025; 85027; 85379; 85610; 86140; 94760; 96374; G0378; J1170; J1650; J1815; J1940; J2405; J7030; J7050; J8540; Q9967; U0003